=== PATIENT | female | born 1985 | race Caucasian/White ===

== ENCOUNTER 2023-01-24 06:11 | Outpatient (OUT) | payer OTHER, SELFPAY ==
[2023-01-24 06:30] LABS: Basophils Percent Auto 0.7 % (0.2-2.0); Eosinophils Absolute Auto 0.5 10^3/uL (0.0-0.7); Eosinophils Percent Auto 9.2 % (0.9-7.0); Hematocrit 35.8 % (36.0-48.0); Hemoglobin 12.1 g/dL (12.0-16.0); Immature Granulocytes Abs Auto 0.01 10^3/uL (0.00-0.03); Immature Granulocytes Pct Auto 0.2 % (0.0-0.5); Lymphocytes Absolute Auto 1.6 10^3/uL (1.2-3.8); Lymphocytes Percent Auto 29.7 % (20.5-60.0); Mean Corpuscular HGB Conc 33.8 g/dL (29.9-35.2); Mean Corpuscular Hemoglobin 28.1 pg (26.7-34.0); Mean Corpuscular Volume 83.3 fL (81.0-99.0); Mean Platelet Volume 10.2 fL (9.5-13.5); Monocytes Absolute Auto 0.6 10^3/uL (0.3-0.8); Monocytes Percent Auto 10.3 % (1.7-12.0); Neutrophils Absolute Auto 2.7 10^3/uL (1.4-6.5); Neutrophils Percent Auto 49.9 % (43.0-75.0); Platelet Count 285 10^3/uL (150-450); White Blood Count 5.5 10^3/uL (4.0-11.0)
[2023-01-24 08:16] LABS: Estimated Average Glucose 103 mg/dL; Glycohemoglobin A1C 5.2 % (4.5-6.2)
[2023-01-24 09:00] LABS: Alanine Aminotransferase 28 U/L (14-59); Albumin Level 3.6 g/dL (3.4-5.0); Alkaline Phosphatase 59 U/L (46-116); Anion Gap 11.2; Aspartate Amino Transferase 18 U/L (15-37); BUN Creatinine Ratio 13.8; Bilirubin Total 0.1 mg/dL (0.2-1.0); Calcium 8.9 mg/dL (8.5-10.1); Carbon Dioxide 29.3 mmol/L (21.0-32.0); Chloride 103 mmol/L (98-107); Chol HDL Ratio 2.7; Cholesterol 196 mg/dL (<=200); Estimated GFR (African America >60 (>=60); Estimated GFR (Non-African Ame >60 (>=60); Globulin 3.6 g/dL; Glucose 106 mg/dL (74-106); HDL Cholesterol 72 mg/dL (40-60); Potassium 3.5 mmol/L (3.5-5.1); Sodium 140 mmol/L (136-145); Thyroid Stimulating Hormone 2.783 uIU/mL (0.358-3.740); Total Protein 7.2 g/dL (6.4-8.2); Triglycerides 69 mg/dL (<=150); VLDL CHOLESTEROL 13.8 mg/dL
== END 2023-01-24 06:12 | disposition home or self-care (01) ==
LOC: LAB 06:11
PROVIDERS: PCP Internal Medicine; Visit Provider Internal Medicine
DX: Z00.00 Encounter for general adult medical examination without abnormal findings (principal)
CPT/HCPCS: 36415; 80053; 80061; 83036; 84443; 85025

== ENCOUNTER 2023-02-18 09:54 | Outpatient (REF) | payer OTHER, SELFPAY | END 2023-02-18 09:55 | disposition home or self-care (01) | LOC: LAB 09:54 | PROVIDERS: PCP Internal Medicine; Visit Provider Internal Medicine | DX: S01.00XA Unspecified open wound of scalp, initial encounter (principal) | CPT/HCPCS: 87070; 87150; 87186 ==

== ENCOUNTER 2023-03-07 14:06 | Outpatient (OUT) | payer OTHER, SELFPAY ==
--- NOTE | 2023-03-07 14:08 | ECG_ITS ---
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
[2023-03-07 15:30] LABS: Basophils Absolute Auto 0.1 10^3/uL (0.0-0.1); Eosinophils Absolute Auto 0.3 10^3/uL (0.0-0.7); Eosinophils Percent Auto 5.9 % (0.9-7.0); Hematocrit 33.2 % (36.0-48.0); Hemoglobin 11.4 g/dL (12.0-16.0); Immature Granulocytes Abs Auto 0.01 10^3/uL (0.00-0.03); Immature Granulocytes Pct Auto 0.2 % (0.0-0.5); Lymphocytes Absolute Auto 1.3 10^3/uL (1.2-3.8); Lymphocytes Percent Auto 22.8 % (20.5-60.0); Mean Corpuscular HGB Conc 34.3 g/dL (29.9-35.2); Mean Corpuscular Hemoglobin 28.8 pg (26.7-34.0); Mean Corpuscular Volume 83.8 fL (81.0-99.0); Mean Platelet Volume 11.2 fL (9.5-13.5); Monocytes Absolute Auto 0.4 10^3/uL (0.3-0.8); Monocytes Percent Auto 7.5 % (1.7-12.0); Neutrophils Absolute Auto 3.6 10^3/uL (1.4-6.5); Neutrophils Percent Auto 62.6 % (43.0-75.0); Platelet Count 278 10^3/uL (150-450); Red Blood Count 3.96 10^6/uL (4.20-5.40); White Blood Count 5.7 10^3/uL (4.0-11.0)
[2023-03-07 15:43] LABS: Partial Thromboplastin Time 25.1 sec (22.3-36.2); Prothrombin Time 9.3 sec (9.0-11.6)
[2023-03-07 15:45] LABS: INR <0.93
== END 2023-03-07 14:07 | disposition home or self-care (01) ==
LOC: PST 14:07
PROVIDERS: PCP Internal Medicine; Visit Provider Otolaryngology
DX: Z01.810 Encounter for preprocedural cardiovascular examination (principal); Z01.812 Encounter for preprocedural laboratory examination; J34.3 Hypertrophy of nasal turbinates
CPT/HCPCS: 85025; 85610; 85730; 93005

== ENCOUNTER 2023-03-18 06:40 | Day surgery (SDC) | payer OTHER, SELFPAY ==
[2023-03-07 14:29] VITALS: BP 143/88; PULSE 97; RESP 18; TEMP 36.6; O2SAT 96; BMI 28.0
[2023-03-18] VITALS (8 sets, daily range): BP systolic 123–156; BP diastolic 79–106; PULSE 85–108; RESP 12–20; TEMP 36.6; O2SAT 93–98; BMI 27.0
--- NOTE | 2023-03-18 | OP_ITS ---
OPERATION DATE: ??03/18/2023 PRIMARY CARE PHYSICIAN:? Dr. Talbert SURGEON:? Ioana Medina M.D. PREOPERATIVE DIAGNOSIS:? Right inferior turbinate hypertrophy. POSTOPERATIVE DIAGNOSIS:? Right inferior turbinate hypertrophy. PROCEDURE:? Right inferior turbinate submucosal resection. ANESTHESIA:? General endotracheal. COMPLICATIONS:? None. FINDINGS:? Right inferior turbinate hypertrophy with tissue in the anterior most portion of the right inferior turbinate consistent with granulation tissue or a possible papilloma. INDICATION:? This 37-year-old woman presented with right sided nasal obstruction and marked hypertrophy of the right inferior turbinate with abnormal appearing tissue of the anterior most portion of the inferior turbinate.? Patient had a history of rhinoplasty at another institution after a nasal fracture.? This occurred 23 years ago. PROCEDURE:? Patient identified in the holding area and taken back to the OR where she was placed in the supine position.? The table was turned, the head elevated 20 degrees, and the face was draped in a sterile fashion.? Afrin soaked pledgets were placed in the right side of the nose, and after waiting adequate time for decongestion, the nose was copiously irrigated.? Then, the nose was injected with lidocaine 1% with 1:100,000 epinephrine.? After waiting adequate time for hemostasis, a straight cutting ethmoid forcep was used to remove some of the anterior most inferior turbinate to send for separate core pathologic examination.? Then, a caudal elevator was used to create a tunnel along the medial surface of the turbinate bone, and a 2.0 mm microdebrider was used to exenterate the submucosal tissues of the turbinate.? The turbinate was outfractured with a long nasal speculum.? Antibiotic ointment was placed over the anterior most portion of the turbinate and four cottonoids were placed in the right nose to help with hemostasis.? These cottonoids were removed in the recovery room.? The patient was awakened and taken to the recovery room in good condition. HIWOT
[2023-03-18] MEDS: LACTATED RINGER'S SOLUTION 1,000 ML 50 ML IV (07:05)
[2023-03-18] MEDS: LIDOCAINE HCL 1%-EPINEPHRINE 1:100,000 20 ML MDV 10 ML INJ (08:35)
[2023-03-18] MEDS: BACITRACIN OINTMENT 28.4 GM TUBE 1 APPLIC TOPICAL (08:55)
--- NOTE | 2023-03-18 09:26 | PC.NURSE ---
NASAL PACKING IN PLACE; NO DRAINAGE NOTED; ICE PACK TO NOSE
--- NOTE | 2023-03-18 09:36 | PC.NURSE ---
MEDICATED FOR PAIN WITH ORAL MEDICATION ORDERED; MINIMAL RIGHT NASAL BLOODY DRAINAGE NOTED AFTER PACKING REMOVED BY DR. FRAIRE
--- NOTE | 2023-03-18 09:58 | PC.NURSE ---
No active nasal drainage noted
[2023-03-18] MEDS: HYDROMORPHONE HCL 0.5 MG/0.5 ML SYRINGE 0.4 MG IV (10:09)
--- NOTE | 2023-03-18 10:17 | PC.NURSE ---
c/o upper mouth pressure; medicated with IV Dilaudid aas ordered; continuous pulse ox on; no active nasal drainage noted
== END 2023-03-18 10:50 | disposition home or self-care (01) ==
PROVIDERS: PCP Internal Medicine; Visit Provider Otolaryngology
PROC: (CPT 160; principal; 2023-03-18 07:50)
DX: J34.3 Hypertrophy of nasal turbinates (principal); I10 Essential (primary) hypertension; F41.1 Generalized anxiety disorder; Z90.49 Acquired absence of other specified parts of digestive tract; Z90.710 Acquired absence of both cervix and uterus
CPT/HCPCS: 30140; 36415; 88304; 88311; J1170; J2704

== ENCOUNTER 2023-08-22 13:59 | Outpatient (OUT) | payer OTHER, SELFPAY ==
--- NOTE | 2023-08-22 14:01 | FL_ITS ---
The [address] [address] Patient Name: MUNA SAMPSON MRN: [id number] date: 1985 Sex: F Assigned Patient Location: [place] Current Patient Location: [place] Accession/Order Number: [id number] Exam Date: 08/22/2023 14:08 Report Date: 08/22/2023 14:58 At the request of: AMINAH FRAIRE Procedure: FL cineradiography EXAMINATION: FL barium swallow, FL cineradiography HISTORY: Pharyngoesophageal Dysphagia R13.14 COMPARISON: No relevant comparison available. TECHNIQUE: A swallowing evaluation was performed with fluoroscopy in the usual manner. Standard level fluoroscopic mode of operation utilized. The procedure was recorded. The patient was given liquid barium in addition to a barium tablet FINDINGS: ORAL PHASE: Normal deglutition. PHARYNGEAL PHASE: Normal swallowing. ASPIRATION: None. STRUCTURE: Normal. No visible obstruction, stricture, or dilatation. OTHER: Negative. [place] cineradiography IMPRESSION: Normal exam. Electronically authenticated by: BYRON RAY Date: 08/22/2023 14:58
--- NOTE | 2023-08-22 14:01 | FL_ITS ---
The [address] [address] Patient Name: MUNA SAMPSON MRN: [id number] date: 1985 Sex: F Assigned Patient Location: [place] Current Patient Location: [place] Accession/Order Number: [id number] Exam Date: 08/22/2023 14:08 Report Date: 08/22/2023 14:58 At the request of: AMINAH FRAIRE Procedure: FL barium swallow EXAMINATION: FL barium swallow, FL cineradiography HISTORY: Pharyngoesophageal Dysphagia R13.14 COMPARISON: No relevant comparison available. TECHNIQUE: A swallowing evaluation was performed with fluoroscopy in the usual manner. Standard level fluoroscopic mode of operation utilized. The procedure was recorded. The patient was given liquid barium in addition to a barium tablet FINDINGS: ORAL PHASE: Normal deglutition. PHARYNGEAL PHASE: Normal swallowing. ASPIRATION: None. STRUCTURE: Normal. No visible obstruction, stricture, or dilatation. OTHER: Negative. FL/FL barium swallow IMPRESSION: Normal exam. Electronically authenticated by: BYRON RAY Date: 08/22/2023 14:58
== END 2023-08-22 14:00 | disposition home or self-care (01) ==
LOC: FL 13:59
PROVIDERS: PCP Internal Medicine; Visit Provider Otolaryngology
DX: R13.14 Dysphagia, pharyngoesophageal phase (principal)
CPT/HCPCS: 74220; 76120

== ENCOUNTER 2024-03-12 06:38 | Outpatient (OUT) | payer BC, SELFPAY ==
--- OUTSIDE RECORDS SUMMARY | 2024-03-12 06:40 | XMS_ITS | CCD ---
Author Organization [facility] CliniSyct Care Team Providers Care Website Developer Name Role Phone NITISH, DR POSADAS Primary Care Unavailable BALL, DR POSADAS Admitting Unavailable BALL, DR POSADAS Attending Unavailable BALL, DR POSADAS Consulting Unavailable BALL, DR POSADAS Primary Care Unavailable NICOLA, JUAN Attending Unavailable NICOLA, JUAN Consulting Unavailable NICOLA, JUAN Admitting Unavailable BALL, DR POSADAS Consulting Unavailable BALL, DR POSADAS Primary Care Unavailable BALL, DR POSADAS Admitting Unavailable BALL, DR POSADAS Attending Unavailable AMARJIT, DR SHUKLA Attending Unavailable AMARJIT, DR SHUKLA Consulting Unavailable AMARJIT, DR SHUKLA Admitting Unavailable BALL, DR POSADAS Primary Care Unavailable BALL, DR POSADAS Primary Care Unavailable AMARJIT, DR SHUKLA Attending Unavailable AMARJIT, DR SHUKLA Consulting Unavailable AMARJIT, DR SHUKLA Admitting Unavailable Nitish, Merrill Unavailable Joceline Henry Unavailable Nitish MERINO, Merrill Jay Primary Care Provider IOANA FRAIRE Attending Unavailable IOANA FRAIRE Attending Unavailable IOANA FRAIRE Attending Unavailable ABDI MEDRANO Attending Unavailable FREDI NGUYEN Primary Care Unavailable Allergies Allergy Classification Reported Allergen(s) Allergy Type Date of Onset Reaction(s) Facility (1 source) Cephalexin Drug Allergy 12-28-19 16 [facility] Repository (1 source) Morphine Drug Allergy 05-24-20 16 [facility] (13 sources) Cephalexin Drug Allergy 02-14-20 23 GI bleeding [facility] Work Phone: (15 sources) Morphine Drug Allergy 12-09-19 20 GI intolerance [facility] Other (7 sources) Morphine Sulfate (Concentrate) *ANALGESICS - OPIOI Propensity to adverse reactions Unknown [facility] Other (2 sources) Allergies Reconciled Propensity to adverse reactions Unknown [facility] Other (7 sources) Medicinal cephalosporin and acting as antibacterial agent (FN) Drug allergy 06-23-20 Unknown [facility] Other (2 sources) patient allergy list reviewed by nurse or physicia Propensity to adverse reactions 06-24-20 Comment:Done [facility] Other (2 sources) Cephalexin; Translations: [Keflex] Drug Allergy gum swelling Jimenez [facility] Repository (1 source) seasonal/environm ental allergies Propensity to adverse reactions Unknown [facility] Other Medications Current Medications Medication Drug Class(es) Dates Sig (Normalized) Sig (Original) amLODIPine 5 mg oral tablet (13 sources) Dihydropyridine Calcium Channel Geoffrey take 1 tablet by mouth in the morning amLODIPine (Norvasc) 5 MG tablet Take 5 mg by mouth in the morning. 0 Active take 1 tablet by mouth once kat y amLODIPine Besylate 10 MG TAKE 1 TABLET BY MOUTH EVERY DAY for 90 days Active citalopram 40 mg oral tablet (11 sources) Serotonin Reuptake Inhibitor take 1 tablet by mouth in the morning citalopram (CeleXA) 40 MG tablet Take 40 mg by mouth in the morning. 0 Active Claritin-D 24 Hour 10-240 MG (8 sources) Start: 08-02-2022 take 10-240 mg by mouth once daily as needed Claritin-D 24 Hour 10-240 MG 1 tablet as needed Orally Once a day for 30 day(s) Jul, Active estrogens, conjugated (skilled nursing) 1.25 mg oral tablet (13 sources) Estrogen Start: 05-05-2023 take 1 tablet by mouth once daily Premarin 1.25 MG tablet Indications: Acquired absence of both cervix and uterus TAKE 1 TABLET BY MOUTH EVERY DAY FOR 30 DAYS 30 tablet 6 05/05/2023 Active End: 08-20-2023 take 1 tablet by mouth once daily in the morning estrogens, conjugated, (Premarin) 0.625 MG tablet Take 0.625 mg by mouth in the morning. Take daily for 21 days then do not take for 7 days.. 0 08/20/2023 Discontinued (Therapy completed) Premarin 0.625 M G/GM as directed Vaginal Active fluticasone propionate 0.05 mg/actuat metered dose nasal spray (2 sources) Corticosteroid take 2 spray(s) nasal route in the morning fluticasone (Flonase) 50 MCG/ACT nasal spray Administer 2 sprays into each nostril in the morning and 2 sprays before bedtime. Shake gently. Before first use, prime pump. After use, clean tip and replace cap.. 0 Active ketoconazole 20 mg/ml medicated shampoo (5 sources) Azole Antifungal Start: Ketoconazole 2 % Use during shower Externally Twice weekly, for 8 weeks then as needed for 28 days Feb, Active levoFLOXacin 500 mg oral tablet (4 sources) Quinolone Antimicrobial Start: take 1 tablet by mouth every twenty-four hours levoFLOXacin 500 MG 1 tablet Orally Once a day for 7 days Feb, Active 24 hr loratadine 10 mg / pseudoephedrine sulfate 240 mg extended release oral tablet (7 sources) alpha-Adrenergic Agonist Start: take 1 tablet by mouth every twenty-four hours Claritin-D 24 Hour 10-240 MG 1 tablet as needed Orally Once a day for 30 day(s) Jul, Active take 10-240 mg by [facility] every twenty-four hours in the morning loratadine-pseudoephedrine ER (Claritin- D 24 Hour) 10-240 MG 24 hr tablet Take 1 tablet by mouth in the morning. Do not crush, chew, or split. . 0 Active methylPREDNISolone 4 mg oral tablet (2 sources) Corticosteroid Start: 04-15-2023 methylPREDNISo lone 4 MG as directed Orally daily for 6 days Apr, Active triamcinolone acetonide 5 mg/ml topical cream (6 sources) Corticosteroid Start: 04-09-2023 Triamcinolone Acetonide 0.5 % 1 application Externally twice daily for 30 days Mar, Active Triamcinolone Ac etonide 0.5 % 1 application Externally q HS as needed to neck area for 30 days Active Completed/Discontinued Medications Medication Drug Class(es) Dates Sig (Normalized) Sig (Original) azithromycin 250 mg oral tablet (9 sources) Macrolide Antimicrobial Start: 07-17-2022 Azithromycin 250 MG as directed Orally daily for 5 days Jul, Not-Taking [facility] All[facility] Relief-D 10-240 MG (7 sources) take 10-240 mg by mouth once daily [facility] All[facility] Relief-D 10-240 MG TAKE 1 TABLET BY MOUTH EVERY DAY for 30 Not-Taking take 10-240 mg by mouth once susanna ly [facility] All[facility] Relief-D 10-240 MG TAKE 1 TABLET BY MOUTH EVERY DAY for 30 Active hydrocortisone 10 mg/ml / neomycin 3.5 mg/ml / polymyxin b [id number] unt/ml otic suspension (9 sources) Aminoglycoside Antibacterial, Polymyxin-class Antibacterial, Corticosteroid Phmpzodu-Ucgiasbju-Z C 3.5-62840-9 4 drops into affected ear Otic four times daily for 7 days Not-Taking Problems Active Problems Problem Classification Problem Date Documented Date Episodic/Chronic Acute and chronic tonsillitis (7 sources) Acute tonsillitis; Translations: [Acute tonsillitis, unspecified] Episodic Allergic reactions (7 sources) Contact dermatitis due to cosmetics; Translations: [Allergic contact dermatitis due to cosmetics] Episodic Anxiety disorders (20 sources) Generalized anxiety disorder; Translations: [Generalized anxiety disorder] Onset: 3 Resolved: 0 Chronic Esophageal disorders (20 sources) Stricture of esophagus; Translations: [Esophageal obstruction] Onset: 8 Chronic Essential hypertension (20 sources) Essential hypertension; Translations: [Essential (primary) hypertension] Onset: 3 Chronic Immunizations and screening for infectious disease (20 sources) Encounter for screening for human papillomavirus (HPV); Translations: [Encounter for screening for infections with a predominantly sexual mode of transmission] Onset: 9 Episodic Malaise and fatigue (7 sources) Fatigue; Translations: [Other fatigue] Episodic Menstrual disorders (14 sources) Excessive and frequent menstruation; Translations: [Excessive and frequent menstruation with regular cycle] Onset: 8 Chronic Mood disorders (16 sources) Depression; 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] Onset: 8 02-13-2023 Chronic Mycoses (8 sources) Candidiasis; Translations: [Candidiasis, unspecified] Episodic Open wounds of head; neck; and trunk (1 source) Unspecified open wound of scalp, initial encounter Episodic Other ear and sense organ disorders (1 source) Acute actinic otitis externa, right ear Episodic Other endocrine disorders (7 sources) Disorder of endocrine system; Translations: [Endocrine disorder, unspecified] Episodic Other female genital disorders (7 sources) Disorder of female genital system; Translations: [Personal history of other diseases of the female genital tract] Episodic Other female genital disorders (7 sources) Noninflammatory disorder of the vagina; Translations: [Other specified noninflammatory disorders of vagina] Episodic Other gastrointestinal disorders (9 sources) Esophageal dysphagia; Translations: [Other dysphagia] Episodic Other gastrointestinal disorders (1 source) Other dysphagia Episodic Other gastrointestinal disorders (7 sources) Pharyngeal dysphagia; Translations: [Dysphagia, pharyngoesophageal phase] Episodic Other gastrointestinal disorders (3 sources) Dysphagia; Translations: [Dysphagia, unspecified] Onset: 3 02-13-2023 Episodic Other inflammatory condition of skin (3 sources) Seborrheic dermatitis, unspecified Episodic Other nutritional; endocrine; and metabolic disorders (1 source) Overweight Episodic Other upper respiratory disease (11 sources) Allergic rhinitis due to pollen; Translations: [Allergic rhinitis due to pollen] Chronic Other upper respiratory disease (1 source) Allergic rhinitis due to pollen Chronic Other upper respiratory disease (7 sources) Chronic rhinitis; Translations: [Chronic rhinitis] Onset: 9 Chronic Other upper respiratory disease (7 sources) Seasonal allergic rhinitis; Translations: [Other seasonal allergic rhinitis] Onset: 9 Chronic Other upper respiratory disease (14 sources) Allergic rhinitis; Translations: [Other allergic rhinitis] Resolved: 0 Chronic Other upper respiratory disease (9 sources) Nasal obstruction; Translations: [Other specified disorders of nose and nasal sinuses] Episodic Other upper respiratory disease (1 source) Other specified disorders of nose and nasal sinuses Episodic Other upper respiratory disease (7 sources) Hypertrophy of nasal turbinates; Translations: [Hypertrophy of nasal turbinates] Episodic Other upper respiratory infections (7 sources) Chronic sinusitis; Translations: [Chronic sinusitis, unspecified] Chronic Other upper respiratory infections (20 sources) Acute upper respiratory infection, unspecified; Translations: [Acute maxillary sinusitis] Onset: 2 Episodic Otitis media and related conditions (14 sources) Otitis media; Translations: [Otitis media, unspecified, right ear] Episodic Ovarian cyst (7 sources) Cyst of left ovary; Translations: [Unspecified ovarian cyst, left side] Episodic Residual codes; unclassified (7 sources) Obstructive sleep apnea syndrome; Translations: [Obstructive sleep apnea] Onset: 9 Chronic Residual codes; unclassified (14 sources) Tobacco user; Translations: [Tobacco use] Onset: 9 Episodic Residual codes; unclassified (7 sources) Postprocedural state finding; Translations: [Other specified postprocedural states] Episodic Skin and subcutaneous tissue infections (8 sources) Cellulitis of left axilla; Translations: [Cellulitis of left axilla] Episodic Substance-related disorders (20 sources) Tobacco dependence in remission; Translations: [Nicotine dependence, cigarettes, in remission] Onset: 8 Chronic Unclassified (3 sources) CONTACT W/AND (SUSP) EXPOS COVID-19; Translations: [CONTACT W/AND (SUSP) EXPOS COVID-19] Onset: 2 Urinary tract infections (1 source) Urinary tract infectious disease; Translations: [UTI (urinary tract infection)] Episodic Viral infection (7 sources) Herpesviral vesicular dermatitis; Translations: [Herpesviral vesicular dermatitis] Episodic Viral infection (1 source) COVID-19; Translations: [COVID-19] Onset: 2 Past or Other Problems Problem Classification Problem Date Documented Date Episodic/Chronic Abdominal pain (7 sources) Pelvic and perineal pain; Translations: [Pelvic and perineal pain] Resolved: 12-20-2020 Episodic Deficiency and other anemia (7 sources) Anemia; Translations: [Anemia, unspecified] Resolved: 02-02-2019 Episodic Esophageal disorders (4 sources) Esophageal disorders; Translations: [Gastro-esophageal reflux disease with esophagitis, without bleeding] Onset: 06-24-2018 Fluid and electrolyte disorders (7 sources) Hypokalemia; Translations: [Hypokalemia] Onset: 06-23-2018 Resolved: 04-06-2020 Episodic Nonmalignant breast conditions (20 sources) Lump in upper outer quadrant of left breast; Translations: [Unspecified lump in the left breast, upper outer quadrant] Onset: 02-13-2023 Resolved: 02-13-2023 02-13-2023 Episodic Other aftercare (7 sources) History and physical examination, follow-up; Translations: [Encounter for follow-up examination after completed treatment for conditions other than malignant neoplasm] Resolved: 04-06-2020 Episodic Other connective tissue disease (7 sources) Pain in left foot; Translations: [Pain in left foot] Resolved: 04-06-2020 Episodic Other endocrine disorders (4 sources) Endocrine disorder, unspecified; Translations: [ENDOCRINE DISORDER UNSPECIFIED] Onset: 01-22-2022 Episodic Other female genital disorders (7 sources) Abnormal uterine bleeding; Translations: [Abnormal uterine and vaginal bleeding, unspecified] Resolved: 02-02-2019 Chronic Other female genital disorders (1 source) Other specified noninflammatory disorders of vagina; Translations: [OTH SPEC NONINFLAMMATORY D/O VAGINA] Onset: 01-24-2022 Episodic Other nutritional; endocrine; and metabolic disorders (7 sources) Overweight; Translations: [Overweight] Onset: 06-24-2018 Episodic Other nutritional; endocrine; and metabolic disorders (7 sources) Body mass index 25-29 - overweight; Translations: [Body mass index 26.0-26.9, adult] Onset: 06-24-2018 Episodic Other screening for suspected conditions (not mental disorders or infectious disease) (5 sources) Encounter for screening for malignant neoplasm of cervix; Translations: [ENC SCREENING MALIG NEOPLASM CERV] Onset: 01-22-2022 Episodic Other skin disorders (7 sources) Disorder of skin and/or subcutaneous tissue; Translations: [Disorder of the skin and subcutaneous tissue, unspecified] Resolved: 04-06-2020 Episodic Other upper respiratory disease (2 sources) Mass of nose; Translations: [Other specified disorders of nose and nasal sinuses] Onset: 02-13-2023 02-21-2023 Episodic Residual codes; unclassified (7 sources) Acquired absence of ovary; Translations: [Acquired absence of ovaries, unilateral] Resolved: 04-06-2020 Episodic Residual codes; unclassified (2 sources) Acquired absence of cervix and uterus; 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] Onset: 02-13-2023 Resolved: 02-13-2023 02-13-2023 Episodic Sexually transmitted infections (not HIV or hepatitis) (7 sources) Granuloma inguinale; Translations: [Granuloma inguinale] Resolved: 02-02-2019 Episodic Spondylosis; intervertebral disc disorders; other back problems (7 sources) Neck pain; Translations: [Cervicalgia] Resolved: 04-06-2020 Episodic Sprains and strains (7 sources) Neck sprain; Translations: [Strain of muscle, fascia and tendon at neck level, initial encounter] Resolved: 08-18-2020 Episodic Unclassified (1 source) CONTACT W/AND (SUSP) EXPOS COVID-19; Translations: [CONTACT W/AND (SUSP) EXPOS COVID-19] Onset: 07-27-2021 Unclassified (7 sources) Acute candidiasis of vulva and vagina; Translations: [Acute candidiasis of vulva and vagina] Resolved: 12-20-2020 Results Test Name Value Interpretation Reference Range Facility Provider Letteron 12-05-2023 Provider Letter December 05, 2023 JOCELINE SAMPSON [address] [place] [id number] : 1985 Dear Joceline , We have been trying to reach you with no success. It is important that you return our call regarding scheduling a consultation appointment at our office per the referral we received from [place] upon receiving this letter. Also, at the time of your call, please provide us with your current information. Thank you for your prompt attention to this matter. Sincerely, [facility] [phone] Normal [facility] Covid-19 PCR (CVDTBH)on 05-15 SARS-CoV-2 (COVID-19) RNA JAMES+probe Ql (Unsp spec) Not detected Normal NOT DETECTED [facility] Comment on above: Result Comment: When diagnostic testing is negative, the possibility of a false negative should be considered in the context of a patient's recent exposures and the presence of clinical signs and symptoms consistent with SARS-CoV-2. This test is not yet approved or cleared by the [place] FDA. When there are no FDA-approved or cleared tests available, and other criteria are met, FDA can make tests available under an emergency access mechanism called an Emergency Use Authorization (EUA). The EUA for this test is supported by the [employer] of Health and Human Service's declaration that circumstances exist to justify the emergency use of in vitro diagnostics for the detection and/or diagnosis of the virus that causes COVID-19. This EUA will remain in effect for the duration of the COVID-19 declaration justifying emergency of IVDs, unless it is terminated or revoked by the FDA (after which the test may no longer be used). Performed By: #### C VDTB #### [facility] [address] [place] [address] Dr. Clover Nagy INFLUENZA A AND B AGon 06-11 [facility] SEE BELOW Normal [facility] Comment on above: Result Comment: Nega tive for Flu A protein angiten. Infection due to Flu A cannot be ruled out. Flu A angiten in the sample may be below the detection limit of the test. Performed By: #### A 1C #### [facility] [address] [place] [address] Dr. Clover Nagy [facility] SEE BELOW Normal [facility] Comment on above: Result Comment: Nega tive for Flu B protein antigen. Infection due to Flu B cannot be ruled out. Flu B antigen in the sample may be below the detection limit of the test. Performed By: #### A 1C #### [facility] [address] [place] [address] Dr. Clover Nagy INFLUENZA A AG Negative Normal NEGATIVE SEE COMMENT [facility] Comment on above: Performed By: #### A 1C #### [facility] [address] [place] [address] Dr. Clover Nagy INFLUENZA B AG Negative Normal NEGATIVE SEE COMMENT [facility] Comment on above: Performed By: #### A 1C #### [facility] [address] [place] [address] Dr. Clover Nagy INTERNAL CONTROLS Within Normal Limits Normal Wi thin Normal Limits [facility] Comment on above: Performed By: #### A 1C #### [facility] [address] [place] [address] Dr. Clover Nagy CHLAMYDIA/GONOCOCCUS JAMES (SW AB/URINE/PAPon 01-24-2022 Chlamydia trachomatis, JAMES Negative Normal Negative [facility] Comment on above: Performed By: #### A 1C #### [facility] [address] [place] [address] Dr. Clover Nagy Neisseria gonorrhoeae, JAMES Negative Normal Negative [facility] Comment on above: Performed By: #### A 1C #### [facility] [address] [place] [address] Dr. Clover Nagy PAP ACOG PANEL 2: 30 to 65on 01-24-2022 . . Normal [facility] Comment on above: Result Comment: Perf ormed at: WB Performed By: #### [id number] #### [facility] [address] [place] [address] Dr. Clover Nagy Age Gdln ACOG Testing 30-65 [facility] Comment on above: Performed By: #### [id number] #### [facility] [address] [place] [address] Dr. Clover Nagy DIAGNOSIS: Comment [facility] Comment on above: Result Comment: NEGA TIVE FOR INTRAEPITHELIAL LESION OR MALIGNANCY. Performed at: WB Performed By: #### [id number] #### [facility] [address] [place] [address] Dr. Clover Nagy HPV Aptima Negative Normal Negative [facility] Comment on above: Result Comment: This nucleic acid amplification test detects fourteen high-risk HPV types (16,18,31,33,35,39,45,51,52,56,58,59,66,68) without differentiation. Performed at: =G Performed By: #### [id number] #### [facility] [address] [place] [address] Dr. Clover Nagy Methodology: Comment [facility] Comment on above: Result Comment: This liquid based ThinPrep(R) pap test was screened with the use of an image guided system. Performed at: WB Performed By: #### [id number] #### [facility] [address] [place] [address] Dr. Clover Nagy Note: Comment Normal [facility] Comment on above: Result Comment: The Pap smear is a screening test designed to aid in the detection of premalignant and malignant conditions of the uterine cervix. It is not a diagnostic procedure and should not be used as the sole means of detecting cervical cancer. Both false-positive and false-negative reports do occur. . Performed at: WB Performed By: #### [id number] #### [facility] [address] [place] [address] Dr. Clover Nagy Performed by: Comment Normal [facility] Comment on above: Result Comment: Kassi Vallejo, Marketing Operations Consultant (ASCP) Performed at: WB Performed By: #### [id number] #### [facility] [address] [address] [address] Clover Nagy Specimen adequacy: Comment Normal [facility] Comment on above: Result Comment: Sati sfactory for evaluation. No endocervical cells are present. This is consistent with a history of hysterectomy. Performed at: WB Performed By: #### [id number] #### [facility] [address] [address] [address] Clover Nagy ESTRADIOLon 01-23-2022 Estradiol 9.2 pg/mL Normal [facility] Comment on above: Result Comment: Adul t Female: Follicular phase 12.5 - 166.0 Ovulation phase 85.8 - 498.0 Luteal phase 43.8 - 211.0 Postmenopausal <6.0 - 54.7 1st trimester 215.0 - >4300.0 Kishan ECLIA methodology Performed By: #### E TRUPTI #### [facility] [address] [place] [address] Dr. Clover Nagy FSHon 01-23-2022 FSH 95.8 mIU/mL Normal [facility] Comment on above: Result Comment: Adul t Female: Follicular phase 3.5 - 12.5 Ovulation phase 4.7 - 21.5 Luteal phase 1.7 - 7.7 Postmenopausal 25.8 - 134.8 Performed By: #### A 1C #### [facility] [address] [place] [address] Dr. Clover Nagy LUTEINIZING HORMONE (LH)on 0 01-23-2022 LH 48.1 mIU/mL Normal [facility] Comment on above: Result Comment: Adul t Female: Follicular phase 2.4 - 12.6 Ovulation phase 14.0 - 95.6 Luteal phase 1.0 - 11.4 Postmenopausal 7.7 - 58.5 Performed By: #### A 1C #### [facility] [address] [place] [address] Dr. Clover Nagy PROGESTERONEon 01-23-2022 Progesterone 0.1 ng/mL Normal [facility] Comment on above: Result Comment: Foll icular phase 0.1 - 0.9 Luteal phase 1.8 - 23.9 Ovulation phase 0.1 - 12.0 First trimester 11.0 - 44.3 Second trimester 25.4 - 83.3 Third trimester 58.7 - 214.0 Postmenopausal 0.0 - 0.1 Performed By: #### A 1C #### [facility] [address] [place] [address] Dr. Clover Nagy VAGINITIS/VAGINOSIS DNA PROB Shaun 01-23-2022 Lucero species Negative Normal Negative [facility] Comment on above: Performed By: #### V AGINT #### [facility] [address] [place] [address] Dr. Clover Nagy Gardnerella vaginalis Negative Normal Negative [facility] Comment on above: Performed By: #### V AGINT #### [facility] [address] [place] [address] Dr. Clover Nagy Trichomonas vaginalis Negative Normal Negative [facility] Comment on above: Performed By: #### V AGINT #### [facility] [address] [place] [address] Dr. Clover Nagy CBC AUTO DIFFon 01-22-2022 BASO # 0.1 103/ul Normal 0.0-0.1 [facility] Comment on above: Performed By: #### C BC #### [facility] [address] [place] [address] Dr. Clover Nagy Basophils/100 WBC (Bld) 0.9 % Normal 0.2-2.0 [facility] Comment on above: Performed By: #### C BC #### [facility] [address] [place] [address] Dr. Clover Nagy EO # 0.7 103/ul Normal 0.0-0.7 [facility] Comment on above: Performed By: #### C BC #### [facility] [address] [place] [address] Dr. Clover Nagy Eosinophils/100 WBC (Bld) 9.5 % Critically high 0.9-7.0 [facility] Comment on above: Performed By: #### C BC #### [facility] [address] [place] [address] Dr. Clover Nagy Erythrocyte distribution width (RBC) [Ratio] 11.8 % Normal 11.0-15.0 [facility] Comment on above: Performed By: #### C BC #### [facility] [address] [place] [address] Dr. Clover Nagy Hematocrit (Bld) [Volume fraction] 37.0 % Normal 36.0-48.0 [facility] Comment on above: Performed By: #### C BC #### [facility] [address] [place] [address] Dr. Clover Nagy Hemoglobin (Bld) [Mass/Vol] 12.3 g/dL Normal 12.0-16.0 [facility] Comment on above: Performed By: #### C BC #### [facility] [address] [place] [address] Dr. Clover Nagy IG # 0.01 10e3/ul Normal 0.00-0.03 [facility] Comment on above: Performed By: #### C BC #### [facility] [address] [place] [address] Dr. Clover Nagy IG % 0.1 % Normal 0.0-0.5 [facility] Comment on above: Performed By: #### C BC #### [facility] [address] [place] [address] Dr. Clover Nagy LYMPH # 1.2 103/ul Normal 1.2-3.8 [facility] Comment on above: Performed By: #### C BC #### [facility] [address] [place] [address] Dr. Clover Nagy Lymphocytes/100 WBC (Bld) 17.5 % Critically low 20.5-60.0 [facility] Comment on above: Performed By: #### C BC #### [facility] [address] [place] [address] Dr. Clover Nagy MANUAL DIFF REQ NO Normal [facility] Comment on above: Performed By: #### C BC #### [facility] [address] [place] [address] Dr. Clover Nagy MCH (RBC) [Entitic mass] 28.3 pg Normal 26.7-34.0 [facility] Comment on above: Performed By: #### C BC #### [facility] [address] [place] [address] Dr. Clover Nagy MCHC (RBC) [Mass/Vol] 33.2 g/dL Normal 29.9-35.2 [facility] Comment on above: Performed By: #### C BC #### [facility] [address] [place] [address] Dr. Clover Nagy MCV (RBC) [Entitic vol] 85.1 fL Normal 81.0-99.0 [facility] Comment on above: Performed By: #### C BC #### [facility] [address] [place] [address] Dr. Clover Nagy MONO # 0.6 103/ul Normal 0.3-0.8 [facility] Comment on above: Performed By: #### C BC #### [facility] [address] [place] [address] Dr. Clover Nagy Monocytes/100 WBC (Bld) 8.8 % Normal 1.7-12.0 [facility] Comment on above: Performed By: #### C BC #### [facility] [address] [place] [address] Dr. Clover Nagy NEUT # 4.3 103/ul Normal 1.4-6.5 [facility] Comment on above: Performed By: #### C BC #### [facility] [address] [place] [address] Dr. Clover Nagy Neutrophils/100 WBC (Bld) 63.2 % Normal 43.0-75.0 [facility] Comment on above: Performed By: #### C BC #### [facility] [address] [place] [address] Dr. Clover Nagy Platelet mean volume (Bld) [Entitic vol] 10.4 fL Normal 9.5-13.5 [facility] Comment on above: Performed By: #### C BC #### [facility] [address] [place] [address] Dr. Clover Nagy PLT 310 103/ul Normal 150-450 [facility] Comment on above: Performed By: #### C BC #### [facility] [address] [place] [address] Dr. Clover Nagy RBC 4.35 106/ul Normal 4.20-5.40 [facility] Comment on above: Performed By: #### C BC #### [facility] [address] [place] [address] Dr. Clover Nagy WBC 6.8 103/ul Normal 4.0-11.0 [facility] Comment on above: Performed By: #### C BC #### [facility] [address] [place] [address] Dr. Clover Nagy FREE T4on 01-22-2022 Free T4 [Mass/Vol] 1.15 ng/dL Normal 0.76-1.46 [facility] Comment on above: Performed By: #### F T4 #### [facility] [address] [place] [address] Dr. Clover Nagy TSHon 01-22-2022 TSH 2.183 uIU/mL Normal 0.358-3.740 [facility] Comment on above: Performed By: #### A 1C #### [facility] [address] [place] [address] Dr. Clover Nagy CBC AUTO DIFFon 10-26-2021 BASO # 0.0 103/ul Normal 0.0-0.1 [facility] Comment on above: Performed By: #### C BC #### [facility] [address] [place] [address] Dr. Clover Nagy Basophils/100 WBC (Bld) 0.3 % Normal 0.2-2.0 [facility] Comment on above: Performed By: #### C BC #### [facility] [address] [place] [address] Dr. Clover Nagy EO # 0.1 103/ul Normal 0.0-0.7 [facility] Comment on above: Performed By: #### C BC #### [facility] [address] [address] [address] Clover Nagy Eosinophils/100 WBC (Bld) 0.6 % Critically low 0.9-7.0 [facility] Comment on above: Performed By: #### C BC #### [facility] [address] [place] [address] Dr. Clover Nagy Erythrocyte distribution width (RBC) [Ratio] 11.6 % Normal 11.0-15.0 [facility] Comment on above: Performed By: #### C BC #### [facility] [address] [place] [address] Dr. Clover Nagy Hematocrit (Bld) [Volume fraction] 38.0 % Normal 36.0-48.0 [facility] Comment on above: Performed By: #### C BC #### [facility] [address] [place] [address] Dr. Clover Nagy Hemoglobin (Bld) [Mass/Vol] 12.7 g/dL Normal 12.0-16.0 [facility] Comment on above: Performed By: #### C BC #### [facility] [address] [place] [address] Dr. Clover Nagy IG # 0.05 10e3/ul Critically high 0.00-0.03 [facility] Comment on above: Performed By: #### C BC #### [facility] [address] [place] [address] Dr. Clover Nagy IG % 0.5 % Normal 0.0-0.5 [facility] Comment on above: Performed By: #### C BC #### [facility] [address] [place] [address] Dr. Clover Nagy LYMPH # 2.0 103/ul Normal 1.2-3.8 [facility] Comment on above: Performed By: #### C BC #### [facility] [address] [place] [address] Dr. Clover Nagy Lymphocytes/100 WBC (Bld) 20.8 % Normal 20.5-60.0 [facility] Comment on above: Performed By: #### C BC #### [facility] [address] [place] [address] Dr. Clover Nagy MANUAL DIFF REQ NO Normal [facility] Comment on above: Performed By: #### C BC #### [facility] [address] [place] [address] Dr. Clover Nagy MCH (RBC) [Entitic mass] 28.7 pg Normal 26.7-34.0 [facility] Comment on above: Performed By: #### C BC #### [facility] [address] [place] [address] Dr. Clover Nagy MCHC (RBC) [Mass/Vol] 33.4 g/dL Normal 29.9-35.2 [facility] Comment on above: Performed By: #### C BC #### [facility] [address] [place] [address] Dr. Clover Nagy MCV (RBC) [Entitic vol] 85.8 fL Normal 81.0-99.0 [facility] Comment on above: Performed By: #### C BC #### [facility] [address] [place] [address] Dr. Clover aNgy MONO # 0.7 103/ul Normal 0.3-0.8 [facility] Comment on above: Performed By: #### C BC #### [facility] [address] [place] [address] Dr. Clover Nagy Monocytes/100 WBC (Bld) 7.0 % Normal 1.7-12.0 [facility] Comment on above: Performed By: #### C BC #### [facility] [address] [place] [address] Dr. Clover Nagy NEUT # 6.7 103/ul Critically high 1.4-6.5 [facility] Comment on above: Performed By: #### C BC #### [facility] [address] [place] [address] Dr. Clover Nagy Neutrophils/100 WBC (Bld) 70.8 % Normal 43.0-75.0 [facility] Comment on above: Performed By: #### C BC #### [facility] [address] [place] [address] Dr. Clover Nagy Platelet mean volume (Bld) [Entitic vol] 10.3 fL Normal 9.5-13.5 [facility] Comment on above: Performed By: #### C BC #### [facility] [address] [place] [address] Dr. Clover Nagy PLT 433 103/ul Normal 150-450 [facility] Comment on above: Performed By: #### C BC #### [facility] [address] [place] [address] Dr. Clover Nagy RBC 4.43 106/ul Normal 4.20-5.40 [facility] Comment on above: Performed By: #### C BC #### [facility] [address] [place] [address] Dr. Clover Nagy WBC 9.5 103/ul Normal 4.0-11.0 [facility] Comment on above: Performed By: #### C BC #### [facility] [address] [place] [address] Dr. Clover Nagy GLYCOHEMOGLOBIN A1Con 2021 ADA RECOMMENDATION ADA THERAPEUTIC TARGET 6.0 - 7.0 ACTION SUGGESTED > 7.0 Normal [facility] Comment on above: Performed By: #### A 1C #### [facility] [address] [place] [address] Dr. Clover Nagy Glucose [Mass/Vol] 103 mg/dL Normal 74-106 [facility] Comment on above: Performed By: #### A 1C #### [facility] [address] [place] [address] Dr. Clover Nagy Performed By: #### L IPID, CMP, TSH #### [facility] [address] [place] [address] Dr. Clover Nagy HbA1c (Bld) [Mass fraction] 5.2 % Normal <=6.0 [facility] Comment on above: Performed By: #### A 1C #### [facility] [address] [place] [address] Dr. Clover Nagy LIPID PROFILEon 10-26-2021 CHOL-HDL RATIO NORM SEE BELOW Normal [facility] Comment on above: Result Comment: 3.3 - 4.4 LOW RISK 4.4 - 7.1 AVERAGE RISK 7.1 - 11.0 MODERATE RISK >11.0 HIGH RISK Performed By: #### A 1C #### [facility] [address] [address] [address] Clover Nagy Cholesterol [Mass/Vol] 214 mg/dL Critically high <=200 [facility] Comment on above: Performed By: #### A 1C #### [facility] [address] [address] [address] Clover Nagy Cholesterol in HDL [Mass/Vol] 64 mg/dL Critically high 40-60 [facility] Comment on above: Performed By: #### A 1C #### [facility] [address] [address] [address] Clover Nagy Cholesterol in LDL [Mass/Vol] 126.6 mg/dL Normal [facility] Comment on above: Performed By: #### A 1C #### [facility] [address] [address] [address] Clover Nagy Cholesterol.total/Ch olesterol in HDL [Mass ratio] 3.3 {ratio} Normal [facility] Comment on above: Performed By: #### A 1C #### [facility] [address] [address] [address] Clover Nagy HDL NORMAL > or = 60 mg/dl - LO W CARDIOVASCULAR RISK <40 mg/dl - HIGH CARDIOVASCULAR RISK Normal [facility] Comment on above: Performed By: #### A 1C #### [facility] [address] [address] [address] Clover Nagy LDL CALC NORMAL SEE BELOW Normal [facility] Comment on above: Result Comment: <100 mg/dl OPTIMAL 100 - 129 mg/dl NEAR OR ABOVE OPTIMAL 130 - 159 mg/dl BORDERLINE HIGH 160 - 189 mg/dl HIGH >190 mg/dl VERY HIGH Performed By: #### A 1C #### [facility] [address] [address] [address] Clover Nagy Triglyceride [Mass/Vol] 117 mg/dL Normal <=150 [facility] Comment on above: Performed By: #### A 1C #### [facility] [address] [place] [address] Dr. Clover Nagy VLDL CALC 23.4 mg/dL Normal [facility] Comment on above: Performed By: #### A 1C #### [facility] [address] [place] [address] Dr. Clover Nagy PROF 14(COMP METB)on 022 Albumin [Mass/Vol] 3.7 g/dL Normal 3.4-5.0 [facility] Comment on above: Performed By: #### L IPID, CMP, TSH #### [facility] [address] [place] [address] Dr. Clover Nagy Albumin/Globulin [Mass ratio] 0.9 {ratio} Normal [facility] Comment on above: Performed By: #### L IPID, CMP, TSH #### [facility] [address] [place] [address] Dr. Clover Nagy ALP [Catalytic activity/Vol] 76 U/L Normal 46-116 [facility] Comment on above: Performed By: #### L IPID, CMP, TSH #### [facility] [address] [place] [address] Dr. Clover Nagy ALT [Catalytic activity/Vol] 28 U/L Normal 14-59 [facility] Comment on above: Performed By: #### L IPID, CMP, TSH #### [facility] [address] [place] [address] Dr. Clover Nagy Anion gap [Moles/Vol] 11.6 mmol/L Normal [facility] Comment on above: Performed By: #### L IPID, CMP, TSH #### [facility] [address] [place] [address] Dr. Clover Nagy AST [Catalytic activity/Vol] 17 U/L Normal 15-37 [facility] Comment on above: Performed By: #### L IPID, CMP, TSH #### [facility] [address] [place] [address] Dr. Clover Nagy Bilirubin [Mass/Vol] 0.2 mg/dL Normal 0.2-1.3 [facility] Comment on above: Performed By: #### L IPID, CMP, TSH #### [facility] [address] [address] [address] Clover Nagy Calcium [Mass/Vol] 9.0 mg/dL Normal 8.5-10.1 [facility] Comment on above: Performed By: #### L IPID, CMP, TSH #### [facility] [address] [address] [address] Clover Nagy Chloride [Moles/Vol] 100 mmol/L Normal 98-107 [facility] Comment on above: Performed By: #### L IPID, CMP, TSH #### [facility] [address] [place] [address] Dr. Clover Nagy CO2 [Moles/Vol] 27.9 mmol/L Normal 22.0-30.0 [facility] Comment on above: Performed By: #### L IPID, CMP, TSH #### [facility] [address] [place] [address] Dr. Clover Nagy Creatinine [Mass/Vol] 0.72 mg/dL Normal 0.52-1.04 [facility] Comment on above: Performed By: #### L IPID, CMP, TSH #### [facility] [address] [place] [address] Dr. Clover Nagy EGFR-AF LUXEMBOURGER >60 Normal >=60 [facility] Comment on above: Performed By: #### L IPID, CMP, TSH #### [facility] [address] [place] [address] Dr. Clover Nagy EGFR-NON AF LUXEMBOURGER >60 Normal >=60 [facility] Comment on above: Performed By: #### L IPID, CMP, TSH #### [facility] [address] [place] [address] Dr. Clover Nagy Globulin (S) [Mass/Vol] 4.0 g/dL Normal [facility] Comment on above: Performed By: #### L IPID, CMP, TSH #### [facility] [address] [place] [address] Dr. Clover Nagy Potassium [Moles/Vol] 3.5 mmol/L Normal 3.4-5.0 [facility] Comment on above: Performed By: #### L IPID, CMP, TSH #### [facility] [address] [place] [address] Dr. Clover Nagy Protein [Mass/Vol] 7.7 g/dL Normal 6.1-8.2 [facility] Comment on above: Performed By: #### L IPID, CMP, TSH #### [facility] [address] [place] [address] Dr. Clover Nagy Sodium [Moles/Vol] 136 mmol/L Critically low 137-145 [facility] Comment on above: Performed By: #### L IPID, CMP, TSH #### [facility] [address] [place] [address] Dr. Clover Nagy Urea nitrogen [Mass/Vol] 12.0 mg/dL Normal 7.0-18.0 [facility] Comment on above: Performed By: #### L IPID, CMP, TSH #### [facility] [address] [place] [address] Dr. Clover Nagy Urea nitrogen/Creatinine [Mass ratio] 16.7 mg/mg Normal [facility] Comment on above: Performed By: #### L IPID, CMP, TSH #### [facility] [address] [place] [address] Dr. Clover Nagy TSHon 10-26-2021 TSH 1.535 uIU/mL Normal 0.470-4.680 [facility] Comment on above: Performed By: #### A 1C #### [facility] [address] [place] [address] Dr. Clover Nagy TSH RANGE SEE BELOW Normal [facility] Comment on above: Result Comment: <0.3 4 UIU/ml HYPERTHYROID 0.34-5.60 UIU/ml EUTHYROID >5.60 UIU/ml HYPOTHYROID Performed By: #### A 1C #### [facility] [address] [place] [address] Dr. Clover Nagy Covid-19 PCR (CVDTB)on 07-14 SARS-CoV-2 (COVID-19) RNA JAMES+probe Ql (Unsp spec) Detected Critically abnormal NOT DETECTED [facility] Comment on above: Result Comment: This test is not yet approved or cleared by the [place] FDA. When there are no FDA-approved or cleared tests available, and other criteria are met, FDA can make tests available under an emergency access mechanism called an Emergency Use Authorization (EUA). The EUA for this test is supported by the [employer] of Health and Human Service's declaration that circumstances exist to justify the emergency use of in vitro diagnostics for the detection and/or diagnosis of the virus that causes COVID-19. This EUA will remain in effect for the duration of the COVID-19 declaration justifying emergency of IVDs, unless it is terminated or revoked by the FDA (after which the test may no longer be used). Performed By: #### C [facility] #### [facility] [address] [address] [address] Clover Nagy Vital Signs Date Time Vital Sign Value Performing Clinician Facility 08-20-2023 14:18-0500 Body height 165.1 cm Ioana Fraire MD Work Phone: [facility] 08-20-2023 14:18-0500 Body mass index (BMI) [Ratio] 27.96 kg/m2 Ioana Fraire MD Work Phone: [facility] 08-20-2023 14:18-0500 Body weight 76.2 kg Ioana Fraire MD Work Phone: [facility] 08-20-2023 14:18-0500 Diastolic blood pressure 85 mm[Hg] Ioana Fraire MD Work Phone: [facility] 08-20-2023 14:18-0500 Systolic blood pressure 131 mm[Hg] Ioana Fraire MD Work Phone: [facility] 04-15-2023 13:30-0400 Body height 165.1 cm Joceline Henry Other [facility] Other 04-15-2023 13:30-0400 Body mass index (BMI) [Ratio] 27.45 kg/m2 Joceline Henry Other [facility] Other 04-15-2023 13:30-0400 Body weight 74.84 kg Joceline Henry Other [facility] Other 04-15-2023 13:30-0400 Diastolic blood pressure 98 mm[Hg] Joceline Henry Other [facility] Other 04-15-2023 13:30-0400 SaO2% (BldA) [Mass fraction] 98 % Joceline Henry Other [facility] Other 04-15-2023 13:30-0400 Systolic blood pressure 148 mm[Hg] Joceline Henry Other [facility] Other 03-12-2023 15:45-0400 Body height 165.1 cm Merrill Ball Other [facility] Other 03-12-2023 15:45-0400 Body mass index (BMI) [Ratio] 27.74 kg/m2 Merrill Ball Other [facility] Other 03-12-2023 15:45-0400 Body weight 75.62 kg Merrill Ball Other [facility] Other 03-12-2023 15:45-0400 Diastolic blood pressure 89 mm[Hg] Merrill Ball Other [facility] Other 03-12-2023 15:45-0400 Respiratory rate 12 /min Merrill Ball Other [facility] Other 03-12-2023 15:45-0400 Systolic blood pressure 130 mm[Hg] Merrill Ball Other [facility] Other 01-23-2023 11:00-0400 Body height 165.1 cm Merrill Ball Other [facility] Other 01-23-2023 11:00-0400 Body mass index (BMI) [Ratio] 27.55 kg/m2 Merrill Ball Other [facility] Other 01-23-2023 11:00-0400 Body weight 75.12 kg Merrill Ball Other [facility] Other 01-23-2023 11:00-0400 Diastolic blood pressure 92 mm[Hg] Merrill Ball Other [facility] Other 01-23-2023 11:00-0400 Respiratory rate 12 /min Merrill Ball Other [facility] Other 01-23-2023 11:00-0400 Systolic blood pressure 133 mm[Hg] Merrill Ball Other [facility] Other 11-06-2022 11:30-0400 Body height 165.1 cm Merrill Ball Other [facility] Other 11-06-2022 11:30-0400 Body mass index (BMI) [Ratio] 27.82 kg/m2 Merrill Ball Other [facility] Other 11-06-2022 11:30-0400 Body weight 75.84 kg Merrill Ball Other [facility] Other 11-06-2022 11:30-0400 Diastolic blood pressure 98 mm[Hg] Merrill Ball Other [facility] Other 11-06-2022 11:30-0400 Respiratory rate 12 /min Merrill Talbert Other [facility] Other 11-06-2022 11:30-0400 Systolic blood pressure 134 mm[Hg] Merrill Talbert Other [facility] Other Encounters Encounter Date Encounter Type Care Provider Facility Start: 12-03-2023 ambulatory [facility]ED[facility] PAVLOCK [facility] Start: 12-03-2023 End: 12-03-2023 ambulatory ABDI MARCELA Not Available Start: 11-26-2023 End: 11-26-2023 ambulatory IOANA H TIMMIS Not Available Start: 09-16-2023 End: 09-16-2023 ambulatory IOANA H TIMMIS Not Available Start: 08-20-2023 End: 08-20-2023 ambulatory IOANA H TIMMIS Not Available Start: 08-20-2023 End: 08-20-2023 Office outpatient visit 15 minutes Ioana Fraire MD Work Phone: [facility] Comment on above: Pharyngoesophageal d ysphagia (Primary Dx) Start: 08-20-2023 Chart abstracting Ioana pool MD Work Phone: [facility] Start: 04-24-2023 End: 04-24-2023 ambulatory Merrill Talbert Other [facility] Other Start: 04-24-2023 Telephone encounter Merrill Talbert [facility] Start: 04-15-2023 End: 04-15-2023 ambulatory Joceline Henry Other [facility] Other Start: 04-15-2023 Office outpatient vi sit 15 minutes Joceline VALENTINO [facility] Start: 04-09-2023 End: 04-09-2023 ambulatory Merrill Talbert Other [facility] Other Start: 04-09-2023 Telephone encounter Merrill Ball [facility] Start: 03-26-2023 End: 03-26-2023 ambulatory Merrill Ball Other [facility] Other Start: 03-26-2023 Telephone encounter Merrill Ball [facility] Start: 03-12-2023 End: 03-12-2023 ambulatory Merrill Ball Other [facility] Other Start: 03-12-2023 Office outpatient vi sit 15 minutes Merrill Ball [facility] Start: 02-19-2023 End: 02-19-2023 ambulatory Merrill Ball Other [facility] Other Start: 02-19-2023 Telephone encounter Merrill Ball [facility] Start: 02-18-2023 End: 02-18-2023 ambulatory Merrill Ball Other [facility] Other Start: 02-18-2023 Telephone encounter Merrill Ball [facility] Start: 01-27-2023 End: 01-27-2023 ambulatory Merrill Ball Other [facility] Other Start: 01-27-2023 Telephone encounter Merrill Ball [facility] Start: 01-23-2023 End: 01-23-2023 ambulatory Merrill Ball Other [facility] Other Start: 01-23-2023 Encounter for genera l adult medical examination without abnormal findings Merrill Ball [facility] Start: 01-23-2023 Periodic preventive med est patient 18-39 yrs Merrill Ball [facility] Start: 01-01-2023 End: 01-01-2023 ambulatory Merrill Ball Other [facility] Other Start: 01-01-2023 Telephone encounter Merrill Ball [facility] Start: 11-06-2022 End: 11-06-2022 ambulatory Merrill Ball Other [facility] Other Start: 11-06-2022 Office outpatient vi sit 15 minutes [facility] Start: 06-27-2022 Gynecological examin ation normal Merrill Talebrt Other [facility] Other Start: 06-11-2022 End: 06-11-[address] MERRILL TALBERT Facility:[facility] Start: 01-22-2022 End: 01-22-[address] VAZQUEZ OCASIO Facility:[facility] Start: 01-22-2022 Adult health examination Yossi perdomo Nitish Other [facility] Other Start: 01-22-2022 End: 01-23-[address] MERRILL TALBERT Facility:[facility] Start: 10-31-2021 Encounter for genera l adult medical examination without abnormal findings DR MERRILL TALBERT [facility] Start: 10-26-2021 End: 10-27-[address] MERRILL TALBERT Facility:[facility] Start: 10-26-2021 End: 10-27-2021 Encounter for general adult medical examination without abnormal findings DR MERRILL TALBERT Facility:[facility] Start: 07-27-2021 End: 07-27-[address] MERRILL TALBERT Facility:[facility] Start: 07-11-2016 Pre-procedure evalua tion check Merrill Talbert Other [facility] Other Procedures Date Procedure Procedure Detail Performing Clinician Diabetes mellitus screening Merrill Talbert Other End: 04-06-2020 Hysterectomy Merrill Talbert Other Plan of Treatment Date Care Activity Detail Author Start: 08-20-2023 End: 08-20-2023 Patient encounter procedure 08/20/2023 2:20 PM EST Office Visit [facility] [address] [facility] [address] [place] [id number] Ioana Fraire MD [address] [facility] [address] [place] [address] [facility] Start: 03-14-2023 Influenza vaccination Influenza Vacc ine (#1) [facility] Start: 2014 Screening for malign ant neoplasm of cervix [facility] Start: 2005 Screening for malign ant neoplasm of cervix Pap Smear [facility] Immunizations Immunization Date Immunization Notes Care Provider Marlon steiner 05-22-2021 Moderna SARS-CoV-2 Vaccination Ioana Fraire MD Work Phone: [facility] 08-16-2020 COVID-19 Vaccine Moderna - Documentation Purposes Only Merrill Talbert Other [facility] Other 08-10-2020 Moderna SARS-CoV-2 Vaccination Ioana Fraire MD Work Phone: [facility] 07-12-2020 Moderna SARS-CoV-2 Vaccination Ioana Fraire MD Work Phone: [facility] 2020 influenza virus vaccine, unspecified formulation Ioana Fraire MD Work Phone: [facility] 09-13-2015 hepatitis A and hepatitis B vaccine Ioana Fraire MD Work Phone: [facility] 03-31-2015 hepatitis B vaccine, pediatric or pediatric/adolescent dosage Ioana Fraire MD Work Phone: [facility] 02-28-2015 hepatitis B vaccine, pediatric or pediatric/adolescent dosage Ioana Fraire MD Work Phone: [facility] Payers Date Payer Category Payer Medicaid [id number] 2019 Medicaid [employer] [place] [id number] 2019-Present [address] [place] [address] [id number] 1984 Unknown [id number] 1984 Unknown [id number] 1984 Unknown [id number] 1984 Unknown [id number] 1984 Unknown [id number] 1984 Unknown [id number] 1984 Unknown [id number] 1984 Unknown [id number] 1984 Unknown [id number] 1959 Unknown [id number] Social History Date Type Detail Facility Start: 03-26-2023 End: 08-20-2023 Sex Assigned At [facility] Start: 02-21-2023 Tobacco smoking stat [facility] Ex-smoker [facility] End: 11-15-2021 History of tobacco use Current smoker [facility] End: 11-15-2021 History of tobacco use Cigarette Smoker [facility] Start: 02-21-2023 End: 03-26-2023 Cigarettes smoked current (pack per day) - Reported 1 [facility] Start: 02-21-2023 Tobacco use and exposure Smoke less tobacco non-user [facility] Start: 08-20-2023 Alcohol intake Current drinke r of alcohol (finding) [facility] Start: 1985 Sex Assigned At Female [facility] Start: 07-10-2023 Gender identity Identifies as female gender (finding) [facility] How often to you hav e a drink containing alcohol? 2-3 time sa week [facility] How many standard dr inks containing alcohol do you have on a typical day? 1 or 2 [facility] How often do you hav e 6 or more drinks on 1 occasion? Never [facility] Clinical Notes 11-06-2022 to 08-20-2023 Ioana Fraire MD - 08/20/2023 2:20 PM EST Note Date & Type Note Facility 08-20-2023 History of Presen t illness Narrative Subjective Patient ID: Francine Sampson is a 38 y.o. female who presents for Dysphagia. Pt reports she has a 2 mo h/o sensation of food stuck in her throat for a couple hours after eating. Does not regurgitate food. No eval or tx yet Review of Systems All other systems reviewed and are negative. 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 Dysphagia 02/13/2023 Depression (CMS/HCC) 02/13/2023 Schatzki's ring 02/13/2023 MICHELE (generalized anxiety disorder) (CMS/[facility]) 02/13/2023 Resolved Ambulatory Problems Diagnosis Date Noted Acquired absence of both cervix and uterus 02/13/2023 Breast pain in female 02/13/2023 Past Medical History: Diagnosis Date Allergic rhinitis Allergies Asthma (CMS/HCC) Ear problems Fracture of nasal bones Headache Migraine headache (CMS/[facility]) TMJ dysfunction Past Surgical History: Procedure Laterality Date SECTION, CLASSIC 2010 CHOLECYSTECTOMY 2007 EGD 10/05/2020 HYSTERECTOMY LASIK 2013 OOPHORECTOMY 12/02/2019 RHINOPLASTY 2000 SINUS SURGERY 03/18/2023 [facility], Dr. Fraire TOTAL ABDOMINAL HYSTERECTOMY W/ BILATERAL SALPINGOOPHORECTOMY Allergies Allergen Reactions Cephalexin GI bleeding Other Reaction(s): Unknown Morphine GI intolerance Current Outpatient Medications on File Prior to Visit Medication Sig Dispense Refill amLODIPine (Norvasc) 5 MG tablet Take 5 mg by mouth in the morning. citalopram (CeleXA) 40 MG tablet Take 40 mg by mouth in the morning. fluticasone (Flonase) 50 MCG/ACT nasal spray Administer 2 sprays into each nostril in the morning and 2 sprays before bedtime. Shake gently. Before first use, prime pump. After use, clean tip and replace cap.. Premarin 1.25 MG tablet TAKE 1 TABLET BY MOUTH EVERY DAY FOR 30 DAYS 30 tablet 6 loratadine-pseudoephedrine ER (Claritin-D 24 Hour) 10-240 MG 24 hr tablet Take 1 tablet by mouth in the morning. Do not crush, chew, or split. . [DISCONTINUED] estrogens, conjugated, (Premarin) 0.625 MG tablet Take 0.625 mg by mouth in the morning. Take daily for 21 days then do not take for 7 days.. No current facility-administered medications on file prior to visit. Objective Last Recorded Vitals Vitals: 08/20/23 1418 BP: 131/85 ENT Physical Exam Constitutional Appearance: patient appears well-developed, well-nourished and well-groomed, Communication/Voice: communication appropriate for developmental age; vocal quality normal; Assessment/Plan Diagnoses and all orders for this visit: Pharyngoesophageal dysphagia Sx very suspicious for a Zenkers. Bariumesophagram and f/u documented in this encounter [facility] 04-15-2023 Evaluation note Encounter Date Diagnosis Assessment Notes Apr, Seborrheic dermatitis of scalp (ICD-10 - L21.9) Discussed further treatment, discussed oral steroid, pt would like to proceed Take medication as prescribed. Complete all doses of medication, even if sx are no longer present. Pt instructed to take medication with food. Informed pt that medication may make pt feel jittery, hungry and give you extra energy. Medication may also increase blood pressure and increase blood sugar. Pt also advised not to take NSAIDs while using steroids. Call if no improvement and will place referral to Dermatology. Apr, Primary hypertension (ICD-10 - I10) Blood pressure elevated, will adjust medication, start to take 2 of the 5mg tablets and continue to monitor blood pressure and call the office with update on numbers. [facility] Other 09-27-2023 Evaluation note* Encounter Date Diagnosis Assessment Notes Treatment Notes Treatment Clinical Notes Mar, Seborrheic dermatitis of scalp (ICD-10 - L21.9) [facility] Other 08-30-2023 Evaluation note* Encounter Date Diagnosis Assessment Notes Treatment Notes Treatment Clinical Notes Feb, Seborrheic dermatitis of scalp (ICD-10 - L21.9) Instructed on use of topical steroids Ketoconazole shmp twice weekly x 8 wks that as needed Feb, Cellulitis of head except face (ICD-10 - L03.811) Cleanse w soap and water. Hold on antibiotics at this time and treat underlying skin condition [facility] Other 08-08-2023 Evaluation note* Encounter Date Diagnosis Assessment Notes Treatment Notes Treatment Clinical Notes Feb, Open wound of scalp, unspecified open wound type, initial encounter (ICD-10 - S01.00XA) [facility] Other 07-13-2023 Evaluation note* Encounter Date Diagnosis Assessment Notes Treatment Notes Treatment Clinical Notes Jan, Wellness examination (ICD-10 - Z00.00) Healthy diet and exercise. Reviewed age-appropriate preventive testing recommended. Jan, Esophageal dysphagia (ICD-10 - R13.19) Diet instructions, drink water between bites of food, PPI and refer to GI Jan, Lower esophageal ring (Schatzki) (ICD-10 - K22.2) Diet instructions, mechanical soft diet, water between swallows. 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 They are also encouraged to continue exercise to achieve/maintain a normal BMI. Jan, MICHELE (generalized anxiety disorder) (ICD-10 - F41.1) Jan, Overweight (ICD-10 - E66.3) This patient has been instructed on a low-fat, high-fiber diet. They are instructed to reduce calories, portion sizes and snacks. It is recommended that they exercise for 30 minutes, 3-5 times weekly. Jan, Cigarette nicotine dependence in remission (ICD-10 - F17.211) Continue abstinence [facility] Other 04-26-2023 Evaluation note* Encounter Date Diagnosis Assessment Notes Treatment Notes Treatment Clinical Notes Oct, Acute actinic otitis externa of right ear (ICD-10 - H60.511) Keep clean and dry, avoid use of QTips Oct, Seasonal allergic rhinitis due to pollen (ICD-10 - J30.1) Angelica and Flonase recommended as needed [facility] Other Evaluation noteNo InformationNort [employer] Other Evaluation note* Diagnosis Pharyngoesophageal dysphagia- Primary Dysphagia, pharyngoesophageal phase [facility]* Type Description Date Medical History Vaginal discharge Medical History Yeast infection Medical History Adverse reaction to antibiotic Medical History Essential hypertension Medical History Hypertrophy of nasal turbinates Medical History Encounter for screen ing examination for sexually transmitted disease Medical History Nicotine dependence, cigarettes, uncomplicated Medical History Dysphagia, pharyngoesophageal Medical History Fatigue Medical History Depression Medical History Encounter for well woman exam Medical History Hormone imbalance Medical History Breast lump on left side at 1 o' clock position Medical History Possible exposure to STD Medical History Chronic nonseasonal allergic rhi nitis due to pollen Medical History Unspecified Eustachian salpingit is, right ear Medical History Schatzki's ring Medical History MICHELE (generalized anxiety disorde r) Surgical History EGD 10/05/2020 Surgical History oophorectomy 12/02/2019 Surgical History Rhinoplasty 1999 Surgical History JULIANNE/LSO (Hysterectomy) 05/2016 Surgical History C section 2009 Surgical History Lasik 2012 Surgical History Cholecystectomy 2007 Surgical History Essure Procedure 2009 Surgical History Dilation and Currettage of Uter us 2014 Surgical History Laparoscopy with L ovarian cyst removal 2015 [facility] Other History general Narrative - Reported* Type Description Date Medical History Vaginal discharge Medical History Yeast infection Medical History Adverse reaction to antibiotic Medical History Essential hypertension Medical History Hypertrophy of nasal turbinates Medical History Encounter for screen ing examination for sexually transmitted disease Medical History Nicotine dependence, cigarettes, uncomplicated Medical History Dysphagia, pharyngoesophageal Medical History Fatigue Medical History Depression Medical History Encounter for well woman exam Medical History Hormone imbalance Medical History Breast lump on left side at 1 o' clock position Medical History Possible exposure to STD Medical History Chronic nonseasonal allergic rhi nitis due to pollen Medical History Unspecified Eustachian salpingit is, right ear Medical History Schatzki's ring Medical History MICHELE (generalized anxiety disorde r) Surgical History EGD 10/05/2020 Surgical History oophorectomy 12/02/2019 Surgical History Rhinoplasty 2000 Surgical History JULIANNE/LSO (Hysterectomy) 05/2016 Surgical History C section 2009 Surgical History Lasik 2012 Surgical History Cholecystectomy 2007 Surgical History Essure Procedure 2009 Surgical History Dilation and Currettage of Uter us 2014 Surgical History Laparoscopy with L ovarian cyst removal 2016 Hospitalization History see surgical history [facility] Other History general Narrative - Reported* Type Description Date Medical History Vaginal discharge Medical History Yeast infection Medical History Adverse reaction to antibiotic Medical History Essential hypertension Medical History Hypertrophy of nasal turbinates Medical History Encounter for screen ing examination for sexually transmitted disease Medical History Nicotine dependence, cigarettes, uncomplicated Medical History Dysphagia, pharyngoesophageal Medical History Fatigue Medical History Depression Medical History Encounter for well woman exam Medical History Hormone imbalance Medical History Breast lump on left side at 1 o' clock position Medical History Possible exposure to STD Medical History Chronic nonseasonal allergic rhi nitis due to pollen Medical History Unspecified Eustachian salpingit is, right ear Medical History Schatzki's ring Medical History MICHELE (generalized anxiety disorde r) Surgical History EGD 10/05/2020 Surgical History oophorectomy 12/02/2019 Surgical History Rhinoplasty 2000 Surgical History JULIANNE/LSO (Hysterectomy) 05/2016 Surgical History C section 2009 Surgical History Lasik 2012 Surgical History Cholecystectomy 2007 Surgical History Essure Procedure 2009 Surgical History Dilation and Currettage of Uter us 2014 Surgical History Laparoscopy with L ovarian cyst removal 2016 Surgical History Right Inferior Turbinate Resect ion 03/2023 Hospitalization History see surgical history [facility] Other History general Narrative - Reported* Type Description Date Medical History Vaginal discharge Medical History Yeast infection Medical History Adverse reaction to antibiotic Medical History Essential hypertension Medical History Hypertrophy of nasal turbinates Medical History Encounter for screen ing examination for sexually transmitted disease Medical History Nicotine dependence, cigarettes, uncomplicated Medical History Dysphagia, pharyngoesophageal Medical History Fatigue Medical History Depression Medical History Encounter for well woman exam Medical History Hormone imbalance Medical History Breast lump on left side at 1 o' clock position Medical History Possible exposure to STD Medical History Chronic nonseasonal allergic rhi nitis due to pollen Medical History Unspecified Eustachian salpingit is, right ear Medical History Schatzki's ring Medical History MICHELE (generalized anxiety disorde r) Medical History Hx of Yeast Infections Medical History Hx of Allergies Medical History Athletic induced asthma Medical History Hx of post preeclampsia Surgical History EGD 10/05/2020 Surgical History oophorectomy 12/02/2019 Surgical History Rhinoplasty 1999 Surgical History JULIANNE/LSO (Hysterectomy) 05/2016 Surgical History C section 2009 Surgical History Lasik 2012 Surgical History Cholecystectomy 2007 Surgical History Essure Procedure 2009 Surgical History Dilation and Currettage of Uter 2014 Surgical History Laparoscopy with L ovarian cyst removal 2015 Surgical History Right Inferior Turbinate Resect ion 03/2023 Hospitalization History see surgical history [facility] Other Summary Purpose Family History No Family History Records FoundNo Family History Records FoundNo Family History Records Found Advance Directives No Advanced Directives Records FoundNo Advanced Directives Records FoundNo Advanced Directives Records Found Reason for Referral Reason Joceline is being re ferred for chronic right sided nasal obstruction Diagnosis 1 Refractory obstructi on of nasal airway (J34.89) Referral Organization [facility] [employer] gladys Referring Provider First Name Merrill Referring Provider Last Name Nitish Referring Provider Specialty Internal Me dicine Referred Organization Unknown Facility Referred Provider Ioana Fraire Referred Provider Specialty Ear, Nose an d Throat Referral Priority Routine General Notes Joceline is being re ferred for chronic right nasal obstruction. She has a remote hx of nasal fracture. She has been using Claritin D and Flonase NS w/o benefit. She denies fever, chills, purulent nasal d/c or facial pressure. Her examination reveals hypertrophic nasal turbinates w/ mucoid d/c. Reason Joceline is being re ferred for esophageal dysphagia Diagnosis 1 Esophageal dysphagia (R13.19) Diagnosis 2 Lower esophageal rin g (Schatzki) (K22.2) Referral Organization [facility] [employer] Referring Provider First Name Merrill Referring Provider Last Name Nitish Referring Provider Specialty Internal Me dicine Referred Organization [facility] Referred Provider Daniel Quiroz Referred Address [address] [place], [place],[address] Referred Provider Specialty Gastroentero logy Referral Priority Routine General Notes Joceline is being re ferred for esophageal dysphagia. She has a known hx of Schatzki's ring, which required dilatation in 2020. She denies change in appetite, weight loss, heartburn or indigestion. Additional Source Comments INFORMATION SOURCE (unrecogn ized section and content) DATE CREATED AUTHOR 06/15/2022 [facility] DATE CREATED AUTHOR AUTHOR'S ORGANIZ ATION 12/05/2023 [facility] EPIC DATE CREATED AUTHOR AUTHOR'S ORGANIZ ATION 12/06/2023 [facility] REASON FOR VISIT (unrecogniz ed section and content) Reason Comments Dysphagia Care Teams (unrecognized sec tion and content) Website Developer Relationship Specialty Start Date End Date Merrill Talbert MD [address] [place] [id number] PCP - General Internal Medicine 02/21/23 Website Developer Relationship Specialty Start Date End Date Merrill Talbert MD [address] [place] [id number] PCP - General Internal Medicine 02/21/23 FOR RECORDS PERTAINING TO PATIENTS WHO ARE OR HAVE BEEN ENROLLED IN A CHEMICAL DEPENDENCY/SUBSTANCEABUSE PROGRAM, SOME INFORMATION MAY BE OMITTED. This clinical summary was aggregated from multiple sources. Caution should be exercised in using it in the provision of clinical care. This summary normalizes information from multiple sources, and as a consequence, information in this document may materially change the coding, format and clinical context of patient data. In addition, data may be omitted in some cases. CLINICAL DECISIONS SHOULD BE BASED ON THE PRIMARY CLINICAL RECORDS. [employer] provides no warranty or guarantee of the accuracy or completeness of information in this document.
[2024-03-12 06:54] LABS: Basophils Absolute Auto 0.1 10^3/uL (0.0-0.1); Basophils Percent Auto 1.2 % (0.2-2.0); Eosinophils Absolute Auto 0.5 10^3/uL (0.0-0.7); Eosinophils Percent Auto 8.1 % (0.9-7.0); Hematocrit 36.9 % (36.0-48.0); Hemoglobin 12.5 g/dL (12.0-16.0); Lymphocytes Percent Auto 33.5 % (20.5-60.0); Mean Corpuscular HGB Conc 33.9 g/dL (29.9-35.2); Mean Corpuscular Hemoglobin 28.6 pg (26.7-34.0); Mean Corpuscular Volume 84.4 fL (81.0-99.0); Mean Platelet Volume 10.9 fL (9.5-13.5); Monocytes Absolute Auto 0.5 10^3/uL (0.3-0.8); Monocytes Percent Auto 9.1 % (1.7-12.0); Neutrophils Absolute Auto 2.9 10^3/uL (1.4-6.5); Neutrophils Percent Auto 48.1 % (43.0-75.0); Platelet Count 336 10^3/uL (150-450); Red Blood Count 4.37 10^6/uL (4.20-5.40); Red Cell Distribution Width 11.8 % (11.0-15.0); White Blood Count 5.9 10^3/uL (4.0-11.0)
[2024-03-12 07:14] LABS: Estimated Average Glucose 94 mg/dL; Glycohemoglobin A1C 4.9 % (4.5-6.2)
[2024-03-12 07:23] LABS: Alanine Aminotransferase 27 U/L (14-59); Albumin Globulin Ratio 1.1; Albumin Level 3.8 g/dL (3.4-5.0); Alkaline Phosphatase 80 U/L (46-116); Anion Gap 11.6; Aspartate Amino Transferase 19 U/L (15-37); BUN Creatinine Ratio 11.3; Bilirubin Total 0.3 mg/dL (0.2-1.0); Calcium 9.1 mg/dL (8.5-10.1); Carbon Dioxide 31.1 mmol/L (21.0-32.0); Chloride 103 mmol/L (98-107); Chol HDL Ratio 3.1; Cholesterol 215 mg/dL (<=200); Estimated GFR (African America >60 (>=60); Estimated GFR (Non-African Ame >60 (>=60); Globulin 3.5 g/dL; Glucose 94 mg/dL (74-106); HDL Cholesterol 69 mg/dL (40-60); Potassium 3.7 mmol/L (3.5-5.1); Sodium 142 mmol/L (136-145); Thyroid Stimulating Hormone 4.473 uIU/mL (0.358-3.740); Total Protein 7.3 g/dL (6.4-8.2); Triglycerides 72 mg/dL (<=150); VLDL CHOLESTEROL 14.4 mg/dL
== END 2024-03-12 06:39 | disposition home or self-care (01) ==
LOC: LAB 06:38
PROVIDERS: PCP Internal Medicine; Visit Provider Obstetrics & Gynecology
DX: Z00.00 Encounter for general adult medical examination without abnormal findings (principal)
CPT/HCPCS: 36415; 80053; 80061; 83036; 84443; 85025

== ENCOUNTER 2024-03-24 13:29 | Outpatient (REF) | payer BC, SELFPAY ==
[2024-03-24 13:47] LABS: Internal Control Within Normal Limits; Occult Blood Negative
== END 2024-03-24 13:30 | disposition home or self-care (01) ==
LOC: LAB 13:29
PROVIDERS: PCP Internal Medicine; Visit Provider Obstetrics & Gynecology
DX: Z12.11 Encounter for screening for malignant neoplasm of colon (principal); Z12.12 Encounter for screening for malignant neoplasm of rectum
CPT/HCPCS: G0328

== ENCOUNTER 2024-03-29 21:04 | Outpatient (REF) | payer BC, SELFPAY ==
--- OUTSIDE RECORDS SUMMARY | 2024-03-29 21:07 | XMS_ITS | CCD ---
Author Organization [facility] CliniSynv Care Team Providers Care Vendor Management Specialist Name Role Phone NITISH, DR POSADAS Primary [...] AMARJIT, DR SHUKLA Consulting Unavailable AMARJIT, DR HSUKLA Admitting Unavailable Nitish, Merrill Unavailable Joceline Henry Unavailable Nitish MERINO, Merrill Jay Primary Care Provider IOANA FRAIRE Attending Unavailable IOANA FRAIRE Attending Unavailable IOANA FRAIRE Attending Unavailable ABDI MEDRANO Attending Unavailable FREDI NGUYEN Primary Care Unavailable Allergies Allergy Classification Reported Allergen(s) Allergy Type Date of Onset Reaction(s) Facility (1 source) Cephalexin Drug Allergy 12-28-19 16 [facility] Repository (1 source) Morphine Drug Allergy 05-24-20 16 [facility] Repository (13 sources) Cephalexin Drug Allergy 02-14-20 23 GI bleeding [facility] Work Phone: (15 sources) Morphine Drug Allergy 12-09-19 20 GI intolerance [facility] Other (7 sources) Morphine Sulfate (Concentrate) *ANALGESICS - OPIOI Propensity to adverse reactions Unknown [employer] [facility] Other (2 sources) Allergies Reconciled Propensity to adverse reactions Unknown [facility] [facility] Other (7 sources) Medicinal cephalosporin and acting as antibacterial agent (FN) Drug allergy 06-23-20 Unknown [facility] Other (2 sources) patient allergy list reviewed by nurse or physicia Propensity to adverse reactions 06-24-20 Comment:Done [employer] [facility] Other (2 sources) Cephalexin; Translations: [Keflex] Drug Allergy gum swelling [facility] Repository (1 source) seasonal/environm ental allergies Propensity to adverse reactions Unknown [employer] [facility] Other Medications Current Medications Medication Drug Class(es) [...] for 30 day(s) Jul, Active estrogens, conjugated (long term) 1.25 mg oral tablet (13 sources) Estrogen [...] day(s) Jul, Active take 10-240 [facility] twenty-four hours in the morning loratadine-pseudoephedrine [...] / neomycin 3.5 mg/ml / polymyxin b 00883 unt/ml otic suspension (9 sources) Aminoglycoside Antibacterial, Polymyxin-class Antibacterial, Corticosteroid Adxmqufn-Clvmodgtb-A C 3.5-92493-7 4 drops into affected ear Otic four [...] Provider Letter December 05, 2023 JOCELINE SAMPSON [address] [place] [id number] : 1985 Dear Joceline , We have [...] your prompt attention to this matter. Sincerely, [facility] [phone] Normal [facility] Covid-19 PCR (CVDTBH)on 05-15 SARS-CoV-2 (COVID-19) RNA JAMES+probe Ql (Unsp spec) Not detected Normal NOT DETECTED [facility] Comment on above: Result Comment: When diagnostic [...] for this test is supported by the [place] [employer] and [employer] Service's declaration that [...] used). Performed By: #### C VDTB #### [facility] [address] [place] [address] Dr. Clover Nagy INFLUENZA A AND B AGon 06-11 [facility] SEE BELOW Normal [facility] Comment on above: Result Comment: Nega tive for Flu A protein angiten. Infection due to Flu A cannot be ruled out. Flu A angiten in the sample may be below the detection limit of the test. Performed By: #### A 1C #### [facility] [address] [place] [address] Dr. [facility] Normal [facility] Comment on above: Result Comment: Nega tive for Flu B protein antigen. Infection due to Flu B cannot be ruled out. Flu B antigen in the sample may be below the detection limit of the test. Performed By: #### A 1C #### [facility] [address] [place] [address] Dr. Clover Nagy INFLUENZA A AG Negative Normal NEGATIVE SEE COMMENT [facility] Comment on above: Performed By: #### A 1C #### [facility] [address] [place] [address] Dr. Clover Nagy INFLUENZA B AG Negative Normal NEGATIVE SEE COMMENT [facility] Comment on above: Performed By: #### A 1C #### [facility] [address] [place] [address] Dr. Clover Nagy INTERNAL CONTROLS Within Normal Limits Normal Wi thin Normal Limits [facility] Comment on above: Performed By: #### A 1C #### [facility] [address] [place] [address] Dr. Clover Nagy CHLAMYDIA/GONOCOCCUS JAMES (SW AB/URINE/PAPon 01-24-2022 Chlamydia trachomatis, JAMES Negative Normal Negative [facility] Comment on above: Performed By: #### A 1C #### [facility] [address] [place] [address] Dr. Clover Nagy Neisseria gonorrhoeae, JAMES Negative Normal Negative [facility] Comment on above: Performed By: #### A 1C #### [facility] [address] [place] [address] Dr. Clover Nagy PAP ACOG PANEL 2: 30 to 65on 01-24-[address] [facility] Comment on above: Result Comment: Perf ormed at: WB Performed By: #### [id number] #### [facility] [address] [place] [address] Dr. Clover Nagy Age Gdln ACOG Testing 30-65 [facility] Comment on above: Performed By: #### [id number] #### [facility] [address] [place] [address] Dr. Clover Nagy DIAGNOSIS: Comment [facility] Comment on above: Result Comment: NEGA TIVE FOR INTRAEPITHELIAL LESION OR MALIGNANCY. Performed at: WB Performed By: #### [id number] #### [facility] [address] [place] [address] Dr. Clover Nagy HPV Aptima Negative Normal Negative [facility] Comment on above: Result Comment: This nucleic acid amplification test detects fourteen high-risk HPV types (16,18,31,33,35,39,45,51,52,56,58,59,66,68) without differentiation. Performed at: =G Performed By: #### [id number] #### [facility] [address] [place] [address] Dr. Clover Nagy Methodology: Comment [facility] Comment on above: Result Comment: This liquid based ThinPrep(R) pap test was screened with the use of an image guided system. Performed at: WB Performed By: #### [id number] #### [facility] [address] [place] [address] Dr. Clover Nagy Note: Comment Normal [facility] Comment on above: Result Comment: The Pap smear is a screening test designed to aid in the detection of premalignant and malignant conditions of the uterine cervix. It is not a diagnostic procedure and should not be used as the sole means of detecting cervical cancer. Both false-positive and false-negative reports do occur. . Performed at: WB Performed By: #### [id number] #### [facility] [address] [place] [address] Dr. Clover Nagy Performed by: Comment Normal [facility] Comment on above: Result Comment: Kassi Vallejo, Microbiology Lab Manager (ASCP) Performed at: WB Performed By: #### [id number] #### [facility] [address] [address] [address] Clover Nagy Specimen adequacy: Comment Normal [facility] Comment on above: Result Comment: Sati sfactory for evaluation. No endocervical cells are present. This is consistent with a history of hysterectomy. Performed at: WB Performed By: #### [id number] #### [facility] [address] [address] [address] Clover Nagy ESTRADIOLon 01-23-2022 Estradiol 9.2 pg/mL Normal [facility] Comment on above: Result Comment: Adul t Female: Follicular phase 12.5 - 166.0 Ovulation phase 85.8 - 498.0 Luteal phase 43.8 - 211.0 Postmenopausal <6.0 - 54.7 1st trimester 215.0 - >4300.0 Kishan ECLIA methodology Performed By: #### E TRUPTI #### [facility] [address] [place] [address] Dr. Clover Nagy FSHon 01-23-2022 FSH 95.8 mIU/mL Normal [facility] Comment on above: Result Comment: Adul t Female: Follicular phase 3.5 - 12.5 Ovulation phase 4.7 - 21.5 Luteal phase 1.7 - 7.7 Postmenopausal 25.8 - 134.8 Performed By: #### A 1C #### [facility] [address] [place] [address] Dr. Clover Nagy LUTEINIZING HORMONE (LH)on 0 01-23-2022 LH 48.1 mIU/mL Normal [facility] Comment on above: Result Comment: Adul t Female: Follicular phase 2.4 - 12.6 Ovulation phase 14.0 - 95.6 Luteal phase 1.0 - 11.4 Postmenopausal 7.7 - 58.5 Performed By: #### A 1C #### [facility] [address] [place] [address] Dr. Clover Nagy PROGESTERONEon 01-23-2022 Progesterone 0.1 ng/mL Normal [facility] Comment on above: Result Comment: Foll icular phase 0.1 - 0.9 Luteal phase 1.8 - 23.9 Ovulation phase 0.1 - 12.0 First trimester 11.0 - 44.3 Second trimester 25.4 - 83.3 Third trimester 58.7 - 214.0 Postmenopausal 0.0 - 0.1 Performed By: #### A 1C #### [facility] [address] [place] [address] Dr. Clover Nagy VAGINITIS/VAGINOSIS DNA PROB Shaun 01-23-2022 Lucero species Negative Normal Negative [facility] Comment on above: Performed By: #### V AGINT #### [facility] [address] [place] [address] Dr. Clover Nagy Gardnerella vaginalis Negative Normal Negative [facility] Comment on above: Performed By: #### V AGINT #### [facility] [address] [place] [address] Dr. Clover Nagy Trichomonas vaginalis Negative Normal Negative [facility] Comment on above: Performed By: #### V AGINT #### [facility] [address] [place] [address] Dr. Clover Nagy CBC AUTO DIFFon 01-22-2022 BASO # 0.1 103/ul Normal 0.0-0.1 [facility] Comment on above: Performed By: #### C BC #### [facility] [address] [place] [address] Dr. Clover Nagy Basophils/100 WBC (Bld) 0.9 % Normal 0.2-2.0 [facility] Comment on above: Performed By: #### C BC #### [facility] [address] [place] [address] Dr. Clover Nagy EO # 0.7 103/ul Normal 0.0-0.7 [facility] Comment on above: Performed By: #### C BC #### [facility] [address] [place] [address] Dr. Clover Nagy Eosinophils/100 WBC (Bld) 9.5 % Critically high 0.9-7.0 [facility] Comment on above: Performed By: #### C BC #### [facility] [address] [place] [address] Dr. Clover Nagy Erythrocyte distribution width (RBC) [Ratio] 11.8 % Normal 11.0-15.0 [facility] Comment on above: Performed By: #### C BC #### [facility] [address] [place] [address] Dr. Clover Nagy Hematocrit (Bld) [Volume fraction] 37.0 % Normal 36.0-48.0 [facility] Comment on above: Performed By: #### C BC #### [facility] [address] [place] [address] Dr. Clover Nagy Hemoglobin (Bld) [Mass/Vol] 12.3 g/dL Normal 12.0-16.0 [facility] Comment on above: Performed By: #### C BC #### [facility] [address] [place] [address] Dr. Clover Nagy IG # 0.01 10e3/ul Normal 0.00-0.03 [facility] Comment on above: Performed By: #### C BC #### [facility] [address] [place] [address] Dr. Clover Nagy IG % 0.1 % Normal 0.0-0.5 [facility] Comment on above: Performed By: #### C BC #### [facility] [address] [place] [address] Dr. Clover Nagy LYMPH # 1.2 103/ul Normal 1.2-3.8 [facility] Comment on above: Performed By: #### C BC #### [facility] [address] [place] [address] Dr. Clover Nagy Lymphocytes/100 WBC (Bld) 17.5 % Critically low 20.5-60.0 [facility] Comment on above: Performed By: #### C BC #### [facility] [address] [place] [address] Dr. Clover Nagy MANUAL DIFF REQ NO Normal [facility] Comment on above: Performed By: #### C BC #### [facility] [address] [place] [address] Dr. Clover Nagy MCH (RBC) [Entitic mass] 28.3 pg Normal 26.7-34.0 [facility] Comment on above: Performed By: #### C BC #### [facility] [address] [place] [address] Dr. Clover Nagy MCHC (RBC) [Mass/Vol] 33.2 g/dL Normal 29.9-35.2 [facility] Comment on above: Performed By: #### C BC #### [facility] [address] [place] [address] Dr. Clover Nagy MCV (RBC) [Entitic vol] 85.1 fL Normal 81.0-99.0 [facility] Comment on above: Performed By: #### C BC #### [facility] [address] [place] [address] Dr. Clover Nagy MONO # 0.6 103/ul Normal 0.3-0.8 [facility] Comment on above: Performed By: #### C BC #### [facility] [address] [place] [address] Dr. Clover Nagy Monocytes/100 WBC (Bld) 8.8 % Normal 1.7-12.0 [facility] Comment on above: Performed By: #### C BC #### [facility] [address] [place] [address] Dr. Clover Nagy NEUT # 4.3 103/ul Normal 1.4-6.5 [facility] Comment on above: Performed By: #### C BC #### [facility] [address] [place] [address] Dr. Clover Nagy Neutrophils/100 WBC (Bld) 63.2 % Normal 43.0-75.0 [facility] Comment on above: Performed By: #### C BC #### [facility] [address] [place] [address] Dr. Clover Nagy Platelet mean volume (Bld) [Entitic vol] 10.4 fL Normal 9.5-13.5 [facility] Comment on above: Performed By: #### C BC #### [facility] [address] [place] [address] Dr. Clover Nagy PLT 310 103/ul Normal 150-450 [facility] Comment on above: Performed By: #### C BC #### [facility] [address] [place] [address] Dr. Clover Nagy RBC 4.35 106/ul Normal 4.20-5.40 [facility] Comment on above: Performed By: #### C BC #### [facility] [address] [place] [address] Dr. Clover Nagy WBC 6.8 103/ul Normal 4.0-11.0 [facility] Comment on above: Performed By: #### C BC #### [facility] [address] [place] [address] Dr. Clover Nagy FREE T4on 01-22-2022 Free T4 [Mass/Vol] 1.15 ng/dL Normal 0.76-1.46 [facility] Comment on above: Performed By: #### F T4 #### [facility] [address] [place] [address] Dr. Clover Nayg TSHon 01-22-2022 TSH 2.183 uIU/mL Normal 0.358-3.740 [facility] Comment on above: Performed By: #### A 1C #### [facility] [address] [place] [address] Dr. Clover Nagy CBC AUTO DIFFon 10-26-2021 BASO # 0.0 103/ul Normal 0.0-0.1 [facility] Comment on above: Performed By: #### C BC #### [facility] [address] [place] [address] Dr. Clover Nagy Basophils/100 WBC (Bld) 0.3 % Normal 0.2-2.0 [facility] Comment on above: Performed By: #### C BC #### [facility] [address] [place] [address] Dr. Clover Nagy EO # 0.1 103/ul Normal 0.0-0.7 [facility] Comment on above: Performed By: #### C BC #### [facility] [address] [address] [address] Clover Nagy Eosinophils/100 WBC (Bld) 0.6 % Critically low 0.9-7.0 [facility] Comment on above: Performed By: #### C BC #### [facility] [address] [place] [address] Dr. Clover Nagy Erythrocyte distribution width (RBC) [Ratio] 11.6 % Normal 11.0-15.0 [facility] Comment on above: Performed By: #### C BC #### [facility] [address] [place] [address] Dr. Clover Nagy Hematocrit (Bld) [Volume fraction] 38.0 % Normal 36.0-48.0 [facility] Comment on above: Performed By: #### C BC #### [facility] [address] [place] [address] Dr. Clover Nagy Hemoglobin (Bld) [Mass/Vol] 12.7 g/dL Normal 12.0-16.0 [facility] Comment on above: Performed By: #### C BC #### [facility] [address] [place] [address] Dr. Clover Nagy IG # 0.05 10e3/ul Critically high 0.00-0.03 [facility] Comment on above: Performed By: #### C BC #### [facility] [address] [place] [address] Dr. Clover Nagy IG % 0.5 % Normal 0.0-0.5 [facility] Comment on above: Performed By: #### C BC #### [facility] [address] [place] [address] Dr. Clover Nagy LYMPH # 2.0 103/ul Normal 1.2-3.8 [facility] Comment on above: Performed By: #### C BC #### [facility] [address] [place] [address] Dr. Clover Nagy Lymphocytes/100 WBC (Bld) 20.8 % Normal 20.5-60.0 [facility] Comment on above: Performed By: #### C BC #### [facility] [address] [place] [address] Dr. Clover Nagy MANUAL DIFF REQ NO Normal [facility] Comment on above: Performed By: #### C BC #### [facility] [address] [place] [address] Dr. Clover Nagy MCH (RBC) [Entitic mass] 28.7 pg Normal 26.7-34.0 [facility] Comment on above: Performed By: #### C BC #### [facility] [address] [place] [address] Dr. Clover Nagy MCHC (RBC) [Mass/Vol] 33.4 g/dL Normal 29.9-35.2 [facility] Comment on above: Performed By: #### C BC #### [facility] [address] [place] [address] Dr. Clover Nagy MCV (RBC) [Entitic vol] 85.8 fL Normal 81.0-99.0 [facility] Comment on above: Performed By: #### C BC #### [facility] [address] [place] [address] Dr. Clover Nagy MONO # 0.7 103/ul Normal 0.3-0.8 [facility] Comment on above: Performed By: #### C BC #### [facility] [address] [place] [address] Dr. Clover Nagy Monocytes/100 WBC (Bld) 7.0 % Normal 1.7-12.0 [facility] Comment on above: Performed By: #### C BC #### [facility] [address] [place] [address] Dr. Clover Nagy NEUT # 6.7 103/ul Critically high 1.4-6.5 [facility] Comment on above: Performed By: #### C BC #### [facility] [address] [place] [address] Dr. Clover Nagy Neutrophils/100 WBC (Bld) 70.8 % Normal 43.0-75.0 [facility] Comment on above: Performed By: #### C BC #### [facility] [address] [place] [address] Dr. Clover Nagy Platelet mean volume (Bld) [Entitic vol] 10.3 fL Normal 9.5-13.5 [facility] Comment on above: Performed By: #### C BC #### [facility] [address] [place] [address] Dr. Clover Nagy PLT 433 103/ul Normal 150-450 [facility] Comment on above: Performed By: #### C BC #### [facility] [address] [place] [address] Dr. Clover Nagy RBC 4.43 106/ul Normal 4.20-5.40 [facility] Comment on above: Performed By: #### C BC #### [facility] [address] [place] [address] Dr. Clover Nagy WBC 9.5 103/ul Normal 4.0-11.0 [facility] Comment on above: Performed By: #### C BC #### [facility] [address] [place] [address] Dr. Clover Nagy GLYCOHEMOGLOBIN A1Con 2021 ADA RECOMMENDATION ADA THERAPEUTIC TARGET 6.0 - 7.0 ACTION SUGGESTED > 7.[address] [facility] Comment on above: Performed By: #### A 1C #### [facility] [address] [place] [address] Dr. Clover Nagy Glucose [Mass/Vol] 103 mg/dL Normal 74-106 [facility] Comment on above: Performed By: #### A 1C #### [facility] [address] [place] [address] Dr. Clover Nagy Performed By: #### L IPID, CMP, TSH #### [facility] [address] [place] [address] Dr. Clover Nagy HbA1c (Bld) [Mass fraction] 5.2 % Normal <=6.0 [facility] Comment on above: Performed By: #### A 1C #### [facility] [address] [place] [address] Dr. Clover Nagy LIPID PROFILEon 10-26-2021 CHOL-HDL RATIO NORM SEE BELOW Normal [facility] Comment on above: Result Comment: 3.3 - 4.4 LOW RISK 4.4 - 7.1 AVERAGE RISK 7.1 - 11.0 MODERATE RISK >11.0 HIGH RISK Performed By: #### A 1C #### [facility] [address] [address] [address] Clover Nagy Cholesterol [Mass/Vol] 214 mg/dL Critically high <=200 [facility] Comment on above: Performed By: #### A 1C #### [facility] [address] [address] [address] Clover Nagy Cholesterol in HDL [Mass/Vol] 64 mg/dL Critically high 40-60 [facility] Comment on above: Performed By: #### A 1C #### [facility] [address] [address] [address] Clover Nagy Cholesterol in LDL [Mass/Vol] 126.6 mg/dL Normal [facility] Comment on above: Performed By: #### A 1C #### [facility] [address] [address] [address] Clover Nagy Cholesterol.total/Ch olesterol in HDL [Mass ratio] 3.3 {ratio} Normal [facility] Comment on above: Performed By: #### A 1C #### [facility] [address] [address] [address] Clover Nagy HDL NORMAL > or = 60 mg/dl - LO W CARDIOVASCULAR RISK <40 mg/dl - HIGH CARDIOVASCULAR RISK Normal [facility] Comment on above: Performed By: #### A 1C #### [facility] [address] [address] [address] Clover Nagy LDL CALC NORMAL SEE BELOW Normal [facility] Comment on above: Result Comment: <100 mg/dl OPTIMAL 100 - 129 mg/dl NEAR OR ABOVE OPTIMAL 130 - 159 mg/dl BORDERLINE HIGH 160 - 189 mg/dl HIGH >190 mg/dl VERY HIGH Performed By: #### A 1C #### [facility] [address] [address] [address] Clover Nagy Triglyceride [Mass/Vol] 117 mg/dL Normal <=150 [facility] Comment on above: Performed By: #### A 1C #### [facility] [address] [place] [address] Dr. Clover Nagy VLDL CALC 23.4 mg/dL Normal [facility] Comment on above: Performed By: #### A 1C #### [facility] [address] [place] [address] Dr. Clover Nagy PROF 14(COMP METB)on 022 Albumin [Mass/Vol] 3.7 g/dL Normal 3.4-5.0 [facility] Comment on above: Performed By: #### L IPID, CMP, TSH #### [facility] [address] [place] [address] Dr. Clover Nagy Albumin/Globulin [Mass ratio] 0.9 {ratio} Normal [facility] Comment on above: Performed By: #### L IPID, CMP, TSH #### [facility] [address] [place] [address] Dr. Clover Nagy ALP [Catalytic activity/Vol] 76 U/L Normal 46-116 [facility] Comment on above: Performed By: #### L IPID, CMP, TSH #### [facility] [address] [place] [address] Dr. Clover Nagy ALT [Catalytic activity/Vol] 28 U/L Normal 14-59 [facility] Comment on above: Performed By: #### L IPID, CMP, TSH #### [facility] [address] [place] [place] [address] Dr. Clover Nagy Anion gap [Moles/Vol] 11.6 mmol/L Normal [facility] Comment on above: Performed By: #### L IPID, CMP, TSH #### [facility] [address] [place] [address] Dr. Clover Nagy AST [Catalytic activity/Vol] 17 U/L Normal 15-37 [facility] Comment on above: Performed By: #### L IPID, CMP, TSH #### [facility] [address] [place] [address] Dr. Clover Nagy Bilirubin [Mass/Vol] 0.2 mg/dL Normal 0.2-1.3 [facility] Comment on above: Performed By: #### L IPID, CMP, TSH #### [facility] [address] [address] [address] Clover Nagy Calcium [Mass/Vol] 9.0 mg/dL Normal 8.5-10.1 [facility] Comment on above: Performed By: #### L IPID, CMP, TSH #### [facility] [address] [address] [address] Clover Nagy Chloride [Moles/Vol] 100 mmol/L Normal 98-107 [facility] Comment on above: Performed By: #### L IPID, CMP, TSH #### [facility] [address] [place] [address] Dr. Clover Nagy CO2 [Moles/Vol] 27.9 mmol/L Normal 22.0-30.0 [facility] Comment on above: Performed By: #### L IPID, CMP, TSH #### [facility] [address] [place] [address] Dr. Clover Nagy Creatinine [Mass/Vol] 0.72 mg/dL Normal 0.52-1.04 [facility] Comment on above: Performed By: #### L IPID, CMP, TSH #### [facility] [address] [place] [address] Dr. Clover Nagy EGFR-AF AUSTRALIAN >60 Normal >=60 [facility] Comment on above: Performed By: #### L IPID, CMP, TSH #### [facility] [address] [place] [address] Dr. Clover Nagy EGFR-NON AF AUSTRALIAN >60 Normal >=60 [facility] Comment on above: Performed By: #### L IPID, CMP, TSH #### [facility] [address] [place] [address] Dr. Clover Nagy Globulin (S) [Mass/Vol] 4.0 g/dL Normal [facility] Comment on above: Performed By: #### L IPID, CMP, TSH #### [facility] [address] [place] [address] Dr. Clover Nagy Potassium [Moles/Vol] 3.5 mmol/L Normal 3.4-5.0 [facility] Comment on above: Performed By: #### L IPID, CMP, TSH #### [facility] [address] [place] [address] Dr. Clover Nagy Protein [Mass/Vol] 7.7 g/dL Normal 6.1-8.2 [facility] Comment on above: Performed By: #### L IPID, CMP, TSH #### [facility] [address] [place] [address] Dr. Clover Nagy Sodium [Moles/Vol] 136 mmol/L Critically low 137-145 [facility] Comment on above: Performed By: #### L IPID, CMP, TSH #### [facility] [address] [place] [address] Dr. Clover Nagy Urea nitrogen [Mass/Vol] 12.0 mg/dL Normal 7.0-18.0 [facility] Comment on above: Performed By: #### L IPID, CMP, TSH #### [facility] [address] [place] [address] Dr. Clover Nagy Urea nitrogen/Creatinine [Mass ratio] 16.7 mg/mg Normal [facility] Comment on above: Performed By: #### L IPID, CMP, TSH #### [facility] [address] [place] [address] Dr. Clover Nagy TSHon 10-26-2021 TSH 1.535 uIU/mL Normal 0.470-4.680 [facility] Comment on above: Performed By: #### A 1C #### [facility] [address] [place] [address] Dr. Clover Nagy TSH RANGE SEE BELOW Normal [facility] Comment on above: Result Comment: <0.3 4 UIU/ml HYPERTHYROID 0.34-5.60 UIU/ml EUTHYROID >5.60 UIU/ml HYPOTHYROID Performed By: #### A 1C #### [facility] [address] [place] [address] Dr. Clover Nagy Covid-19 PCR (CVDTB)on 07-14 SARS-CoV-2 (COVID-19) RNA JAMES+probe Ql (Unsp spec) Detected Critically abnormal NOT DETECTED [facility] Comment on above: Result Comment: This test is not yet approved or cleared by the [place] FDA. When there are no FDA-approved or cleared tests available, and other criteria are met, FDA can make tests available under an emergency access mechanism called an Emergency Use Authorization (EUA). The EUA for this test is supported by the [place] of [employer] and Human Service's declaration that [...] longer be used). Performed By: #### C [facility] #### [facility] [address] [address] [address] Clover Nagy Vital Signs Date Time Vital Sign Value Performing Clinician Facility 08-20-2023 14:18-0500 Body height 165.1 cm Ioana Fraire MD Work Phone: [facility] 08-20-2023 14:18-0500 Body mass index (BMI) [Ratio] 27.96 kg/m2 Ioana Fraire MD Work Phone: [facility] 08-20-2023 14:18-0500 Body weight 76.2 kg Ioana Fraire MD Work Phone: [facility] 08-20-2023 14:18-0500 Diastolic blood pressure 85 mm[Hg] Ioana Fraire MD Work Phone: [facility] 08-20-2023 14:18-0500 Systolic blood pressure 131 mm[Hg] Ioana Fraire MD Work Phone: [facility] 04-15-2023 13:30-0400 Body height 165.1 cm Joceline Henry Other [facility] Other 04-15-2023 13:30-0400 Body mass index (BMI) [Ratio] 27.45 kg/m2 Joceline Henry Other [facility] Other 04-15-2023 13:30-0400 Body weight 74.84 kg Joceline Henry Other [facility] Other 04-15-2023 13:30-0400 Diastolic blood pressure 98 mm[Hg] Joceline Henry Other [facility] Other 04-15-2023 13:30-0400 SaO2% (BldA) [Mass fraction] 98 % Joceline Henry Other [facility] Other 04-15-2023 13:30-0400 Systolic blood pressure 148 mm[Hg] Joceline Henry Other [facility] Other 03-12-2023 15:45-0400 Body height 165.1 cm Merrill Ball Other [facility] Other 03-12-2023 15:45-0400 Body mass index (BMI) [Ratio] 27.74 kg/m2 Merrill Ball Other [facility] Other 03-12-2023 15:45-0400 Body weight 75.62 kg Merrill Ball Other [facility] Other 03-12-2023 15:45-0400 Diastolic blood pressure 89 mm[Hg] Merrill Ball Other [facility] Other 03-12-2023 15:45-0400 Respiratory rate 12 /min Merrill Ball Other [facility] Other 03-12-2023 15:45-0400 Systolic blood pressure 130 mm[Hg] Merrill Ball Other [facility] Other 01-23-2023 11:00-0400 Body height 165.1 cm Merrill Ball Other [facility] Other 01-23-2023 11:00-0400 Body mass index (BMI) [Ratio] 27.55 kg/m2 Merrill Ball Other [facility] Other 01-23-2023 11:00-0400 Body weight 75.12 kg Merrill Ball Other [facility] Other 01-23-2023 11:00-0400 Diastolic blood pressure 92 mm[Hg] Merrill Ball Other [facility] Other 01-23-2023 11:00-0400 Respiratory rate 12 /min Merrill Ball Other [facility] Other 01-23-2023 11:00-0400 Systolic blood pressure 133 mm[Hg] Merrill Ball Other [facility] Other 11-06-2022 11:30-0400 Body height 165.1 cm Merrill Ball Other [facility] Other 11-06-2022 11:30-0400 Body mass index (BMI) [Ratio] 27.82 kg/m2 Merrill Ball Other [facility] Other 11-06-2022 11:30-0400 Body weight 75.84 kg Merrill Ball Other [facility] Other 11-06-2022 11:30-0400 Diastolic blood pressure 98 mm[Hg] Merrill Ball Other [facility] Other 11-06-2022 11:30-0400 Respiratory rate 12 /min Merrill Talbert Other [facility] Other 11-06-2022 11:30-0400 Systolic blood pressure 134 mm[Hg] Merrill Talbert Other [facility] Other Encounters Encounter Date Encounter Type Care Provider Facility Start: 12-03-2023 [facility] Start: 12-03-2023 End: 12-03-2023 ambulatory ABDI [...] Ioana pool MD Work Phone: [facility] Start: 04-24-2023 End: 04-24-2023 ambulatory Merrill Talbert Other [facility] Other Start: 04-24-2023 Telephone encounter Merrill Talbert [facility] Start: 04-15-2023 End: 04-15-2023 ambulatory Joceline Henry Other [facility] Other Start: 04-15-2023 Office outpatient vi sit 15 minutes Joceline VALENTINO [facility] Start: 04-09-2023 End: 04-09-2023 ambulatory Merrill Talbert Other [facility] Other Start: 04-09-2023 Telephone encounter Merrill Ball [facility] Start: 03-26-2023 End: 03-26-2023 ambulatory Merrill Ball Other [facility] Other Start: 03-26-2023 Telephone encounter Merrill Ball [facility] Start: 03-12-2023 End: 03-12-2023 ambulatory Merrill Ball Other [facility] Other Start: 03-12-2023 Office outpatient vi sit 15 minutes Merrill Ball [facility] Start: 02-19-2023 End: 02-19-2023 ambulatory Merrill Ball Other [facility] Other Start: 02-19-2023 Telephone encounter Merrill Ball [facility] Start: 02-18-2023 End: 02-18-2023 ambulatory Merrill Ball Other [facility] Other Start: 02-18-2023 Telephone encounter Merrill Ball [facility] Start: 01-27-2023 End: 01-27-2023 ambulatory Merrill Ball Other [facility] Other Start: 01-27-2023 Telephone encounter Merrill Ball [facility] Start: 01-23-2023 End: 01-23-2023 ambulatory Merrill Ball Other [facility] Other Start: 01-23-2023 Encounter for genera l adult medical examination without abnormal findings Merrill Ball [facility] Start: 01-23-2023 Periodic preventive med est patient 18-39 yrs Merrill Ball [facility] Start: 01-01-2023 End: 01-01-2023 ambulatory Merrill Ball Other [facility] Other Start: 01-01-2023 Telephone encounter Merrill Ball [facility] Start: 11-06-2022 End: 11-06-2022 ambulatory Merrill Ball Other [facility] Other Start: 11-06-2022 Office outpatient vi sit 15 minutes [facility] Start: 06-27-2022 Gynecological examin ation normal Merrill Talbert Other [facility] Other Start: 06-11-2022 End: 06-11-[address] MERRILL TALBERT Facility:[facility] Start: 01-22-2022 End: 01-22-[address] VAZQUEZ OCASIO Facility:[facility] Start: 01-22-2022 Adult health examination Yossi perdomo Nitish Other [facility] Other Start: 01-22-2022 End: 01-23-[address] MERRILL TALBERT Facility:[facility] Start: 10-31-2021 Encounter for genera l adult medical examination without abnormal findings DR MERRILL TALBERT [facility] Start: 10-26-2021 End: 10-27-[address] MERRILL TALBERT Facility:[facility] Start: 10-26-2021 End: 10-27-2021 Encounter for general adult medical examination without abnormal findings DR MERRILL TALBERT Facility:[facility] Start: 07-27-2021 End: 07-27-[address] MERRILL TALBERT Facility:[facility] Start: 07-11-2016 Pre-procedure evalua tion check Merrill Talbert Other [facility] Other Procedures Date Procedure Procedure Detail Performing Clinician Diabetes mellitus screening Merrill Talbert Other End: 04-06-2020 Hysterectomy Merrill Talbert Other Plan of Treatment Date Care Activity Detail Author Start: 08-20-2023 End: 08-20-2023 Patient encounter procedure 08/20/2023 2:20 PM EST Office Visit [facility] [address] [facility] [address] [place] [id number] Ioana Fraire MD [address] [facility] [address] [place] [address] [facility] Start: 03-14-2023 Influenza vaccination Influenza Vacc ine (#1) [facility] Start: 2014 Screening for malign ant neoplasm of cervix [facility] Start: 2005 Screening for malign ant neoplasm of cervix Pap Smear [facility] Immunizations Immunization Date Immunization Notes Care Provider Marlon steiner 05-22-2021 Moderna SARS-CoV-2 Vaccination Ioana Fraire MD Work Phone: [facility] 08-16-2020 COVID-19 Vaccine Moderna - Documentation Purposes Only Merrill Talbert Other [facility] Other 08-10-2020 Moderna SARS-CoV-2 Vaccination Ioana Fraire MD Work Phone: [facility] 07-12-2020 Moderna SARS-CoV-2 Vaccination Ioana Fraire MD Work Phone: [facility] 2020 influenza virus vaccine, unspecified formulation Ioana Fraire MD Work Phone: [facility] 09-13-2015 hepatitis A and hepatitis B vaccine Ioana Fraire MD Work Phone: [facility] 03-31-2015 hepatitis B vaccine, pediatric or pediatric/adolescent dosage Ioana Fraire MD Work Phone: [facility] 02-28-2015 hepatitis B vaccine, pediatric or pediatric/adolescent dosage Ioana Fraire MD Work Phone: [facility] Payers Date Payer Category Payer Medicaid [id number] 2019 Medicaid [employer] [place] [id number] 2019-Present [address] [place] [address] [id number] 1984 Unknown [id number] 1984 Unknown [id number] 1984 Unknown [id number] 1984 Unknown [id number] 1984 Unknown [id number] 1984 Unknown [id number] 1984 Unknown [id number] 1984 Unknown [id number] 1984 Unknown [id number] 1959 Unknown [id number] Social History Date Type Detail Facility Start: 03-26-2023 End: 08-20-2023 Sex Assigned At [facility] Start: 02-21-2023 Tobacco smoking stat [facility] Ex-smoker [facility] End: 11-15-2021 History of [...] Hyperlipidemia Mother Charlene Sampson Diabetes Mother Charlene Sampson Cancer Mother Charlene Sampson Stroke Mother Charlene Sampson Asthma Child Active Ambulatory Problems Diagnosis Date Noted Hypertension (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) 02/13/2023 Resolved Ambulatory Problems Diagnosis Date Noted Acquired absence of both cervix and uterus 02/13/2023 Breast pain in female 02/13/2023 Past Medical History: Diagnosis Date Allergic rhinitis Allergies Asthma (CMS/HCC) Ear problems Fracture of nasal bones Headache Migraine headache (CMS/[facility]) TMJ dysfunction Past Surgical History: Procedure Laterality Date SECTION, CLASSIC 2010 CHOLECYSTECTOMY 2007 EGD 10/05/2020 HYSTERECTOMY LASIK 2013 OOPHORECTOMY 12/02/2019 RHINOPLASTY 2000 SINUS SURGERY 03/18/2023 [facility], Dr. Fraire TOTAL ABDOMINAL HYSTERECTOMY [...] Bariumesophagram and f/u documented in this encounter [facility] 04-15-2023 Evaluation note Encounter Date Diagnosis Assessment [...] call the office with update on numbers. [facility] Other 09-27-2023 Evaluation note* Encounter Date Diagnosis Assessment Notes Treatment Notes Treatment Clinical Notes Mar, Seborrheic dermatitis of scalp (ICD-10 - L21.9) [facility] Other 08-30-2023 Evaluation note* Encounter Date Diagnosis Assessment Notes Treatment Notes Treatment Clinical Notes Feb, Seborrheic dermatitis of scalp (ICD-10 - L21.9) Instructed on use of topical steroids Ketoconazole shmp twice weekly x 8 wks that as needed Feb, Cellulitis of head except face (ICD-10 - L03.811) Cleanse w soap and water. Hold on antibiotics at this time and treat underlying skin condition [facility] Other 08-08-2023 Evaluation note* Encounter Date Diagnosis Assessment Notes Treatment Notes Treatment Clinical Notes Feb, Open wound of scalp, unspecified open wound type, initial encounter (ICD-10 - S01.00XA) [facility] Other 07-13-2023 Evaluation note* Encounter Date Diagnosis [...] in remission (ICD-10 - F17.211) Continue abstinence [facility] Other 04-26-2023 Evaluation note* Encounter Date Diagnosis Assessment Notes Treatment Notes Treatment Clinical Notes Oct, Acute actinic otitis externa of right ear (ICD-10 - H60.511) Keep clean and dry, avoid use of QTips Oct, Seasonal allergic rhinitis due to pollen (ICD-10 - J30.1) Angelica and Flonase recommended as needed [facility] Other Evaluation noteNo [employer] Other Evaluation note* Diagnosis Pharyngoesophageal dysphagia- Primary [...] Laparoscopy with L ovarian cyst removal 2015 [facility] Other History general Narrative - Reported* Type [...] removal 2016 Hospitalization History see surgical history [facility] Other History general Narrative - Reported* Type [...] ion 03/2023 Hospitalization History see surgical history [facility] Other History general Narrative - Reported* Type [...] ion 03/2023 Hospitalization History see surgical history [facility] Other Summary Purpose Family History No Family History Records FoundNo Family History Records FoundNo Family History Records Found Advance Directives No Advanced Directives Records FoundNo Advanced Directives Records FoundNo Advanced Directives Records Found Reason for Referral Reason Joceline is being re ferred for chronic right sided nasal obstruction Diagnosis 1 Refractory obstructi on of nasal airway (J34.89) Referral Organization [facility] [employer] Referring Provider First Name Merrill Referring [...] esophageal rin g (Schatzki) (K22.2) Referral Organization [facility] [employer] glad[employer] Referring Provider First Name Merrill Referring Provider Last Name Nitish Referring Provider Specialty Internal Me dicine Referred Organization [facility] Referred Provider Daniel Quiroz Referred Address [address] [place], [place],[address] Referred Provider Specialty Gastroentero logy Referral Priority Routine General Notes Joceline is being re ferred for esophageal dysphagia. She has a known hx of Schatzki's ring, which required dilatation in 2020. She denies change in appetite, weight loss, heartburn or indigestion. Additional Source Comments INFORMATION SOURCE (unrecogn ized section and content) DATE CREATED AUTHOR 06/15/2022 [facility] DATE CREATED AUTHOR AUTHOR'S ORGANIZ ATION 12/05/2023 [facility] EPIC DATE CREATED AUTHOR AUTHOR'S ORGANIZ ATION 12/06/2023 [facility] REASON FOR VISIT (unrecogniz ed section and content) Reason Comments Dysphagia Care Teams (unrecognized sec tion and content) Vendor Management Specialist Relationship Specialty Start Date End Date Merrill Talbert MD [address] [place] [id number] PCP - General Internal Medicine 02/21/23 Vendor Management Specialist Relationship Specialty Start Date End Date Merrill Talbert MD [address] [place] [id number] PCP - General Internal Medicine 02/21/23 FOR [...] BE BASED ON THE PRIMARY CLINICAL RECORDS. [employer] provides no warranty or guarantee of the accuracy or completeness of information in this document.
== END 2024-03-29 21:05 | disposition home or self-care (01) ==
LOC: LAB 21:04
PROVIDERS: PCP Internal Medicine; Visit Provider Obstetrics & Gynecology
DX: Z01.419 Encounter for gynecological examination (general) (routine) without abnormal findings (principal)
CPT/HCPCS: 87624; 88175

== ENCOUNTER 2024-03-30 11:37 | Outpatient (OUT) | payer BC, SELFPAY ==
[2024-03-30 15:51] LABS: Free T3 3.29 pg/mL (2.18-3.98); Thyroid Stimulating Hormone 2.045 uIU/mL (0.358-3.740)
[2024-03-30 16:16] LABS: Free T4 1.12 ng/dL (0.76-1.46)
== END 2024-03-30 11:38 | disposition home or self-care (01) ==
LOC: LAB 11:37
PROVIDERS: PCP Internal Medicine; Visit Provider Obstetrics & Gynecology
DX: R79.89 Other specified abnormal findings of blood chemistry (principal); E03.8 Other specified hypothyroidism; N95.1 Menopausal and female climacteric states
CPT/HCPCS: 36415; 82627; 84402; 84403; 84439; 84443; 84479; 84481; 84482

== ENCOUNTER 2024-04-08 12:52 | Outpatient (OUT) | payer BC, SELFPAY ==
--- NOTE | 2024-04-08 12:54 | MM_ITS ---
Patient Name: MUNA SAMPSON MR#: [id number] : 1985 Exam Date: 04/08/2024 Ordering Doctor: DR Yoseph Morales . RADIOLOGY REPORT PROCEDURE: MM TOMOSYNTHESIS DIAGNOSTIC BI, 04/08/2024, 12:56 US BREAST LT LIMITED, 04/08/2024, 13:20 COMPARISON: US BREAST LEFT LIMITED, 04/16/2019. MG MAMM SHERRELL DIAG W CAD, 04/16/2019. INDICATIONS: History Of Left Brest Lump Calculator Name NCI Breast Cancer Risk Assessment Tool 5 Year Breast Cancer Risk 0.30% Lifetime Breast Cancer Risk 6.70% Personal Breast Cancer No Personal Ovarian Cancer No Treatments None Family Cancers Mother with monoclonal gammopathy cancer at age ~60. LOCATION: [facility] BREAST COMPOSITION: The breasts are extremely dense, which lowers the sensitivity of mammography. FINDINGS: DIAGNOSTIC CATEGORY 1--NEGATIVE. RIGHT BREAST: No significant suspicious finding. No significant change has occurred. LEFT BREAST: No significant suspicious finding on mammography and via ultrasound evaluation with specific attention to the area of concern within the upper-outer quadrant. No significant change has occurred. RECOMMENDATIONS: ROUTINE MAMMOGRAM AND CLINICAL EVALUATION IN 12 MONTHS. PLEASE NOTE: A NORMAL MAMMOGRAM DOES NOT EXCLUDE THE POSSIBILITY OF BREAST CANCER. A CLINICALLY SUSPICIOUS PALPABLE LUMP SHOULD BE BIOPSIED. Dictated by: Darren Abreu M.D. on 04/08/2024 at 13:51 Approved by: Darren Abreu M.D. on 04/08/2024 at 13:57
--- OUTSIDE RECORDS SUMMARY | 2024-04-08 13:00 | XMS_ITS | CCD ---
Author Organization [facility]ini[facility] Care Team Providers Care Globe Mounter Name Role Phone NITISH, DR POSADAS Primary [...] DR SHUKLA Admitting Unavailable Nitish, Merrill Unavailable oJceline Henry Unavailable Nitish MERINO, Merrill Jay Primary Care Provider FREDI NGUYEN Primary Care Unavailable IOANA FRAIRE Attending Unavailable IOANA FRAIRE Attending Unavailable IOANA FRAIRE Attending Unavailable ABDI MEDRANO Attending Unavailable VAZQUEZ OCASIO Attending Unavailable Allergies Allergy Classification Reported Allergen(s) Allergy Type Date of Onset Reaction(s) Facility (1 source) Cephalexin Drug Allergy 12-28-19 16 [facility] Repository (1 source) Morphine Drug Allergy 05-24-20 16 [facility] Repository (13 sources) Cephalexin Drug Allergy 02-14-20 23 GI bleeding [facility] Work Phone: (15 sources) Morphine Drug Allergy 12-09-19 20 GI intolerance [employer] Other (7 sources) Morphine Sulfate (Concentrate) *ANALGESICS - OPIOI Propensity to adverse reactions Unknown [employer] Other (2 sources) Allergies Reconciled Propensity to adverse reactions Unknown [employer] Other (7 sources) Medicinal cephalosporin and acting as antibacterial agent (FN) Drug allergy 06-23-20 Unknown [employer] Other (2 sources) patient allergy list reviewed by nurse or physicia Propensity to adverse reactions 06-24-20 Comment:Done [employer] Other (2 sources) Cephalexin; Translations: [Keflex] Drug Allergy gum swelling [facility] Repository (1 source) seasonal/environm ental allergies Propensity to adverse reactions Unknown [employer] Other Medications Current Medications Medication Drug Class(es) [...] for 30 day(s) Jul, Active estrogens, conjugated (fdc) 1.25 mg oral tablet (13 sources) Estrogen [...] day(s) Jul, Active take 10-240 mg by [facility] every twenty-four hours in the morning [...] / neomycin 3.5 mg/ml / polymyxin b 99889 unt/ml otic suspension (9 sources) Aminoglycoside Antibacterial, Polymyxin-class Antibacterial, Corticosteroid Ehmqpedr-Cgkaftiyc-V C 3.5-33839-6 4 drops into affected ear Otic four [...] Provider Letter December 05, 2023 JOCELINE SAMPSON [address] [place] [id number] : 1985 Dear Joceline , We have [...] your prompt attention to this matter. Sincerely, [facility] [phone] Normal [facility] Covid-19 PCR (CVDTBH)on 05-15 SARS-CoV-2 (COVID-19) RNA JAMES+probe Ql (Unsp spec) Not detected Normal NOT DETECTED [facility] Comment on above: Result Comment: [...] for this test is supported by the [place] of [employer] and Human Service's declaration that [...] used). Performed By: #### C VDTB #### [facility] [address] [place] [address] Dr. Clover Nagy INFLUENZA A AND B AGon 06-11 [facility] SEE BELOW Normal [facility] Comment on above: Result Comment: Nega tive for Flu A protein angiten. Infection due to Flu A cannot be ruled out. Flu A angiten in the sample may be below the detection limit of the test. Performed By: #### A 1C #### [facility] [address] [place] [address] Dr. Clover Nag[facility] Normal [facility] Comment on above: Result Comment: Nega tive for Flu B protein antigen. Infection due to Flu B cannot be ruled out. Flu B antigen in the sample may be below the detection limit of the test. Performed By: #### A 1C #### [facility] [address] [place] [address] Dr. Clover Nagy INFLUENZA A AG Negative Normal NEGATIVE SEE COMMENT [facility] Comment on above: Performed By: #### A 1C #### [facility] [address] [place] [address] Dr. Clover Nagy INFLUENZA B AG Negative Normal NEGATIVE SEE COMMENT [facility] Comment on above: Performed By: #### A 1C #### [facility] [address] [place] [address] Dr. Clover Nagy INTERNAL CONTROLS Within Normal Limits Normal Wi thin Normal Limits [facility] Comment on above: Performed By: #### A 1C #### [facility] [address] [place] [address] Dr. Clover Nagy CHLAMYDIA/GONOCOCCUS JAMES (SW AB/URINE/PAPon 01-24-2022 Chlamydia trachomatis, JAMES Negative Normal Negative [facility] Comment on above: Performed By: #### A 1C #### [facility] [address] [place] [address] Dr. Clover Nagy Neisseria gonorrhoeae, JAMES Negative Normal Negative [facility] Comment on above: Performed By: #### A 1C #### [facility] [address] [place] [address] Dr. Clover Nagy PAP ACOG PANEL 2: 30 to 65on 01-24-2022 . . Normal [facility] Comment on above: Result Comment: Perf ormed at: WB Performed By: #### [id number] #### [facility] [address] [place] [address] Dr. Clover Nagy Age Gdln ACOG Testing 30-65 [facility] Comment on above: Performed By: #### [id number] #### [facility] [address] [place] [address] Dr. Clover Nagy DIAGNOSIS: Comment Normal [facility] Comment on above: Result Comment: NEGA TIVE FOR INTRAEPITHELIAL LESION OR MALIGNANCY. Performed at: WB Performed By: #### [id number] #### [facility] [address] [place] [address] Dr. Clover Nagy HPV Aptima Negative Normal Negative [facility] Comment on above: Result Comment: This nucleic acid amplification test detects fourteen high-risk HPV types (16,18,31,33,35,39,45,51,52,56,58,59,66,68) without differentiation. Performed at: =G Performed By: #### [id number] #### [facility] [address] [place] [address] Dr. Clover Nagy Methodology: Comment Normal [facility] Comment on above: Result Comment: This liquid based ThinPrep(R) pap test was screened with the use of an image guided system. Performed at: WB Performed By: #### 4 [id number] #### [facility] [address] [place] [address] Dr. Clover Nagy Note: Comment Normal [facility] Comment on above: Result Comment: The Pap smear is a screening test designed to aid in the detection of premalignant and malignant conditions of the uterine cervix. It is not a diagnostic procedure and should not be used as the sole means of detecting cervical cancer. Both false-positive and false-negative reports do occur. . Performed at: WB Performed By: #### [id number] #### [facility] [address] [address] [address] Clover Nagy Performed by: Comment Normal [facility] Comment on above: Result Comment: Kassi Vallejo, Subsea Engineer (ASCP) Performed at: WB Performed By: #### [id number] #### [facility] [address] [address] [address] Clover Nagy Specimen adequacy: Comment Normal [facility] Comment on above: Result Comment: Sati sfactory for evaluation. No endocervical cells are present. This is consistent with a history of hysterectomy. Performed at: WB Performed By: #### [id number] #### [facility] [address] [address] [address] Clover Nagy ESTRADIOLon 01-23-2022 Estradiol 9.2 pg/mL [facility] Comment on above: Result Comment: Adul t Female: Follicular phase 12.5 - 166.0 Ovulation phase 85.8 - 498.0 Luteal phase 43.8 - 211.0 Postmenopausal <6.0 - 54.7 1st trimester 215.0 - >4300.0 Kishan ECLIA methodology Performed By: #### E TRUPTI #### [facility] [address] [place] [address] Dr. Clover Nagy FSHon 01-23-2022 FSH 95.8 mIU/mL [facility] Comment on above: Result Comment: Adul t Female: Follicular phase 3.5 - 12.5 Ovulation phase 4.7 - 21.5 Luteal phase 1.7 - 7.7 Postmenopausal 25.8 - 134.8 Performed By: #### A 1C #### [facility] [address] [place] [address] Dr. Clover Nagy LUTEINIZING HORMONE (LH)on 0 01-23-2022 LH 48.1 mIU/mL [facility] Comment on above: Result Comment: Adul t Female: Follicular phase 2.4 - 12.6 Ovulation phase 14.0 - 95.6 Luteal phase 1.0 - 11.4 Postmenopausal 7.7 - 58.5 Performed By: #### A 1C #### [facility] [address] [place] [address] Dr. Clover Nagy PROGESTERONEon 01-23-2022 Progesterone 0.1 ng/mL Normal [facility] Comment on above: Result Comment: Foll icular phase 0.1 - 0.9 Luteal phase 1.8 - 23.9 Ovulation phase 0.1 - 12.0 First trimester 11.0 - 44.3 Second trimester 25.4 - 83.3 Third trimester 58.7 - 214.0 Postmenopausal 0.0 - 0.1 Performed By: #### A 1C #### [facility] [address] [place] [address] Dr. Clover Nagy VAGINITIS/VAGINOSIS DNA PROB Shaun 01-23-2022 Lucero species Negative Normal Negative [facility] Comment on above: Performed By: #### V AGINT #### [facility] [address] [place] [address] Dr. Clover Nagy Gardnerella vaginalis Negative Normal Negative [facility] Comment on above: Performed By: #### V AGINT #### [facility] [address] [place] [address] Dr. Clover Nagy Trichomonas vaginalis Negative Normal Negative [facility] Comment on above: Performed By: #### V AGINT #### [facility] [address] [place] [address] Dr. Clover Nagy CBC AUTO DIFFon 01-22-2022 BASO # 0.1 103/ul Normal 0.0-0.1 [facility] Comment on above: Performed By: #### C BC #### [facility] [address] [place] [address] Dr. Clover Nagy Basophils/100 WBC (Bld) 0.9 % Normal 0.2-2.0 [facility] Comment on above: Performed By: #### C BC #### [facility] [address] [place] [address] Dr. Clover Nagy EO # 0.7 103/ul Normal 0.0-0.7 [facility] Comment on above: Performed By: #### C BC #### [facility] [address] [place] [address] Dr. Clover Nagy Eosinophils/100 WBC (Bld) 9.5 % Critically high 0.9-7.0 [facility] Comment on above: Performed By: #### C BC #### [facility] [address] [place] [address] Dr. Clover Nagy Erythrocyte distribution width (RBC) [Ratio] 11.8 % Normal 11.0-15.0 [facility] Comment on above: Performed By: #### C BC #### [facility] [address] [place] [address] Dr. Clover Nagy Hematocrit (Bld) [Volume fraction] 37.0 % Normal 36.0-48.0 [facility] Comment on above: Performed By: #### C BC #### [facility] [address] [place] [address] Dr. Clover Nagy Hemoglobin (Bld) [Mass/Vol] 12.3 g/dL Normal 12.0-16.0 [facility] Comment on above: Performed By: #### C BC #### [facility] [address] [place] [address] Dr. Clover Nagy IG # 0.01 10e3/ul Normal 0.00-0.03 [facility] Comment on above: Performed By: #### C BC #### [facility] [address] [place] [address] Dr. Clover Nagy IG % 0.1 % Normal 0.0-0.5 [facility] Comment on above: Performed By: #### C BC #### [facility] [address] [place] [address] Dr. Clover Nagy LYMPH # 1.2 103/ul Normal 1.2-3.8 [facility] Comment on above: Performed By: #### C BC #### [facility] [address] [place] [address] Dr. Clover Nagy Lymphocytes/100 WBC (Bld) 17.5 % Critically low 20.5-60.0 [facility] Comment on above: Performed By: #### C BC #### [facility] [address] [place] [address] Dr. Clover Nagy MANUAL DIFF REQ NO Normal [facility] Comment on above: Performed By: #### C BC #### [facility] [address] [address] [address] Clover Nagy MCH (RBC) [Entitic mass] 28.3 pg Normal 26.7-34.0 [facility] Comment on above: Performed By: #### C BC #### [facility] [address] [place] [address] Dr. Clover Nagy MCHC (RBC) [Mass/Vol] 33.2 g/dL Normal 29.9-35.2 [facility] Comment on above: Performed By: #### C BC #### [facility] [address] [place] [address] Dr. Clover Nagy MCV (RBC) [Entitic vol] 85.1 fL Normal 81.0-99.0 [facility] Comment on above: Performed By: #### C BC #### [facility] [address] [place] [address] Dr. Clover Nagy MONO # 0.6 103/ul Normal 0.3-0.8 [facility] Comment on above: Performed By: #### C BC #### [facility] [address] [place] [address] Dr. Clover Nagy Monocytes/100 WBC (Bld) 8.8 % Normal 1.7-12.0 [facility] Comment on above: Performed By: #### C BC #### [facility] [address] [place] [address] Dr. Clover Nagy NEUT # 4.3 103/ul Normal 1.4-6.5 [facility] Comment on above: Performed By: #### C BC #### [facility] [address] [place] [address] Dr. Clover Nagy Neutrophils/100 WBC (Bld) 63.2 % Normal 43.0-75.0 [facility] Comment on above: Performed By: #### C BC #### [facility] [address] [place] [address] Dr. Clover Nagy Platelet mean volume (Bld) [Entitic vol] 10.4 fL Normal 9.5-13.5 [facility] Comment on above: Performed By: #### C BC #### [facility] [address] [place] [address] Dr. Clover Nagy PLT 310 103/ul Normal 150-450 [facility] Comment on above: Performed By: #### C BC #### [facility] [address] [place] [address] Dr. Clover Nagy RBC 4.35 106/ul Normal 4.20-5.40 [facility] Comment on above: Performed By: #### C BC #### [facility] [address] [place] [address] Dr. Clover Nagy WBC 6.8 103/ul Normal 4.0-11.0 [facility] Comment on above: Performed By: #### C BC #### [facility] [address] [place] [address] Dr. Clover Nagy FREE T4on 01-22-2022 Free T4 [Mass/Vol] 1.15 ng/dL Normal 0.76-1.46 [facility] Comment on above: Performed By: #### F T4 #### [facility] [address] [place] [address] Dr. Clover Nagy TSHon 01-22-2022 TSH 2.183 uIU/mL Normal 0.358-3.740 [facility] Comment on above: Performed By: #### A 1C #### [facility] [address] [place] [address] Dr. Clover Nagy CBC AUTO DIFFon 10-26-2021 BASO # 0.0 103/ul Normal 0.0-0.1 [facility] Comment on above: Performed By: #### C BC #### [facility] [address] [place] [address] Dr. Clover Nagy Basophils/100 WBC (Bld) 0.3 % Normal 0.2-2.0 [facility] Comment on above: Performed By: #### C BC #### [facility] [address] [place] [address] Dr. Clover Nagy EO # 0.1 103/ul Normal 0.0-0.7 [facility] Comment on above: Performed By: #### C BC #### [facility] [address] [place] [address] Dr. Clover Nagy Eosinophils/100 WBC (Bld) 0.6 % Critically low 0.9-7.0 [facility] Comment on above: Performed By: #### C BC #### [facility] [address] [place] [address] Dr. Clover Nagy Erythrocyte distribution width (RBC) [Ratio] 11.6 % Normal 11.0-15.0 [facility] Comment on above: Performed By: #### C BC #### [facility] [address] [place] [address] Dr. Clover Nagy Hematocrit (Bld) [Volume fraction] 38.0 % Normal 36.0-48.0 [facility] Comment on above: Performed By: #### C BC #### [facility] [address] [place] [address] Dr. Clover Nagy Hemoglobin (Bld) [Mass/Vol] 12.7 g/dL Normal 12.0-16.0 [facility] Comment on above: Performed By: #### C BC #### [facility] [address] [place] [address] Dr. Clover Nagy IG # 0.05 10e3/ul Critically high 0.00-0.03 [facility] Comment on above: Performed By: #### C BC #### [facility] [address] [place] [address] Dr. Clover Nagy IG % 0.5 % Normal 0.0-0.5 [facility] Comment on above: Performed By: #### C BC #### [facility] [address] [place] [address] Dr. Clover Nagy LYMPH # 2.0 103/ul Normal 1.2-3.8 [facility] Comment on above: Performed By: #### C BC #### [facility] [address] [place] [address] Dr. Clover Nagy Lymphocytes/100 WBC (Bld) 20.8 % Normal 20.5-60.0 [facility] Comment on above: Performed By: #### C BC #### [facility] [address] [place] [address] Dr. Clover Nagy MANUAL DIFF REQ NO Normal [facility] Comment on above: Performed By: #### C BC #### [facility] [address] [place] [address] Dr. Clover Nagy MCH (RBC) [Entitic mass] 28.7 pg Normal 26.7-34.0 [facility] Comment on above: Performed By: #### C BC #### [facility] [address] [place] [address] Dr. Clover Nagy MCHC (RBC) [Mass/Vol] 33.4 g/dL Normal 29.9-35.2 [facility] Comment on above: Performed By: #### C BC #### [facility] [address] [place] [address] Dr. Clover Nagy MCV (RBC) [Entitic vol] 85.8 fL Normal 81.0-99.0 [facility] Comment on above: Performed By: #### C BC #### [facility] [address] [place] [address] Dr. Clover Nagy MONO # 0.7 103/ul Normal 0.3-0.8 [facility] Comment on above: Performed By: #### C BC #### [facility] [address] [place] [address] Dr. Clover Nagy Monocytes/100 WBC (Bld) 7.0 % Normal 1.7-12.0 [facility] Comment on above: Performed By: #### C BC #### [facility] [address] [place] [address] Dr. Clover Nagy NEUT # 6.7 103/ul Critically high 1.4-6.5 [facility] Comment on above: Performed By: #### C BC #### [facility] [address] [place] [address] Dr. Clover Nagy Neutrophils/100 WBC (Bld) 70.8 % Normal 43.0-75.0 [facility] Comment on above: Performed By: #### C BC #### [facility] [address] [address] [address] Clover Nagy Platelet mean volume (Bld) [Entitic vol] 10.3 fL Normal 9.5-13.5 [facility] Comment on above: Performed By: #### C BC #### [facility] [address] [address] [address] Clover Nagy PLT 433 103/ul Normal 150-450 [facility] Comment on above: Performed By: #### C BC #### [facility] [address] [place] [address] Dr. Clover Nagy RBC 4.43 106/ul Normal 4.20-5.40 [facility] Comment on above: Performed By: #### C BC #### [facility] [address] [place] [address] Dr. Clover Nagy WBC 9.5 103/ul Normal 4.0-11.0 [facility] Comment on above: Performed By: #### C BC #### [facility] [address] [place] [address] Dr. Clover Nagy GLYCOHEMOGLOBIN A1Con 2021 ADA RECOMMENDATION ADA THERAPEUTIC TARGET 6.0 - 7.0 ACTION SUGGESTED > 7.0 Normal [facility] Comment on above: Performed By: #### A 1C #### [facility] [address] [place] [address] Dr. Clover Nagy Glucose [Mass/Vol] 103 mg/dL Normal 74-106 [facility] Comment on above: Performed By: #### A 1C #### [facility] [address] [place] [address] Dr. Clover Nagy Performed By: #### L IPID, CMP, TSH #### [facility] [address] [place] [address] Dr. Clover Nagy HbA1c (Bld) [Mass fraction] 5.2 % Normal <=6.0 [facility] Comment on above: Performed By: #### A 1C #### [facility] [address] [place] [address] Dr. Clover Nagy LIPID PROFILEon 10-26-2021 CHOL-HDL RATIO NORM SEE BELOW Normal [facility] Comment on above: Result Comment: 3.3 - 4.4 LOW RISK 4.4 - 7.1 AVERAGE RISK 7.1 - 11.0 MODERATE RISK >11.0 HIGH RISK Performed By: #### A 1C #### [facility] [address] [address] [address] Clover Nagy Cholesterol [Mass/Vol] 214 mg/dL Critically high <=200 [facility] Comment on above: Performed By: #### A 1C #### [facility] [address] [address] [address] Clover Nagy Cholesterol in HDL [Mass/Vol] 64 mg/dL Critically high 40-60 [facility] Comment on above: Performed By: #### A 1C #### [facility] [address] [address] [address] Clover Nagy Cholesterol in LDL [Mass/Vol] 126.6 mg/dL Normal [facility] Comment on above: Performed By: #### A 1C #### [facility] [address] [address] [address] Clover Nagy Cholesterol.total/Ch olesterol in HDL [Mass ratio] 3.3 {ratio} Normal [facility] Comment on above: Performed By: #### A 1C #### [facility] [address] [address] [address] Clover Nagy HDL NORMAL > or = 60 mg/dl - LO W CARDIOVASCULAR RISK <40 mg/dl - HIGH CARDIOVASCULAR RISK Normal [facility] Comment on above: Performed By: #### A 1C #### [facility] [address] [address] [address] Clover Nagy LDL CALC NORMAL SEE BELOW Normal [facility] Comment on above: Result Comment: <100 mg/dl OPTIMAL 100 - 129 mg/dl NEAR OR ABOVE OPTIMAL 130 - 159 mg/dl BORDERLINE HIGH 160 - 189 mg/dl HIGH >190 mg/dl VERY HIGH Performed By: #### A 1C #### [facility] [address] [address] [address] Clover Nagy Triglyceride [Mass/Vol] 117 mg/dL Normal <=150 [facility] Comment on above: Performed By: #### A 1C #### [facility] [address] [place] [address] Dr. Clover Nagy VLDL CALC 23.4 mg/dL Normal [facility] Comment on above: Performed By: #### A 1C #### [facility] [address] [place] [address] Dr. Clover Nagy PROF 14(COMP METB)on 022 Albumin [Mass/Vol] 3.7 g/dL Normal 3.4-5.0 [facility] Comment on above: Performed By: #### L IPID, CMP, TSH #### [facility] [address] [place] [address] Dr. Clover Nagy Albumin/Globulin [Mass ratio] 0.9 {ratio} Normal [facility] Comment on above: Performed By: #### L IPID, CMP, TSH #### [facility] [address] [place] [address] Dr. Clover Nagy ALP [Catalytic activity/Vol] 76 U/L Normal 46-116 [facility] Comment on above: Performed By: #### L IPID, CMP, TSH #### [facility] [address] [place] [address] Dr. Clover Nagy ALT [Catalytic activity/Vol] 28 U/L Normal 14-59 [facility] Comment on above: Performed By: #### L IPID, CMP, TSH #### [facility] [address] [place] [address] Dr. Clover Nagy Anion gap [Moles/Vol] 11.6 mmol/L Normal [facility] Comment on above: Performed By: #### L IPID, CMP, TSH #### [facility] [address] [place] [address] Dr. Clover Nagy AST [Catalytic activity/Vol] 17 U/L Normal 15-37 [facility] Comment on above: Performed By: #### L IPID, CMP, TSH #### [facility] [address] [place] [address] Dr. Clover Nagy Bilirubin [Mass/Vol] 0.2 mg/dL Normal 0.2-1.3 [facility] Comment on above: Performed By: #### L IPID, CMP, TSH #### [facility] [address] [place] [address] Dr. Clover Nagy Calcium [Mass/Vol] 9.0 mg/dL Normal 8.5-10.1 [facility] Comment on above: Performed By: #### L IPID, CMP, TSH #### [facility] [address] [place] [address] Dr. Clover Nagy Chloride [Moles/Vol] 100 mmol/L Normal 98-107 [facility] Comment on above: Performed By: #### L IPID, CMP, TSH #### [facility] [address] [place] [address] Dr. Clover Nagy CO2 [Moles/Vol] 27.9 mmol/L Normal 22.0-30.0 [facility] Comment on above: Performed By: #### L IPID, CMP, TSH #### [facility] [address] [place] [address] Dr. Clover Nagy Creatinine [Mass/Vol] 0.72 mg/dL Normal 0.52-1.04 [facility] Comment on above: Performed By: #### L IPID, CMP, TSH #### [facility] [address] [place] [address] Dr. Clover Nagy EGFR-AF NEPALESE >60 Normal >=60 [facility] Comment on above: Performed By: #### L IPID, CMP, TSH #### [facility] [address] [place] [address] Dr. Clover Nagy EGFR-NON AF NEPALESE >60 Normal >=60 [facility] Comment on above: Performed By: #### L IPID, CMP, TSH #### [facility] [address] [place] [address] Dr. Clover Nagy Globulin (S) [Mass/Vol] 4.0 g/dL Normal [facility] Comment on above: Performed By: #### L IPID, CMP, TSH #### [facility] [address] [place] [address] Dr. Clover Nagy Potassium [Moles/Vol] 3.5 mmol/L Normal 3.4-5.0 [facility] Comment on above: Performed By: #### L IPID, CMP, TSH #### [facility] [address] [place] [address] Dr. Clover Nagy Protein [Mass/Vol] 7.7 g/dL Normal 6.1-8.2 [facility] Comment on above: Performed By: #### L IPID, CMP, TSH #### [facility] [address] [place] [address] Dr. Clover Nagy Sodium [Moles/Vol] 136 mmol/L Critically low 137-145 [facility] Comment on above: Performed By: #### L IPID, CMP, TSH #### [facility] [address] [place] [address] Dr. Clover Nagy Urea nitrogen [Mass/Vol] 12.0 mg/dL Normal 7.0-18.0 [facility] Comment on above: Performed By: #### L IPID, CMP, TSH #### [facility] [address] [place] [address] Dr. Clover Nagy Urea nitrogen/Creatinine [Mass ratio] 16.7 mg/mg Normal [facility] Comment on above: Performed By: #### L IPID, CMP, TSH #### [facility] [address] [place] [address] Dr. Clover Nagy TSHon 10-26-2021 TSH 1.535 uIU/mL Normal 0.470-4.680 [facility] Comment on above: Performed By: #### A 1C #### [facility] [address] [place] [address] Dr. Clover Nagy TSH RANGE SEE BELOW Normal [facility] Comment on above: Result Comment: <0.3 4 UIU/ml HYPERTHYROID 0.34-5.60 UIU/ml EUTHYROID >5.60 UIU/ml HYPOTHYROID Performed By: #### A 1C #### [facility] [address] [address] [address] Clover Nagy [facility]14 SARS-CoV-2 (COVID-19) RNA JAMES+probe Ql (Unsp spec) Detected Critically abnormal NOT DETECTED [facility] Comment on above: Result Comment: This test is not yet approved or cleared by the [place] FDA. When there are no FDA-approved or cleared tests available, and other criteria are met, FDA can make tests available under an emergency access mechanism called an Emergency Use Authorization (EUA). The EUA for this test is supported by the [place] of Health and Human Service's declaration that [...] longer be used). Performed By: #### [facility] #### [facility] [address] [address] [address] Clover Nagy Vital Signs Date Time Vital Sign Value Performing Clinician Facility 08-20-2023 14:18-0500 Body height 165.1 cm Ioana Fraire MD Work Phone: [facility] 08-20-2023 14:18-0500 Body mass index (BMI) [Ratio] 27.96 kg/m2 Ioana Fraire MD Work Phone: [facility] 08-20-2023 14:18-0500 Body weight 76.2 kg Ioana Fraire MD Work Phone: [facility] 08-20-2023 14:18-0500 Diastolic blood pressure 85 mm[Hg] Ioana Fraire MD Work Phone: [facility] 08-20-2023 14:18-0500 Systolic blood pressure 131 mm[Hg] Ioana Fraire MD Work Phone: [facility] 04-15-2023 13:30-0400 Body height 165.1 cm Joceline Henry Other [facility] Other 04-15-2023 13:30-0400 Body mass index (BMI) [Ratio] 27.45 kg/m2 Joceline Larosemadina Other [employer] Other 04-15-2023 13:30-0400 Body weight 74.84 kg Joceline Elaine Other [employer] Other 04-15-2023 13:30-0400 Diastolic blood pressure 98 mm[Hg] Joceline Elaine Other [facility] Other 04-15-2023 13:30-0400 SaO2% (BldA) [Mass fraction] 98 % Joceline Larosemadina Other [facility] Other 04-15-2023 13:30-0400 Systolic blood pressure 148 mm[Hg] Joceline Larosemadina Other [facility] Other 03-12-2023 15:45-0400 Body height 165.1 cm Merrill Ball Other [employer] Other 03-12-2023 15:45-0400 Body mass index (BMI) [Ratio] 27.74 kg/m2 Merrill Ball Other [employer] Other 03-12-2023 15:45-0400 Body weight 75.62 kg Merrill Ball Other [employer] Other 03-12-2023 15:45-0400 Diastolic blood pressure 89 mm[Hg] Merrill Ball Other [employer] Other 03-12-2023 15:45-0400 Respiratory rate 12 /min Merrill Ball Other [employer] Other 03-12-2023 15:45-0400 Systolic blood pressure 130 mm[Hg] Merrill Ball Other [employer] Other 01-23-2023 11:00-0400 Body height 165.1 cm Merrill Ball Other [employer] Other 01-23-2023 11:00-0400 Body mass index (BMI) [Ratio] 27.55 kg/m2 Merrill Ball Other [employer] Other 01-23-2023 11:00-0400 Body weight 75.12 kg Merrill Ball Other [employer] Other 01-23-2023 11:00-0400 Diastolic blood pressure 92 mm[Hg] Merrill Ball Other [employer] Other 01-23-2023 11:00-0400 Respiratory rate 12 /min Merrill Ball Other [employer] Other 01-23-2023 11:00-0400 Systolic blood pressure 133 mm[Hg] Merrill Ball Other [employer] Other 11-06-2022 11:30-0400 Body height 165.1 cm Merrill Ball Other [employer] Other 11-06-2022 11:30-0400 Body mass index (BMI) [Ratio] 27.82 kg/m2 Merrill Ball Other [employer] Other 11-06-2022 11:30-0400 Body weight 75.84 kg Merrill Ball Other [employer] Other 11-06-2022 11:30-0400 Diastolic blood pressure 98 mm[Hg] Merrill Talbert Other [employer] Other 11-06-2022 11:30-0400 Respiratory rate 12 /min Merrill Talbert Other [employer] Other 11-06-2022 11:30-0400 Systolic blood pressure 134 mm[Hg] Merrill Talbert Other [employer] Other Encounters Encounter Date Encounter Type Care Provider Facility Start: 03-29-2024 End: 03-29-2024 ambulatory VAZQUEZ OCASIO Not Available Start: 12-03-2023 ambulatory FREDI PALMERLOCK [facility]: [facility] Start: 12-03-2023 End: 12-03-2023 ambulatory ABDI MEDRANO Not Available Start: 11-26-2023 End: 11-26-2023 ambulatory IOANA H TIMMIS Not Available Start: 09-16-2023 End: 09-16-2023 ambulatory IOANA H TIMMIS Not Available Start: 08-20-2023 End: 08-20-2023 Office outpatient visit 15 minutes Ioana Fraire MD Work Phone: [facility] Comment on above: Pharyngoesophageal d ysphagia (Primary Dx) Start: 08-20-2023 End: 08-20-2023 ambulatory IOANA H TIMMIS Not Available Start: 08-20-2023 Chart abstracting Ioana pool MD Work Phone: [facility] Start: 04-24-2023 End: 04-24-2023 ambulatory Merrill Talbert Other [employer] Other Start: 04-24-2023 Telephone encounter Merrill Talbert [facility] Start: 04-15-2023 End: 04-15-2023 ambulatory Joceline Henry Other [employer] Other Start: 04-15-2023 Office outpatient vi sit 15 minutes Joceline Rohrbacher [facility] Start: 04-09-2023 End: 04-09-2023 ambulatory Merrill Talbert Other [employer] Other Start: 04-09-2023 Telephone encounter Merrill Talbert [facility] Start: 03-26-2023 End: 03-26-2023 ambulatory Merrill Ball Other [employer] Other Start: 03-26-2023 Telephone encounter Merrill Talbert [facility] Start: 03-12-2023 End: 03-12-2023 ambulatory Merrill Ball Other [employer] Other Start: 03-12-2023 Office outpatient vi sit 15 minutes Merrill Talbert [facility] Start: 02-19-2023 End: 02-19-2023 ambulatory Merrill Ball Other [employer] Other Start: 02-19-2023 Telephone encounter Merrill Talbert [facility] Start: 02-18-2023 End: 02-18-2023 ambulatory Merrill Talbert Other [employer] Other Start: 02-18-2023 Telephone encounter Merrill Talbert [facility] Start: 01-27-2023 End: 01-27-2023 ambulatory Merrill Ball Other [employer] Other Start: 01-27-2023 Telephone encounter Merrill Ball [facility] Start: 01-23-2023 End: 01-23-2023 ambulatory Merrill Ball Other [employer] Other Start: 01-23-2023 Encounter for genera l adult medical examination without abnormal findings Merrill Ball [facility] Start: 01-23-2023 Periodic preventive med est patient 18-39 yrs Merrill Talbert [facility] Start: 01-01-2023 End: 01-01-2023 ambulatory Merrill Ball Other [employer] Other Start: 01-01-2023 Telephone encounter Merrill Talbert [facility] Start: 11-06-2022 End: 11-06-2022 ambulatory Merrill Talbert Other [employer] Other Start: 11-06-2022 Office outpatient vi sit 15 minutes Merrill Talbert [facility] Start: 06-27-2022 Gynecological examin ation normal Merrill Talbert Other [employer] Other Start: 06-11-2022 End: 06-11-[address] MERRILL TALBERT Facility:[facility] Start: 01-22-2022 End: 01-22-[address] VAZQUEZ OCASIO Facility:[facility] Start: 01-22-2022 Adult health examination Yosis perdomo Nitish Other [employer] Other Start: 01-22-2022 End: 01-23-[address] MERRILL TALBERT Facility:[facility] Start: 10-31-2021 Encounter for genera l adult medical examination without abnormal findings DR MERRILL TALBERT [facility] Start: 10-26-2021 End: 10-27-[address] MERRILL TALBERT Facility:[facility] Start: 10-26-2021 End: 10-27-2021 Encounter for general adult medical examination without abnormal findings DR MERRILL TALBERT Facility:[facility] Start: 07-27-2021 End: 07-27-[address] MERRILL TALBERT Facility:[facility] Start: 07-11-2016 Pre-procedure evalua tion check Merrill Talbert Other [employer] Other Procedures Date Procedure Procedure Detail Performing Clinician Diabetes mellitus screening Merrill Talbert Other End: 04-06-2020 Hysterectomy Merrill Talbert Other Plan of Treatment Date Care Activity Detail Author Start: 08-20-2023 End: 08-20-2023 Patient encounter procedure 08/20/2023 2:20 PM EST Office Visit [facility] [address] [facility] [address] [place] [id number] Ioana Fraire MD [address] [place] [address] [facility] Start: 03-14-2023 Influenza vaccination Influenza Vacc ine (#1) [facility] Start: 2014 Screening for malign ant neoplasm of cervix [facility] Start: 2005 Screening for malign ant neoplasm of cervix Pap Smear [facility] Immunizations Immunization Date Immunization Notes Care Provider Fa cility 05-22-2021 Moderna SARS-CoV-2 Vaccination Ioana Fraire MD Work Phone: [facility] 08-16-2020 COVID-19 Vaccine Moderna - Documentation Purposes Only Merrill Talbert Other [employer] Other 08-10-2020 Moderna SARS-CoV-2 Vaccination Ioana Fraire MD Work Phone: [facility] 07-12-2020 Moderna SARS-CoV-2 Vaccination Ioana Fraire MD Work Phone: [facility] 2020 influenza virus vaccine, unspecified formulation Ioana Fraire MD Work Phone: [facility] 09-13-2015 hepatitis A and hepatitis B vaccine Ioana Fraire MD Work Phone: [facility] 03-31-2015 hepatitis B vaccine, pediatric or pediatric/adolescent dosage Ioana Fraire MD Work Phone: [facility] 02-28-2015 hepatitis B vaccine, pediatric or pediatric/adolescent dosage Ioana Fraire MD Work Phone: [facility] Payers Date Payer Category Payer Unknown [id number] 2019 Medicaid [employer] [place] [id number] 2019-Present [address] [place] [address] [id number] 2019 Medicaid [id number] 1984 Unknown [id number] 1984 Unknown [id number] 1984 Unknown [id number] 1984 Unknown [id number] 1984 Unknown [id number] 1984 Unknown [id number] 1984 Unknown [id number] 1984 Unknown [id number] 1984 Unknown [id number] 1984 Unknown [id number] 1959 Unknown [id number] Social History Date Type Detail Facility Start: 03-26-2023 End: 08-20-2023 Sex Assigned At [facility] Start: 02-21-2023 Tobacco smoking stat [facility] Ex-smoker [facility] End: 11-15-2021 History of tobacco use Current smoker [facility] End: 11-15-2021 History of tobacco use Cigarette Smoker [facility] Start: 02-21-2023 End: 03-26-2023 Cigarettes smoked current (pack per day) - Reported 1 [facility] Start: 02-21-2023 Tobacco use and exposure Smoke less tobacco non-user [facility] Start: 08-20-2023 Alcohol intake Current drinke r of alcohol (finding) [facility] Start: 1985 Sex Assigned At [facility] Start: 07-10-2023 Gender identity Identifies as [...] Active Ambulatory Problems Diagnosis Date Noted Hypertension (CMS/HCC) 02/13/2023 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 Dysphagia 02/13/2023 Depression (CMS/HCC) 02/13/2023 Schatzki's ring 02/13/2023 MICHELE (generalized anxiety disorder) (CMS/[facility]) 02/13/2023 Resolved Ambulatory Problems Diagnosis Date Noted Acquired absence of both cervix and uterus 02/13/2023 Breast pain in female 02/13/2023 Past Medical History: Diagnosis Date Allergic rhinitis Allergies Asthma (CMS/[facility]) Ear problems Fracture of nasal bones Headache Migraine headache (CMS/[facility]) TMJ dysfunction Past Surgical History: Procedure Laterality Date SECTION, CLASSIC 2010 CHOLECYSTECTOMY 2008 EGD 10/05/2020 HYSTERECTOMY LASIK 2013 OOPHORECTOMY 12/02/2019 RHINOPLASTY 2000 SINUS SURGERY 03/18/2023 [facility], Dr. Fraire TOTAL ABDOMINAL HYSTERECTOMY W/ BILATERAL [...] Bariumesophagram and f/u documented in this encounter [facility] 04-15-2023 Evaluation note Encounter Date Diagnosis [...] call the office with update on numbers. [facility] Other 09-27-2023 Evaluation note* Encounter Date Diagnosis Assessment Notes Treatment Notes Treatment Clinical Notes Mar, Seborrheic dermatitis of scalp (ICD-10 - L21.9) [facility] Other 08-30-2023 Evaluation note* Encounter Date Diagnosis Assessment Notes Treatment Notes Treatment Clinical Notes Feb, Seborrheic dermatitis of scalp (ICD-10 - L21.9) Instructed on use of topical steroids Ketoconazole shmp twice weekly x 8 wks that as needed Feb, Cellulitis of head except face (ICD-10 - L03.811) Cleanse w soap and water. Hold on antibiotics at this time and treat underlying skin condition [facility] Other 08-08-2023 Evaluation note* Encounter Date Diagnosis Assessment Notes Treatment Notes Treatment Clinical Notes Feb, Open wound of scalp, unspecified open wound type, initial encounter (ICD-10 - S01.00XA) [facility] [facility] Other 07-13-2023 Evaluation note* Encounter Date Diagnosis [...] in remission (ICD-10 - F17.211) Continue abstinence [facility] Other 04-26-2023 Evaluation note* Encounter Date Diagnosis Assessment Notes Treatment Notes Treatment Clinical Notes Oct, Acute actinic otitis externa of right ear (ICD-10 - H60.511) Keep clean and dry, avoid use of QTips Oct, Seasonal allergic rhinitis due to pollen (ICD-10 - J30.1) Angelica and Flonase recommended as needed [employer] Other Evaluation noteNo [employer] Other Evaluation note* Diagnosis Pharyngoesophageal dysphagia- Primary [...] Laparoscopy with L ovarian cyst removal 2015 [facility] [facility] Other History general Narrative - Reported* Type [...] removal 2016 Hospitalization History see surgical history [facility] Other History general Narrative - Reported* Type [...] Surgical History Lasik 2012 Surgical History Cholecystectomy 2008 Surgical History Essure Procedure 2009 Surgical History Dilation and Currettage of Uter us 2014 Surgical History Laparoscopy with L ovarian cyst removal 2016 Surgical History Right Inferior Turbinate Resect ion 03/2023 Hospitalization History see surgical history [facility] Other History general Narrative - Reported* Type [...] ion 03/2023 Hospitalization History see surgical history [facility] Other Summary Purpose Family History No Family History Records FoundNo Family History Records FoundNo Family History Records Found Advance Directives No Advanced Directives Records FoundNo Advanced Directives Records FoundNo Advanced Directives Records Found Reason for Referral Reason Joceline is being re ferred for chronic right sided nasal obstruction Diagnosis 1 Refractory obstructi on of nasal airway (J34.89) [facility]erral Organization [facility] Referring Provider First Name Merrill Referring [...] esophageal rin g (Schatzki) (K22.2) Referral Organization [facility] Referring Provider First Name Merrill Referring Provider Last Name Nitish Referring Provider Specialty Internal Me dicine Referred Organization [facility] Referred Provider Daniel Quiroz Referred Address [address],[place],[address] Referred Provider Specialty Gastroentero logy Referral Priority Routine General Notes Joceline is being re ferred for esophageal dysphagia. She has a known hx of Schatzki's ring, which required dilatation in 2020. She denies change in appetite, weight loss, heartburn or indigestion. Additional Source Comments INFORMATION SOURCE (unrecogn ized section and content) DATE CREATED AUTHOR 06/15/2022 [facility] DATE CREATED AUTHOR AUTHOR'S ORGANIZ ATION 12/06/2023 [facility] DATE CREATED AUTHOR AUTHOR'S ORGANIZ ATION 03/31/2024 [facility] EPIC REASON FOR VISIT (unrecogniz ed section and content) Reason Comments Dysphagia Care Teams (unrecognized sec tion and content) [facility] Relationship Specialty Start Date End Date Merrill Talbert MD [address] [place] [id number] PCP - General Internal Medicine 02/21/23 [facility] [employer] Relationship Specialty Start Date End Date Merrill Talbert MD [address] [place] [phone] PCP - General Internal Medicine 02/21/23 FOR [...] BE BASED ON THE PRIMARY CLINICAL RECORDS. [facility] [facility]. provides no warranty or guarantee of the accuracy or completeness of information in this document.
== END 2024-04-08 12:53 | disposition home or self-care (01) ==
LOC: MAMMO 12:53
PROVIDERS: PCP Internal Medicine; Visit Provider Obstetrics & Gynecology
DX: Z98.890 Other specified postprocedural states (principal); N63.21 Unspecified lump in the left breast, upper outer quadrant; Z80.8 Family history of malignant neoplasm of other organs or systems
CPT/HCPCS: 76642; 77066; G0279

== ENCOUNTER 2024-04-19 07:27 | Outpatient (OUT) | payer BC, SELFPAY ==
--- NOTE | 2024-04-19 | XR_ITS ---
The [address] [address] Patient Name: MUNA SAMPSON MRN: [id number] date: 1985 Sex: F Assigned Patient Location: Current Patient Location: Accession/Order Number: [id number] Exam Date: 04/19/2024 07:35 Report Date: 04/19/2024 13:59 At the request of: LAKESHA SINGH Procedure: XR knee LT 4V PROCEDURE: XR knee LT 4V COMPARISON: None. HISTORY: LEFT KNEE PAIN FINDINGS: BONES:No fracture, acute abnormality, or significant arthropathy. SOFT TISSUES:Negative. No visible soft tissue swelling. EFFUSION:Small joint effusion OTHER: Negative. XR/XR knee LT 4V IMPRESSION: Small joint effusion Electronically authenticated by: BYRON RAY Date: 04/19/2024 13:59
--- OUTSIDE RECORDS SUMMARY | 2024-04-19 07:35 | XMS_ITS | CCD ---
Author Organization [facility] Care Team Providers Care Hostess Host Name Role Phone NITISH, DR POSADAS Primary [...] source) Cephalexin Drug Allergy 12-28-19 16 [facility] Repository (1 source) Morphine Drug Allergy 05-24-20 16 [facility] (13 sources) Cephalexin Drug Allergy 02-14-20 23 GI bleeding [facility] Work Phone: (15 sources) Morphine Drug Allergy 12-09-19 20 GI intolerance [facility] Other (7 sources) Morphine Sulfate (Concentrate) *ANALGESICS - OPIOI Propensity to adverse reactions Unknown [facility] Other (2 sources) Allergies Reconciled Propensity to adverse reactions Unknown [facility] Other (7 sources) Medicinal cephalosporin and acting as antibacterial agent (FN) Drug allergy 06-23-20 Unknown [facility] Other (2 sources) patient allergy list reviewed by nurse or physicia Propensity to adverse reactions 06-24-20 Comment:Done [facility] Other (2 sources) Cephalexin; Translations: [Keflex] Drug Allergy gum swelling Jimenez [facility] Repository (1 source) seasonal/environm ental allergies Propensity to adverse reactions Unknown [facility] Other Medications Current Medications Medication Drug Class(es) [...] day(s) Jul, Active take 10-240 mg by [facility] every twenty-four hours in the morning [...] / neomycin 3.5 mg/ml / polymyxin b 05985 unt/ml otic suspension (9 sources) Aminoglycoside Antibacterial, Polymyxin-class Antibacterial, Corticosteroid Tnbsnvps-Tdukdntrt-S C 3.5-54951-4 4 drops into affected ear Otic four [...] Provider Letter December 05, 2023 JOCELINE SAMPSON [address] [place] [id number] : 1985 Dear Joceline , We have [...] your prompt attention to this matter. Sincerely, [facility] [phone] Normal [facility] Covid-19 PCR (CVDTBH)on 05-15 SARS-CoV-2 (COVID-19) RNA JAMES+probe Ql (Unsp spec) Not detected Normal NOT DETECTED [facility] Comment on above: Result Comment: When [...] for this test is supported by the [place] of Health and Human Service's declaration that [...] used). Performed By: #### C VDTB #### [facility] [address] [place] [address] Dr. Clover Nagy INFLUENZA A AND B AGon 06-11 [facility] SEE BELOW Normal [facility] Comment on above: Result Comment: Nega tive for Flu A protein angiten. Infection due to Flu A cannot be ruled out. Flu A angiten in the sample may be below the detection limit of the test. Performed By: #### A 1C #### [facility] [address] [place] [address] Dr. [facility]over [facility] Normal [facility] Comment on above: Result Comment: Nega tive for Flu B protein antigen. Infection due to Flu B cannot be ruled out. Flu B antigen in the sample may be below the detection limit of the test. Performed By: #### A 1C #### [facility] [address] [place] [address] Dr. Clover Nagy INFLUENZA A AG Negative Normal NEGATIVE SEE COMMENT [facility] Comment on above: Performed By: #### A 1C #### [facility] [address] [place] [address] Dr. Clover Nagy INFLUENZA B AG Negative Normal NEGATIVE SEE COMMENT [facility] Comment on above: Performed By: #### A 1C #### [facility] [address] [place] [address] Dr. Clover Nagy INTERNAL CONTROLS Within Normal Limits Normal Wi thin Normal Limits [facility] Comment on above: Performed By: #### A 1C #### [facility] [address] [place] [address] Dr. Clover Nagy CHLAMYDIA/GONOCOCCUS JAMES (SW AB/URINE/PAPon 01-24-2022 Chlamydia trachomatis, JAMES Negative Normal Negative [facility] Comment on above: Performed By: #### A 1C #### [facility] [address] [place] [address] Dr. Clover Nagy Neisseria gonorrhoeae, JAMES Negative Normal Negative [facility] Comment on above: Performed By: #### A 1C #### [facility] [address] [place] [address] Dr. Clover Nagy PAP ACOG PANEL 2: 30 to 65on 01-24-2022 . . Normal [facility] Comment on above: Result Comment: Perf ormed at: WB Performed By: #### [id number] #### [facility] [address] [place] [address] Dr. Clover Nagy Age Gdln ACOG Testing 30-65 [facility] Comment on above: Performed By: #### 4 [id number] #### [facility] [address] [place] [address] Dr. Clover Nagy DIAGNOSIS: Comment Normal [facility] Comment on above: Result Comment: NEGA TIVE FOR INTRAEPITHELIAL LESION OR MALIGNANCY. Performed at: WB Performed By: #### [id number] #### [facility] [address] [place] [address] Dr. Clover Nagy HPV Aptima Negative Normal Negative [facility] Comment on above: Result Comment: This nucleic acid amplification test detects fourteen high-risk HPV types (16,18,31,33,35,39,45,51,52,56,58,59,66,68) without differentiation. Performed at: =G Performed By: #### [id number] #### [facility] [address] [place] [address] Dr. Clover Nagy Methodology: Comment Normal [facility] Comment on above: Result Comment: This liquid based ThinPrep(R) pap test was screened with the use of an image guided system. Performed at: WB Performed By: #### [id number] #### [facility] [address] [place] [address] Dr. Clover Nagy Note: Comment Normal [facility] Comment on above: Result Comment: The Pap smear is a screening test designed to aid in the detection of premalignant and malignant conditions of the uterine cervix. It is not a diagnostic procedure and should not be used as the sole means of detecting cervical cancer. Both false-positive and false-negative reports do occur. . Performed at: WB Performed By: #### [id number] #### [facility] [address] [address] [address] Clover Nagy Performed by: Comment Normal [facility] Comment on above: Result Comment: Kassi Vallejo, Pit Shovel Operator (ASCP) Performed at: WB Performed By: #### [id number] #### [facility] [address] [address] [address] Clover Nagy Specimen adequacy: Comment Normal [facility] Comment on above: Result Comment: Sati sfactory for evaluation. No endocervical cells are present. This is consistent with a history of hysterectomy. Performed at: WB Performed By: #### 4 [id number] #### [facility] [address] [address] [address] Clover Nagy ESTRADIOLon 01-23-2022 Estradiol 9.2 pg/mL [facility] Comment on above: Result Comment: Adul t Female: Follicular phase 12.5 - 166.0 Ovulation phase 85.8 - 498.0 Luteal phase 43.8 - 211.0 Postmenopausal <6.0 - 54.7 1st trimester 215.0 - >4300.0 Kishan ECLIA methodology Performed By: #### E TRUPTI #### [facility] [address] [place] [address] Dr. Clover Nagy FSHon 01-23-2022 FSH 95.8 mIU/mL [facility] Comment on above: Result Comment: Adul t Female: Follicular phase 3.5 - 12.5 Ovulation phase 4.7 - 21.5 Luteal phase 1.7 - 7.7 Postmenopausal 25.8 - 134.8 Performed By: #### A 1C #### [facility] [address] [place] [address] Dr. Clover Nagy LUTEINIZING HORMONE (LH)on 0 01-23-2022 LH 48.1 mIU/mL [facility] Comment on above: Result Comment: Adul t Female: Follicular phase 2.4 - 12.6 Ovulation phase 14.0 - 95.6 Luteal phase 1.0 - 11.4 Postmenopausal 7.7 - 58.5 Performed By: #### A 1C #### [facility] [address] [place] [address] Dr. Clover Nagy PROGESTERONEon 01-23-2022 Progesterone 0.1 ng/mL Normal [facility] Comment on above: Result Comment: Foll icular phase 0.1 - 0.9 Luteal phase 1.8 - 23.9 Ovulation phase 0.1 - 12.0 First trimester 11.0 - 44.3 Second trimester 25.4 - 83.3 Third trimester 58.7 - 214.0 Postmenopausal 0.0 - 0.1 Performed By: #### A 1C #### [facility] [address] [place] [address] Dr. Clover Nagy VAGINITIS/VAGINOSIS DNA PROB Shaun 01-23-2022 Lucero species Negative Normal Negative [facility] Comment on above: Performed By: #### V AGINT #### [facility] [address] [place] [address] Dr. Clover Nagy Gardnerella vaginalis Negative Normal Negative [facility] Comment on above: Performed By: #### V AGINT #### [facility] [address] [place] [address] Dr. Clover Nagy Trichomonas vaginalis Negative Normal Negative [facility] Comment on above: Performed By: #### V AGINT #### [facility] [address] [place] [address] Dr. Clover Nagy CBC AUTO DIFFon 01-22-2022 BASO # 0.1 103/ul Normal 0.0-0.1 [facility] Comment on above: Performed By: #### C BC #### [facility] [address] [place] [address] Dr. Clover Nagy Basophils/100 WBC (Bld) 0.9 % Normal 0.2-2.0 [facility] Comment on above: Performed By: #### C BC #### [facility] [address] [place] [address] Dr. Clover Nagy EO # 0.7 103/ul Normal 0.0-0.7 [facility] Comment on above: Performed By: #### C BC #### [facility] [address] [place] [address] Dr. Clover Nagy Eosinophils/100 WBC (Bld) 9.5 % Critically high 0.9-7.0 [facility] Comment on above: Performed By: #### C BC #### [facility] [address] [place] [address] Dr. Clover Nagy Erythrocyte distribution width (RBC) [Ratio] 11.8 % Normal 11.0-15.0 [facility] Comment on above: Performed By: #### C BC #### [facility] [address] [place] [address] Dr. Clover Nagy Hematocrit (Bld) [Volume fraction] 37.0 % Normal 36.0-48.0 [facility] Comment on above: Performed By: #### C BC #### [facility] [address] [place] [address] Dr. Clover Nagy Hemoglobin (Bld) [Mass/Vol] 12.3 g/dL Normal 12.0-16.0 [facility] Comment on above: Performed By: #### C BC #### [facility] [address] [place] [address] Dr. Clover Nagy IG # 0.01 10e3/ul Normal 0.00-0.03 [facility] Comment on above: Performed By: #### C BC #### [facility] [address] [place] [address] Dr. Clover Nagy IG % 0.1 % Normal 0.0-0.5 [facility] Comment on above: Performed By: #### C BC #### [facility] [address] [place] [address] Dr. Clover Nagy LYMPH # 1.2 103/ul Normal 1.2-3.8 [facility] Comment on above: Performed By: #### C BC #### [facility] [address] [place] [address] Dr. Clover Nagy Lymphocytes/100 WBC (Bld) 17.5 % Critically low 20.5-60.0 [facility] Comment on above: Performed By: #### C BC #### [facility] [address] [place] [address] Dr. Clover Nagy MANUAL DIFF REQ NO Normal [facility] Comment on above: Performed By: #### C BC #### [facility] [address] [address] [address] Clover Nagy MCH (RBC) [Entitic mass] 28.3 pg Normal 26.7-34.0 [facility] Comment on above: Performed By: #### C BC #### [facility] [address] [place] [address] Dr. Clover Nagy MCHC (RBC) [Mass/Vol] 33.2 g/dL Normal 29.9-35.2 [facility] Comment on above: Performed By: #### C BC #### [facility] [address] [place] [address] Dr. Clover Nagy MCV (RBC) [Entitic vol] 85.1 fL Normal 81.0-99.0 [facility] Comment on above: Performed By: #### C BC #### [facility] [address] [place] [address] Dr. Clover Nagy MONO # 0.6 103/ul Normal 0.3-0.8 [facility] Comment on above: Performed By: #### C BC #### [facility] [address] [place] [address] Dr. Clover Nagy Monocytes/100 WBC (Bld) 8.8 % Normal 1.7-12.0 [facility] Comment on above: Performed By: #### C BC #### [facility] [address] [place] [address] Dr. Clover Nagy NEUT # 4.3 103/ul Normal 1.4-6.5 [facility] Comment on above: Performed By: #### C BC #### [facility] [address] [place] [address] Dr. Clover Nagy Neutrophils/100 WBC (Bld) 63.2 % Normal 43.0-75.0 [facility] Comment on above: Performed By: #### C BC #### [facility] [address] [place] [address] Dr. Clover Nagy Platelet mean volume (Bld) [Entitic vol] 10.4 fL Normal 9.5-13.5 [facility] Comment on above: Performed By: #### C BC #### [facility] [address] [place] [address] Dr. Clover Nagy PLT 310 103/ul Normal 150-450 [facility] Comment on above: Performed By: #### C BC #### [facility] [address] [place] [address] Dr. Clover Nagy RBC 4.35 106/ul Normal 4.20-5.40 [facility] Comment on above: Performed By: #### C BC #### [facility] [address] [place] [address] Dr. Clover Nagy WBC 6.8 103/ul Normal 4.0-11.0 [facility] Comment on above: Performed By: #### C BC #### [facility] [address] [place] [address] Dr. Clover Nagy FREE T4on 01-22-2022 Free T4 [Mass/Vol] 1.15 ng/dL Normal 0.76-1.46 [facility] Comment on above: Performed By: #### F T4 #### [facility] [address] [place] [address] Dr. Clover Nagy TSHon 01-22-2022 TSH 2.183 uIU/mL Normal 0.358-3.740 [facility] Comment on above: Performed By: #### A 1C #### [facility] [address] [place] [address] Dr. Clover Nagy CBC AUTO DIFFon 10-26-2021 BASO # 0.0 103/ul Normal 0.0-0.1 [facility] Comment on above: Performed By: #### C BC #### [facility] [address] [place] [address] Dr. Clover Nagy Basophils/100 WBC (Bld) 0.3 % Normal 0.2-2.0 [facility] Comment on above: Performed By: #### C BC #### [facility] [address] [place] [address] Dr. Clover aNgy EO # 0.1 103/ul Normal 0.0-0.7 [facility] Comment on above: Performed By: #### C BC #### [facility] [address] [place] [address] Dr. Clover Nagy Eosinophils/100 WBC (Bld) 0.6 % Critically low 0.9-7.0 [facility] Comment on above: Performed By: #### C BC #### [facility] [address] [place] [address] Dr. Clover Nagy Erythrocyte distribution width (RBC) [Ratio] 11.6 % Normal 11.0-15.0 [facility] Comment on above: Performed By: #### C BC #### [facility] [address] [place] [address] Dr. Clover Nagy Hematocrit (Bld) [Volume fraction] 38.0 % Normal 36.0-48.0 [facility] Comment on above: Performed By: #### C BC #### [facility] [address] [place] [address] Dr. Clover Nagy Hemoglobin (Bld) [Mass/Vol] 12.7 g/dL Normal 12.0-16.0 [facility] Comment on above: Performed By: #### C BC #### [facility] [address] [place] [address] Dr. Clover Nagy IG # 0.05 10e3/ul Critically high 0.00-0.03 [facility] Comment on above: Performed By: #### C BC #### [facility] [address] [place] [address] Dr. Clover Nagy IG % 0.5 % Normal 0.0-0.5 [facility] Comment on above: Performed By: #### C BC #### [facility] [address] [place] [address] Dr. Clover Nagy LYMPH # 2.0 103/ul Normal 1.2-3.8 [facility] Comment on above: Performed By: #### C BC #### [facility] [address] [place] [address] Dr. Clover Nagy Lymphocytes/100 WBC (Bld) 20.8 % Normal 20.5-60.0 [facility] Comment on above: Performed By: #### C BC #### [facility] [address] [place] [address] Dr. Clover Nagy MANUAL DIFF REQ NO Normal [facility] Comment on above: Performed By: #### C BC #### [facility] [address] [place] [address] Dr. Clover Nagy MCH (RBC) [Entitic mass] 28.7 pg Normal 26.7-34.0 [facility] Comment on above: Performed By: #### C BC #### [facility] [address] [place] [address] Dr. Clover Nagy MCHC (RBC) [Mass/Vol] 33.4 g/dL Normal 29.9-35.2 [facility] Comment on above: Performed By: #### C BC #### [facility] [address] [place] [address] Dr. Clover Nagy MCV (RBC) [Entitic vol] 85.8 fL Normal 81.0-99.0 [facility] Comment on above: Performed By: #### C BC #### [facility] [address] [place] [address] Dr. Clover Nagy MONO # 0.7 103/ul Normal 0.3-0.8 [facility] Comment on above: Performed By: #### C BC #### [facility] [address] [place] [address] Dr. Clover Nagy Monocytes/100 WBC (Bld) 7.0 % Normal 1.7-12.0 [facility] Comment on above: Performed By: #### C BC #### [facility] [address] [place] [address] Dr. Clover Nagy NEUT # 6.7 103/ul Critically high 1.4-6.5 [facility] Comment on above: Performed By: #### C BC #### [facility] [address] [place] [address] Dr. Clover Nagy Neutrophils/100 WBC (Bld) 70.8 % Normal 43.0-75.0 [facility] Comment on above: Performed By: #### C BC #### [facility] [address] [address] [address] Clover Nagy Platelet mean volume (Bld) [Entitic vol] 10.3 fL Normal 9.5-13.5 [facility] Comment on above: Performed By: #### C BC #### [facility] [address] [address] [address] Clover Nagy PLT 433 103/ul Normal 150-450 [facility] Comment on above: Performed By: #### C BC #### [facility] [address] [place] [address] Dr. Clover Nagy RBC 4.43 106/ul Normal 4.20-5.40 [facility] Comment on above: Performed By: #### C BC #### [facility] [address] [place] [address] Dr. Clover Nagy WBC 9.5 103/ul Normal 4.0-11.0 [facility] Comment on above: Performed By: #### C BC #### [facility] [address] [place] [address] Dr. Clover Nagy GLYCOHEMOGLOBIN A1Con 2021 ADA RECOMMENDATION ADA THERAPEUTIC TARGET 6.0 - 7.0 ACTION SUGGESTED > 7.0 Normal [facility] Comment on above: Performed By: #### A 1C #### [facility] [address] [place] [address] Dr. Clover Nagy Glucose [Mass/Vol] 103 mg/dL Normal 74-106 [facility] Comment on above: Performed By: #### A 1C #### [facility] [address] [place] [address] Dr. Clover Nagy Performed By: #### L IPID, CMP, TSH #### [facility] [address] [place] [address] Dr. Clover Nagy HbA1c (Bld) [Mass fraction] 5.2 % Normal <=6.0 [facility] Comment on above: Performed By: #### A 1C #### [facility] [address] [place] [address] Dr. Clover Nagy LIPID PROFILEon 10-26-2021 CHOL-HDL RATIO NORM SEE BELOW Normal [facility] Comment on above: Result Comment: 3.3 - 4.4 LOW RISK 4.4 - 7.1 AVERAGE RISK 7.1 - 11.0 MODERATE RISK >11.0 HIGH RISK Performed By: #### A 1C #### [facility] [address] [address] [address] Clover Nagy Cholesterol [Mass/Vol] 214 mg/dL Critically high <=200 [facility] Comment on above: Performed By: #### A 1C #### [facility] [address] [address] [address] Clover Nagy Cholesterol in HDL [Mass/Vol] 64 mg/dL Critically high 40-60 [facility] Comment on above: Performed By: #### A 1C #### [facility] [address] [address] [address] Clover Nagy Cholesterol in LDL [Mass/Vol] 126.6 mg/dL Normal [facility] Comment on above: Performed By: #### A 1C #### [facility] [address] [address] [address] Clover Nagy Cholesterol.total/Ch olesterol in HDL [Mass ratio] 3.3 {ratio} Normal [facility] Comment on above: Performed By: #### A 1C #### [facility] [address] [address] [address] Clover Nagy HDL NORMAL > or = 60 mg/dl - LO W CARDIOVASCULAR RISK <40 mg/dl - HIGH CARDIOVASCULAR RISK Normal [facility] Comment on above: Performed By: #### A 1C #### [facility] [address] [address] [address] Clover Nagy LDL CALC NORMAL SEE BELOW Normal [facility] Comment on above: Result Comment: <100 mg/dl OPTIMAL 100 - 129 mg/dl NEAR OR ABOVE OPTIMAL 130 - 159 mg/dl BORDERLINE HIGH 160 - 189 mg/dl HIGH >190 mg/dl VERY HIGH Performed By: #### A 1C #### [facility] [address] [address] [address] Clover Nagy Triglyceride [Mass/Vol] 117 mg/dL Normal <=150 [facility] Comment on above: Performed By: #### A 1C #### [facility] [address] [place] [address] Dr. Clover Nagy VLDL CALC 23.4 mg/dL Normal [facility] Comment on above: Performed By: #### A 1C #### [facility] [address] [place] [address] Dr. Clover Nagy PROF 14(COMP METB)on 022 Albumin [Mass/Vol] 3.7 g/dL Normal 3.4-5.0 [facility] Comment on above: Performed By: #### L IPID, CMP, TSH #### [facility] [address] [place] [address] Dr. Clover Nagy Albumin/Globulin [Mass ratio] 0.9 {ratio} Normal [facility] Comment on above: Performed By: #### L IPID, CMP, TSH #### [facility] [address] [place] [address] Dr. Clover Nagy ALP [Catalytic activity/Vol] 76 U/L Normal 46-116 [facility] Comment on above: Performed By: #### L IPID, CMP, TSH #### [facility] [address] [place] [address] Dr. Clover Nagy ALT [Catalytic activity/Vol] 28 U/L Normal 14-59 [facility] Comment on above: Performed By: #### L IPID, CMP, TSH #### [facility] [address] [place] [address] Dr. Clover Nagy Anion gap [Moles/Vol] 11.6 mmol/L Normal [facility] Comment on above: Performed By: #### L IPID, CMP, TSH #### [facility] [address] [place] [address] Dr. Clover Nagy AST [Catalytic activity/Vol] 17 U/L Normal 15-37 [facility] Comment on above: Performed By: #### L IPID, CMP, TSH #### [facility] [address] [place] [address] Dr. Clover Nagy Bilirubin [Mass/Vol] 0.2 mg/dL Normal 0.2-1.3 [facility] Comment on above: Performed By: #### L IPID, CMP, TSH #### [facility] [address] [place] [address] Dr. Clover Nagy Calcium [Mass/Vol] 9.0 mg/dL Normal 8.5-10.1 [facility] Comment on above: Performed By: #### L IPID, CMP, TSH #### [facility] [address] [place] [address] Dr. Clover Nagy Chloride [Moles/Vol] 100 mmol/L Normal 98-107 [facility] Comment on above: Performed By: #### L IPID, CMP, TSH #### [facility] [address] [place] [address] Dr. Clover Nagy CO2 [Moles/Vol] 27.9 mmol/L Normal 22.0-30.0 [facility] Comment on above: Performed By: #### L IPID, CMP, TSH #### [facility] [address] [place] [address] Dr. Clover Nagy Creatinine [Mass/Vol] 0.72 mg/dL Normal 0.52-1.04 [facility] Comment on above: Performed By: #### L IPID, CMP, TSH #### [facility] [address] [place] [address] Dr. Clover Nagy EGFR-AF MALDIVIAN >60 Normal >=60 [facility] Comment on above: Performed By: #### L IPID, CMP, TSH #### [facility] [address] [place] [address] Dr. Clover Nagy EGFR-NON AF MALDIVIAN >60 Normal >=60 [facility] Comment on above: Performed By: #### L IPID, CMP, TSH #### [facility] [address] [place] [address] Dr. Clover Nagy Globulin (S) [Mass/Vol] 4.0 g/dL Normal [facility] Comment on above: Performed By: #### L IPID, CMP, TSH #### [facility] [address] [place] [address] Dr. Clover Nagy Potassium [Moles/Vol] 3.5 mmol/L Normal 3.4-5.0 [facility] Comment on above: Performed By: #### L IPID, CMP, TSH #### [facility] [address] [place] [address] Dr. Clover Nagy Protein [Mass/Vol] 7.7 g/dL Normal 6.1-8.2 [facility] Comment on above: Performed By: #### L IPID, CMP, TSH #### [facility] [address] [place] [address] Dr. Clover Nagy Sodium [Moles/Vol] 136 mmol/L Critically low 137-145 [facility] Comment on above: Performed By: #### L IPID, CMP, TSH #### [facility] [address] [place] [address] Dr. Clover Nagy Urea nitrogen [Mass/Vol] 12.0 mg/dL Normal 7.0-18.0 [facility] Comment on above: Performed By: #### L IPID, CMP, TSH #### [facility] [address] [place] [address] Dr. Clover Nagy Urea nitrogen/Creatinine [Mass ratio] 16.7 mg/mg Normal [facility] Comment on above: Performed By: #### L IPID, CMP, TSH #### [facility] [address] [place] [address] Dr. Clover Nagy TSHon 10-26-2021 TSH 1.535 uIU/mL Normal 0.470-4.680 [facility] Comment on above: Performed By: #### A 1C #### [facility] [address] [place] [address] Dr. Clover Nagy TSH RANGE SEE BELOW Normal [facility] Comment on above: Result Comment: <0.3 4 UIU/ml HYPERTHYROID 0.34-5.60 UIU/ml EUTHYROID >5.60 UIU/ml HYPOTHYROID Performed By: #### A 1C #### [facility] [address] [address] [address] Clover Nagy [facility]14 SARS-CoV-2 (COVID-19) RNA JAMES+probe Ql (Unsp spec) Detected Critically abnormal NOT DETECTED [facility] Comment on above: Result Comment: This test is not yet approved or cleared by the [place] FDA. When there are no FDA-approved or cleared tests available, and other criteria are met, FDA can make tests available under an emergency access mechanism called an Emergency Use Authorization (EUA). The EUA for this test is supported by the [place] of Health and Human Service's declaration that [...] longer be used). Performed By: #### [facility] #### [facility] [address] [address] [address] Clover Nagy Vital Signs Date Time Vital Sign Value Performing Clinician Facility 08-20-2023 14:18-0500 Body height 165.1 cm Ioana Fraire MD Work Phone: [facility] 08-20-2023 14:18-0500 Body mass index (BMI) [Ratio] 27.96 kg/m2 Ioana Fraire MD Work Phone: [facility] 08-20-2023 14:18-0500 Body weight 76.2 kg Ioana Fraire MD Work Phone: [facility] 08-20-2023 14:18-0500 Diastolic blood pressure 85 mm[Hg] Ioana Fraire MD Work Phone: [facility] 08-20-2023 14:18-0500 Systolic blood pressure 131 mm[Hg] Ioana Fraire MD Work Phone: [facility] 04-15-2023 13:30-0400 Body height 165.1 cm Joceline Henry Other [facility] 04-15-2023 13:30-0400 Body mass index (BMI) [Ratio] 27.45 kg/m2 Joceline Larosemadina Other [facility] 04-15-2023 13:30-0400 Body weight 74.84 kg Joceline Elaine Other [facility] 04-15-2023 13:30-0400 Diastolic blood pressure 98 mm[Hg] Joceline Elaine Other [facility] 04-15-2023 13:30-0400 SaO2% (BldA) [Mass fraction] 98 % Joceline Larosemadina Other [facility] 04-15-2023 13:30-0400 Systolic blood pressure 148 mm[Hg] Joceline Larosemadina Other [facility] 03-12-2023 15:45-0400 Body height 165.1 cm Merrill Ball Other [facility] 03-12-2023 15:45-0400 Body mass index (BMI) [Ratio] 27.74 kg/m2 Merrill Ball Other [facility] 03-12-2023 15:45-0400 Body weight 75.62 kg Merrill Ball Other [facility] 03-12-2023 15:45-0400 Diastolic blood pressure 89 mm[Hg] Merrill Ball Other [facility] Other 03-12-2023 15:45-0400 Respiratory rate 12 /min Merrill Ball Other [facility] Other 03-12-2023 15:45-0400 Systolic blood pressure 130 mm[Hg] Merrill Ball Other [facility] 01-23-2023 11:00-0400 Body height 165.1 cm Merrill Ball Other [facility] Other 01-23-2023 11:00-0400 Body mass index (BMI) [Ratio] 27.55 kg/m2 Merrill Ball Other [facility] Other 01-23-2023 11:00-0400 Body weight 75.12 kg Merrill Ball Other [facility] Other 01-23-2023 11:00-0400 Diastolic blood pressure 92 mm[Hg] Merrill Ball Other [facility] Other 01-23-2023 11:00-0400 Respiratory rate 12 /min Merrill Ball Other [facility] Other 01-23-2023 11:00-0400 Systolic blood pressure 133 mm[Hg] Merrill Ball Other [facility] 11-06-2022 11:30-0400 Body height 165.1 cm Merrill Ball Other [facility] Other 11-06-2022 11:30-0400 Body mass index (BMI) [Ratio] 27.82 kg/m2 Merrill Ball Other [facility] 11-06-2022 11:30-0400 Body weight 75.84 kg Merrill Ball Other [facility] Other 11-06-2022 11:30-0400 Diastolic blood pressure 98 mm[Hg] Merrill Talbert Other [facility] Other 11-06-2022 11:30-0400 Respiratory rate 12 /min Merrill Talbert Other [facility] Other 11-06-2022 11:30-0400 Systolic blood pressure 134 mm[Hg] Merrill Talbert Other [facility] Other Encounters Encounter Date Encounter Type Care [...] 04-24-2023 End: 04-24-2023 ambulatory Merrill Talbert Other [facility] Other Start: 04-24-2023 Telephone encounter Merrill Talbert [facility] Start: 04-15-2023 End: 04-15-2023 ambulatory Joceline Henry Other [facility] Other Start: 04-15-2023 Office outpatient vi sit 15 minutes Joceline Rohrbacher [facility] Start: 04-09-2023 End: 04-09-2023 ambulatory Merrill Talbert Other [facility] Start: 04-09-2023 Telephone encounter Mrerill Talbert [facility] Start: 03-26-2023 End: 03-26-2023 ambulatory Merrill Ball Other [facility] Start: 03-26-2023 Telephone encounter Merrill Talbert [facility] Start: 03-12-2023 End: 03-12-2023 ambulatory Merrill Ball Other [facility] Other Start: 03-12-2023 Office outpatient vi sit 15 minutes Merrill Talbert [facility] Start: 02-19-2023 End: 02-19-2023 ambulatory Merrill Ball Other [facility] Start: 02-19-2023 Telephone encounter Merrill Talbert [facility] Start: 02-18-2023 End: 02-18-2023 ambulatory Merrill Talbert Other [facility] Start: 02-18-2023 Telephone encounter Merrill Talbert [facility] Start: 01-27-2023 End: 01-27-2023 ambulatory Merrill Ball Other [facility] Start: 01-27-2023 Telephone encounter Merrill Ball [facility] Start: 01-23-2023 End: 01-23-2023 ambulatory Merrill Ball Other [facility] Start: 01-23-2023 Encounter for genera l adult medical examination without abnormal findings Merrill Ball [facility] Start: 01-23-2023 Periodic preventive med est patient 18-39 yrs Merrill Talbert [facility] Start: 01-01-2023 End: 01-01-2023 ambulatory Merrill Ball Other [facility] Start: 01-01-2023 Telephone encounter Merrill Talbert [facility] Start: 11-06-2022 End: 11-06-2022 ambulatory Merrill Talbert Other [facility] Start: 11-06-2022 Office outpatient vi sit 15 minutes Merrill Talbert [facility] Start: 06-27-2022 Gynecological examin ation normal Merrill Talbert Other [facility] Other Start: 06-11-2022 End: 06-11-[address] MERRILL TALBERT Facility:[facility] Start: 01-22-2022 End: 01-22-[address] VAZQUEZ OCASIO Facility:[facility] Start: 01-22-2022 Adult health examination Yossi perdomo Nitish Other [facility] Other Start: 01-22-2022 End: 01-23-[address] MERRILL TALBERT Facility:[facility] Start: 10-31-2021 Encounter for genera l adult medical examination without abnormal findings DR MERRILL TALBERT [facility] Start: 10-26-2021 End: 10-27-[address] MERRILL TALBERT Facility:[facility] Start: 10-26-2021 End: 10-27-2021 Encounter for general adult medical examination without abnormal findings DR MERRILL TALBERT Facility:[facility] Start: 07-27-2021 End: 07-27-[address] MERRILL TALBERT Facility:[facility] Start: 07-11-2016 Pre-procedure evalua tion check Merrill Talbert Other [facility] Other Procedures Date Procedure Procedure Detail Performing Clinician Diabetes mellitus screening Merrill Talbert Other End: 04-06-2020 Hysterectomy Merrill Talbert Other Plan of Treatment Date Care Activity Detail Author Start: 08-20-2023 End: 08-20-2023 Patient encounter procedure 08/20/2023 2:20 PM EST Office Visit [facility] [address] [facility] [address] [place] [id number] Ioana Fraire MD [address] [place] [address] [facility] Start: 03-14-2023 Influenza vaccination Influenza Vacc ine (#1) [facility] Start: 2014 Screening for malign ant neoplasm of cervix [facility] Start: 2005 Screening for malign ant neoplasm of cervix Pap Smear [facility] Immunizations Immunization Date Immunization Notes Care Provider Fa cility 05-22-2021 Moderna SARS-CoV-2 Vaccination Ioana Fraire MD Work Phone: [facility] 08-16-2020 COVID-19 Vaccine Moderna - Documentation Purposes Only Merrill Talbert Other [facility] Other 08-10-2020 Moderna SARS-CoV-2 Vaccination Ioana Fraire MD Work Phone: [facility] 07-12-2020 Moderna SARS-CoV-2 Vaccination Ioana Fraire MD Work Phone: [facility] 2020 influenza virus vaccine, unspecified formulation Ioana Fraire MD Work Phone: [facility] 09-13-2015 hepatitis A and hepatitis B vaccine Ioana Fraire MD Work Phone: [facility] 03-31-2015 hepatitis B vaccine, pediatric or pediatric/adolescent dosage Ioana Fraire MD Work Phone: [facility] 02-28-2015 hepatitis B vaccine, pediatric or pediatric/adolescent dosage Ioana Fraire MD Work Phone: [facility] Payers Date Payer Category Payer Unknown [id number] 2019 Medicaid [employer] [place] [id number] 2019-Present [address] [place] [address] [id number] 2019 Medicaid [id number] 1984 Unknown [id number] 1984 Unknown [id number] 1984 Unknown [id number] 1984 Unknown [id number] 1984 Unknown [id number] 1984 Unknown [id number] 1984 Unknown [id number] 1984 Unknown [id number] 1984 Unknown [id number] 1984 Unknown [id number] 1959 Unknown [id number] Social History Date Type Detail Facility Start: 03-26-2023 End: 08-20-2023 Sex Assigned At [facility] Start: 02-21-2023 Tobacco smoking stat [facility] Ex-smoker [facility] End: 11-15-2021 History of tobacco use Current smoker [facility] End: 11-15-2021 History of tobacco use Cigarette Smoker [facility] Start: 02-21-2023 End: 03-26-2023 Cigarettes smoked current (pack per day) - Reported 1 [facility] Start: 02-21-2023 Tobacco use and exposure Smoke less tobacco non-user [facility] Start: 08-20-2023 Alcohol intake Current drinke [...] Schatzki's ring 02/13/2023 MICHELE (generalized anxiety disorder) (CMS/[facility]) 02/13/2023 Resolved Ambulatory Problems Diagnosis Date Noted Acquired absence of both cervix and uterus 02/13/2023 Breast pain in female 02/13/2023 Past Medical History: Diagnosis Date Allergic rhinitis Allergies Asthma (CMS/[facility]) Ear problems Fracture of nasal bones Headache Migraine headache (CMS/[facility]) TMJ dysfunction Past Surgical History: Procedure Laterality Date SECTION, CLASSIC 2010 CHOLECYSTECTOMY 2008 EGD 10/05/2020 HYSTERECTOMY LASIK 2013 OOPHORECTOMY 12/02/2019 RHINOPLASTY 2000 SINUS SURGERY 03/18/2023 [facility], Dr. Fraire TOTAL ABDOMINAL HYSTERECTOMY [...] Bariumesophagram and f/u documented in this encounter [facility] 04-15-2023 Evaluation note Encounter Date Diagnosis [...] call the office with update on numbers. [facility] Other 09-27-2023 Evaluation note* Encounter Date Diagnosis Assessment Notes Treatment Notes Treatment Clinical Notes Mar, Seborrheic dermatitis of scalp (ICD-10 - L21.9) [facility] Other 08-30-2023 Evaluation note* Encounter Date Diagnosis Assessment Notes Treatment Notes Treatment Clinical Notes Feb, Seborrheic dermatitis of scalp (ICD-10 - L21.9) Instructed on use of topical steroids Ketoconazole shmp twice weekly x 8 wks that as needed Feb, Cellulitis of head except face (ICD-10 - L03.811) Cleanse w soap and water. Hold on antibiotics at this time and treat underlying skin condition [facility] Other 08-08-2023 Evaluation note* Encounter Date Diagnosis Assessment Notes Treatment Notes Treatment Clinical Notes Feb, Open wound of scalp, unspecified open wound type, initial encounter (ICD-10 - S01.00XA) [facility] Other 07-13-2023 Evaluation note* Encounter Date Diagnosis [...] in remission (ICD-10 - F17.211) Continue abstinence [facility] Other 04-26-2023 Evaluation note* Encounter Date Diagnosis Assessment Notes Treatment Notes Treatment Clinical Notes Oct, Acute actinic otitis externa of right ear (ICD-10 - H60.511) Keep clean and dry, avoid use of QTips Oct, Seasonal allergic rhinitis due to pollen (ICD-10 - J30.1) Angelica and Flonase recommended as needed [facility] Other Evaluation noteNo [facility] Other Evaluation note* Diagnosis Pharyngoesophageal dysphagia- Primary [...] Laparoscopy with L ovarian cyst removal 2015 [facility] Other History general Narrative - Reported* Type [...] removal 2016 Hospitalization History see surgical history [facility] Other History general Narrative - Reported* Type [...] ion 03/2023 Hospitalization History see surgical history [facility] Other History general Narrative - Reported* Type [...] ion 03/2023 Hospitalization History see surgical history [facility] Other Summary Purpose Family History No Family History Records FoundNo Family History Records FoundNo Family History Records Found Advance Directives No Advanced Directives Records FoundNo Advanced Directives Records FoundNo Advanced Directives Records Found Reason for Referral Reason Joceline is being re ferred for chronic right sided nasal obstruction Diagnosis 1 Refractory obstructi on of nasal airway (J34.89) Referral Organization [facility] Referring Provider First Name Merrill Referring [...] esophageal rin g (Schatzki) (K22.2) Referral Organization [facility] linlinda Referring Provider First Name Merrill Referring Provider Last Name Nitish Referring Provider Specialty Internal Me dicine Referred Organization [facility] Referred Provider Daniel Quiroz Referred Address [address],[place],[address] Referred Provider Specialty Gastroentero logy Referral Priority Routine General Notes Joceline is being re ferred for esophageal dysphagia. She has a known hx of Schatzki's ring, which required dilatation in 2020. She denies change in appetite, weight loss, heartburn or indigestion. Additional Source Comments INFORMATION SOURCE (unrecogn ized section and content) DATE CREATED AUTHOR 06/15/2022 [facility] DATE CREATED AUTHOR AUTHOR'S ORGANIZ ATION 12/06/2023 [facility] DATE CREATED AUTHOR AUTHOR'S ORGANIZ ATION 03/31/2024 [facility] EPIC REASON FOR VISIT (unrecogniz ed section and content) Reason Comments Dysphagia Care Teams (unrecognized sec tion and content) Hostess Host Relationship Specialty Start Date End Date Merrill Talbert MD [address] [place] [id number] PCP - General Internal Medicine 02/21/23 Hostess Host Relationship Specialty Start Date End Date Merrill Talbert MD [address] [place] [phone] PCP - General Internal Medicine 02/21/23 FOR [...] BE BASED ON THE PRIMARY CLINICAL RECORDS. [employer] [facility]. provides no warranty or guarantee of the accuracy or completeness of information in this document.
== END 2024-04-19 07:28 | disposition home or self-care (01) ==
LOC: EC 07:28
PROVIDERS: PCP Internal Medicine; Visit Provider Orthopaedic Surgery
DX: M25.562 Pain in left knee (principal); M25.462 Effusion, left knee
CPT/HCPCS: 73564

== ENCOUNTER 2024-06-18 15:16 | Outpatient (OUT) | payer BC, OTHER, SELFPAY ==
--- NOTE | 2024-06-18 | CT_ITS ---
The [address] [address] Patient Name: MUNA SAMPSON MRN: [id number] date: 1985 Sex: F Assigned Patient Location: CT Current Patient Location: Accession/Order Number: [id number] Exam Date: 06/18/2024 15:29 Report Date: 06/19/2024 06:29 At the request of: CUAUHTEMOC SINGH Procedure: CT soft tissue neck w con EXAMINATION: CT soft tissue neck w con HISTORY: Cervical lymphadenopathy COMPARISON: No relevant comparison available. TECHNIQUE: Axial, Coronal, and Sagittal CT images created with IV contrast. Dose reduction techniques were achieved by using automated exposure control and/or adjustment of mA and/or kV according to patient size and/or use of iterative reconstruction technique. FINDINGS: NASOPHARYNX: No asymmetry of the fossae of Rosenmuller and torus tubarius. ORAL CAVITY: No visible mass. OROPHARYNX: No asymmetry of the facial and lingual tonsils. HYPOPHARYNX: No mass or other visible lesion. LARYNX: No mass or asymmetry of the vocal cords. SINUSES: Large mucocele/retention cyst within right maxillary sinus. No appreciable mucosal thickening. NECK GLANDS: No visible abnormality of the parotid, submandibular, and thyroid glands. LYMPH NODES: No pathological-appearing or enlarged lymph nodes. VASCULATURE: No suspicious abnormality. BONES: No significant osseous lesions. OTHER: No additional imaging findings. CT/CT soft tissue neck w con IMPRESSION: 1. Skin surface markers overlie the submandibular salivary glands bilaterally. No abnormal or suspicious findings. 2. No current lymphadenopathy. Electronically authenticated by: LAKESHA MENARD Date: 06/19/2024 06:29
== END 2024-06-18 15:17 | disposition home or self-care (01) ==
LOC: CT 15:16
PROVIDERS: PCP Internal Medicine; Visit Provider Internal Medicine
DX: R59.0 Localized enlarged lymph nodes (principal)
CPT/HCPCS: 70491; Q9967

== ENCOUNTER 2025-04-22 06:41 | Outpatient (OUT) | payer BC, OTHER, SELFPAY ==
--- OUTSIDE RECORDS SUMMARY | 2025-04-22 06:43 | XMS_ITS | CCD ---
Author Organization [facility] CliniSyvt Care Team Providers Care Punch Press Setter Name Role Phone DR MERRILL TALBERT Primary Care Unavailable BALL, DR POSADAS Admitting Unavailable BALL, DR POSADAS Attending Unavailable BALL, DR POSADAS Consulting Unavailable BALL, DR POSADAS Primary Care Unavailable NICOLA, JUAN Attending Unavailable NICOLA, JUAN Consulting Unavailable NICOLA, JUAN Admitting Unavailable BALL, DR POSADAS Consulting Unavailable BALL, DR POSADAS Primary Care Unavailable BALL, DR POSADAS Admitting Unavailable BALL, DR POSADAS Attending Unavailable ANDREW, DR SHUKLA Attending Unavailable ANDREW, DR SHUKLA Consulting Unavailable ANDREW, DR SHUKLA Admitting Unavailable BALL, DR POSADAS Primary Care Unavailable BALL, DR POSADAS Primary Care Unavailable ANDREW, DR SHUKLA Attending Unavailable ANDREW, DR SHUKLA Consulting Unavailable ANDREW, DR SHUKLA Admitting Unavailable Merrill Talbert Unavailable Joceline Henry Unavailable Merrill Talbert MD Primary Care Provider TAYE DIXON Primary Care Physician Mayra Brannon Attending Unavailable FREDI NGUYEN Primary Care Unavailable Cisco Berry Attending Unavailable Merrill Talbert DO Primary Care Provider IOANA FRAIRE Attending Unavailable VAZQUEZ MORALES Attending Unavailable Joceline Henry APRN Attending Provider [phone] Merrill Talbert DO Primary Care Provider [phone] Kadi Santiago DO Attending Provider [phone] Ly Kadi CH Other Provider LyKadi Attending Unavailable Kadi Santiago Admitting Unavailable Merrill Talbert Primary Care Unavailable Allergies Allergy Classification Reported Allergen(s) Allergy Type Date of Onset Reaction(s) Facility (3 sources) Cephalexin Drug Allergy 12-28-19 16 bloody gums/gingiviti s [facility] Repository (3 sources) Morphine Drug Allergy 05-24-20 16 Unknown Reaction [facility] Repository (20 sources) Cephalexin; Translations: [cephalexin] Drug Allergy 02-14-20 23 GI bleeding [facility] Work Phone: (20 sources) Morphine Drug Allergy 12-09-19 20 GI intolerance [facility] Other (7 sources) Morphine Sulfate (Concentrate) *ANALGESICS - OPIOI Propensity to adverse reactions Unknown [facility] Other (2 sources) Allergies Reconciled Propensity to adverse reactions Unknown [facility] Other (7 sources) Medicinal cephalosporin and acting as antibacterial agent (FN) Drug allergy 06-23-20 18 Unknown [facility] Other (2 sources) patient allergy list reviewed by nurse or physicia Propensity to adverse reactions 06-24-20 18 Comment:Done [employer] [facility] Other (2 sources) Cephalexin; Translations: [Keflex] Drug Allergy gum swelling [facility] Repository (1 source) seasonal/environm ental allergies Propensity to adverse reactions Unknown [employer] [facility] [employer] Other (1 source) Cephalexin Drug Allergy 03-21-20 [facility] Repository (1 source) Morphine Drug Allergy 03-21-20 [facility] Repository Medications Current Medications Medication Drug Class(es) Dates Sig (Normalized) Sig (Original) amoxicillin 500 mg oral capsule (3 sources) Penicillin-class Antibacterial Start: 01-16-2025 End: 01-23-2025 amoxicillin (Amoxil) 500 MG capsule Take 1,000 mg by mouth 01/16/2025 01/23/2025 Active ciprofloxacin 500 mg oral tablet (2 sources) Quinolone Antimicrobial Start: 01-18-2025 End: 01-25-2025 take 1 tablet by mouth in the morning ciprofloxacin (Cipro) 500 MG tablet Indications: Acute swimmer's ear of both sides Take 1 tablet (500 mg) by mouth in the morning and 1 tablet (500 mg) before bedtime. Do all this for 7 days. 14 tablet 01/18/2025 01/25/2025 Active ciprofloxacin 3 mg/ml / dexamethasone 1 mg/ml otic suspension (4 sources) Corticosteroid, Quinolone Antimicrobial Start: 01-13-2025 ciprofloxacin-dexa methasone 0.3%-0.1% Otic Susp 4 drop(s), Otic, BID, 7.5 mL, Refill(s) 0, [facility], 164, cm, 01/13/25 16:21:00 EDT, Height/Length Dosing, 78, kg, 01/13/25 16:21:00 EDT, Weight Dosing Start Date: 01/13/25 Status: Ordered Quantity: 7.5 Unit: mL Repeat number: 1 citalopram 40 mg oral tablet (20 sources) Serotonin Reuptake Inhibitor Start: 10-21-2021 End: 10-24-2024 take 1 tablet by mouth once daily Citalopram (Celexa) 40 mg tablet Active 40 MG PO Daily June 16, 2024 1:00am Complies with drug therapy Claritin-D 24 Hour 10-240 MG (8 sources) Start: 08-02-2022 take 10-240 mg by mouth once daily as needed Claritin-D 24 Hour 10-240 MG 1 tablet as needed Orally Once a day for 30 day(s) Jul, Active estradiol 1 mg oral tablet (20 sources) Estrogen Start: 06-16-2024 take 1.5 mg by mouth once daily Estradiol 1 mg tablet Active 1.5 MG PO Daily June 16, 2024 1:00am off 1 week; repeat cycle Complies with drug therapy Start: 03-29-2024 End: 04-28-2024 take 1 tablet by mouth once daily estradiol (Estrace) 0.5 MG tablet Indications: Hot flashes due to surgical menopause , Mood changes Take 1 tablet (0.5 mg) by mouth Daily Take 1 tablet by mouth along with 1mg Estradiol to equal 1.5mg daily. 90 tablet 4 04/28/2024 Active Start: 01-28-2024 End: 04-27-2024 take 1 tablet by mouth once daily estradiol (Estrace) 1 MG tablet Indications: Hot flashes due to surgical menopause , Mood changes Take 1 tablet (1 mg) by mouth Daily 90 tablet 3 01/28/2024 Active fluocinonide 0.5 mg/ml topical solution (7 sources) Corticosteroid Start: 03-03-2025 Fluocinonide 0 .05 % solution Active 1 APPLIC TOPICAL Daily 60 90 March 03, 2025 12:00am Complies with drug therapy Start: 02-28-2025 Fluocinonide 0 .05 % solution Active 1 APPLIC TOPICAL Daily February 28, 2025 12:00am Complies with drug therapy Start: 09-15-2023 End: 03-29-2024 fluocinonide (Lidex) 0.05 % external solution 09/15/2023 03/29/2024 Discontinued (Other) fluticasone propionate 0.05 mg/actuat metered dose nasal spray (18 sources) Corticosteroid Start: 07-15-2024 End: 02-24-2025 take 2 spray(s) nasal route once daily Fluticasone Propionate 50 mcg/actuation spray,suspension Active 0 .ROUTE .COMPLEX 48 February 24, 2025 8:33am USE 2 SPRAYS IN EACH NOSTRIL ONCE A DAY Complies with drug therapy Start: 06-16-2024 End: 07-15-2024 take 1 spray(s) nasal route once daily Fluticasone Propionate 50 mcg/actuation spray,suspension Discontinued 2 SPRAY INTRANASAL Daily 16 June 16, 2024 1:00am July 15, 2024 8:55am administer into each nostril Start: 01-11-2023 fluticasone (F lonase Allergy Relief) 50 MCG/ACT nasal spray 01/11/2023 Active take 2 spray(s) nasa l route in the morning fluticasone (Flonase) 50 MCG/ACT nasal spray Administer 2 sprays into each nostril in the morning and 2 sprays before bedtime. Shake gently. Before first use, prime pump. After use, clean tip and replace cap.. 0 Active levocetirizine dihydrochloride 5 mg oral tablet (2 sources) Histamine-1 Receptor Antagonist take 1 tablet by mouth in the evening levocetirizine (Xyzal) 5 MG tablet Take by mouth in the evening Active levoFLOXacin 500 mg oral tablet (4 sources) Quinolone Antimicrobial Start: 023 take 1 tablet by mouth every twenty-four hours levoFLOXacin 500 MG 1 tablet Orally Once a day for 7 days Feb, Active loratadine 10 mg oral tablet (2 sources) Start: 024 take 1 tablet by mouth once daily Loratadine (Claritin) 10 mg tablet Active 10 MG PO Daily June 16, 2024 1:00am Complies with drug therapy 24 hr loratadine 10 mg / pseudoephedrine sulfate 240 mg extended release oral tablet (19 sources) alpha-Adrenergic Agonist Start: 023 take 1 tablet by mouth every twenty-four hours Claritin-D 24 Hour 10-240 MG 1 tablet as needed Orally Once a day for 30 day(s) Jul, Active Start: 10-21-2021 Claritin-D 5 m g-120 mg Tab-ER 1 tab(s), Oral, Daily, 30 tab(s), Refill(s) 0 Start Date: 10/21/21 Status: Ordered Quantity: 30.0 Unit: tab(s) Repeat number: 1 take 10-240 mg by [facility] every twenty-four hours loratadine-pseudoephedrine ER (Claritin-D 24 Hour) 10-240 MG 24 hr tablet Take 1 tablet by mouth Daily Do not crush, chew, or split. Active methylPREDNISolone 4 mg oral tablet (2 sources) Corticosteroid Start: 04-15-2023 methylPREDNISolone 4 MG as directed Orally daily for 6 days Apr, Active omeprazole 40 mg delayed release oral capsule (9 sources) Proton Pump Inhibitor Start: 11-26-2023 take 1 capsule by mouth before mealtime omeprazole (PriLOSEC) [address] capsule Indications: Pharyngoesophageal dysphagia Take 1 capsule (40 mg) by mouth in the morning. Take before meals. Do not crush or chew.. 90 capsule 11/26/2023 Active pantoprazole 40 mg delayed release oral tablet (1 source) Proton Pump Inhibitor Start: 03-21-2025 take 1 tablet by mouth twice daily triamcinolone acetonide 5 mg/ml topical cream (16 sources) Corticosteroid Start: 03-07-2025 Triamcinolone Acetonide 0.5 % cream Active 0 APPLIC .ROUTE .COMPLEX March 07, 2025 12:00am APPLY TO AFFECTED AREA TWICE A DAY PRN Complies with drug therapy Start: 01-08-2024 End: 03-07-2025 Triamcinolone Acetonide 0.5 % cream Discontinued 0 .ROUTE .COMPLEX 60 January 08, 2024 5:54pm March 07, 2025 1:39pm APPLY TO AFFECTED AREA TWICE A DAY Start: 01-08-2024 End: 01-08-2024 Triamcinolone Acetonide 0.5 % cream Discontinued 1 APPLIC TOPICAL Twice daily January 08, 2024 12:00am January 08, 2024 5:54pm Start: 07-17-2023 End: 03-29-2024 triamcinolone (Kenalog) 0.5 % cream Apply topically 2 (two) times a day to affected area 07/17/2023 03/29/2024 Discontinued (Other) Start: 04-09-2023 Triamcinolone Acetonide 0.5 % 1 application Externally twice daily for 30 days Mar, Active Triamcinolone Ac etonide 0.5 % 1 application Externally q HS as needed to neck area for 30 days Active Completed/Discontinued Medications Medication Drug Class(es) Dates Sig (Normalized) Sig (Original) amLODIPine 10 mg oral tablet (20 sources) Dihydropyridine Calcium Channel Goeffrey Start: 04-01-2024 End: 07-03-2024 take 1 tablet by mouth once daily Amlodipine 10 mg tablet Discontinued 0 .ROUTE .COMPLEX April 01, 2024 7:21pm July 03, 2024 3:56pm TAKE 1 TABLET BY MOUTH EVERY DAY Start: 10-09-2023 End: 04-01-2024 take 1 tablet by mouth once daily Amlodipine 10 mg tablet Discontinued 10 MG PO Daily 90 October 09, 2023 12:18pm April 01, 2024 8:39am Start: 10-21-2021 take 1 tablet by luis th once daily amLODIPine 5 mg Tab 5 mg = 1 tab(s), Oral, Daily, # 30 tab(s), Refills(s) 0 Start Date: 10/21/21 Status: Ordered Quantity: 30.0 Unit: tab(s) Repeat number: 1 take 1 tablet by luis th once daily amLODIPine Besylate 10 MG TAKE 1 TABLET BY MOUTH EVERY DAY for 90 days Active azithromycin 250 mg oral tablet (9 sources) [...] BY MOUTH EVERY DAY for 30 Active estrogens, conjugated (chcf) 1.25 mg oral tablet (18 sources) Estrogen Start: 01-13-2024 End: 03-29-2024 take 1 tablet by mouth once daily, then take 1 tablet by mouth once daily estrogens, conjugated, (Premarin) 1.25 MG tablet Indications: Acquired absence of both cervix and uterus Take 1 tablet (1.25 mg) by mouth Daily TAKE 1 TABLET BY MOUTH EVERY DAY FOR 30 DAYS 30 tablet 6 01/13/2024 03/29/2024 Discontinued (Other) Start: 05-05-2023 take 1 tablet by luis once daily Premarin 1.25 MG tablet Indications: [...] 0.625 M G/GM as directed Vaginal Active famotidine 20 mg oral tablet (5 sources) Histamine-2 Receptor Antagonist Start: 11-26-2023 End: 03-29-2024 take 1 tablet by mouth at bedtime famotidine (Pepcid) 20 MG tablet Indications: Pharyngoesophageal dysphagia Take 1 tablet (20 mg) by mouth at bedtime 90 tablet 11/26/2023 03/29/2024 Discontinued (Other) hydrocortisone 10 mg/ml / neomycin 3.5 mg/ml / polymyxin b [id number] unt/ml otic suspension (9 sources) Aminoglycoside Antibacterial, Polymyxin-class Antibacterial, Corticosteroid [id number]-[id number]-[id number] C 3.5-19041-3 4 drops into affected ear Otic four times daily for 7 days Not-Taking ketoconazole 20 mg/ml medicated shampoo (10 sources) Azole Antifungal Start: 07-17-2023 End: 03-29-2024 ketoconazole (NIZOral) 2 % shampoo USE DURING SHOWER TWICE WEEKLY FOR 8 WEEKS,THEN NEEDED FOR 28 DAYS 07/17/2023 03/29/2024 Discontinued (Other) Start: 03-12-2023 Ketoconazole 2 % Use during shower Externally Twice weekly, for 8 weeks then as needed for 28 days Feb, Active meloxicam 15 mg oral tablet (2 sources) Nonsteroidal Anti-inflammatory Drug Start: 06-16-2024 End: 02-28-2025 take 1 tablet by mouth once daily as needed Meloxicam 15 mg tablet Discontinued 15 MG PO Daily as needed June 16, 2024 1:00am February 28, 2025 3:14pm mometasone furoate 1 mg/ml topical cream (5 sources) Corticosteroid Start: 11-19-2023 End: 03-29-2024 mometasone (Elocon) 0.1 % cream APPLY TO AFFECTED AREAS ON FACE TWICE DAILY UP TO 3 WEEKS THEN NEEDED FOR FLARES 11/19/2023 03/29/2024 Discontinued (Other) Problems Active Problems Problem Classification Problem Date Documented Date Episodic/Chronic Acute and chronic tonsillitis (7 sources) Acute tonsillitis; Translations: [Acute tonsillitis, unspecified] Episodic Allergic reactions (7 sources) Contact dermatitis due to cosmetics; Translations: [Allergic contact dermatitis due to cosmetics] Episodic Anxiety disorders (20 sources) Generalized anxiety disorder; Translations: [Generalized anxiety disorder] Onset: 3 Resolved: 0 Chronic Complications of surgical procedures or medical care (9 sources) Menopausal flushing; Translations: [Symptomatic postprocedural ovarian failure] Onset: 4 03-29-2024 Chronic Esophageal disorders (20 sources) Stricture of esophagus; Translations: [Esophageal obstruction] Onset: 8 Chronic Essential hypertension (20 sources) Essential hypertension; Translations: [Essential (primary) hypertension] Onset: 3 Chronic Fluid and electrolyte disorders (11 sources) Hypokalemia; Translations: [Hypokalemia] Onset: 8 Resolved: 0 12-23-2014 Episodic Immunizations and screening for infectious disease (20 sources) Encounter for screening for human papillomavirus (HPV); Translations: [Encounter for screening for infections with a predominantly sexual mode of transmission] Onset: 9 Episodic Lymphadenitis (2 sources) Cervical lymphadenopathy; Translations: [Localized enlarged lymph nodes] 06-16-2024 Episodic Malaise and fatigue (7 sources) Fatigue; Translations: [Other fatigue] Episodic Menopausal disorders (2 sources) Menopausal symptom; Translations: [Menopausal and female climacteric states] 03-29-2024 Chronic Menstrual disorders (14 sources) Excessive and frequent menstruation; Translations: [Excessive and frequent menstruation with regular cycle] Onset: 8 Chronic Mood disorders (20 sources) Depression; 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] Onset: 8 02-13-2023 Chronic Mycoses (8 sources) Candidiasis; Translations: [Candidiasis, unspecified] Episodic Open wounds of head; neck; and trunk (1 source) Unspecified open wound of scalp, initial encounter Episodic Other ear and sense organ disorders (1 source) Otitis externa of right ear; Translations: [Unspecified otitis externa, right ear] Onset: 5 Chronic Other ear and sense organ disorders (1 source) Acute actinic otitis externa, right ear Episodic Other ear and sense organ disorders (1 source) Acute non-infective otitis externa; Translations: [Unspecified acute noninfective otitis externa, right ear] Onset: 5 Episodic Other ear and sense organ disorders (4 sources) Acute otitis externa; Translations: [Swimmer's ear, bilateral] 01-13-2025 Episodic Other ear and sense organ disorders (2 sources) Acute otitis externa of right ear; Translations: [Unspecified acute noninfective otitis externa, right ear] Onset: 5 01-18-2025 Episodic Other endocrine disorders (7 sources) Disorder [...] [Dysphagia, pharyngoesophageal phase] Episodic Other gastrointestinal disorders (19 sources) Dysphagia; Translations: [Dysphagia, unspecified] Onset: 3 02-13-2023 Episodic Other gastrointestinal disorders (1 source) Dysphagia, unspecified; Translations: [Dysphagia, unspecified] Onset: 5 Episodic Other inflammatory condition of skin (3 sources) Seborrheic dermatitis, unspecified Episodic Other nutritional; endocrine; and metabolic disorders (1 source) Overweight Episodic Other and delivery including normal (4 sources) Twin ; Translations: [Twin , unspecified number of placenta and unspecified number of amniotic sacs, unspecified trimester] Onset: 5 09-24-2013 Episodic Other screening for suspected conditions (not mental disorders or infectious disease) (7 sources) Encounter for screening for malignant neoplasm of cervix; Translations: [Patient encounter status] Onset: 2 Episodic Other upper respiratory disease (11 sources) [...] 2 Episodic Otitis media and related conditions (17 sources) Otitis media; Translations: [Otitis media, unspecified, right ear] Onset: 5 Episodic Ovarian cyst (7 sources) Cyst of [...] dependence, cigarettes, in remission] Onset: 8 Chronic Comment on above: Added secondary to d ocumentation in Social History. Unclassified (3 sources) CONTACT W/AND (SUSP) EXPOS COVID-19; Translations: [CONTACT W/AND (SUSP) EXPOS COVID-19] Onset: 2 Unclassified (2 sources) K22.2 - Esophageal obstruction,R13.10 - Dysphagia, unspecified Urinary tract infections (1 source) Urinary tract [...] disease with esophagitis, without bleeding] Onset: 06-24-2018 Mood disorders (9 sources) Disturbance in mood; Translations: [Emotional lability] Onset: 03-29-2024 03-29-2024 Episodic Nonmalignant breast conditions (20 sources) Lump [...] index 26.0-26.9, adult] Onset: 06-24-2018 Episodic Other skin disorders (7 sources) Disorder of skin and/or subcutaneous tissue; Translations: [Disorder of the skin and subcutaneous tissue, unspecified] Resolved: 04-06-2020 Episodic Other upper respiratory disease (12 sources) Mass of nose; Translations: [Other specified disorders of nose and nasal sinuses] Onset: 02-13-2023 02-21-2023 Episodic Residual codes; unclassified (7 sources) Acquired absence of ovary; Translations: [Acquired absence of ovaries, unilateral] Resolved: 04-06-2020 Episodic Residual codes; unclassified (12 sources) Acquired absence of cervix and uterus; 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] Onset: 02-13-2023 Resolved: 02-13-2023 02-13-2023 Episodic Residual codes; unclassified (9 sources) Reduced libido; Translations: [Decreased libido] Onset: 03-29-2024 03-29-2024 Episodic Sexually transmitted infections (not HIV or [...] Test Name Value Interpretation Reference Range Facility Pathology Request for Lab Co rpon 03-21-2025 Pathology Request for Lab [place] Normal [facility] Comment on above: Order Comment: GI SP ECIMEN Result Comment: See report. Scanned copy available in EMR. PERFORMED BY: [place] [address] PATHOLOGIST MACHINE CANDLE MOLDER PROSPER DIAZ M.D. Performed By: #### P ATH TO [facility] #### [address] Ambulatory Visit Summaryon 0 01-16-2025 Ambulatory Visit Summary Ambulatory Visit Summary JOCELINE SAMPSON :1985 Visit Date:01/16/2025 Ambulatory Visit Instructions Your Diagnosis Right otitis externa Right otitis media Your Care Team Attending Physician - Jamal SALINAS, Cisco Pickett Primary Care Physician - TAYE DIXON MD This Is Your Medications List amoxicillin (amoxicillin 500 mg Cap) Contact prescribing physician if questions or concerns amlodipine (amLODIPine 5 mg Tab) ciprofloxacin-dexame thasone otic (ciprofloxacin-dexam ethasone 0.3%-0.1% Otic Susp) citalopram (CeleXA 40 mg Tab) estradiol (estradiol 1 mg Tab) loratadine-pseudoeph edrine (Claritin-D 5 mg-120 mg Tab-ER) Procedures Performed hysteroscopy D&C with NovaSure ablation (12/28/2014), , Cholecystectomy, LASIK, Rhinoplasty, Tubal ligation. Discharge Vitals Temperature (Tympanic) 36.9 ???C Heart Rate (Peripheral) 89 Blood Pressure 132/86 Height 164 cm Height 65 in Weight 78.4 kg Weight 172.842 lb BMI 29.15 What to do next You Need to Schedule the Following Appointments Follow Up with ZACK MERINO, MEE KOTHARI When: Where: [facility] [place] [address]- Medications What How Much When Why Instructions New amoxicillin (amoxicillin 500 mg Cap) 2 Capsules By Mouth Every 12 hours Right otitis externa Right otitis media Duration: 7 Days Pickup at [facility] 1985 Unchanged amlodipine (amLODIPine 5 mg Tab) 1 Tablets By Mouth Every day Contact prescribing physician if questions or concerns Unchanged ciprofloxacin-dexame thasone otic (ciprofloxacin-dexam ethasone 0.3%-0.1% Otic Susp) 4 Drops Otic 2 times a day Contact prescribing physician if questions or concerns Unchanged citalopram (CeleXA 40 mg Tab) 1 Tablets By Mouth Every day Contact prescribing physician if questions or concerns Unchanged estradiol (estradiol 1 mg Tab) Contact prescribing physician if questions or concerns Unchanged loratadine-pseudoeph edrine (Claritin-D 5 mg-120 mg Tab-ER) 1 Tablets By Mouth Every day Contact prescribing physician if questions or concerns Pharmacy Information [facility] 1986: [address] [place] [id number] [phone] Allergies Keflex Problems Ongoing - Any problem that you are currently receiving treatment for. Acute otitis externa of right ear Hypertension Smoker 13-JAN-2014 12:37:00<$> Twin Patient Survey You may receive a survey via text or e-mail asking about your office visit. Please share your experience with us by completing your survey. We appreciate your feedback and thank you for choosing us for your care. Education Materials Otitis Media, Adult Otitis media occurs when there is inflammation and fluid in the middle ear with signs and symptoms of an acute infection. The middle ear is a part of the ear that contains bones for hearing as well as air that helps send sounds to the brain. When infected fluid builds up in this space, it causes pressure and can lead to an ear infection. The eustachian tube connects the middle ear to the back of the nose (nasopharynx) and normally allows air into the middle ear. If the eustachian tube becomes blocked, fluid can build up and become infected. What are the causes? This condition is caused by a blockage in the eustachian tube. This can be caused by mucus or by swelling of the tube. Problems that can cause a blockage include: ??? A cold or other upper respiratory infection. ??? Allergies. ??? An irritant, such as tobacco smoke. ??? Enlarged adenoids. The adenoids are areas of soft tissue located high in the back of the throat, behind the nose and the roof of the mouth. They are part of the body's defense system (immune system). ??? A mass in the nasopharynx. ??? Damage to the ear caused by pressure changes (barotrauma). What increases the risk? You are more likely to develop this condition if you: ??? Smoke or are exposed to tobacco smoke. ??? Have an opening in the roof of your mouth (cleft palate). ??? Have gastroesophageal reflux. ??? Have an immune system disorder. What are the signs or symptoms? Symptoms of this condition include: ??? Ear pain. ??? Fever. ??? Decreased hearing. ??? Tiredness (lethargy). ??? Fluid leaking from the ear, if the eardrum is ruptured or has burst. ??? Ringing in the ear. How is this diagnosed? This condition is diagnosed with a physical exam. During the exam, your health care provider will use an instrument called an otoscope to look in your ear and check for redness, swelling, and fluid. He or she will also ask about your symptoms. Your health care provider may also order tests, such as: ??? A pneumatic otoscopy. This is a test to check the movement of the eardrum. It is done by squeezing a small amount of air into the ear. ??? A tympanogram. This is a test that shows how well the eardrum m (more content not included)... Normal [facility] Family Medicine Office/Clini c Noteon 01-16-2025 Family Medicine Office/Clinic Note Family Medicine Office/Clinic Note Chief Complaint ear pain HPI Staff 39 year old female presents with rt ear pain and muffled hearing since Friday. Pt was seen here 3 days ago and given ear drops, symptoms have not improved and have worsened otc: ibuprofen, tylenol History of Present Illness I have reviewed and verified the staff HPI to be accurate for this encounter. Portions of this record have been created with voice recognition software. Occasional wrong-word or ???efjst-f-sysb??? substitutions may have occurred due to the inherent limitations of voice recognition software. 39-year-old female presents today with chief complaint of right-sided ear pain and muffled hearing since Friday. Patient states that she was here and convening care approximately 3 days ago on at that time was treated with an eardrop. Patient states that symptoms have not improved and the pain has worsened. Came in for repeat evaluation has been taking xjgl-mui-iepxnei ibuprofen and Tylenol for pain. Patient denies any fever or chills. She does state swelling of the lymph node on the right side of the neck which she can feel states is just more painful tender to touch denies any ear drainage has been using the antibiotic eardrops over the past 3 days with little relief. Believes it is more swollen than it was on Friday. She has no other concerns at this time. Review of Systems PHQ Score Initial Depression Screen Score: 0 SCORE ROS negative unless otherwise stated in HPI. Physical Exam Vitals & Measurements T: 36.9 ???C(Tympanic) HR: 89(Peripheral) BP: 132/86 SpO2: 97% HT: 65 in HT: 164 cm WT: 172.842 lb WT: 78.4 kg BMI: 29.15 General:Well developed, well nourished, in no acute distress Eyes:Bilateral conjunctiva wnl, no injection Ears: TM is visualized without erythema or bulging left external auditory canal within normal limits no erythema or edema. The right TM is visualized in which the superior aspect does appear to be erythematous without bulging slightly retracted concerning for possible early right otitis media. The right external auditory canal is swollen and erythematous which is consistent with diagnosis of right otitis externa however there is increase in swelling I am able to get the tip of the otoscope and but believe patient would benefit from an ear wick as she has narrow ear canals with this swelling. Nose:No deformity, discharge, inflammation, or lesions Mouth:Moist mucous membranes. Uvula is midline. No acute tonsillar erythema, edema, or exudate. No signs of peritonsillar abscess. No trismus or drooling. Neck:palpable anterior cervical node R side Lungs:Lung sounds are clear bilaterally. No wheezing, rhonchi, or crackles on exam. Cardio:S1, S2, regular rhythm. No murmurs, gallops, or rubs. Abdomen:not assessed Musculoskeletal:not assessed Extremity:not assessed Neurologic:not assessed Skin:not assessed Mental Status:Alert and oriented x3. Normal mood and affect Assessment/Plan I spoke with patient regards to placement of ear wick and which she is in agreement with. I used a pair of forceps and an ear wick was placed in the right ear. I believe this will benefit patient in regards to use of her Ciprodex eardrops discussed that I do like that antibiotic eardrop for otitis externa. Will not change eardrop at this time. Will add amoxicillin 1 g twice daily x 7 days treatment of right otitis media states will cover and treat both things patient will otherwise continue to monitor follow closely with PCP or contact the office if no improvement we can send referral to ENT. Patient agrees understands plan will continue Tylenol and ibuprofen as needed for pain and discomfort. 1. Right otitis externa (H60.91: Unspecified otitis externa, right ear) Continue ciprodex drops as prescribed at prior visit. Ear wick was placed today. Finish course. Lay with ear up for 5 minutes after applying drops. Keep ear clean and dry, avoid water activities or inserting objects into ear such as earbuds, qtips. May use OTC tylenol/ibuprofen for pain. FU with PCP if not improving over next 5 days with treatment, significantly worsening, or fevers. Patient verbalized understanding of treatment plan. Ordered: amoxicillin, 1,000 mg = 2 cap(s), Oral, q12hr, X 7 day(s), # 28 cap(s), Refills(s) 0, Pharmacy: [facility], 164, cm, 01/16/25 11:24:00 EDT, Height/Length Dosing, 78.4, kg, 01/16/25 11:24:00 EDT, Weight Dosing 2. Right otitis media (H66.91: Otitis media, unspecified, right ear) Will treat with amoxicillin 1g bid x 7 days. Finish course. Fluids/rest, PRN tylenol/ibuprofen for pain and/or fever encouraged. Discussed other cold symptoms remain viral in nature- typical duration 7-14 days. Encouraged to follow up with PCP for recheck in about 5 days to ensure infection resolving, especially if symptoms worsening or fevers. Patient verbalized understanding of treatment plan. Ordered: amoxicillin, 1,000 mg = 2 cap(s), Oral, q12hr, X 7 day( (more content not included)... Normal [facility] Comment on above: Result Comment: Elec tronically Signed By: Jamal SALINAS, Cisco Pickett\.br\Date and Time Signed: 01/16/25 11:41 EDT Ambulatory Visit Summaryon 0 01-13-2025 Ambulatory Visit Summary Ambulatory Visit Summary JOCELINE SAMPSON :1985 Visit Date:01/13/2025 Ambulatory Visit Instructions Your Diagnosis Acute otitis externa of right ear Your Care Team Attending Physician - Mayra Juan Primary Care Physician - TAYE DIXON MD This Is Your Medications List amlodipine (amLODIPine 5 mg Tab) ciprofloxacin-dexame thasone otic (ciprofloxacin-dexam ethasone 0.3%-0.1% Otic Susp) Contact prescribing physician if questions or concerns citalopram (CeleXA 40 mg Tab) estradiol (estradiol 1 mg Tab) loratadine-pseudoeph edrine (Claritin-D 5 mg-120 mg Tab-ER) Procedures Performed hysteroscopy D&C with NovaSure ablation (12/28/2014), , Cholecystectomy, LASIK, Rhinoplasty, Tubal ligation. Discharge Vitals Temperature (Oral) 36.7 ???C Heart Rate (Peripheral) 85 Blood Pressure 132/86 Height 164 cm Height 65 in Weight 78 kg Weight 171.96 lb BMI 29 What to do next You Need to Schedule the Following Appointments Follow Up with TAYE DIXON MD, FAM When: Where: [address] [place] [id number]- Medications What How Much When Instructions New ciprofloxacin-dexame thasone otic (ciprofloxacin-dexam ethasone 0.3%-0.1% Otic Susp) 4 Drops Otic 2 times a day Pickup at [facility] 1985 Unchanged amlodipine (amLODIPine 5 mg Tab) 1 Tablets By Mouth Every day Unchanged citalopram (CeleXA 40 mg Tab) 1 Tablets By Mouth Every day Contact prescribing physician if questions or concerns Unchanged estradiol (estradiol 1 mg Tab) Contact prescribing physician if questions or concerns Unchanged loratadine-pseudoeph edrine (Claritin-D 5 mg-120 mg Tab-ER) 1 Tablets By Mouth Every day Contact prescribing physician if questions or concerns Pharmacy Information [facility]: [address] [place] [id number] [phone] Allergies Keflex Problems Ongoing - Any problem that you are currently receiving treatment for. Acute otitis externa of right ear Hypertension Smoker 13-JAN-2014 12:37:00<$> Twin Patient Survey You may receive a survey via text or e-mail asking about your office visit. Please share your experience with us by completing your survey. We appreciate your feedback and thank you for choosing us for your care. Education Materials Otitis Externa Otitis externa is an infection of the outer ear canal. The outer ear canal is the area between the outside of the ear and the eardrum. Otitis externa is sometimes called swimmer's ear. What are the causes? Common causes of this condition include: ??? Swimming in dirty water. ??? Moisture in the ear. ??? An injury to the inside of the ear. ??? An object stuck in the ear. ??? A cut or scrape on the outside of the ear or in the ear canal. What increases the risk? You are more likely to develop this condition if you go swimming often. What are the signs or symptoms? The first symptom of this condition is often itching in the ear. Later symptoms of the condition include: ??? Swelling of the ear. ??? Redness in the ear. ??? Ear pain. The pain may get worse when you pull on your ear. ??? Pus coming from the ear. How is this diagnosed? This condition may be diagnosed by examining the ear and testing fluid from the ear for bacteria and funguses. How is this treated? This condition may be treated with: ??? Antibiotic ear drops. These are often given for 10???14 days. ??? Medicines to reduce itching and swelling. Follow these instructions at home: ??? If you were prescribed antibiotic ear drops, use them as told by your health care provider. Do not stop using the antibiotic even if you start to feel better. ??? Take wawv-pku-bfxiylo and prescription medicines only as told by your health care provider. ??? Avoid getting water in your ears as told by your health care provider. This may include avoiding swimming or water sports for a few days. ??? Keep all follow-up visits. This is important. How is this prevented? Keep your ears dry. Use the corner of a towel to dry your ears after you swim or bathe. ??? Avoid scratching or putting things in your ear. Doing these things can damage the ear canal or remove the protective wax that lines it, which makes it easier for bacteria and funguses to grow. ??? Avoid swimming in lakes, polluted water, or swimming pools that may not have enough chlorine. Contact a health care provider if: ??? You have a fever. ??? Your ear is still red, swollen, painful, or draining pus after 3 days. ??? Your redness, swelling, or pain gets worse. ??? You have a severe headache. Get help right away if: ??? You have redness, swelling, and pain or tenderness in the area behind your ear. Summary ??? Otitis externa is an infection of the outer ear canal. ??? Common causes include swimming in dirty wa (more content not included)... Normal [facility] Family Medicine Office/Clini c Noteon 01-13-2025 Family Medicine Office/Clinic Note Family Medicine Office/Clinic Note Chief Complaint ear pain HPI Staff 39 year old female complaints of right ear pain, muffled hearing Onset: yesterday OTC tried: ibuprofen, Tylenol History of Present Illness 39 yr old female with a PMH HTN, depression,allergies , with Right ear pain. she used a yessi pin to scratch her ear the other day. now it is painful and swollen. no other complaints. no recent swimming. Review of Systems PHQ Score Initial Depression Screen Score: 0 SCORE Physical Exam Vitals & Measurements T: 36.7 ???C(Oral) HR: 85(Peripheral) BP: 132/86 SpO2: 97% HT: 65 in HT: 164 cm WT: 171.96 lb WT: 78 kg BMI: 29 General: alert, no acute distress, well appearing, _pleasant, middle aged female room 4 with sig other Skin: warm, dry, intact Head: no trauma, normocephalic Neck: Trachea midline, no adenopathy, no tenderness Eye: normal conjunctiva, sclera clear, _PERRLA ENMT: TM's clear, external right ear canal with edema and narrowing to the tragus area with tenderness , mild yellow draiange, oral mucosa moist, no pharyngeal erythema or exudate, normal dentition Cardiovascular: regular rate and rhythm, normal peripheral perfusion, no edema Respiratory: Lungs CTA, respirations non labored Extremities: no deformity, no trauma Neurological: oriented x 4, LOC appropriate for age, CN II-XII intact, , speech normal Psychiatric: cooperative? , affect appropriate for age? , normal? judgement, normal? psychiatric thoughts. Assessment/Plan Will treat with Cipro Dex gtts BID x 7 days. Patient advised to avoid putting any foreign bodies into the ear canal education provided on avoidance of swimming water, reasons to go to the ER, reasons to return for failure of treatment improvement. Follow-up with PCP patient agreeable with this plan 1. Acute otitis externa of right ear (H60.501: Unspecified acute noninfective otitis externa, right ear) Orders: ciprofloxacin-dexame thasone otic, 4 drop(s), Otic, BID, 7.5 mL, Refill(s) 0, [facility], 164, cm, 01/13/25 16:21:00 EDT, Height/Length Dosing, 78, kg, 01/13/25 16:21:00 EDT, Weight Dosing Total time spent preparing the chart, conducting of the encounter with the patient and family and time spent documenting, reviewing, and ordering tests was 20 minutes. Portions of this record may have been created with voice recognition artificial intelligence software, specifically [employer], [employer] and or imedo. Substitutions may have occurred due to the inherent limitations of voice recognition and artificial intelligence software. Follow-up With When Contact Information TAYE DIXON MD, [address] [address]- Additional Instructions: Patient Education Otitis Externa Problem List/Past Medical History Ongoing Acute otitis externa of right ear Hypertension Smoker 13-JAN-2014 12:37:00<$> Twin Historical No qualifying data Procedure/Surgical History hysteroscopy D&C with NovaSure ablation (12/28/2014), , Cholecystectomy, LASIK, Rhinoplasty, Tubal ligation. Medications amLODIPine 5 mg Tab, 5 mg= 1 tab(s), Oral, Daily CeleXA 40 mg Tab, 40 mg= 1 tab(s), Oral, Daily ciprofloxacin-dexame thasone 0.3%-0.1% Otic Susp, 4 drop(s), Otic, BID Claritin-D 5 mg-120 mg Tab-ER, 1 tab(s), Oral, Daily estradiol 1 mg Tab Allergies Keflex Social History Alcohol 1-2 times per month, 10/30/2012 Substance Abuse - Denies Substance Abuse, 10/30/2012 Tobacco - High Risk, 10/21/2021 Former smoker, quit more than 30 days ago Tobacco Use:. Never Smokeless Tobacco Use:. Cigarettes, 01/13/2025 Immunizations Vaccine Date Status influenza virus vaccine, inactivated 04/22/2024 Recorded SARS-CoV-2 (COVID-19) mRNA-1273 vaccine 05/22/2021 Recorded SARS-CoV-2 (COVID-19) mRNA-1273 vaccine 08/10/2020 Recorded SARS-CoV-2 (COVID-19) mRNA-1273 vaccine 07/12/2020 Recorded influenza virus vaccine, inactivated 2020 Recorded hepatitis A-hepatitis B vaccine 09/13/2015 Recorded hepatitis B pediatric vaccine 03/31/2015 Recorded hepatitis B pediatric vaccine 02/28/2015 Recorded Normal [facility] Comment on above: Result Comment: Elec tronically Signed By: Mayra Juan.schuyler\Date and Time Signed: 01/13/25 16:42 EDT IGP,APTIMA HPV,AGE GDLNon AGE GDLN ACOG TESTING Note . [facility] Comment on above: TESTS RESULT FLAG UN ITS REF RANGE LAB Clinician Provided Cytology Information Source.............Vagina LMP / Prev Treat...Hyst Tot No. of containers..01 ThinPrep Vial Age Juditho ACOG Robyn... 29 FLAG LEGEND: L-Low Normal,H-High Normal,LL-Alert Low,HH-Alert High <-Panic Low,>-Panic High,A-Abnormal,AA-Critical Abnormal Performed at: 01 =[address] [id number] Nava Baez MD, HPV APTIMA Negative Negative [facility] Comment on above: This nucleic acid am plification test detects fourteen high- risk HPV types (16,18,31,33,35,39,45,51,52,56,58,59,66,68) without differentiation. Performed at: =[address] [id number] Weigh Tank Operator: Nava Baez MD, Phone: [phone] Performed at: [address] [id number] Weigh Tank Operator: Nava Baez MD, Phone: [phone] IGP, APTIMA HPV, RFX 16/18,45 Note . [facility] Comment on above: TESTS RESULT FLAG UN ITS REF RANGE LAB DIAGNOSIS: 02 NEGATIVE FOR INTRAEPITHELIAL LESION OR MALIGNANCY. THIS SPECIMEN WAS RESCREENED PART OF OUR ENERGY BROKER PROGRAM. Specimen adequacy: 02 Satisfactory for evaluation. No endocervical cells are present. This is consistent with a history of hysterectomy. Performed by: 02 Julieta Sherwood, Car Repairer Apprentice (ASCP) QC reviewed by: 02 Gege Cardozo, Car Repairer Apprentice . 02 Note: Note 02 The Pap smear is a screening test designed to aid in the detection of premalignant and malignant conditions of the uterine cervix. It is not a diagnostic procedure and should not be used as the sole means of detecting cervical cancer. Both false-positive and false-negative reports do occur. Test Methodology: Note 02 This liquid based ThinPrep(R) pap test was screened with the use of an image guided system. HPV Genotype Reflex Note 02 Criteria not met, HPV Genotype not performed. FLAG LEGEND: L-Low Normal,H-High Normal,LL-Alert Low,HH-Alert High <-Panic Low,>-Panic High,A-Abnormal,AA-Critical Abnormal Performed at: [address] [address] Nava Baez MD, SPATULA-ALONE [facility]-30-2024 Free T3 [Mass/Vol] 3.29 pg/mL 2.18 - 3. 98 pg/mL [facility] ALL THYROID STIM HORMONEon 0 03-30-2024 TSH Qn 2.045 m[IU]/L [facility] No Panel Informationon 03-30 [facility] OCCULT BLOOD*on 03-24-2024 [facility] OCCULT BLOOD Negative [facility] ALL CBC WITH AUTO DIFFon BASOPHILS ABSOLUTE AUTO 0.1 [facility] Basophils/100 WBC (Bld) 1.2 % 0.2 - 2.0 % [facility] Eosinophils/100 WBC (Bld) 8.1 % High 0.9 - 7.0 % [facility] Erythrocyte distribution width (RBC) [Ratio] 11.8 % 11.0 - 15.0 % [facility] Hematocrit (Bld) [Volume fraction] 36.9 % 36.0 - 48.0 % [facility] Hemoglobin (Bld) [Mass/Vol] 12.5 g/dL 12.0 - 16.0 g/dL [facility] IMMATURE GRANULOCYTES ABS AUTO 0.00 [facility] Immature granulocytes/100 WBC (Bld) 0.0 % 0.0 - 0.5 % [facility] Interpretation and review of laboratory results Abnormal [facility] LYMPHOCYTES ABSOLUTE AUTO 2.0 [facility] Lymphocytes/100 WBC (Bld) 33.5 % 20.5 - 60.0 % [facility] MCH (RBC) [Entitic mass] 28.6 pg 26.7 - 34.0 pg [facility] MCHC (RBC) [Mass/Vol] 33.9 g/dL 29.9 - 35.2 g/dL [facility] MCV (RBC) [Entitic vol] 84.4 fL 81.0 - 99.0 fL [facility] MONOCYTES ABSOLUTE AUTO 0.5 [facility] Monocytes/100 WBC (Bld) 9.1 % 1.7 - 12.0 % [facility] NEUTROPHILS ABSOLUTE AUTO 2.9 [facility] Neutrophils/100 WBC (Bld) 48.1 % 43.0 - 75.0 % [facility] Platelet mean volume (Bld) [Entitic vol] 10.9 fL 9.5 - 13.5 fL [facility] EO # 0.5 [facility] PLT 336 [facility] RBC 4.37 [facility] WBC 5.9 [facility] Covid-19 PCR (CVDTB)on 05-15 SARS-CoV-2 (COVID-19) RNA JAMES+probe Ql (Unsp spec) Not detected Normal NOT DETECTED [facility] Comment on above: Result Comment: When [...] for this test is supported by the Director Of Coding of Health and Human Service's declaration that [...] longer be used). Performed By: #### [facility] #### [facility] [address] [place] [address] Dr. Clover Nagy INFLUENZA A AND B AGon 06-11 [facility] SEE BELOW Normal [facility] Comment on above: Result Comment: Nega tive for Flu A protein angiten. Infection due to Flu A cannot be ruled out. Flu A angiten in the sample may be below the detection limit of the test. Performed By: #### A 1C #### [facility] [address] [place] [address] Dr. Clover Nagy [facility] SEE BELOW Normal [facility] Comment on above: Result Comment: Nega tive for Flu B protein antigen. Infection due to Flu B cannot be ruled out. Flu B antigen in the sample may be below the detection limit of the test. Performed By: #### A 1C #### [facility] [address] [place] [address] Dr. Clover Nagy INFLUENZA A AG Negative Normal NEGATIVE SEE COMMENT [facility] Comment on above: Performed By: #### A 1C #### [facility] [address] [place] [address] Dr. Clover Nagy INFLUENZA B AG Negative Normal NEGATIVE SEE COMMENT [facility] Comment on above: Performed By: #### A 1C #### [facility] [address] [place] [address] Dr. Clover Nagy INTERNAL CONTROLS Within Normal Limits Normal Wi thin Normal Limits [facility] Comment on above: Performed By: #### A 1C #### [facility] [address] [place] [address] Dr. Clover Nagy CHLAMYDIA/GONOCOCCUS JAMES (SW AB/URINE/PAPon 01-24-2022 Chlamydia trachomatis, JAMES Negative Normal Negative [facility] Comment on above: Performed By: #### A 1C #### [facility] [address] [place] [address] Dr. Clover Nagy Neisseria gonorrhoeae, JAMES Negative Normal Negative [facility] Comment on above: Performed By: #### A 1C #### [facility] [address] [place] [address] Dr. Clover Nagy PAP ACOG PANEL 2: 30 to 65on 01-24-2022 . . Normal [facility] Comment on above: Result Comment: Perf ormed at: WB Performed By: #### [id number] #### [facility] [address] [place] [address] Dr. Clover Nagy Age Gdln ACOG Testing 30-65 Normal [facility] Comment on above: Performed By: #### [id number] #### [facility] [address] [place] [address] Dr. Clover Nagy DIAGNOSIS: Comment Normal [facility] Comment on above: Result Comment: NEGA TIVE FOR INTRAEPITHELIAL LESION OR MALIGNANCY. Performed at: WB Performed By: #### [id number] #### [facility] [address] [place] [address] Dr. Clover Nagy HPV Aptima Negative Normal Negative [facility] Comment on above: Result Comment: This nucleic acid amplification test detects fourteen high-risk HPV types (16,18,31,33,35,39,45,51,52,56,58,59,66,68) without differentiation. Performed at: =G Performed By: #### [id number] #### [facility] [address] [place] [address] Dr. Clover Nagy Methodology: Comment Normal [facility] Comment on above: Result Comment: This liquid based ThinPrep(R) pap test was screened with the use of an image guided system. Performed at: WB Performed By: #### [id number] #### [facility] [address] [place] [address] Dr. Clover Nagy Note: Comment Normal [facility] Comment on above: Result Comment: The Pap smear is a screening test designed to aid in the detection of premalignant and malignant conditions of the uterine cervix. It is not a diagnostic procedure and should not be used as the sole means of detecting cervical cancer. Both false-positive and false-negative reports do occur. . Performed at: WB Performed By: #### [id number] #### [facility] [address] [place] [address] Dr. Clover Nagy Performed by: Comment Normal [facility] Comment on above: Result Comment: Kassi Vallejo, Car Repairer Apprentice (ASCP) Performed at: WB Performed By: #### [id number] #### [facility] [address] [place] [address] Dr. Clover Nagy Specimen adequacy: Comment Normal [facility] Comment on above: Result Comment: Sati sfactory for evaluation. No endocervical cells are present. This is consistent with a history of hysterectomy. Performed at: WB Performed By: #### [id number] #### [facility] [address] [place] [address] Dr. Clover Nagy ESTRADIOLon 01-23-2022 Estradiol 9.2 pg/mL [facility] Comment on above: Result Comment: Adul t Female: Follicular phase 12.5 - 166.0 Ovulation phase 85.8 - 498.0 Luteal phase 43.8 - 211.0 Postmenopausal <6.0 - 54.7 1st trimester 215.0 - >4300.0 Kishan ECLIA methodology Performed By: #### E TRUPTI #### [facility] [address] [place] [address] Dr. Clover Nagy FSHon 01-23-2022 FSH 95.8 mIU/mL [facility] Comment on above: Result Comment: Adul t Female: Follicular phase 3.5 - 12.5 Ovulation phase 4.7 - 21.5 Luteal phase 1.7 - 7.7 Postmenopausal 25.8 - 134.8 Performed By: #### A 1C #### [facility] [address] [place] [address] Dr. Clover Nagy LUTEINIZING HORMONE (LH)on 0 01-23-2022 LH 48.1 mIU/mL Normal [facility] Comment on above: Result Comment: Adul t Female: Follicular phase 2.4 - 12.6 Ovulation phase 14.0 - 95.6 Luteal phase 1.0 - 11.4 Postmenopausal 7.7 - 58.5 Performed By: #### A 1C #### [facility] [address] [place] [address] Dr. Clover Nagy PROGESTERONEon 01-23-2022 Progesterone 0.1 ng/mL Normal [facility] Comment on above: Result Comment: Foll icular phase 0.1 - 0.9 Luteal phase 1.8 - 23.9 Ovulation phase 0.1 - 12.0 First trimester 11.0 - 44.3 Second trimester 25.4 - 83.3 Third trimester 58.7 - 214.0 Postmenopausal 0.0 - 0.1 Performed By: #### A 1C #### [facility] [address] [place] [address] Dr. Clover Nagy VAGINITIS/VAGINOSIS DNA PROB Shaun 01-23-2022 Lucero species Negative Normal Negative [facility] Comment on above: Performed By: #### V AGINT #### [facility] [address] [place] [address] Dr. Clover Nagy Gardnerella vaginalis Negative Normal Negative [facility] Comment on above: Performed By: #### V AGINT #### [facility] [address] [place] [address] Dr. Clover Nagy Trichomonas vaginalis Negative Normal Negative [facility] Comment on above: Performed By: #### V AGINT #### [facility] [address] [place] [address] Dr. Clover Nagy CBC AUTO DIFFon 01-22-2022 BASO # 0.1 103/ul Normal 0.0-0.1 [facility] Comment on above: Performed By: #### C BC #### [facility] [address] [place] [address] Dr. Clover Nagy Basophils/100 WBC (Bld) 0.9 % Normal 0.2-2.0 [facility] Comment on above: Performed By: #### C BC #### [facility] [address] [place] [address] Dr. Clover Nagy EO # 0.7 103/ul Normal 0.0-0.7 [facility] Comment on above: Performed By: #### C BC #### [facility] [address] [place] [address] Dr. Clover Nagy Eosinophils/100 WBC (Bld) 9.5 % Critically high 0.9-7.0 [facility] Comment on above: Performed By: #### C BC #### [facility] [address] [place] [address] Dr. Clover Nagy Erythrocyte distribution width (RBC) [Ratio] 11.8 % Normal 11.0-15.0 [facility] Comment on above: Performed By: #### C BC #### [facility] [address] [place] [address] Dr. Clover Nagy Hematocrit (Bld) [Volume fraction] 37.0 % Normal 36.0-48.0 [facility] Comment on above: Performed By: #### C BC #### [facility] [address] [place] [address] Dr. Clover Nagy Hemoglobin (Bld) [Mass/Vol] 12.3 g/dL Normal 12.0-16.0 [facility] Comment on above: Performed By: #### C BC #### [facility] [address] [place] [address] Dr. Clover Nagy IG # 0.01 10e3/ul Normal 0.00-0.03 [facility] Comment on above: Performed By: #### C BC #### [facility] [address] [place] [address] Dr. Clover Nagy IG % 0.1 % Normal 0.0-0.5 [facility] Comment on above: Performed By: #### C BC #### [facility] [address] [address] [address] Clover Nagy LYMPH # 1.2 103/ul Normal 1.2-3.8 [facility] Comment on above: Performed By: #### C BC #### [facility] [address] [place] [address] Dr. Clover Nagy Lymphocytes/100 WBC (Bld) 17.5 % Critically low 20.5-60.0 [facility] Comment on above: Performed By: #### C BC #### [facility] [address] [place] [address] Dr. Clover Nagy MANUAL DIFF REQ NO Normal [facility] Comment on above: Performed By: #### C BC #### [facility] [address] [place] [address] Dr. Clover Nagy MCH (RBC) [Entitic mass] 28.3 pg Normal 26.7-34.0 [facility] Comment on above: Performed By: #### C BC #### [facility] [address] [place] [address] Dr. Clover Nagy MCHC (RBC) [Mass/Vol] 33.2 g/dL Normal 29.9-35.2 [facility] Comment on above: Performed By: #### C BC #### [facility] [address] [place] [address] Dr. Clover Nagy MCV (RBC) [Entitic vol] 85.1 fL Normal 81.0-99.0 [facility] Comment on above: Performed By: #### C BC #### [facility] [address] [place] [address] Dr. Clover Nagy MONO # 0.6 103/ul Normal 0.3-0.8 [facility] Comment on above: Performed By: #### C BC #### [facility] [address] [place] [address] Dr. Clover Nagy Monocytes/100 WBC (Bld) 8.8 % Normal 1.7-12.0 [facility] Comment on above: Performed By: #### C BC #### [facility] [address] [place], [place] [id number] Dr. Clover Nagy NEUT # 4.3 103/ul Normal 1.4-6.5 [facility] Comment on above: Performed By: #### C BC #### [facility] [address] [place] [address] Dr. Clover Nagy Neutrophils/100 WBC (Bld) 63.2 % Normal 43.0-75.0 [facility] Comment on above: Performed By: #### C BC #### [facility] [address] [place] [address] Dr. Clover Nagy Platelet mean volume (Bld) [Entitic vol] 10.4 fL Normal 9.5-13.5 [facility] Comment on above: Performed By: #### C BC #### [facility] [address] [place] [address] Dr. Clover Nagy PLT 310 103/ul Normal 150-450 [facility] Comment on above: Performed By: #### C BC #### [facility] [address] [place] [address] Dr. Clover Nagy RBC 4.35 106/ul Normal 4.20-5.40 [facility] Comment on above: Performed By: #### C BC #### [facility] [address] [place] [address] Dr. Clover Nagy WBC 6.8 103/ul Normal 4.0-11.0 [facility] Comment on above: Performed By: #### C BC #### [facility] [address] [place] [address] Dr. Clover Nagy FREE T4on 01-22-2022 Free T4 [Mass/Vol] 1.15 ng/dL Normal 0.76-1.46 [facility] Comment on above: Performed By: #### F T4 #### [facility] [address] [place] [address] Dr. Clover Nagy TSHon 01-22-2022 TSH 2.183 uIU/mL Normal 0.358-3.740 [facility] Comment on above: Performed By: #### A 1C #### [facility] [address] [place], [place] [id number] Dr. Clover Nagy CBC AUTO DIFFon 10-26-2021 BASO # 0.0 103/ul Normal 0.0-0.1 [facility] Comment on above: Performed By: #### C BC #### [facility] [address] [place] [address] Dr. Clover Nagy Basophils/100 WBC (Bld) 0.3 % Normal 0.2-2.0 [facility] Comment on above: Performed By: #### C BC #### [facility] [address] [place] [address] Dr. Clover Nagy EO # 0.1 103/ul Normal 0.0-0.7 [facility] Comment on above: Performed By: #### C BC #### [facility] [address] [place] [address] Dr. Clover Nagy Eosinophils/100 WBC (Bld) 0.6 % Critically low 0.9-7.0 [facility] Comment on above: Performed By: #### C BC #### [facility] [address] [place] [address] Dr. Clover Nagy Erythrocyte distribution width (RBC) [Ratio] 11.6 % Normal 11.0-15.0 [facility] Comment on above: Performed By: #### C BC #### [facility] [address] [place] [address] Dr. Clover Nagy Hematocrit (Bld) [Volume fraction] 38.0 % Normal 36.0-48.0 [facility] Comment on above: Performed By: #### C BC #### [facility] [address] [place] [address] Dr. Clover Nagy Hemoglobin (Bld) [Mass/Vol] 12.7 g/dL Normal 12.0-16.0 [facility] Comment on above: Performed By: #### C BC #### [facility] [address] [place] [address] Dr. Clover Nagy IG # 0.05 10e3/ul Critically high 0.00-0.03 [facility] Comment on above: Performed By: #### C BC #### [facility] [address] [place] [address] Dr. Clover Nagy IG % 0.5 % Normal 0.0-0.5 [facility] Comment on above: Performed By: #### C BC #### [facility] [address] [place] [address] Dr. Clover Nagy LYMPH # 2.0 103/ul Normal 1.2-3.8 [facility] Comment on above: Performed By: #### C BC #### [facility] [address] [place] [address] Dr. Clover Nagy Lymphocytes/100 WBC (Bld) 20.8 % Normal 20.5-60.0 [facility] Comment on above: Performed By: #### C BC #### [facility] [address] [place] [address] Dr. Clover Nagy MANUAL DIFF REQ NO Normal [facility] Comment on above: Performed By: #### C BC #### [facility] [address] [place] [address] Dr. Clover Nagy MCH (RBC) [Entitic mass] 28.7 pg Normal 26.7-34.0 [facility] Comment on above: Performed By: #### C BC #### [facility] [address] [place] [address] Dr. Clover Nagy MCHC (RBC) [Mass/Vol] 33.4 g/dL Normal 29.9-35.2 [facility] Comment on above: Performed By: #### C BC #### [facility] [address] [place] [address] Dr. Clover Nagy MCV (RBC) [Entitic vol] 85.8 fL Normal 81.0-99.0 [facility] Comment on above: Performed By: #### C BC #### [facility] [address] [place] [address] Dr. Clover Nagy MONO # 0.7 103/ul Normal 0.3-0.8 [facility] Comment on above: Performed By: #### C BC #### [facility] [address] [place] [address] Dr. Clover Nagy Monocytes/100 WBC (Bld) 7.0 % Normal 1.7-12.0 [facility] Comment on above: Performed By: #### C BC #### [facility] [address] [address] [address] Clover Nagy NEUT # 6.7 103/ul Critically high 1.4-6.5 [facility] Comment on above: Performed By: #### C BC #### [facility] [address] [place] [address] Dr. Clover Nagy Neutrophils/100 WBC (Bld) 70.8 % Normal 43.0-75.0 [facility] Comment on above: Performed By: #### C BC #### [facility] [address] [place] [address] Dr. Clover Nagy Platelet mean volume (Bld) [Entitic vol] 10.3 fL Normal 9.5-13.5 [facility] Comment on above: Performed By: #### C BC #### [facility] [address] [place] [address] Dr. Clover Nagy PLT 433 103/ul Normal 150-450 [facility] Comment on above: Performed By: #### C BC #### [facility] [address] [place] [address] Dr. Clover Nagy RBC 4.43 106/ul Normal 4.20-5.40 [facility] Comment on above: Performed By: #### C BC #### [facility] [address] [place] [address] Dr. Clover Nagy WBC 9.5 103/ul Normal 4.0-11.0 [facility] Comment on above: Performed By: #### C BC #### [facility] [address] [place] [address] Dr. Clover Nagy GLYCOHEMOGLOBIN A1Con 2021 ADA RECOMMENDATION ADA THERAPEUTIC TARGET 6.0 - 7.0 ACTION SUGGESTED > 7.0 Normal [facility] Comment on above: Performed By: #### A 1C #### [facility] [address] [place] [address] Dr. Clover Nagy Glucose [Mass/Vol] 103 mg/dL Normal 74-106 [facility] Comment on above: Performed By: #### A 1C #### [facility] [address] [place] [address] Dr. Clover Nagy Performed By: #### L IPID, CMP, TSH #### [facility] [address] [address] [address] Clover Nagy HbA1c (Bld) [Mass fraction] 5.2 % Normal <=6.0 [facility] Comment on above: Performed By: #### A 1C #### [facility] [address] [place] [address] Dr. Clover Nagy LIPID PROFILEon 10-26-2021 CHOL-HDL RATIO NORM SEE BELOW Normal [facility] Comment on above: Result Comment: 3.3 - 4.4 LOW RISK 4.4 - 7.1 AVERAGE RISK 7.1 - 11.0 MODERATE RISK >11.0 HIGH RISK Performed By: #### A 1C #### [facility] [address] [place] [address] Dr. Clover Nagy Cholesterol [Mass/Vol] 214 mg/dL Critically high <=200 [facility] Comment on above: Performed By: #### A 1C #### [facility] [address] [place] [address] Dr. Clover Nagy Cholesterol in HDL [Mass/Vol] 64 mg/dL Critically high 40-60 [facility] Comment on above: Performed By: #### A 1C #### [facility] [address] [place] [address] Dr. Clover Nagy Cholesterol in LDL [Mass/Vol] 126.6 mg/dL Normal [facility] Comment on above: Performed By: #### A 1C #### [facility] [address] [place] [address] Dr. Clover Nagy Cholesterol.total/Ch olesterol in HDL [Mass ratio] 3.3 {ratio} Normal [facility] Comment on above: Performed By: #### A 1C #### [facility] [address] [place] [address] Dr. Clover Nagy HDL NORMAL > or = 60 mg/dl - LOW CARDIOVASCULAR RISK <40 mg/dl - HIGH CARDIOVASCULAR RISK Normal [facility] Comment on above: Performed By: #### A 1C #### [facility] [address] [address] [address] Clover Nagy LDL CALC NORMAL SEE BELOW Normal [facility] Comment on above: Result Comment: <100 mg/dl OPTIMAL 100 - 129 mg/dl NEAR OR ABOVE OPTIMAL 130 - 159 mg/dl BORDERLINE HIGH 160 - 189 mg/dl HIGH >190 mg/dl VERY HIGH Performed By: #### A 1C #### [facility] [address] [address] [address] Clover Nagy Triglyceride [Mass/Vol] 117 mg/dL Normal <=150 [facility] Comment on above: Performed By: #### A 1C #### [facility] [address] [place] [address] Dr. Clover Nagy VLDL CALC 23.4 mg/dL Normal [facility] Comment on above: Performed By: #### A 1C #### [facility] [address] [place] [address] Dr. Clover Ngay PROF 14(COMP METB)on 022 Albumin [Mass/Vol] 3.7 g/dL Normal 3.4-5.0 [facility] Comment on above: Performed By: #### L IPID, CMP, TSH #### [facility] [address] [place] [address] Dr. Clover Nagy Albumin/Globulin [Mass ratio] 0.9 {ratio} Normal [facility] Comment on above: Performed By: #### L IPID, CMP, TSH #### [facility] [address] [place] [address] Dr. Clover Nagy ALP [Catalytic activity/Vol] 76 U/L Normal 46-116 [facility] Comment on above: Performed By: #### L IPID, CMP, TSH #### [facility] [address] [address] [address] Clover Nagy ALT [Catalytic activity/Vol] 28 U/L Normal 14-59 [facility] Comment on above: Performed By: #### L IPID, CMP, TSH #### [facility] [address] [address] [address] Clover Nagy Anion gap [Moles/Vol] 11.6 mmol/L Normal [facility] Comment on above: Performed By: #### L IPID, CMP, TSH #### [facility] [address] [place] [address] Dr. Clover Nagy AST [Catalytic activity/Vol] 17 U/L Normal 15-37 [facility] Comment on above: Performed By: #### L IPID, CMP, TSH #### [facility] [address] [address] [address] Clover Nagy Bilirubin [Mass/Vol] 0.2 mg/dL Normal 0.2-1.3 [facility] Comment on above: Performed By: #### L IPID, CMP, TSH #### [facility] [address] [place] [address] Dr. Clover Nagy Calcium [Mass/Vol] 9.0 mg/dL Normal 8.5-10.1 [facility] Comment on above: Performed By: #### L IPID, CMP, TSH #### [facility] [address] [place] [address] Dr. Clover Nagy Chloride [Moles/Vol] 100 mmol/L Normal 98-107 [facility] Comment on above: Performed By: #### L IPID, CMP, TSH #### [facility] [address] [address] [address] Clover Nagy CO2 [Moles/Vol] 27.9 mmol/L Normal 22.0-30.0 [facility] Comment on above: Performed By: #### L IPID, CMP, TSH #### [facility] [address] [place] [address] Dr. Clover Nagy Creatinine [Mass/Vol] 0.72 mg/dL Normal 0.52-1.04 [facility] Comment on above: Performed By: #### L IPID, CMP, TSH #### [facility] [address] [place] [address] Dr. Clover Nagy EGFR-AF GRENADIAN >60 Normal >=60 [facility] Comment on above: Performed By: #### L IPID, CMP, TSH #### [facility] [address] [place] [address] Dr. Clover Nagy EGFR-NON AF GRENADIAN >60 Normal >=60 [facility] Comment on above: Performed By: #### L IPID, CMP, TSH #### [facility] [address] [place] [address] Dr. Clover Nagy Globulin (S) [Mass/Vol] 4.0 g/dL Normal [facility] Comment on above: Performed By: #### L IPID, CMP, TSH #### [facility] [address] [place] [address] Dr. Clover Nagy Potassium [Moles/Vol] 3.5 mmol/L Normal 3.4-5.0 [facility] Comment on above: Performed By: #### L IPID, CMP, TSH #### [facility] [address] [place] [address] Dr. Clover Nagy Protein [Mass/Vol] 7.7 g/dL Normal 6.1-8.2 [facility] Comment on above: Performed By: #### L IPID, CMP, TSH #### [facility] [address] [place] [address] Dr. Clover Nagy Sodium [Moles/Vol] 136 mmol/L Critically low 137-145 [facility] Comment on above: Performed By: #### L IPID, CMP, TSH #### [facility] [address] [place] [address] Dr. Clover Nagy Urea nitrogen [Mass/Vol] 12.0 mg/dL Normal 7.0-18.0 [facility] Comment on above: Performed By: #### L IPID, CMP, TSH #### [facility] [address] [place] [address] Dr. Clover Nagy Urea nitrogen/Creatinine [Mass ratio] 16.7 mg/mg Normal [facility] Comment on above: Performed By: #### L IPID, CMP, TSH #### [facility] [address] [address] [address] Clover Nagy TSHon 10-26-2021 TSH 1.535 uIU/mL Normal 0.470-4.680 [facility] Comment on above: Performed By: #### A 1C #### [facility] [address] [address] [address] Clover Nagy TSH RANGE SEE BELOW Normal [facility] Comment on above: Result Comment: <0.3 4 UIU/ml HYPERTHYROID 0.34-5.60 UIU/ml EUTHYROID >5.60 UIU/ml HYPOTHYROID Performed By: #### A 1C #### [facility] [address] [address] [address] Clover Nagy Covid-19 PCR ([facility])on 07-14 SARS-CoV-2 (COVID-19) RNA JAMES+probe Ql (Unsp spec) Detected Critically abnormal NOT DETECTED [facility] Comment on above: Result Comment: This test is not yet approved or cleared by the [place] FDA. When there are no FDA-approved or cleared tests available, and other criteria are met, FDA can make tests available under an emergency access mechanism called an Emergency Use Authorization (EUA). The EUA for this test is supported by the Director Of Coding of Health and Human Service's declaration that [...] longer be used). Performed By: #### C VDTBH #### [facility] [address] [address] [address] Clover Nagy Vital Signs Date Time Vital Sign Value Performing Clinician Facility 03-21-2025 13:44-0400 Diastolic blood pressure 93 mm[Hg] Joceline Henry APRN Work Phone: [facility] 03-21-2025 13:44-0400 Heart rate 89 /min Joceline Henry APRN Work Phone: [facility] 03-21-2025 13:44-0400 Respiratory rate 16 /min Joceline Henry RETARDER OPERATOR Work Phone: [facility] 03-21-2025 13:44-0400 SaO2% (BldA) [Mass fraction] 98 % Joceline Henry RETARDER OPERATOR Work Phone: [facility] 03-21-2025 13:44-0400 Systolic blood pressure 142 mm[Hg] Joceline Henry RETARDER OPERATOR Work Phone: [facility] 03-21-2025 11:34-0400 Body height 165.1 cm Joceline Henry RETARDER OPERATOR Work Phone: [facility] 03-21-2025 11:34-0400 Body weight 78.01 kg Joceline Henry RETARDER OPERATOR Work Phone: [facility] 02-28-2025 15:02-0400 Body height 165.1 cm Merrill Ball DO Work Phone: [facility] 02-28-2025 15:02-0400 Body mass index (BMI) [Ratio] 28.9 kg/m2 Merrill Ball DO Work Phone: [facility] 02-28-2025 15:02-0400 Body temperature 97.3 [degF] Merrill Ball DO Work Phone: [facility] 02-28-2025 15:02-0400 Body weight 78.92 kg Merrill Ball DO Work Phone: [facility] 02-28-2025 15:02-0400 Diastolic blood pressure 76 mm[Hg] Merrill Ball DO Work Phone: [facility] 02-28-2025 15:02-0400 Heart rate 65 /min Merrill Ball DO Work Phone: [facility] 02-28-2025 15:02-0400 SaO2% (BldA) [Mass fraction] 98 % Merrill Ball DO Work Phone: [facility] 02-28-2025 15:02-0400 Systolic blood pressure 120 mm[Hg] Merrill Ball DO Work Phone: [facility] 01-18-2025 07:55-0400 Body height 165.1 cm Ioana Fraire MD Work Phone: [facility] 01-18-2025 07:55-0400 Body mass index (BMI) [Ratio] 28.29 kg/m2 Ioana Fraire MD Work Phone: [facility] 01-18-2025 07:55-0400 Body weight 77.11 kg Ioana Fraire MD Work Phone: [facility] 01-18-2025 07:55-0400 Diastolic blood pressure 86 mm[Hg] Ioana Fraire MD Work Phone: [facility] 01-18-2025 07:55-0400 Heart rate 93 /min Ioana Fraire MD Work Phone: [facility] 01-18-2025 07:55-0400 Systolic blood pressure 131 mm[Hg] Ioana Fraire MD Work Phone: [facility] 03-29-2024 14:21-0400 Body mass index (BMI) [Ratio] 27.98 kg/m2 Vazquez Andrew DO Work Phone: [facility] 03-29-2024 14:21-0400 Body weight 76.26 kg Vazquez Andrew DO Work Phone: [facility] 03-29-2024 14:21-0400 Diastolic blood pressure 80 mm[Hg] Vazquez Andrew DO Work Phone: [facility] 03-29-2024 14:21-0400 Systolic blood pressure 130 mm[Hg] Vazquez Andrew DO Work Phone: [facility] 08-20-2023 14:18-0500 Body height 165.1 cm Ioana Fraire MD Work Phone: [facility] 08-20-2023 14:18-0500 Body mass index (BMI) [Ratio] 27.96 kg/m2 Ioana Fraire MD Work Phone: [facility] 08-20-2023 14:18-0500 Body weight 76.2 kg Ioana Fraire MD Work Phone: [facility] 08-20-2023 14:18-0500 Diastolic blood pressure 85 mm[Hg] Ioana Fraire MD Work Phone: [facility] 08-20-2023 14:18-0500 Systolic blood pressure 131 mm[Hg] Ioana Fraire MD Work Phone: [facility] 04-15-2023 13:30-0400 Body height 165.1 cm Joceline Henry Other [employer] Other 04-15-2023 13:30-0400 Body mass index (BMI) [Ratio] 27.45 kg/m2 Joceline Henry Other [employer] Other 04-15-2023 13:30-0400 Body weight 74.84 kg Joceline Henry Other [employer] Other 04-15-2023 13:30-0400 Diastolic blood pressure 98 mm[Hg] Joceline Henry Other [employer] Other 04-15-2023 13:30-0400 SaO2% (BldA) [Mass fraction] 98 % Joceline Henry Other [employer] Other 04-15-2023 13:30-0400 Systolic blood pressure 148 mm[Hg] Joceline Henry Other [employer] Other 03-12-2023 15:45-0400 Body height 165.1 cm Merrill Nitish Other [employer] Other 03-12-2023 15:45-0400 Body mass index (BMI) [Ratio] 27.74 kg/m2 Merrill Ball Other [employer] Other 03-12-2023 15:45-0400 Body weight 75.62 kg Merrill Ball Other [employer] Other 03-12-2023 15:45-0400 Diastolic blood pressure 89 mm[Hg] Merrill Ball Other [employer] Other 03-12-2023 15:45-0400 Respiratory rate 12 /min Merrill Ball Other [employer] Other 03-12-2023 15:45-0400 Systolic blood pressure 130 mm[Hg] Merrill Ball Other [employer] Other 01-23-2023 11:00-0400 Body height 165.1 cm Merrill Ball Other [employer] Other 01-23-2023 11:00-0400 Body mass index (BMI) [Ratio] 27.55 kg/m2 Merrill Ball Other [employer] Other 01-23-2023 11:00-0400 Body weight 75.12 kg Merrill Ball Other [employer] Other 01-23-2023 11:00-0400 Diastolic blood pressure 92 mm[Hg] Merrill Ball Other [employer] Other 01-23-2023 11:00-0400 Respiratory rate 12 /min Merrill Ball Other [employer] Other 01-23-2023 11:00-0400 Systolic blood pressure 133 mm[Hg] Merrill Nitish Other [employer] Other 11-06-2022 11:30-0400 Body height 165.1 cm Merrill Talbert Other [employer] Other 11-06-2022 11:30-0400 Body mass index (BMI) [Ratio] 27.82 kg/m2 Merrill [employer] Other [employer] Other 11-06-2022 11:30-0400 Body weight 75.84 kg Merrill [employer] Other [employer] Other 11-06-2022 11:30-0400 Diastolic blood pressure 98 mm[Hg] Merrill [employer] Other [employer] Other 11-06-2022 11:30-0400 Respiratory rate 12 /min Merrill [employer] Other [employer] Other 11-06-2022 11:30-0400 Systolic blood pressure 134 mm[Hg] Merrill [employer] Other [employer] Other Encounters Encounter Date Encounter Type Care Provider Facility Start: 03-21-2025 End: 03-21-2025 ambulatory Kadi L Ly Facility:[facility] Start: 03-21-2025 Non-patient / Non-visit Kadi L Ly DO -[facility] Work Phone: Start: 02-28-2025 End: 02-28-2025 ambulatory Merrill Talbert DO Work Phone: [facility] Work Phone: Start: 02-28-2025 End: 02-28-2025 Patient encounter procedure Joceline Henry APRN [employer] [facility] Work Phone: Start: 01-18-2025 End: 01-18-2025 Roseline Fraire MD Work Phone: [facility] Start: 01-18-2025 End: 01-18-2025 Bamboo flowsheet Ioana Fraire MD Work Phone: [facility] Start: 01-18-2025 End: 01-18-2025 Office outpatient visit 25 minutes Ioana Fraire MD Work Phone: [facility] Comment on above: Acute swimmer's ear of both sides (Primary Dx) Start: 01-18-2025 End: 01-18-2025 ambulatory IOANA FRAIRE Not Available Start: 01-16-2025 End: 01-16-2025 [facility]ulatory Cisco [facility] Start: 01-16-2025 End: 01-16-2025 Patient encounter procedure Cisco Berry [facility] Start: 01-13-2025 End: 01-13-2025 ambulatory Mayra Brannon Facility: [employer] Start: 01-13-2025 End: 01-13-2025 Patient encounter procedure Mayra Brannon [facility] Start: 05-06-2024 Patient encounter status Yossi min Ball DO Work Phone: [facility] Start: 03-30-2024 End: 03-30-2024 Clinisync Result Encounter Vazquez Andrew DO Work Phone: [facility] Unsolicited Start: 03-30-2024 End: 03-30-2024 Clinisync Result Encounter Vazquez Andrew DO Work Phone: [facility] Start: 03-29-2024 End: 03-29-2024 ambulatory VAZQUEZ ANDREW Not Available Start: 03-29-2024 End: 03-29-2024 Bamboo flowsheet Vazquez Andrew DO Work Phone: [facility] Start: 03-29-2024 End: 04-05-2024 Bamboo flowsheet Vazquez Andrew DO Work Phone: [facility] Start: 03-29-2024 End: 04-05-2024 Clinisync Result Encounter Vazquez Andrew DO Work Phone: [facility] Start: 03-29-2024 End: 03-29-2024 Patient encounter procedure Vazquez Andrew DO Work Phone: [facility] Work Phone: Start: 03-29-2024 End: 03-29-2024 Periodic preventive med est patient 18-39 yrs Vazquez Andrew DO Work Phone: [facility] Comment on above: Well woman exam with routine gynecological exam; Hot flashes due to surgical menopause; Mood changes; Decreased libido; Symptomatic menopausal or female climacteric states Start: 03-24-2024 End: 03-24-2024 Clinisync Result Encounter Vazquez Andrew DO Work Phone: [facility]solic[facility] Start: 03-24-2024 End: 03-24-2024 Clinisync Result Encounter Vazquez Andrew DO Work Phone: [facility]solic[facility] Start: 03-12-2024 End: 03-12-2024 Clinisync Result Encounter Vazquez Andrew DO Work Phone: [facility]solic[facility] Start: 03-12-2024 End: 03-12-2024 Clinisync Result Encounter Vazquez Andrew DO Work Phone: [facility]solic[facility] Start: 08-20-2023 End: 08-20-2023 Office outpatient visit 15 minutes Ioana Fraire MD Work Phone: [facility] Comment on above: Pharyngoesophageal d ysphagia (Primary Dx) Start: 08-20-2023 Chart abstracting Ioana pool MD Work Phone: [facility] Start: 04-24-2023 End: 04-24-2023 ambulatory Merrill Ball Other [employer] Other Start: 04-24-2023 Telephone encounter Merrill Ball [facility] Start: 04-15-2023 End: 04-15-2023 ambulatory Joceline Henry Other [employer] Other Start: 04-15-2023 Office outpatient vi sit 15 minutes Jocelien Henry [facility] Start: 04-09-2023 End: 04-09-2023 ambulatory Merrill Ball Other [employer] Other Start: 04-09-2023 Telephone encounter Merrill Ball [facility] Start: 03-26-2023 End: 03-26-2023 ambulatory Merrill Ball Other [employer] Other Start: 03-26-2023 Telephone encounter Merrill Ball [facility] Start: 03-12-2023 End: 03-12-2023 ambulatory Merrill Ball Other [employer] Other Start: 03-12-2023 Office outpatient vi sit 15 minutes Merrill Ball [facility] Start: 02-19-2023 End: 02-19-2023 ambulatory Merrill Ball Other [employer] Other Start: 02-19-2023 Telephone encounter Merrill Ball [facility] Start: 02-18-2023 End: 02-18-2023 ambulatory Merrill Ball Other [employer] Other Start: 02-18-2023 Telephone encounter Merrill Ball [facility] Start: 01-27-2023 End: 01-27-2023 ambulatory Merrill Ball Other [employer] Other Start: 01-27-2023 Telephone encounter Merrill Ball [facility] Start: 01-23-2023 End: 01-23-2023 ambulatory Merrill Talbert Other [employer] Other Start: 01-23-2023 Encounter for genera l adult medical examination without abnormal findings Merrill Talbert [facility] Start: 01-23-2023 Periodic preventive med est patient 18-39 yrs Merrill Nitish [facility] Start: 01-01-2023 End: 01-01-2023 ambulatory Merrill Talbert Other [employer] Other Start: 01-01-2023 Telephone encounter Merrill Talbert [facility] Start: 11-06-2022 End: 11-06-2022 ambulatory Merrill Talbert Other [employer] Other Start: 11-06-2022 Office outpatient vi sit 15 minutes Merrill Talbert [facility] Start: 06-27-2022 Gynecological examin ation normal Merrill Talbert Other [employer] Other Start: 06-11-2022 End: 06-11-[address] MERRILL TALBERT Facility:[facility] Start: 01-22-2022 End: 01-22-[address] VAZQUEZ MORALES Facility:[facility] Start: 01-22-2022 Adult health examination Yossi perdomo [facility] Other [employer] Other Start: 01-22-2022 End: 01-23-[address] MERRILL TALBERT Facility:[facility] Start: 10-31-2021 Encounter for genera l adult medical examination without abnormal findings DR MERRILL TALBERT [facility] Start: 10-26-2021 End: 10-27-[address] MERRILL TALBERT Facility:[facility] Start: 10-26-2021 End: 10-27-2021 Encounter for general adult medical examination without abnormal findings DR MERRILL TALBERT Facility:[facility] Start: 07-27-2021 End: 07-27-[address] MERRILL TALBERT Facility:[facility] Start: 07-11-2016 Pre-procedure evalua tion check Merrill Talbert Other [employer] Other Procedures Date Procedure Procedure Detail Performing Clinician Start: 04-08-2024 Mammography Ioana pool MD Work Phone: Start: 03-30-2024 ALL T3 FREE Vazquez Fazi o DO Work Phone: Start: 03-30-2024 ALL THYROID STIM HORMONE Vazquez Andrew DO Work Phone: Start: 03-29-2024 IGP,APTIMA HPV,AGE GDLN Vazquez Andrew DO Work Phone: Start: 03-24-2024 OCCULT BLOOD* Vazquez Sonia io DO Work Phone: Start: 03-12-2024 ALL CBC WITH AUTO DIFF Vazquez Andrew DO Work Phone: Start: 12-28-2014 hysteroscopy D&C wit h NovaSure ablation Mayra Brannon section Mayra emmanuel Cholecystectomy Mayra sampson Diabetes mellitus screening Merrill Talbert Other End: 04-06-2020 Hysterectomy Merrill Talbert Other Laser assisted in si tu keratomileusis Mayra Brannon Ligation of fallopian tube Pierre Brannon Reconstruction of nose Uma Brannon Plan of Treatment Date Care Activity Detail Author Start: 04-08-2025 Screening for malign ant neoplasm of breast Mammogram [facility] Start: 03-21-2025 [facility] Start: 03-14-2025 Influenza vaccination Influenza Vacc ine (#1) [facility] Start: 02-28-2025 Patient referral [facility] Work Phone: Start: 01-18-2025 End: 01-18-2025 Patient encounter procedure 01/18/2025 8:00 AM EDT Office Visit [facility] [address] [place] [address] Ioana Fraire MD [address] [facility] [address] [place] [address] Arrived [facility] Comment on above: Arrived Start: 03-29-2024 End: 03-29-2024 Patient encounter procedure 03/29/2024 2:00 PM EDT Office Visit [facility] [address] [place] [address] Vazquez Morales, DO [address] [place] [address] [facility] Start: 03-14-2024 Influenza vaccination Influenza Vacc ine (#1) [facility] Start: 08-20-2023 End: 08-20-2023 Patient encounter procedure 08/20/2023 2:20 PM EST Office Visit [facility] [address] [facility] [address] [place] [address] Ioana Fraire MD [address] [facility] [address] [place] [address] [facility] Start: 03-14-2023 Influenza vaccination Influenza Vacc ine (#1) [facility] Start: 2014 Screening for malign ant neoplasm of cervix [facility] Start: 2005 Screening for malign ant neoplasm of cervix Pap Smear [facility] Cytology Cervical or vaginal smear or scraping study Pap Smear Pathology and Cytology Routine Well woman exam with routine gynecological exam Ordered: 03/29/2024 [facility] Work Phone: Comment on above: Ordered: 03/29/2024 DHEA-sulfate DHEA-sulfate Lab Routine Symptomatic menopausal or female climacteric states Ordered: 03/29/2024 [facility] Comment on above: Ordered: 03/29/2024 Human papilloma viru s DNA [Presence] in Unspecified specimen by Probe with amplification HPV DNA probe, amplified Microbiology Routine Well woman exam with routine gynecological exam Ordered: 03/29/2024 [facility] Comment on above: Ordered: 03/29/2024 Patient Education Esophageal str icture Know your Meds [facility] Work Phone: Patient referral [facility] Work Phone: TESTOSTERONE, FREE TESTOSTERONE, FREE Lab Routine Symptomatic menopausal or female climacteric states Ordered: 03/29/2024 [facility] Comment on above: Ordered: 03/29/2024 Testosterone, free, total Testosterone, free, total Lab Routine Symptomatic menopausal or female climacteric states Ordered: 03/29/2024 [facility] Comment on above: Ordered: 03/29/2024 Immunizations Immunization Date Immunization Notes Care Provider Marlon steiner 04-22-2024 influenza virus vaccine, unspecified formulation Mayra Clovis [facility] 05-22-2021 Moderna SARS-CoV-2 Vaccination Ioana Fraire MD Work Phone: [facility] 08-16-2020 COVID-19 Vaccine Moderna - Documentation Purposes Only Merrill Talbert Other [facility] 08-10-2020 Moderna SARS-CoV-2 Vaccination Ioana Fraire MD Work Phone: [facility] 07-12-2020 Moderna SARS-CoV-2 Vaccination Ioana Fraire MD Work Phone: [facility] 2020 influenza virus vaccine, unspecified formulation Ioana Fraire MD Work Phone: [facility] 09-13-2015 hepatitis A and hepatitis B vaccine Ioana Fraire MD Work Phone: [facility] 03-31-2015 hepatitis B vaccine, pediatric or pediatric/adolescent dosage Ioana Fraire MD Work Phone: [facility] 02-28-2015 hepatitis B vaccine, pediatric or pediatric/adolescent dosage Ioana Fraire MD Work Phone: [facility] Payers Date Payer Category Payer Self-pay 2025 Private Health Insurance [id number] 2025 Medicaid [id number] 2023 Blue Cross Blue Shield BCBS Memb er Subscriber Plan / Payer (Effective 2023-Present) Name: Joceline Sampson Member ID: [id number] Relation to Subscriber: Self Name: Joceline Sampson Subscriber ID: [id number] Payer ID: Not on file Type: Not on file Address: [address] [place] [id number] 2023 Unknown BCBS BCBS [id number] 2023-Present [phone] [address] [place] [address] [id number] 2023 Unknown [id number] 2015 Medicaid [id number] 1984 Unknown [id number] 1984 Unknown [id number] 1984 Unknown [id number] 1984 Unknown [id number] 1984 Unknown [id number] 593 1984 Unknown [id number] 1984 Unknown [id number] 727 1984 Unknown [id number] [id number] 1984 Unknown [id number] [id number] 1959 Unknown [id number] Unknown [id number] Social History Date Type Detail Facility Start: 03-26-2023 End: 01-18-2025 Sex Assigned At [facility] Start: 02-21-2023 End: 03-21-2025 Tobacco smoking status NEIS Ex-smoker [facility] End: 11-15-2021 History of tobacco use Current smoker [facility] End: 11-15-2021 History of tobacco use Cigarette Smoker [facility] Start: 02-21-2023 End: 01-18-2025 Cigarettes smoked current (pack per day) - Reported 1 [facility] Start: 02-21-2023 End: 01-18-2025 Tobacco use and exposure Smokeless tobacco non-user [facility] Start: 08-20-2023 End: 01-18-2025 Alcohol intake Current drinker of alcohol (finding) [facility] Start: 1985 [...] drinks on 1 occasion? Never [facility] Start: 12-03-2023 [facility] Tobacco smoking status Never [facility] Sexual Orientation [facility] Start: 10-25-2009 Sex Female (finding) [facility] Start: 04-15-2023 [facility] Clinical Notes 11-06-2022 to 02-28-2025 Note Date & Type Note Facility 02-28-2025 Evaluation note Diagnosis Onset Date Resolution Dysphagia acute February 28, 2 025 2:56pm Schatzki's ring acute February 282024 2:56pm [facility] Work Phone: 1(879) 350-166308-18-2025 Hospital Discharge instructionsAmbulatory Orders* Referral to Gastroenterology Time Frame: 02/28/25, Location: None Selected [facility] Work Phone: 1(112) 240-545807-08-2025 History of Present illness Narrative* Ioana Fraire MD - 01/18/2025 8:00 AM EDT Subjective Patient ID: Francine Sampson is a 39 y.o. female who presents for Ear Problem (Swollen ear canal right side ) RT ear pain 6 d. Some lt sx. UC put in wick and started amox and ciprodex 2d ago. Wick out. 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 Dysphagia 02/13/2023 Depression 02/13/2023 Schatzki's ring 02/13/2023 MICHELE (generalized anxiety disorder) 02/13/2023 Decreased libido 03/29/2024 Mood changes 03/29/2024 Hot flashes due to surgical menopause 03/29/2024 Acute otitis externa of right ear 01/18/2025 Hypokalemia 01/18/2025 Twin ([facility]) 01/18/2025 Resolved Ambulatory Problems Diagnosis Date Noted Acquired absence of both cervix and uterus 02/13/2023 Breast pain in female 02/13/2023 Past Medical History: Diagnosis Date Allergic rhinitis Allergies Asthma ([facility]) Ear problems Fracture of nasal bones Headache Migraine headache TMJ dysfunction Past Surgical History: Procedure Laterality Date SECTION, CLASSIC 2010 CHOLECYSTECTOMY 2008 EGD 10/05/2020 LASIK 2013 OOPHORECTOMY 12/02/2019 RHINOPLASTY 2000 SINUS SURGERY 03/18/2023 ITSDr. Fraire TOTAL ABDOMINAL HYSTERECTOMY W/ BILATERAL SALPINGOOPHORECTOMY Allergies Allergen Reactions Cephalexin GI bleeding Other Reaction(s): Unknown Morphine GI intolerance Current Outpatient Medications on File Prior to Visit Medication Sig Dispense Refill amLODIPine (Norvasc) 5 MG tablet Take 5 mg by mouth Daily amoxicillin (Amoxil) 500 MG capsule Take 1,000 mg by mouth ciprofloxacin-dexAMETHasone (CiproDEX) otic suspension 4 drops citalopram (CeleXA) 40 MG tablet TAKE 1 TABLET BY MOUTH EVERY DAY 90 tablet 3 estradiol (Estrace) 0.5 MG tablet Take 1 tablet (0.5 mg) by mouth Daily Take 1 tablet by mouth along with 1mg Estradiol to equal 1.5mg daily. 90 tablet 4 estradiol (Estrace) 1 MG tablet Take 1 tablet (1 mg) by mouth Daily 90 tablet 3 fluticasone (Flonase Allergy Relief) 50 MCG/ACT nasal spray levocetirizine (Xyzal) 5 MG tablet Take by mouth in the evening loratadine-pseudoephedrine ER (Claritin-D 24 Hour) 10-240 MG 24 hr tablet Take 1 tablet by mouth Daily Do not crush, chew, or split. omeprazole (PriLOSEC) [address] capsule Take 1 capsule (40 mg) by mouth in the morning. Take before meals. Do not crush or chew.. 90 capsule 0 No current facility-administered medications on file prior to visit. Objective Last Recorded Vitals Vitals: 01/18/25 0755 BP: 131/86 Pulse: 93 ENT Physical Exam Constitutional Appearance: patient appears well-developed, well-nourished and well-groomed, Communication/Voice: communication appropriate for developmental age; vocal quality normal; Ear Ear comments: RT - inflamed moist EAC. LT - normal Assessment/Plan Diagnoses and all orders for this visit: Acute swimmer's ear of both sides Stop amox and continue ciprodex 5 days rufino. Add oral cipro as limited response so far. [id number] Hospital Discharge instructions Patient Education 01/16/2025 11:41:27 Otitis Media, Adult Otitis Media, Adult Otitis media occurs when there is inflammation and fluid in the middle ear with signs and symptoms of an acute infection. The middle ear is a part of the ear that contains bones for hearing as well as air that helps send sounds to the brain. When infected fluid builds up in this space, it causes pressure and can lead to an ear infection. The eustachian tube connects the middle ear to the back of the nose (nasopharynx) and normally allows air into the middle ear. If the eustachian tube becomes blocked, fluid can build up and become infected. What are the causes? This condition is caused by a blockage in the eustachian tube. This can be caused by mucus or by swelling of the tube. Problems that can cause a blockage include: A cold or other upper respiratory infection. Allergies. An irritant, such as tobacco smoke. Enlarged adenoids. The adenoids are areas of soft tissue located high in the back of the throat, behind the nose and the roof of the mouth. They are part of the body's defense system (immune system). A mass in the nasopharynx. Damage to the ear caused by pressure changes (barotrauma). What increases the risk? You are more likely to develop this condition if you: Smoke or are exposed to tobacco smoke. Have an opening in the roof of your mouth (cleft palate). Have gastroesophageal reflux. Have an immune system disorder. What are the signs or symptoms? Symptoms of this condition include: Ear pain. Fever. Decreased hearing. Tiredness (lethargy). Fluid leaking from the ear, if the eardrum is ruptured or has burst. Ringing in the ear. How is this diagnosed? This condition is diagnosed with a physical exam. During the exam, your health care provider will use an instrument called an otoscope to look in your ear and check for redness, swelling, and fluid. He or she will also ask about your symptoms. Your health care provider may also order tests, such as: A pneumatic otoscopy. This is a test to check the movement of the eardrum. It is done by squeezing a small amount of air into the ear. A tympanogram. This is a test that shows how well the eardrum moves in response to air pressure in the ear canal. It provides a graph for your health care provider to review. How is this treated? This condition can go away on its own within 3 5 days. But if the condition is caused by a bacterial infection and does not go away on its own, or if it keeps coming back, your health care provider may: Prescribe antibiotic medicine to treat the infection. Prescribe or recommend medicines to control pain. Follow these instructions at home: Take ctzy-rfv-plmhtoe and prescription medicines only as told by your health care provider. If you were prescribed an antibiotic medicine, take it as told by your health care provider. Do notstop taking the antibiotic even if you start to feel better. Keep all follow-up visits. This is important. Contact a health care provider if: You have bleeding from your nose. There is a lump on your neck. You are not feeling better in 5 days. You feel worse instead of better. Get help right away if: You have severe pain that is not controlled with medicine. You have swelling, redness, or pain around your ear. You have stiffness in your neck. A part of your face is not moving (paralyzed). The bone behind your ear (mastoid bone) is tender when you touch it. You develop a severe headache. Summary Otitis media is redness, soreness, and swelling of the middle ear, usually resulting in pain and decreased hearing. This condition can go away on its own within 3 5 days. If the problem does not go away in 3 5 days, your health care provider may give you medicines to treat the infection. If you were prescribed an antibiotic medicine, take it as told by your health care provider. Follow all instructions that were given to you by your health care provider. This information is not intended to replace advice given to you by your health care provider. Make sure you discuss any questions you have with your health care provider. Document Revised: 10/08/2021 Document Reviewed: 10/08/2021 [employer] Patient Education 2023 [employer] 01/16/2025 11:41:22 Otitis Externa, Fnmj-eo-Cyli Otitis Externa Otitis externa is an infection of the outer ear canal. The outer ear canal is the area between the outside of the ear and the eardrum. Otitis externa is sometimes called swimmer's ear. What are the causes? Common causes of this condition include: Swimming in dirty water. Moisture in the ear. An injury to the inside of the ear. An object stuck in the ear. A cut or scrape on the outside of the ear or in the ear canal. What increases the risk? You are more likely to get this condition if you go swimming often. What are the signs or symptoms? Itching in the ear. This is often the first symptom. Swelling of the ear. Redness in the ear. Ear pain. The pain may get worse when you pull on your ear. Pus coming from the ear. How is this treated? This condition may be treated with: Antibiotic ear drops. These are often given for 10 14 days. Medicines to reduce itching and swelling. Follow these instructions at home: If you were prescribed antibiotic ear drops, use them as told by your doctor. Do not stop using them even if you start to feel better. Take xxzv-vkt-aqsfbks and prescription medicines only as told by your doctor. Avoid getting water in your ears as told by your doctor. You may be told to avoid swimming or watersports for a few days. Keep all follow-up visits. How is this prevented? Keep your ears dry. Use the corner of a towel to dry your ears after you swim or bathe. Try not to scratch or put things in your ear. Doing these things makes it easier for germs to grow in your ear. Avoid swimming in lakes, dirty water, or swimming pools that may not have the right amount of a chemical called chlorine. Contact a doctor if: You have a fever. Your ear is still red, swollen, or painful after 3 days. You still have pus coming from your ear after 3 days. Your redness, swelling, or pain gets worse. You have a very bad headache. Get help right away if: You have redness, swelling, and pain or tenderness behind your ear. Summary Otitis externa is an infection of the outer ear canal. Symptoms include pain, redness, and swelling of the ear. If you were prescribed antibiotic ear drops, use them as told by your doctor. Do not stop using them even if you start to feel better. Try not to scratch or put things in your ear. This information is not intended to replace advice given to you by your health care provider. Make sure you discuss any questions you have with your health care provider. Document Revised: 09/12/2021 Document Reviewed: 09/12/2021 [employer] Patient Education 2023 [employer]. Follow Up Care 01/16/2025 09:39:18 With:TAYE DIXON MD, FAM Address: [address] [place] [id number]- When: Unknown [facility] 07-06-2025 NotePatient Education ENT Otitis Media, Adult Otitis media occurs when there is inflammation and fluid in the middle ear with signs and symptoms of an acute infection. The middle ear is a part of the ear that contains bones for hearing as well as air that helps send sounds to the brain. When infected fluid builds up in this space, it causes pressure and can lead to an ear infection. The eustachian tube connects the middle ear to the back of the nose (nasopharynx) and normally allows air into the middle ear. If the eustachian tube becomes blocked, fluid can build up and become infected. What are the causes? This condition is caused by a blockage in the eustachian tube. This can be caused by mucus or by swelling of the tube. Problems that can cause a blockage include: ??? A cold or other upper respiratory infection. ??? Allergies. ??? An irritant, such as tobacco smoke. ??? Enlarged adenoids. The adenoids are areas of soft tissue located high in the back of the throat, behind the nose and the roof of the mouth. They are part of the body's defense system (immune system). ??? A mass in the nasopharynx. ??? Damage to the ear caused by pressure changes (barotrauma). What increases the risk? You are more likely to develop this condition if you: ??? Smoke or are exposed to tobacco smoke. ??? Have an opening in the roof of your mouth (cleft palate). ??? Have gastroesophageal reflux. ??? Have an immune system disorder. What are the signs or symptoms? Symptoms of this condition include: ??? Ear pain. ??? Fever. ??? Decreased hearing. ??? Tiredness (lethargy). ??? Fluid leaking from the ear, if the eardrum is ruptured or has burst. ??? Ringing in the ear. How is this diagnosed? This condition is diagnosed with a physical exam. During the exam, your health care provider will use an instrument called an otoscope to look in your ear and check for redness, swelling, and fluid. He or she will also ask about your symptoms. Your health care provider may also order tests, such as: ??? A pneumatic otoscopy. This is a test to check the movement of the eardrum. It is done by squeezing a small amount of air into the ear. ??? A tympanogram. This is a test that shows how well the eardrum moves in response to air pressurein the ear canal. It provides a graph for your health care provider to review. How is this treated? This condition can go away on its own within 3?5 days. But if the condition is caused by a bacterial infection and does not go away on its own, or if it keeps coming back, your health care provider may: ??? Prescribe antibiotic medicine to treat the infection. ??? Prescribe or recommend medicines to control pain. Follow these instructions at home: ??? Take vbbd-zpz-cvtnpgb and prescription medicines only as told by your health care provider. ??? If you were prescribed an antibiotic medicine, take it as told by your health care provider. Donot stop taking the antibiotic even if you start to feel better. ??? Keep all follow-up visits. This is important. Contact a health care provider if: ??? You have bleeding from your nose. ??? There is a lump on your neck. ??? You are not feeling better in 5 days. ??? You feel worse instead of better. Get help right away if: ??? You have severe pain that is not controlled with medicine. ??? You have swelling, redness, or pain around your ear. ??? You have stiffness in your neck. ??? A part of your face is not moving (paralyzed). ??? The bone behind your ear (mastoid bone) is tender when you touch it. ??? You develop a severe headache. Summary ??? Otitis media is redness, soreness, and swelling of the middle ear, usually resulting in pain and decreased hearing. ??? This condition can go away on its own within 3?5 days. ??? If the problem does not go away in 3?5 days, your health care provider may give you medicines to treat the infection. ??? If you were prescribed an antibiotic medicine, take it as told by your health care provider. ??? Follow all instructions that were given to you by your health care provider. This information is not intended to replace advice given to you by your health care provider. Make sure you discuss any questions you have with your health care provider. Document Revised: 10/08/2021 Document Reviewed: 10/08/2021 [employer] Patient Education ? 2023 [employer]. Infectious Disease Otitis Externa Otitis externa is an infection of the outer ear canal. The outer ear canal is the area between the outside of the ear and the eardrum. Otitis externa is sometimes called swimmer's ear. What are the causes? Common causes of this condition include: ??? Swimming in dirty water. ??? Moisture in the ear. ??? An injury to the inside of the ear. ??? An object stuck in the ear. ??? A cut or scrape on the outside of the ear or in the ear (more content not included)...[facility]07-03-2025 Hospital Discharge instructions Patient Education 01/13/2025 16:34:40 Otitis Externa Otitis Externa Otitis externa is an infection of the outer ear canal. The outer ear canal is the area between the outside of the ear and the eardrum. Otitis externa is sometimes called swimmer's ear. What are the causes? Common causes of this condition include: Swimming in dirty water. Moisture in the ear. An injury to the inside of the ear. An object stuck in the ear. A cut or scrape on the outside of the ear or in the ear canal. What increases the risk? You are more likely to develop this condition if you go swimming often. What are the signs or symptoms? The first symptom of this condition is often itching in the ear. Later symptoms of the condition include: Swelling of the ear. Redness in the ear. Ear pain. The pain may get worse when you pull on your ear. Pus coming from the ear. How is this diagnosed? This condition may be diagnosed by examining the ear and testing fluid from the ear for bacteria and funguses. How is this treated? This condition may be treated with: Antibiotic ear drops. These are often given for 10 14 days. Medicines to reduce itching and swelling. Follow these instructions at home: If you were prescribed antibiotic ear drops, use them as told by your health care provider. Do not stop using the antibiotic even if you start to feel better. Take jdhm-yfz-wtvixhh and prescription medicines only as told by your health care provider. Avoid getting water in your ears as told by your health care provider. This may include avoiding swimming or water sports for a few days. Keep all follow-up visits. This is important. How is this prevented? Keep your ears dry. Use the corner of a towel to dry your ears after you swim or bathe. Avoid scratching or putting things in your ear. Doing these things can damage the ear canal or remove the protective wax that lines it, which makes it easier for bacteria and funguses to grow. Avoid swimming in lakes, polluted water, or swimming pools that may not have enough chlorine. Contact a health care provider if: You have a fever. Your ear is still red, swollen, painful, or draining pus after 3 days. Your redness, swelling, or pain gets worse. You have a severe headache. Get help right away if: You have redness, swelling, and pain or tenderness in the area behind your ear. Summary Otitis externa is an infection of the outer ear canal. Common causes include swimming in dirty water, moisture in the ear, or a cut or scrape in the ear. Symptoms include pain, redness, and swelling of the ear canal. If you were prescribed antibiotic ear drops, use them as told by your health care provider. Do not stop using the antibiotic even if you start to feel better. This information is not intended to replace advice given to you by your health care provider. Make sure you discuss any questions you have with your health care provider. Document Revised: 09/12/2021 Document Reviewed: 09/12/2021 [employer] Patient Education 2023 [employer]. Follow Up Care 01/13/2025 16:12:18 With:TAYE DIXON MD, FAM Address: [address] [place] [address]- When: Unknown [facility] 07-03-2025 NotePatient Education Infectious Disease Otitis Externa Otitis externa is an infection of the outer ear canal. The outer ear canal is the area between the outside of the ear and the eardrum. Otitis externa is sometimes called swimmer's ear. What are the causes? Common causes of this condition include: ??? Swimming in dirty water. ??? Moisture in the ear. ??? An injury to the inside of the ear. ??? An object stuck in the ear. ??? A cut or scrape on the outside of the ear or in the ear canal. What increases the risk? You are more likely to develop this condition if you go swimming often. What are the signs or symptoms? The first symptom of this condition is often itching in the ear. Later symptoms of the condition include: ??? Swelling of the ear. ??? Redness in the ear. ??? Ear pain. The pain may get worse when you pull on your ear. ??? Pus coming from the ear. How is this diagnosed? This condition may be diagnosed by examining the ear and testing fluid from the ear for bacteria and funguses. How is this treated? This condition may be treated with: ??? Antibiotic ear drops. These are often given for 10?14 days. ??? Medicines to reduce itching and swelling. Follow these instructions at home: ??? If you were prescribed antibiotic ear drops, use them as told by your health care provider. Do not stop using the antibiotic even if you start to feel better. ??? Take fprw-ibi-ixbhqqx and prescription medicines only as told by your health care provider. ??? Avoid getting water in your ears as told by your health care provider. This may include avoiding swimming or water sports for a few days. ??? Keep all follow-up visits. This is important. How is this prevented? Keep your ears dry. Use the corner of a towel to dry your ears after you swim or bathe. ??? Avoid scratching or putting things in your ear. Doing these things can damage the ear canal or remove the protective wax that lines it, which makes it easier for bacteria and funguses to grow. ??? Avoid swimming in lakes, polluted water, or swimming pools that may not have enough chlorine. Contact a health care provider if: ??? You have a fever. ??? Your ear is still red, swollen, painful, or draining pus after 3 days. ??? Your redness, swelling, or pain gets worse. ??? You have a severe headache. Get help right away if: ??? You have redness, swelling, and pain or tenderness in the area behind your ear. Summary ??? Otitis externa is an infection of the outer ear canal. ??? Common causes include swimming in dirty water, moisture in the ear, or a cut or scrape in the ear. ??? Symptoms include pain, redness, and swelling of the ear canal. ??? If you were prescribed antibiotic ear drops, use them as told by your health care provider. Do not stop using the antibiotic even if you start to feel better. This information is not intended to replace advice given to you by your health care provider. Make sure you discuss any questions you have with your health care provider. Document Revised: 09/12/2021 Document Reviewed: 09/12/2021 [employer] Patient Education ? 2023 [employer].[facility] 03-29-2024 History of Present illness Narrative* Kenya Coyle, TERESA - 03/29/2024 2:00 PM EDT Reason for Appointment: Patient ID: Francine Sampson is a 38 y.o. female who presents for Well Women Visit Patient presents today for Annual Exam. MEDICATIONS Current Outpatient Medications Medication Instructions amLODIPine (NORVASC) 5 mg, Oral, Daily citalopram (CELEXA) 40 mg, Oral, Daily estradiol (ESTRACE) 1 mg, Oral, Daily fluticasone (Flonase Allergy Relief) 50 MCG/ACT nasal spray loratadine-pseudoephedrine ER (Claritin-D 24 Hour) 10-240 MG 24 hr tablet 1 tablet, Oral, Daily, Donot crush, chew, or split. omeprazole (PRILOSEC) 40 mg, Oral, Daily before breakfast, Do not crush or chew. 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 Dysphagia 02/13/2023 Depression ([facility]) 02/13/2023 Schatzki's ring 02/13/2023 MICHELE (generalized anxiety disorder) ([facility]) 02/13/2023 Resolved Ambulatory Problems Diagnosis Date Noted Acquired absence of both cervix and uterus 02/13/2023 Breast pain in female 02/13/2023 Past Medical History: Diagnosis Date Allergic rhinitis Allergies Asthma (CMS/HCC) Ear problems Fracture of nasal bones Headache Migraine headache (CMS/HCC) TMJ dysfunction HISTORY PAST MEDICAL HISTORY SOCIAL HISTORY Past Medical History: Diagnosis Date Acquired absence of both cervix and uterus 02/13/2023 Allergic rhinitis Allergies Asthma (CMS/HCC) Breast pain in female 02/13/2023 Depression (CMS/HCC) Ear problems Fracture of nasal bones Headache Hypertension (CMS/HCC) Migraine headache (CMS/HCC) TMJ dysfunction Social History Tobacco Use Smoking status: Every Day Current packs/day: 1.00 Average packs/day: 1 pack/day for 2.0 years (2.0 ttl pk-yrs) Types: Cigarettes Smokeless tobacco: Never Substance Use Topics Alcohol use: Yes Alcohol/week: 5.0 standard drinks of alcohol Types: 5 Standard drinks or equivalent per week Drug use: Never FAMILY HISTORY Family History Problem Relation Name Age of Onset Hyperlipidemia Mother Charlene Sampson Diabetes Mother Charlene Sampson Cancer Mother Charlene Sampson Stroke Mother Charlene Sampson No Known Problems Father No Known Problems Brother Asthma Child SURGICAL HISTORY Past Surgical History: Procedure Laterality Date SECTION, CLASSIC 2010 CHOLECYSTECTOMY 2008 EGD 10/05/2020 HYSTERECTOMY LASIK 2013 OOPHORECTOMY 12/02/2019 RHINOPLASTY 2000 SINUS SURGERY 03/18/2023 [facility], Dr. Fraire TOTAL ABDOMINAL HYSTERECTOMY W/ BILATERAL SALPINGOOPHORECTOMY REVIEW OF SYSTEMS Review of Systems: Review of Systems All other systems reviewed and are negative. OBJECTIVE Objective: Physical Exam Constitutional: Appearance: Normal appearance. She is well-developed. Genitourinary: Vulva normal. Vaginal cuff intact. Cervix is not absent. Uterus is not absent. Cardiovascular: Rate and Rhythm: Normal rate and regular rhythm. Abdominal: General: Bowel sounds are normal. There is no distension. Palpations: Abdomen is soft. Tenderness: There is no abdominal tenderness. There is no guarding or rebound. Musculoskeletal: General: No swelling. Normal range of motion. Right lower leg: No edema. Left lower leg: No edema. Neurological: Mental Status: She is alert and oriented to person, place, and time. Skin: General: Skin is warm and dry. Psychiatric: Mood and Affect: Mood normal. Behavior: Behavior normal. Vitals and nursing note reviewed. Exam conducted with a supervisor drying and softening present. Vitals: Estimated body mass index is 27.98 kg/m as calculated from the following: Height as of 11/26/23: 5' 5 . Weight as of this encounter: 168 lb 1.9 oz. BP: 130/80 No LMP recorded. ASSESSMENT & PLAN ICD-10-CM 1. Well woman exam with routine gynecological exam Z01.419 Pap Smear HPV DNA probe, amplified Annual: Patient presents today for an annual exam. Patient states she is doing well and has no complaints. Pap was obtained without difficulty and patient given mammogram order to have scheduled/obtained. Patient complaints of decreased libido and will have prescription sent to [facility] for Testosterone/Estrogen prescription. Orders Placed This Encounter Procedures HPV DNA probe, amplified Follow Up: Patient is to return in one year for annual unless needed otherwise. Documented by Kenya Coyle LPN on behalf of: Vazquez Morales DO documented in this encounterDeaconess Incarnate Word Health [id number] History of Present illness Narrative* Ioana Fraire MD - 08/20/2023 2:20 PM EST Subjective Patient ID: Francine Sampson is a 38 y.o. female who presents for Dysphagia. Pt reports she has a 2 mo h/o sensation of food stuck in her throat for a couple hours after eating. Does not regurgitate food.No eval or tx yet Review of Systems All other systems reviewed and are negative. 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 Dysphagia 02/13/2023 Depression ([facility]) 02/13/2023 Schatzki's ring 02/13/2023 MICHELE (generalized anxiety disorder) ([facility]) 02/13/2023 Resolved Ambulatory Problems Diagnosis Date Noted Acquired absence of both cervix and uterus 02/13/2023 Breast pain in female 02/13/2023 Past Medical History: Diagnosis Date Allergic rhinitis Allergies Asthma ([facility]) Ear problems Fracture of nasal bones Headache Migraine headache (CMS/HCC) TMJ dysfunction Past Surgical History: Procedure Laterality Date SECTION, CLASSIC 2010 CHOLECYSTECTOMY 2008 EGD 10/05/2020 HYSTERECTOMY LASIK 2013 OOPHORECTOMY 12/02/2019 RHINOPLASTY 2000 SINUS SURGERY 03/18/2023 [facility], Dr. Fraire TOTAL ABDOMINAL HYSTERECTOMY [...] hr tablet Take 1 tablet by mouth inthe morning. Do not crush, chew, or split. [...] [employer]. Bariumesophagram and f/u documented in this encounterDeaconess Incarnate Word Health [id number] Evaluation note* Encounter Date Diagnosis Assessment Notes Treatment Notes Treatment Clinical Notes Apr, Seborrheic dermatitis of scalp (ICD-10 [...] call the office with update on numbers. [employer] Other 09-27-2023 Evaluation note* Encounter Date Diagnosis Assessment Notes Treatment Notes Treatment Clinical Notes Mar, Seborrheic dermatitis of scalp (ICD-10 - L21.9) [employer] Other 08-30-2023 Evaluation note* Encounter Date Diagnosis Assessment Notes Treatment Notes Treatment Clinical Notes Feb, Seborrheic dermatitis of scalp (ICD-10 - L21.9) Instructed on use of topical steroids Ketoconazole shmp twice weekly x 8 wks that as needed Feb, Cellulitis of head except face (ICD-10 - L03.811) Cleanse w soap and water. Hold on antibiotics at this time and treat underlying skin condition [employer] Other 08-08-2023 Evaluation note* Encounter Date Diagnosis Assessment Notes Treatment Notes Treatment Clinical Notes Feb, Open wound of scalp, unspecified open wound type, initial encounter (ICD-10 - S01.00XA) [employer] Other 07-13-2023 Evaluation note* Encounter Date Diagnosis [...] in remission (ICD-10 - F17.211) Continue abstinence [employer] Other 04-26-2023 Evaluation note* Encounter Date Diagnosis Assessment Notes Treatment Notes Treatment Clinical Notes Oct, Acute actinic otitis externa of right ear (ICD-10 - H60.511) Keep clean and dry, avoid use of QTips Oct, Seasonal allergic rhinitis due to pollen (ICD-10 - J30.1) Angelica and Flonase recommended as needed [employer] Other Evaluation + Plan note No data available for this section [facility] Evaluation noteNo InformationNort Ariisto Other Evaluation note* Diagnosis Pharyngoesophageal dysphagia- Primary Dysphagia, pharyngoesophageal phase documented in [facility] Diagnosis Well woman exam with routine gynecological exam Routine gynecological examination Hot flashes due to surgical menopause Mood changes Unspecified episodic mood disorder Decreased libido Symptomatic menopausal or female climacteric states documented in [facility]* Diagnosis Acute swimmer's ear of both sides- Primary [facility] this [facility]* Diagnosis Onset Date Resolution Status Admit Date Dysphagia acute February 28, 025 2:56pm Schatzki's ring acute February 282024 2:56pm [facility] Work Phone: History general Narrative - Reported* Type Description [...] History Cholecystectomy 2007 Surgical History Essure Procedure 2010 Surgical History Dilation and Currettage of Uter us 2014 Surgical History Laparoscopy with L ovarian cyst removal 2016 [employer] Other [place] general Narrative - Reported* Type Description Date [...] JULIANNE/LSO (Hysterectomy) 05/2016 Surgical History C section 2010 Surgical History Lasik 2012 Surgical History Cholecystectomy 2007 Surgical History Essure Procedure 2009 Surgical History Dilation and Currettage of Uter us 2014 Surgical History Laparoscopy with L ovarian cyst removal 2016 Hospitalization History see surgical history [employer] Other History general Narrative - Reported* Type [...] ion 03/2023 Hospitalization History see surgical history [employer] Other history general Narrative - Reported* Type Description Date [...] JULIANNE/LSO (Hysterectomy) 05/2016 Surgical History C section 2010 Surgical History Lasik 2012 Surgical History Cholecystectomy 2007 Surgical History Essure Procedure 2009 Surgical History Dilation and Currettage of Uter us 2014 Surgical History Laparoscopy with L ovarian cyst removal 2016 Surgical History Right Inferior Turbinate Resect ion 03/2023 Hospitalization History see surgical history [employer] Other Hospital Discharge instructions Additional Instructions DISCHARGE INSTRUCTIONS FOR UPPER ENDOSCOPY WHAT TO EXPECT: - You may feel full, gassy or cramping after your procedure. In some cases, this may be from a few hours to a day. Walking may help relieve the discomfort. - Your throat may feel sore today from the scope that the doctor passed through your throat to visualize your stomach. Take a throat lozenge or suck on ice to ease the discomfort. - You may notice some streaks of blood in your sputum if the doctor has taken a biopsy. - You should begin to recover from anesthesia within 1 hour of the procedure, however may feel groggy for the next 24 hours. DO's AND DON'Ts: - Call your doctor right away if you have a hard abdomen, severe pain, vomiting or if you cough up large amounts of blood. - Call your doctor if you develop any rashes, hives or difficulty breathing. - If you take 81 mg aspirin for your heart it is safe to resume this medication. - If you take other blood thinner medications your doctor will instruct you when these can safely be resumed. - Do NOT drive for 24 hours. - Do NOT operate machinery such as power tools, lawn mowers, snow blowers, sewing machines, etc. for 24 hours. - Avoid alcoholic beverages and drugs for allergies, nerves, or sleep. - Do NOT stay alone. Do NOT leave your child unattended. - Do NOT make important personal or business decisions or sign any legal documents. - Eat solid foods and drink liquids in smaller amounts than usual until normal appetite returns. If you should experience an upset stomach, liquids high in sugar content (soda, Manuel-Aid, non-acid juices) are recommended. - Do NOT smoke. - Do take it easy today. You need not stay in bed, but avoid strenuous activities such as jogging or working out. FOLLOW UP & RECOMMENDATIONS: -Please call the office and make a follow up appointment to see me in 4 months if you do not have an appointment scheduled. -Notify the doctor if you have any problems. -Follow up with PCP. -Office number [phone]. [facility] Work Phone: Progress note No data available for this section [facility] Summary Purpose Family History No Family History Records Found Relationship Condition Age at Onset Recorded Date/T marcelina mother Diabetes mellitus Unknown Malignant neoplasm Unknown Advance Directives No Advanced Directives Records Found Advance Directive Response Recorded Date/ Time Advance Directives No March 12, 2024 6:56am Advance Directive Response Recorded Date/ Time Advance Directives No March 04, 2025 8:43am Reason for Referral Reason Joceline is being re ferred for chronic right sided nasal obstruction Diagnosis 1 Refractory obstructi on of nasal airway (J34.89) Referral Organization [facility] Referring Provider First Name Merrill Referring Provider Last Name Nitish Referring Provider Specialty Internal Ms dicine Referred Organization Unknown Facility Referred Provider [...] esophageal rin g (Schatzki) (K22.2) Referral Organization [facility] Referring Provider First Name Merrill Referring Provider Last Name Nitish Referring Provider Specialty Internal Me dicine Referred Organization [facility] Referred Provider Daniel Quiroz Referred Address [address] [place] [address] [place], [place],[address] Referred Provider Specialty Gastroentero logy Referral Priority Routine General Notes Joceline is being re ferred for esophageal dysphagia. She has a known hx of Schatzki's ring, which required dilatation in 2020. She denies change in appetite, weight loss, heartburn or indigestion. Chief Complaint and Reason for Visit Chief Complaint Admit Date difficulty swallowing February 28, 2025 2:56pm Reason for Visit Admit Date Dysphagia February 28, 2025 2: 56pm Schatzki's ring February 28, 2025 2: 56pm Chief Complaint Admit Date difficulty swallowing February 28, 2025 2:56pm dysphagia, esophageal obstruction 2024 11:20am Additional Source Comments INFORMATION SOURCE (unrecogn ized section and content) DATE CREATED AUTHOR 06/15/2022 [facility] DATE CREATED AUTHOR AUTHOR'S ORGANIZ ATION [facility] DATE CREATED AUTHOR AUTHOR'S ORGANIZ ATION 01/22/2025 [facility] EPIC DATE CREATED AUTHOR AUTHOR'S ORGANIZ ATION 03/26/2025 [facility] REASON FOR VISIT (unrecogniz ed section and content) Reason Comments Dysphagia Reason Comments Well Women Visit Reason Comments Ear Problem Swollen ear canal ri ght side Care Teams (unrecognized sec tion and content) Punch Press Setter Relationship Specialty Start Date End Date Merrill Talbert MD [address] [place] [address] PCP - General Internal Medicine 02/21/23 Punch Press Setter Relationship Specialty Start Date End Date Merrill Talbert MD [address] [place] [address] PCP - General Internal Medicine 02/21/23 Punch Press Setter Relationship Specialty Start Date End Date Merrill Talbert MD [address] [place] [address] PCP - General Internal Medicine 02/21/23 Punch Press Setter Relationship Specialty Start Date End Date Merrill Talbert MD [address] [place] [address] PCP - General Internal Medicine 02/21/23 Punch Press Setter Relationship Specialty Start Date End Date Merrill Talbert MD [address] [place] [address] PCP - General Internal Medicine 02/21/23 Punch Press Setter Relationship Specialty Start Date End Date Merrill Talbert MD [address] [place] [facility] [place] [address] PCP - General Internal Medicine 02/21/23 Punch Press Setter Relationship Specialty Start Date End Date Merrill Talbert MD [address] [place] [facility] [address] PCP - General Internal Medicine 02/21/23 Punch Press Setter Relationship Specialty Start Date End Date Merrill Talbert DO [address] [place] [facility] [place] [address] PCP - General Internal Medicine 01/17/25 Punch Press Setter Relationship Specialty Start Date End Date Merrill Talbert DO [address] [place] [facility] [place] [address] PCP - General Internal Medicine 01/17/25 Team Status: Active Member Role Status Dates Merrill Talbert DO Primary Care Provider Active Team Status: Inactive Member Role Status Dates Joceline Henry APRN SCREW MACHINE SETTER-C Attending Provider Act tha Start: February 28, 2025 End: February 28, 2025 Merrill Talbert DO Primary Care Provider Active Start: February 28, 2025 End: February 28, 2025 Team Status: Active Member Role Status Dates Merrill Talbert DO Primary Care Provider Active Start: March 21, 2025 Kadi Santiago DO Attending Provider Active St art: March 21, 2025 Kadi Santiago DO Other Provider Active Start: March 21, 2025 Goals (unrecognized section and content) Goals may be documented in a n alternate section FOR RECORDS PERTAINING TO PATIENTS WHO ARE [...] BE BASED ON THE PRIMARY CLINICAL RECORDS. [employer] [facility]. provides no warranty or guarantee of the accuracy or completeness of information in this document.
[2025-04-22 06:54] LABS: Hematocrit 36.3 % (36.0-48.0); Hemoglobin 12.0 g/dL (12.0-16.0); Immature Granulocytes Abs Auto 0.01 10^3/uL (0.00-0.03); Immature Granulocytes Pct Auto 0.2 % (0.0-0.5); Lymphocytes Absolute Auto 1.8 10^3/uL (1.2-3.8); Mean Corpuscular HGB Conc 33.1 g/dL (29.9-35.2); Mean Corpuscular Hemoglobin 28.0 pg (26.7-34.0); Mean Corpuscular Volume 84.6 fL (81.0-99.0); Platelet Count 322 10^3/uL (150-450); Red Blood Count 4.29 10^6/uL (4.20-5.40); White Blood Count 5.7 10^3/uL (4.0-11.0)
[2025-04-22 07:17] LABS: Alanine Aminotransferase 27 U/L (14-59); Albumin Globulin Ratio 0.9; Albumin Level 3.6 g/dL (3.4-5.0); Alkaline Phosphatase 72 U/L (46-116); Anion Gap 12.3; Aspartate Amino Transferase 18 U/L (15-37); Blood Urea Nitrogen 11.0 mg/dL (7.0-18.0); Calcium 8.8 mg/dL (8.5-10.1); Carbon Dioxide 31.0 mmol/L (21.0-32.0); Chloride 104 mmol/L (98-107); Cholesterol 247 mg/dL (<=200); Estimated GFR (African America >60 (>=60 mL/min/1.73m^2); Estimated GFR (Non-African Ame >60 (>=60 mL/min/1.73m^2); Globulin 4.0 g/dL; Glucose 103 mg/dL (74-106); HDL Cholesterol 69 mg/dL (40-60); Potassium 3.3 mmol/L (3.5-5.1); Sodium 144 mmol/L (136-145); Thyroid Stimulating Hormone 5.012 uIU/mL (0.358-3.740); Total Protein 7.6 g/dL (6.4-8.2); Triglycerides 117 mg/dL (<=150); VLDL CHOLESTEROL 23.4 mg/dL
== END 2025-04-22 06:42 | disposition home or self-care (01) ==
LOC: LAB 06:41
PROVIDERS: PCP Internal Medicine; Visit Provider Internal Medicine
DX: Z00.00 Encounter for general adult medical examination without abnormal findings (principal)
CPT/HCPCS: 36415; 80053; 80061; 83036; 84443; 85025

== ENCOUNTER 2025-06-07 09:16 | Outpatient (OUT) | payer BC, OTHER, SELFPAY ==
--- OUTSIDE RECORDS SUMMARY | 2025-06-07 09:21 | XMS_ITS | Clinical Summary ---
Author Organization [facility] Address [id number] [address] [place] [address] Care Team Providers Care Barista Name Role Phone Unavailable Primary Care Provider Unavailabl e Social History Tobacco UseTypesPacks/DayYears UsedDateSmoking Tobacco: Never Assessed CommentsUnknownSex and Gender InformationValueDate RecordedSex Assigned at Not on fileLegal RoqKpvcog47/26/2022 12:00 PM EDTGender IdentityNot on file Sexual OrientationNot on file Plan of Treatment Health MaintenanceDue DateLast DoneCommentsDepression Tymfloewl57/28/1996Tobacco Kccypwoye62/28/1996Adult BMI Zsfjfolsm74/28/2002DTaP,Tdap and Td Vaccines (1 - Tdap)2003Pap Smear2005Influenza Yiucgtz9503/14/2025 Medical Devices Not on file
--- OUTSIDE RECORDS SUMMARY | 2025-06-07 09:21 | XMS_ITS | Clinical Summary ---
Author Organization [facility] Address [address] [place] [address] Care Team Providers Care Tea Leaf Reader Name Role Phone Lea Jacob MD Primary Care Provider Allergies Active AllergyReactionsCriticalityNoted NvbvIjfzavtbMjguyzmvbsUgtzzqi79/20/2015 Medications MedicationSigDispense QuantityRefillsLast FilledStart DateEnd DateStatus amLODIPine (NORVASC) 5 mg tablet Take 1 tablet by mouth once daily.ctive Hydrochlorothiazide 12.5 mg capsule Take 1 capsule by mouth once daily.ctive venlafaxine XR (EFFEXOR XR) 150 mg 24 hr capsule Take 1 capsule by mouth once daily.ctive venlafaxine ER (EFFEXOR XR) 75 mg 24 hr capsule Take 1 capsule by mouth once daily.ctive Topiramate (TOPAMAX) 50 mg tablet Take 1 tablet by mouth twice daily.ctive medroxyPROGESTERone (DEPO-PROVERA) 150 mg/mL injection Inject 1 mL intramuscularly every 12 weeks.ctive Family History Medical HistoryRelationCommentsDiabetesMotherHeartPaternal GrandfatherCancer Paternal GrandmotherRelationStatusCommentsMotherPaternal GrandfatherPaternal Grandmother Social History Tobacco UseTypesPacks/DayYears UsedDateSmoking Tobacco: Every Day Comments:1/2 pk a day x 1 1/ 2 yrs Alcohol UseStandard Drinks/WeekCommentsYes0 (1 standard drink = 0.6 oz pure alcohol)occCommentsUnknownSex and Gender InformationValueDate Recorded Sex Assigned at BirthNot on fileLegal LswXzomvb11/15/2015 10:17 AM EDTGender IdentityNot on fileSexual OrientationNot on file Last Filed Vital Signs Vital SignReadingTime TakenCommentsBlood Pressure--Pulse--Lbxczjmgvyc57.9 ??C (96.7 ??F)11/30/2014 7:48 AM EDTRespiratory Rate--Oxygen Saturation--Inhaled Oxygen Concentration--Zwyvxg95.5 kg (151 lb)11/30/2014 7:48 AM EDTHeight--Body Mass Index-- Plan of Treatment Health MaintenanceDue DateLast DoneCommentsAnxiety Iyloaargu21/28/2002Depression Thbrbqzlm02/28/2002HIV Pgvfebpgw35/28/2002Hepatitis C Bifdebjlu50/28/2002 DTaP,Tdap,Td Vaccine (1 - Tdap)2003Hepatitis B Vaccine (1 of 3 - 19+ 3- dose series)2003Cervical Cancer Mqvffhkdx94/28/2005HPV Vaccine (1 - 3-dose SCDM series)2011Mammogram Yffpkugte94/28/2024Covid-19 Vaccine (1 - 2024-26 season)2025Influenza Vaccine (#1)2025 Insurance Care Teams Team MemberRelationshipSpecialtyStart DateEnd Date Lea Jacob MD [address] [place] [address] [facility]10/26/14
--- OUTSIDE RECORDS SUMMARY | 2025-06-07 09:21 | XMS_ITS | Clinical Summary ---
Author Organization [facility] Address [address] [place] [address] Care Team Providers Care Sales Operations Director Name Role Phone Merrill Talbert Primary Care Provider [phone] Allergies Active AllergyReactionsCriticalityNoted DateCommentsCephalexinGI bleeding 02/13/2023 Other Reaction(s): Unknown MorphineGI rhnkfcmlnza55/03/2023 Medications MedicationSigDispense QuantityRefillsLast FilledStart DateEnd DateStatus amLODIPine (Norvasc) 5 MG tablet Take 5 mg by mouth DailyActive loratadine-pseudoephedrine ER (Claritin-D 24 Hour) 10-240 MG 24 hr tablet Take 1 tablet by mouth Daily Do not crush, chew, or split.Active omeprazole (PriLOSEC) [address] capsule Indications:Pharyngoesophageal dysphagiaTake 1 capsule (40 mg) by mouth in the morning. Take before meals. Do not crush or chew.. 90 capsule 4Active fluticasone (Flonase Allergy Relief) 50 MCG/ACT nasal spray 3Active citalopram (CeleXA) 40 MG tablet Indications:Anxiety disorder, unspecifiedTAKE 1 TABLET BY MOUTH EVERY DAY 90 tablet 5Active ciprofloxacin-dexAMETHasone (CiproDEX) otic suspension 4 drops5Active levocetirizine (Xyzal) 5 MG tablet Take by mouth in the eveningActive estradiol (Estrace) 0.5 MG tablet Indications:Hot flashes due to surgical menopause,Mood changesTAKE 1 TABLET BY MOUTH ONCE A DAY *TAKE WITH 1MG TO EQUAL 1.5 DAILY* 90 tablet 5Active estradiol (Estrace) 1 MG tablet Indications:Hot flashes due to surgical menopause,Mood changesTake 1 tablet (1 mg) by mouth Daily 90 tablet 5Active estradiol (Estrace) 0.5 MG tablet Indications:Hot flashes due to surgical menopause,Mood changesTake 1 tablet (0.5 mg) by mouth Daily Take 1 tablet by mouth along with 1mg Estradiol to equal 1.5mg daily. 90 tablet 410/411/Discontinued estradiol (Estrace) 1 MG tablet Indications:Hot flashes due to surgical menopause,Mood changesTAKE 1 TABLET BY MOUTH EVERY DAY 90 tablet 308511/Discontinued(Reorder) Active Problems ProblemNoted DateDiagnosed DateAcute otitis externa of right ear01/18/2025 Llzkcmxtcrm06/08/2025Twin ([facility])01/18/2025Decreased libido 03/29/2024Mood uzoktno5103/29/2024Hot flashes due to surgical dezoubnkw35/16/2024 Hrwostiprarj30/03/2023Nasal cavity mass02/13/20232057Kdgkflscy95/03/2023epression 02/13/2023Schatzki's ring02/13/2023AD (generalized anxiety disorder)02/13/2023 Resolved Problems ProblemNoted DateDiagnosed DateResolved DateAcquired absence of both cervix and kchddj92reast pain in sgrxuu01 Encounters DateTypeDepartmentCare NpekYdcauoiodjv53/17/2025[facility]ill [facility] [address] [place] [address] Kortney Gill MA Hot flashes due to surgical menopause; Mood uucqyfo4405/29/2025[facility] [address] [place] [address] Yoseph Morales DO Hot flashes due to surgical menopause; Mood changesfrom Last 3 Months Immunizations ImmunizationAdministration DatesNext DueHep A / Hep B009/13/2015Hep B, Adolescent or Ienfxwziw58/18/2015,02/28/2015Moderna SARS-CoV-2 Onzpvclhhox57/09/2021, 08/10/2020,07/12/2020 Family History Medical HistoryRelationNameCommentsNo Known ProblemsBrotherAsthmaChildNo Known ProblemsFatherCancerMotherTonya WilhelmDiabetesMotherTonya WilhelmHyperlipidemia MotherTonya WilhelmHypertensionMotherTonya WilhelmStrokeMotherTonya Bronson RelationNameStatusCommentsBrotherAliveChildFatherAliveMotherTonya Bronson Social History Tobacco UseTypesPacks/DayYears UsedDateSmoking Tobacco: NorxxqVtvtaxcpkg77 Smokeless Tobacco: Never Tobacco Cessation:Counseling Given: Not Answered Alcohol UseStandard Drinks/WeekCommentsYes5 (1 standard drink = 0.6 oz pure alcohol)AUDIT-CAnswerDate RecordedQ1: How often do you have a drink containing alcohol?2-3 times a week08/20/2023Q2: How many drinks containing alcohol do you have on a typical day when you are drinking?1 or Q3: How often do you have six or more drinks on one occasion?Never08/20/2023CommentsUnknown Sex and Gender InformationValueDate RecordedSex Assigned at [facility] 07/10/2023 9:44 AM ESTLegal UpfLecazw66/15/2023 7:06 PM EDTGender IdentityFemale 07/10/2023 9:44 AM ESTSexual OrientationNot on file Last Filed Vital Signs Vital SignReadingTime TakenCommentsBlood Bpehotxd129/8607 7:55 AM EDT Ckvtx275301/18/2025 7:55 AM EDTTemperature--Respiratory Rate--Oxygen Saturation-- Inhaled Oxygen Concentration--Ekmuly49.1 kg (170 lb)01/18/2025 7:55 AM EDTHeight 165.1 cm (5' 5 )01/18/2025 7:55 AM EDTBody Mass Index28.2907 7:55 AM EDT Plan of Treatment Not on file Insurance Care Teams Team MemberRelationshipSpecialtyStart DateEnd Date Merrill Talbert DO [address] [place] [address] PCP - GeneralInternal Medicine01/17/25
--- OUTSIDE RECORDS SUMMARY | 2025-06-07 09:21 | XMS_ITS | Encounter Summary ---
Author Organization [facility] Address [address] [facility] [address] [place] [address] Care Team Providers Care Logistics Research Engineer Name Role Phone Merrill Talbert Primary Care Provider [phone] Reason for Visit * ReasonCommentsMed Refill Encounter Details DateTypeDepartmentCare Team (Latest Contact Info)Xyueedbnlbn00/16/2025Refill [facility] [address] [place] [address] Yoseph Morales DO [address] [place] [id number] Hot flashes due to surgical menopause; Mood changes Social History Tobacco UseTypesPacks/DayYears UsedDateSmoking Tobacco: ZdrxaiRwcbrflcew03 Smokeless Tobacco: NeverAlcohol UseStandard Drinks/WeekCommentsYes5 (1 standard drink = 0.6 oz pure alcohol)AUDIT-CAnswerDate RecordedQ1: How often do you have a drink containing alcohol?2-3 times a week08/20/2023Q2: How many drinks containing alcohol do you have on a typical day when you are drinking?1 or 2 08/20/2023Q3: How often do you have six or more drinks on one occasion?Never 4CommentsUnknownSex and Gender InformationValueDate RecordedSex Assigned at VnohfAycyne76/28/2023 9:44 AM ESTLegal XyhIdbngn94/15/2023 7:06 PM EDTGender KdxtqimeGmgacs80/28/2023 9:44 AM ESTSexual OrientationNot on file documented as of this encounter Plan of Treatment Not on file documented as of this encounter Visit Diagnoses Diagnosis Hot flashes due to surgical menopause Mood changes Unspecified episodic mood disorder documented in this encounter Care Teams Team MemberRelationshipSpecialtyStart DateEnd Date Merrill Talbert DO [address] [place] [address] PCP - GeneralInternal Medicine01/17/25documented as of this encounter
--- OUTSIDE RECORDS SUMMARY | 2025-06-07 09:21 | XMS_ITS | Clinical Summary ---
Author Organization [facility] Address [address] [place] [address] Care Team Providers Care Hvac Tech Name Role Phone Unavailable Primary Care Provider Unavailabl e Social History Tobacco UseTypesPacks/DayYears UsedDateSmoking Tobacco: Never Assessed CommentsUnknownSex and Gender InformationValueDate RecordedSex Assigned at Not on fileLegal OdcUfafyg13/30/2022 12:25 AM EDTGender IdentityNot on file Sexual OrientationNot on file Plan of Treatment Not on file
--- OUTSIDE RECORDS SUMMARY | 2025-06-07 09:21 | XMS_ITS | Encounter Summary ---
Author Organization [facility] Address [address] [place] [address] Care Team Providers Care 911 Dispatcher Name Role Phone Merrill Talbert DO Primary Care Provider [phone] Reason for Visit * ReasonOnset DateCommentsMed Tdgdqi6005/30/2025 Encounter Details DateTypeDepartmentCare Team (Latest Contact Info)Hygfjeytxlh24/17/2025Refill [facility] [address] [place] [address] Eunice GillAda, [place] [address] [place] [address] Hot flashes due to surgical menopause; Mood changes Social History Tobacco UseTypesPacks/DayYears UsedDateSmoking Tobacco: CffegkZiwhsokyzm96 Smokeless Tobacco: NeverAlcohol UseStandard Drinks/WeekCommentsYes5 (1 standard [...] 4CommentsUnknownSex and Gender InformationValueDate RecordedSex Assigned at VwtzfPufdbc65/28/2023 9:44 AM ESTLegal CigXyntnm50/15/2023 7:06 PM EDTGender SizuwpyaBcyowc60/28/2023 9:44 AM ESTSexual OrientationNot on file documented as of this encounter Plan of Treatment Not on file documented as of this encounter Visit Diagnoses Diagnosis Hot flashes due to surgical menopause Mood changes Unspecified episodic mood disorder documented in this encounter Care Teams Team MemberRelationshipSpecialtyStart DateEnd Date Merrill Talbert DO [address] [place] [address] PCP - GeneralInternal Medicine01/17/25documented as of this encounter
--- OUTSIDE RECORDS SUMMARY | 2025-06-07 09:22 | XMS_ITS | CCD ---
Author Organization [facility] [employer] Care Team Providers Care Architecture Consultant Name Role Phone DR MERRILL SINGH Primary Care Unavailable BALL, DR POSADAS Admitting Unavailable BALL, DR POSADAS Attending Unavailable BALL, DR POSADAS Consulting Unavailable BALL, DR POSADAS Primary Care Unavailable NICOLA, JUAN Attending Unavailable NICOLA, JUAN Consulting Unavailable NICOLA, JUAN Admitting Unavailable BALL, DR POSADAS Consulting Unavailable BALL, DR POSADAS Primary Care Unavailable FRANCISCO, DR POSADAS Admitting Unavailable BALL, DR POSADAS Attending Unavailable ANDREW, DR SHUKLA Attending Unavailable ANDREW, DR SHUKLA Consulting Unavailable ANDREW, DR SHUKLA Admitting Unavailable FRANCISCO, DR POSADAS Primary Care Unavailable BALL, DR POSADAS Primary Care Unavailable ANDREW, DR SHUKLA Attending Unavailable ANDREW, DR SHUKLA Consulting Unavailable ANDREW, DR SHUKLA Admitting Unavailable Merrill Singh Unavailable Joceline Henry Unavailable Merrill Singh MD Primary Care Provider TAYE DIXON Primary Care Physician Mayra Brannon Attending Unavailable FREDI NGUYEN Primary Care Unavailable Cisco Berry Attending Unavailable Merrill Singh DO Primary Care Provider AMINAH FRAIRE Attending Unavailable YOSEPH MORALES Attending Unavailable Joceline Henry APRN Attending Provider [phone] Merrill Singh DO Primary Care Provider Kadi Santiago DO Attending Provider Kadi Santiago DO Other Provider Kadi Santiago Attending Unavailable Kadi Santiago Admitting Unavailable Merrill Singh Primary Care Unavailable Merrill Singh DO Attending Provider [phone] Merrill Singh DO Primary Care Provider Merrill Singh DO Primary Care Provider Allergies Allergy ClassificationReported Allergen(s)Allergy TypeDate of OnsetReaction(s) Facility (4 sources)CephalexinDrug Ubzckdq64-56-5281yyyxqg gums/gingivitisThe [facility] (4 sources)MorphineDrug Sjptgzw33-57-0086Hwtsrth ReactionThe [facility]ository (20 sources)Cephalexin; Translations: [cephalexin]Drug Afomlod21-72-6447IR [facility] [employer] Work Phone: (20 sources)MorphineDrug Ikuxvkr79-98-0547JZ [facility] [employer] Other (7 sources)Morphine Sulfate (Concentrate) *ANALGESICS - OPIOIPropensity to adverse reactionsRay County Memorial Hospital [employer] Other (2 sources)Allergies ReconciledPropensity to adverse reactionsRay County Memorial Hospital [employer] Other (7 sources)Medicinal cephalosporin and acting as antibacterial agent (FN)Drug bgkfcah16-27-5781QuisnbqYjtso [employer] Other (2 sources)patient allergy list reviewed by nurse or physiciaPropensity to adverse -[id number]:[facility] [employer] Other (2 sources)Cephalexin; Translations: [Keflex]Drug AllergyAC[facility] Rep[facility] (1 source)seasonal/environmental allergiesPropensity to adverse reactionsC[facility]al [facility] [employer] Other (1 source)CephalexinDrug Cxwjrpv78-34-3459YaizoglgsPromedica Memorial Hospital Repository (1 source)MorphineDrug Knfyyvy03-12-0502QlkmrnuvvPromedica Memorial Hospital Repository Medications Current Medications MedicationDrug Class(es)DatesSig (Normalized)Sig (Original)amoxicillin 500 mg oral capsule (3 sources)Penicillin-class AntibacterialStart: 01-16-2025 End: 54-66-1616uayiantifrt (Amoxil) 500 MG capsule Take 1,000 mg by mouth 01/16/2025 01/23/2025 Activeciprofloxacin 500 mg oral tablet (2 sources)Quinolone AntimicrobialStart: 01-18-2025 End: 03-11-9142gzkj 1 tablet by mouth in the morningciprofloxacin (Cipro) 500 MG tablet Indications: Acute swimmer's ear of both sides Take 1 tablet (500 mg) by mouth in the morning and 1 tablet (500 mg) before bedtime. Do all this for 7 days. 14 tablet 01/18/2025 01/25/2025 Activeciprofloxacin 3 mg/ml / dexamethasone 1 mg/ml otic suspension (4 sources)Corticosteroid, Quinolone AntimicrobialStart: 01-13-2025 ciprofloxacin-dexamethasone 0.3%-0.1% Otic Susp 4 drop(s), Otic, BID, 7.5 mL, Refill(s) 0, [facility], 164, cm, 01/13/25 16:21:00 EDT, Height/Length Dosing, 78, kg, 01/13/25 16:21:00 EDT, Weight Dosing Start Date: 01/13/25 Status: Ordered Quantity: 7.5 Unit: mL Repeat number: 1citalopram 40 mg oral tablet (20 sources)Serotonin Reuptake InhibitorStart: 10-21-2021 End: 27-45-9396pkho 1 tablet by mouth once dailyCitalopram (Celexa) 40 mg tablet Active 40 MG PO Daily June 16, 2024 1:00am Complies with drugtherapy Claritin-D 24 Hour 10-240 MG (8 sources)Start: 78-05-1020dbrx 10-240 mg by mouth once daily as needed Claritin-D 24 Hour 10-240 MG 1 tablet as needed Orally Once a day for 30 day(s) Jul, Activeestradiol 1 mg oral tablet (20 sources)EstrogenStart: 22-38-2095qmwu 1.5 mg by mouth once dailyEstradiol 1 mg tablet Active 1.5 MG PO Daily June 16, 2024 1:00am off 1 week; repeat cycle Complies with drug therapyStart: 03-29-2024 End: 65-87-8526aowe 1 tablet by mouth once dailyestradiol (Estrace) 0.5 MG tablet Indications: Hot flashes due to surgical menopause , Mood changesTake 1 tablet (0.5 mg) by mouth Daily Take 1 tablet by mouth along with 1mg Estradiol to equal 1.5mg daily. 90 tablet 4 04/28/2024 ActiveStart: 01-28-2024 End: 17-87-1395pnkc 1 tablet by mouth once dailyestradiol (Estrace) 1 MG tablet Indications: Hot flashes due to surgical menopause , Mood changes Take 1 tablet (1 mg) by mouth Daily 90 tablet 3 01/28/2024 Activefluocinonide 0.5 mg/ml topical solution (8 sources)CorticosteroidStart: 31-92-8045Pzqvjdofqsve 0.05 % solution Active 1 APPLIC TOPICAL Daily 60 90 March 03, 2025 12:00am Complieswith drug therapy Start: 59-35-6962Ywdhqszglqlb 0.05 % solution Active 1 APPLIC TOPICAL Daily February 28, 2025 12:00am Complies with drug therapyStart: 09-15-2023 End: 65-06-3699npmwrlfqsgaq (Lidex) 0.05 % external solution 09/15/2023 03/29/2024 Discontinued (Other)fluticasone propionate 0.05 mg/actuat metered dose nasal spray (20 sources)CorticosteroidStart: 07-15-2024 End: 66-32-4923zfbx 2 spray(s) nasal route once dailyFluticasone Propionate 50 mcg/actuation spray,suspension Active 0 .ROUTE .COMPLEX 48 February 24, 2025 8:33am USE 2 SPRAYS IN EACH NOSTRIL ONCE A DAY Complies with drug therapyStart: 06-16-2024 End: 80-54-1291xicc 1 spray(s) nasal route once dailyFluticasone Propionate 50 mcg/actuation spray,suspension Discontinued 2 SPRAY INTRANASAL Daily June 16, 2024 1:00am July 15, 2024 8:55am administer into each nostril Start: 73-89-9072dznykqxaqvj (Flonase Allergy Relief) 50 MCG/ACT nasal spray 01/11/2023 Activetake 2 spray(s) nasal route in the morningfluticasone (Flonase) 50 MCG/ACT nasal spray Administer 2 sprays into each nostril in the morning and 2 sprays before bedtime. Shake gently. Before first use, prime pump. After use, clean tip and replace cap.. 0 Activelevocetirizine dihydrochloride 5 mg oral tablet (2 sources)Histamine-1 Receptor Antagonisttake 1 tablet by mouth in the evening levocetirizine (Xyzal) 5 MG tablet Take by mouth in the evening Active levoFLOXacin 500 mg oral tablet (4 sources)Quinolone AntimicrobialStart: 63-26-8203vjoj 1 tablet by mouth every twenty-four hourslevoFLOXacin 500 MG 1 tablet Orally Once a day for 7 days Feb, Activeloratadine 10 mg oral tablet (3 sources)Start: 49-62-9835olze 1 tablet by mouth once dailyLoratadine (Claritin) 10 mg tablet Active 10 MG PO Daily June 16, 2024 1:00am Complies with drug zhwkarx05 hr loratadine 10 mg / pseudoephedrine sulfate 240 mg extended release oral tablet (20 sources)alpha-Adrenergic AgonistStart: 77-60-4061ytsw 1 tablet by mouth every twenty-four hoursClaritin-D 24 Hour 10-240 MG 1 tablet as needed Orally Once a day for 30 day(s) Jul, ActiveStart: 69-69-9657Tzscycry-D 5 mg-120 mg Tab-ER 1 tab(s), Oral, Daily, 30 tab(s), Refill(s) 0 Start Date: 10/21/21 Status: Ordered Quantity: 30.0 Unit: tab(s) Repeat number: 1take 10-240 mg by mouth every twenty-four hoursloratadine-pseudoephedrine ER (Claritin-D 24 Hour) 10-240 MG 24 hr tablet Take 1 tablet by mouth Daily Do not crush, chew, or split. ActivemethylPREDNISolone 4 mg oral tablet (2 sources)CorticosteroidStart: 62-13-1487rhwkloKQECKEXxsshl 4 MG as directed Orally daily for 6 days Apr, Activeomeprazole 40 mg delayed release oral capsule (9 sources)Proton Pump InhibitorStart: 54-26-9171hgfi 1 capsule by mouth before mealtimeomeprazole (PriLOSEC) [address] capsule Indications: Pharyngoesophageal dysphagia Take 1 capsule (40mg) by mouth in the morning. Take before meals. Do not crush or chew.. 90 capsule 11/26/2023 Activepantoprazole 40 mg delayed release oral tablet (2 sources)Proton Pump InhibitorStart: 00-38-1380twps 1 tablet by mouth twice dailyPantoprazole 40 mg tablet,delayed release (DR/EC) Active 40 MG PO Twice daily 180 March 12:00am Complies with drug therapytriamcinolone acetonide 5 mg/ml topical cream (19 sources)CorticosteroidStart: 59-98-6771Fjszygvlzqyox Acetonide 0.5 % cream Active 0 APPLIC .ROUTE .COMPLEX March 07, 2025 12:00am APPLYTO AFFECTED AREA TWICE A DAY PRN Complies with drug therapyStart: 01-08-2024 End: 06-78-8008Wazhzwqbxphej Acetonide 0.5 % cream Discontinued 0 .ROUTE .COMPLEX 60 January 08, 2024 5:54pm 2024 1:39pm APPLY TO AFFECTED AREA TWICE A DAYStart: 01-08-2024 End: 05-20-5213Fzozndpfnmhqk Acetonide 0.5 % cream Discontinued 1 APPLIC TOPICAL Twice daily January 08, 2024 12:00am January 08, 2024 5:54pmStart: 07-17-2023 End: 32-90-4614zhiibvtcspgnr (Kenalog) 0.5 % cream Apply topically 2 (two) times a day to affected area Discontinued (Other)Start: 20-02-6144Hjmyvwfuzwvek Acetonide 0.5 % 1 application Externally twice daily for 30 days Mar, ActiveTriamcinolone Acetonide 0.5 % 1 application Externally q HS as needed to neck area for 30 days Active Completed/Discontinued Medications MedicationDrug Class(es)DatesSig (Normalized)Sig (Original)amLODIPine 10 mg oral tablet (20 sources)Dihydropyridine Calcium Channel BlockerStart: 04-01-2024 End: 68-23-3804mpcq 1 tablet by mouth once dailyAmlodipine 10 mg tablet Discontinued 0 .ROUTE .COMPLEX April 01, 2024 7:21pm July 03, 2024 3:56pm TAKE 1 TABLET BY MOUTH EVERY DAYStart: 10-09-2023 End: 18-02-0240nuyi 1 tablet by mouth once dailyAmlodipine 10 mg tablet Discontinued 10 MG PO Daily October 09, 2023 12:18pm April 01, 2024 8:39amStart: 45-39-3938dvyx 1 tablet by mouth once dailyamLODIPine 5 mg Tab 5 mg = 1 tab(s), Oral, Daily, # 30 tab(s), Refills(s) 0 Start Date: 10/21/21 Status: Ordered Quantity: 30.0 Unit: tab(s) Repeat number: 1take 1 tablet by mouth once dailyamLODIPine Besylate 10 MG TAKE 1 TABLET BY MOUTH EVERY DAY for 90 days Activeazithromycin 250 mg oral tablet (9 sources)Macrolide AntimicrobialStart: 48-31-4006Swqnxebipbgz 250 MG as directed Orally daily for 5 days Jul, Not-TakingCVS Allergy Relief-D 10- 240 MG (7 sources)take 10-240 mg by mouth once dailyCVS Allergy Relief-D 10-240 MG TAKE 1 TABLET BY MOUTH EVERY DAY for 30 Not-Takingtake 10-240 mg by mouth once daily [facility] Allergy Relief-D 10-240 MG TAKE 1 TABLET BY MOUTH EVERY DAY for 30 Active estrogens, conjugated (longterm) 1.25 mg oral tablet (18 sources)EstrogenStart: 01-13-2024 End: 89-72-7382dgnw 1 tablet by mouth once daily, then take 1 tablet by mouth once dailyestrogens, conjugated, (Premarin) 1.25 MG tablet Indications: Acquired absence of both cervix and uterus Take 1 tablet (1.25 mg) by mouth Daily TAKE 1 TABLET BY MOUTH EVERY DAY FOR 30 DAYS 30 tablet 6 01/13/2024 03/29/2024 Discontinued (Other)Start: 11-78-3998wtos 1 tablet by mouth once dailyPremarin 1.25 MG tablet Indications: Acquired absence of both cervix and uterus TAKE 1 TABLET BY MOUTH EVERY DAY FOR 30 DAYS 30 tablet 6 05/05/2023 Active End: 11-94-8376zctq 1 tablet by mouth once daily in the morningestrogens, conjugated, (Premarin) 0.625 MG tablet Take 0.625 mg by mouth in the morning. Take dailyfor 21 days then do not take for 7 days.. 0 08/20/2023 Discontinued (Therapy completed)Premarin 0.625 MG/GM as directed Vaginal Activefamotidine 20 mg oral tablet (5 sources)Histamine-2 Receptor AntagonistStart: 11-26-2023 End: 67-60-6009dwit 1 tablet by mouth at bedtimefamotidine (Pepcid) 20 MG tablet Indications: Pharyngoesophageal dysphagia Take 1 tablet (20 mg) bymouth at bedtime 90 tablet 11/26/2023 03/29/2024 Discontinued (Other)hydrocortisone 10 mg/ml / neomycin 3.5 mg/ml / polymyxin b 73658 unt/ml otic suspension (9 sources)Aminoglycoside Antibacterial, Polymyxin-class Antibacterial, JipznbeokaiepmFdknbjzq-Bqtdfukzb-GP 3.5-47919-4 4 drops into affected ear Otic four times daily for 7 days Not-Takingketoconazole 20 mg/ml medicated shampoo (10 sources)Azole AntifungalStart: 07-17-2023 End: 83-59-5235rvqksfcqvpgt (NIZOral) 2 % shampoo USE DURING SHOWER TWICE WEEKLY FOR 8 WEEKS,THEN NEEDED FOR 28DAYS 30 07/17/2023 03/29/2024 Discontinued (Other)Start: 74-34-9797Pmixpfdxffor 2 % Use during shower Externally Twice weekly, for 8 weeks then as needed for 28 days Feb, Activemeloxicam 15 mg oral tablet (3 sources)Nonsteroidal Anti-inflammatory DrugStart: 06-16-2024 End: 78-23-0903szhp 1 tablet by mouth once daily as neededMeloxicam 15 mg tablet Discontinued 15 MG PO Daily as needed June 16, 2024 1:00am February 28, 2025 3:14pmmometasone furoate 1 mg/ml topical cream (5 sources)CorticosteroidStart: 11-19-2023 End: 60-24-8559njvniiesra (Elocon) 0.1 % cream APPLY TO AFFECTED AREAS ON FACE TWICE DAILY UP TO 3 WEEKS THEN NEEDED FOR FLARES 11/19/2023 03/29/2024 Discontinued (Other) Problems Active Problems Problem ClassificationProblemDateDocumented DateEpisodic/ChronicAcute and chronic tonsillitis (7 sources)Acute tonsillitis; Translations: [Acute tonsillitis, unspecified] EpisodicAllergic reactions (7 sources)Contact dermatitis due to cosmetics; Translations: [Allergic contact dermatitis due to cosmetics]EpisodicAnxiety disorders (20 sources)Generalized anxiety disorder; Translations: [Generalized anxiety disorder]Onset: 02-13-2023 Resolved: 66-55-8203NsffqsfZwqxfkiqqmlir of surgical procedures or medical care (13 sources)Menopausal flushing; Translations: [Symptomatic postprocedural ovarian failure]Onset: 295322-67-4673PsxraarQpxfpbzgnh disorders (20 sources)Stricture of esophagus; Translations: [Esophageal obstruction]Onset: 20-81-3859TsigvwpBytfxflxk hypertension (20 sources)Essential hypertension; Translations: [Essential (primary) hypertension]Onset: 20-78-3521XovkygcRdhaxrmhyvxjj and screening for infectious disease (20 sources)Encounter for screening for human papillomavirus (HPV); Translations: [Encounter for screening for infections with a predominantly sexual mode of transmission]Onset: 10-77-7841EyqlottfTtfmtltcrpaep (3 sources)Cervical lymphadenopathy; Translations: [Localized enlarged lymph nodes]87-72-0536QwshhcufKzsqcan and fatigue (7 sources)Fatigue; Translations: [Other fatigue]EpisodicMenopausal disorders (2 sources)Menopausal symptom; Translations: [Menopausal and female climacteric states]08-75-8340ZkqbaaqXfwquntsk disorders (14 sources)Excessive and frequent menstruation; Translations: [Excessive and frequent menstruation with regular cycle]Onset: 04-94-5248VpbggeuGkzg disorders (20 sources)Depression; 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]Onset: 727507-35-8086NtnmipwQvhlmml (8 sources)Candidiasis; Translations: [Candidiasis, unspecified]EpisodicOpen wounds of head; neck; and trunk (1 source)Unspecified open wound of scalp, initial encounterEpisodicOther ear and sense organ disorders (1 source)Otitis externa of right ear; Translations: [Unspecified otitis externa, right ear]Onset: 30-31-4595CkybcucVtjzl ear and sense organ disorders (1 source)Acute actinic otitis externa, right earEpisodicOther ear and sense organ disorders (1 source)Acute non-infective otitis externa; Translations: [Unspecified acute noninfective otitis externa, right ear]Onset: 69-29-0249BrapeifgDwgmd ear and sense organ disorders (4 sources)Acute otitis externa; Translations: [Swimmer's ear, bilateral] 03-49-9421QuiiaeuvAlulc endocrine disorders (7 sources)Disorder of endocrine system; Translations: [Endocrine disorder, unspecified]EpisodicOther female genital disorders (7 sources)Disorder of female genital system; Translations: [Personal history of other diseases of the female genital tract]EpisodicOther female genital disorders (7 sources)Noninflammatory disorder of the vagina; Translations: [Other specified noninflammatory disorders ofvagina]EpisodicOther gastrointestinal disorders (9 sources)Esophageal dysphagia; Translations: [Other dysphagia]EpisodicOther gastrointestinal disorders (1 source)Other dysphagiaEpisodicOther gastrointestinal disorders (7 sources)Pharyngeal dysphagia; Translations: [Dysphagia, pharyngoesophageal phase]EpisodicOther gastrointestinal disorders (1 source)Dysphagia, unspecified; Translations: [Dysphagia, unspecified]Onset: 47-39-5796QihoyytoLkhrv inflammatory condition of skin (3 sources)Seborrheic dermatitis, unspecifiedEpisodicOther nutritional; endocrine; and metabolic disorders (1 source)OverweightEpisodicOther screening for suspected conditions (not mental disorders or infectious disease) (9 sources)Encounter for screening for malignant neoplasm of cervix; Translations: [Patient encounter status]Onset: 73-83-5582HfccqddmBqgou upper respiratory disease (11 sources)Allergic rhinitis due to pollen; Translations: [Allergic rhinitis due to pollen]ChronicOther upper respiratory disease (1 source)Allergic rhinitis due to pollenChronicOther upper respiratory disease (7 sources)Chronic rhinitis; Translations: [Chronic rhinitis]Onset: 10-30-2018 ChronicOther upper respiratory disease (7 sources)Seasonal allergic rhinitis; Translations: [Other seasonal allergic rhinitis]Onset: 81-43-6075NedznhwEbybo upper respiratory disease (14 sources)Allergic rhinitis; Translations: [Other allergic rhinitis] Resolved: 02-69-4908AexkvymAwnrc upper respiratory disease (9 sources)Nasal obstruction; Translations: [Other specified disorders of nose and nasal sinuses]EpisodicOther upper respiratory disease (1 source)Other specified disorders of nose and nasal sinusesEpisodicOther upper respiratory disease (7 sources)Hypertrophy of nasal turbinates; Translations: [Hypertrophy of nasal turbinates]EpisodicOther upper respiratory infections (7 sources)Chronic sinusitis; Translations: [Chronic sinusitis, unspecified] ChronicOther upper respiratory infections (20 sources)Acute upper respiratory infection, unspecified; Translations: [Acute maxillary sinusitis]Onset: 11-40-7838IrinaimyVdronf media and related conditions (18 sources)Otitis media; Translations: [Otitis media, unspecified, right ear] Onset: 91-63-9745DhgbsetqIprudcq cyst (7 sources)Cyst of left ovary; Translations: [Unspecified ovarian cyst, left side]EpisodicResidual codes; unclassified (7 sources)Obstructive sleep apnea syndrome; Translations: [Obstructive sleep apnea]Onset: 97-91-2247MurgptbAzqbiobq codes; unclassified (14 sources)Tobacco user; Translations: [Tobacco use]Onset: 96-16-1398Vgydbula Residual codes; unclassified (7 sources)Postprocedural state finding; Translations: [Other specified postprocedural states]EpisodicSkin and subcutaneous tissue infections (8 sources)Cellulitis of left axilla; Translations: [Cellulitis of left axilla] EpisodicSubstance-related disorders (20 sources)Tobacco dependence in remission; Translations: [Nicotine dependence, cigarettes, in remission]Onset: 23-13-6346IupblvsEjprulw on above:Added secondary to documentation in Social History.Unclassified (3 sources)CONTACT W/AND (SUSP) EXPOS COVID-19; Translations: [CONTACT W/AND (SUSP) EXPOS COVID-19]Onset: 73-00-8252Kfpkemjofjbu (2 sources)K22.2 - Esophageal obstruction,R13.10 - Dysphagia, unspecifiedUrinary tract infections (1 source)Urinary tract infectious disease; Translations: [UTI (urinary tract infection)]EpisodicViral infection (7 sources)Herpesviral vesicular dermatitis; Translations: [Herpesviral vesicular dermatitis]EpisodicViral infection (1 source)COVID-19; Translations: [COVID-19]Onset: 07-31-2021 Past or Other Problems Problem ClassificationProblemDateDocumented DateEpisodic/ChronicAbdominal pain (7 sources)Pelvic and perineal pain; Translations: [Pelvic and perineal pain] Resolved: 04-78-3553QyrlhrgkPtijjrdpou and other anemia (7 sources)Anemia; Translations: [Anemia, unspecified] Resolved: 06-27-3898OaihgyqkCuatswellt disorders (4 sources)Esophageal disorders; Translations: [Gastro-esophageal reflux disease with esophagitis, without bleeding]Onset: 20-13-6161Cpkjx and electrolyte disorders (15 sources)Hypokalemia; Translations: [Hypokalemia]Onset: 06-23-2018 Resolved: 797510-89-5685XbwqqcxcKykh disorders (13 sources)Disturbance in mood; Translations: [Emotional lability]Onset: 813101-74-5010RopyyyctLavpwmwqilef breast conditions (20 sources)Lump in upper outer quadrant of left breast; Translations: [Unspecified lump in the left breast, upper outer quadrant]Onset: 02-13-2023 Resolved: 304395-69-1039EuescoyyMzeel aftercare (7 sources)History and physical examination, follow-up; Translations: [Encounter for follow-up examination after completed treatment for conditions other than malignant neoplasm] Resolved: 71-65-0203MovbbnpsBralz connective tissue disease (7 sources)Pain in left foot; Translations: [Pain in left foot] Resolved: 56-22-4910TegazjelXzbvt ear and sense organ disorders (6 sources)Acute otitis externa of right ear; Translations: [Unspecified acute noninfective otitis externa, right ear]Onset: 178194-40-0363WpsdeyrqMrgwt endocrine disorders (4 sources)Endocrine disorder, unspecified; Translations: [ENDOCRINE DISORDER UNSPECIFIED]Onset: 77-94-0822TfgszhbzXwjpq female genital disorders (7 sources)Abnormal uterine bleeding; Translations: [Abnormal uterine and vaginal bleeding, unspecified] Resolved: 92-28-3750CnwbuueHsfdk female genital disorders (1 source)Other specified noninflammatory disorders of vagina; Translations: [OTH SPEC NONINFLAMMATORY D/O VAGINA]Onset: 75-09-6040HcnwtgkzGgoiq gastrointestinal disorders (20 sources)Dysphagia; Translations: [Dysphagia, unspecified]Onset: 02-13-2023 11-33-5891NwffwquwLfmbj nutritional; endocrine; and metabolic disorders (7 sources)Overweight; Translations: [Overweight]Onset: 57-01-0177YxwjbaizKcsqc nutritional; endocrine; and metabolic disorders (7 sources)Body mass index 25-29 - overweight; Translations: [Body mass index 26.0-26.9, adult]Onset: 16-42-1108WpmrsmunIleuk and delivery including normal (8 sources)Twin ; Translations: [Twin , unspecified number of placenta and unspecified number of amniotic sacs, unspecified trimester]Onset: 849794-35-9077PznfivhhTakus skin disorders (7 sources)Disorder of skin and/or subcutaneous tissue; Translations: [Disorder of the skin and subcutaneous tissue, unspecified] Resolved: 29-71-8409IgbhcjofNjoij upper respiratory disease (16 sources)Mass of nose; Translations: [Other specified disorders of nose and nasal sinuses]Onset: 429270-29-7959GghfwlcwGmqztdgo codes; unclassified (7 sources)Acquired absence of ovary; Translations: [Acquired absence of ovaries, unilateral] Resolved: 58-74-7589SufvtckcVwcvdmsn codes; unclassified (16 sources)Acquired absence of cervix and uterus; 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]Onset: 02-13-2023 Resolved: 239486-68-1171RaxjwsisMycvrphl codes; unclassified (13 sources)Reduced libido; Translations: [Decreased libido]Onset: 03-29-2024 39-67-5549IhhslrtsSrtjvjyu transmitted infections (not HIV or hepatitis) (7 sources)Granuloma inguinale; Translations: [Granuloma inguinale] Resolved: 95-69-0764ZfmqvwexHxmfblpummk; intervertebral disc disorders; other back problems (7 sources)Neck pain; Translations: [Cervicalgia] Resolved: 49-12-7612OsqpegajDziofam and strains (7 sources)Neck sprain; Translations: [Strain of muscle, fascia and tendon at neck level, initial encounter] Resolved: 06-23-9961OpokgjcfWzxzdnjybtnx (1 source)CONTACT W/AND (SUSP) EXPOS COVID-19; Translations: [CONTACT W/AND (SUSP) EXPOS COVID-19]Onset: 51-42-4788Cjheefdlgunh (7 sources)Acute candidiasis of vulva and vagina; Translations: [Acute candidiasis of vulva and vagina] Resolved: 12-20-2020 Results Test NameValueInterpretationReference RangeFacilityBasophils Auto (Bld) [#/Vol] Ordered By: Merrill Singh on 22-43-0416Sbpmqsudu (Bld) [#/Vol]0.1 10 3/uL0.0-0.1 [facility] HospitalBasophils/100 WBC Auto (Bld)Ordered By: Merrill Singh on 54-39-1575Ajxqsbmcq/100 WBC (Bld)1.2 %0.2-2.0[facility] HospitalCholesterol in LDL Calc [Mass/Vol]Ordered By: Merrill Singh on 58-08-9955Rzgiufxyzgy in LDL [Mass/Vol]155.0 mg/dLPromedica Memorial HospitalComment on above:<100 mg/dl KCJTGLO895-126 mg/dl NEAR OR ABOVE TQAHVZD454- 159 mg/dl BORDERLINE VLVA093-050 mg/dl HIGH>190 mg/dl VERY HIGHCholesterol in VLDL Calc [Mass/Vol]Ordered By: Merrill Singh on 11-39-2126Grnvduteivk in VLDL [Mass/Vol]23.4 mg/dLPromedica Memorial HospitalEosinophils/100 WBC Auto (Bld)Ordered By: Merrill Singh on 31-48-6136Bntutoqugan/100 WBC (Bld)6.6 % 0.9-7.0[facility] HospitalErythrocyte distribution width Auto (RBC) [Ratio]Ordered By: Merrill Singh on 31-88-6397Upmvtugtuiy distribution width (RBC) [Ratio]12.1 %11.0-15.0[facility] HospitalGlobulin Calc (S) [Mass/Vol]Ordered By: Merrill Singh on 66-87-9807Gfomahnt (S) [Mass/Vol]4.0 g/dLPromedica Memorial HospitalGlomerular filtration rate (GFR) estimation in non- AmericanOrdered By: Merrill Singh on 04-22-2025 GFR/1.73 sq M.predicted among non-blacks MDRD (S/P/Bld) [Vol rate/Area] mL/min/{1.73_m2}>=60 mL/min/1.73m 2FPike Community HospitalGlucose mean value [Mass/volume] in Blood Estimated from glycated hemoglobinOrdered By: Merrill Singh on 43-65-0904Kcjwqol glucose Estimated from glycated hemoglobin (Bld) [Mass/Vol]111 mg/dLPromedica Memorial HospitalHematocrit Auto (Bld) [Volume fraction]Ordered By: Merrill Singh on 55-07-1507Jsanubzssn (Bld) [Volume fraction]36.3 %36.0-48.0[facility] HospitalHemoglobin A1c percentageOrdered By: Merrill Singh on 65-82-5843XvT2v (Bld) [Mass fraction]5.5 %4.5-6.2FPike Community HospitalComment on above:ADA RECOMMENDED LIMIT 4.0 - 6.0ADA THERAPEUTIC TARGET < 7.0ACTION SUGGESTED> 7.0Hemoglobin [Mass/volume] in BloodOrdered By: Merrill Singh on 95-02-5290Hjmmmbfavr (Bld) [Mass/Vol]12.0 g/dL12.0-16.0[facility] HospitalLaboratory - Chemistry and Chemistry - challengeOrdered By: Merrill Singh on 04-22-2025 Albumin [Mass/Vol]3.6 g/dL3.4-5.0[facility] HospitalALP [Catalytic activity/Vol]72 U/K63-181EvvfmzgxtPromedica Memorial HospitalALT [Catalytic activity/Vol]27 U/Q15-99DmwhqzxitPromedica Memorial HospitalAST [Catalytic activity/Vol]18 U/X30-48YfvjzdiukPromedica Memorial HospitalBilirubin [Mass/Vol]0.3 mg/dL0.2-1.0[facility] HospitalCalcium [Mass/Vol]8.8 mg/dL 8.5-10.1FPike Community HospitalChloride [Moles/Vol]104 mmol/L98-107 [facility] HospitalCholesterol [Mass/Vol]247 mg/dLHigh<=200 [facility] HospitalCholesterol in HDL [Mass/Vol]69 mg/hDXfqj17-09 [facility] HospitalComment on above:> or =60 mg/dl - LOW CARDIOVASCULAR RISK<40 mg/dl - HIGH CARDIOVASCULAR RISKCO2 [Moles/Vol]31.0 mmol/L21.0-32.0[facility] HospitalCreatinine [Mass/Vol]0.54 mg/dL Low0.55-1.02[facility] HospitalGFR/1.73 sq M.predicted MDRD (S/P/Bld) [Vol rate/Area]mL/min/{1.73_m2}>=60 mL/min/1.73m 2FPike Community HospitalGlucose [Mass/Vol]103 mg/gW42-722TifllnbtmPromedica Memorial Hospital Potassium [Moles/Vol]3.3 mmol/LLow3.5-5.1FPike [facility] Hospital Protein [Mass/Vol]7.6 g/dL6.4-8.2FKindred Hospital Limaodium [Moles/Vol]144 mmol/B331-018NkdpitilhPromedica Memorial HospitalTriglyceride [Mass/Vol]117 mg/dL<=150[facility] HospitalTS Qn5.012 m[IU]/LHigh 0.358-3.740[facility] HospitalUrea nitrogen [Mass/Vol]11.0 mg/dL 7.0-18.0[facility] HospitalUrea nitrogen/Creatinine [Mass ratio] 20.4 mg/mgPromedica Memorial HospitalLaboratory - Hematology and Cell countsOrdered By: Merrill Singh on 79-45-6284Yhusriik granulocytes/100 WBC (Bld) 0.2 %0.0-0.5FPike Community HospitalLeukocytes [#/volume] corrected for nucleated erythrocytes in Blood by Automated counOrdered By: Merrill Singh on 29-03-1976EUF corrected for nucl RBC Auto (Bld) [#/Vol]5.7 10 3/uL4.0-11.0 [facility] HospitalLymphocytes Auto (Bld) [#/Vol]Ordered By: Merrill Singh on 39-38-8434Ekhsxipjdcf (Bld) [#/Vol]1.8 10 3/uL1.2-3.8[facility] HospitalLymphocytes/100 WBC Auto (Bld)Ordered By: Merrill Singh on 32-28-2423Gzourzbzbmj/100 WBC (Bld)30.5 %20.5-60.0[facility] HospitalMCH Auto (RBC) [Entitic mass]Ordered By: Merrill Singh on 75-98-9596XJF (RBC) [Entitic mass]28.0 pg26.7-34.0[facility] HospitalMCHC Auto (RBC) [Mass/Vol]Ordered By: Merrill Singh on 81-99-7305DBFU (RBC) [Mass/Vol]33.1 g/dL29.9-35.2FPike Community HospitalMCV Auto (RBC) [Entitic vol] Ordered By: Merrill Singh on 32-08-1612LNM (RBC) [Entitic vol]84.6 fL81.0-99.0 [facility] HospitalMonocytes Auto (Bld) [#/Vol]Ordered By: Merrill Singh on 59-37-8902Toezjqizz (Bld) [#/Vol]0.5 10 3/uL0.3-0.8[facility] HospitalMonocytes/100 WBC Auto (Bld)Ordered By: Merrill Singh on 17-11-8306Wgtrcwfsx/100 WBC (Bld)8.7 %1.7-12.0[facility] Neutrophils Auto (Bld) [#/Vol]Ordered By: Merrill Singh on 58-68-2901Smckjqdoebg (Bld) [#/Vol]3.0 10 3/uL1.4-6.5FPike Community HospitalNeutrophils/100 WBC Auto (Bld)Ordered By: Merrill Singh on 78-96-4139Cikcdxzivfz/100 WBC (Bld) 52.8 %43.0-75.0[facility] HospitalNo Panel InformationOrdered By: Merrill Singh on 86-71-7307Glulkdawzuj # (Auto)0.4 10 3/uL0.0-0.7FPike Community HospitalImmature Granulocyte # (Auto)0.01 10 3/uL0.00-0.03 [facility] HospitalPlatelet mean volume Auto (Bld) [Entitic vol] Ordered By: Merrill Singh on 26-34-8691Npotpkqt mean volume (Bld) [Entitic vol] 10.9 fL9.5-13.5FPike Community HospitalPlatelets Auto (Bld) [#/Vol] Ordered By: Merrill Singh on 81-00-6926Ofpmdrpwu (Bld) [#/Vol]322 10 3/jP877-587 [facility] HospitalRBC Auto (Bld) [#/Vol]Ordered By: Merrill Francisco on 46-61-4834RJP (Bld) [#/Vol]4.29 10 6/uL4.20-5.40[facility] Hospitalerum or plasma albumin/globulin mass ratioOrdered By: Merrill Singh on 38-03-4441Gwhwpsd/Globulin [Mass ratio]0.9 {ratio}[facility] Hospitalerum or plasma anion gap determinationOrdered By: Merrill Singh on 69-66-5905Ewoze gap [Moles/Vol]12.3 mmol/LFKindred Hospital Limaerum or plasma total cholesterol/high density lipoprotein (HDL) cholesterol mass rat Ordered By: Merrill Singh on 57-13-2333Lhqvwogphcs.total/Cholesterol in HDL [Mass ratio]3.6 {ratio}[facility] HospitalComment on above:3.3 - 4.4 LOW RISK4.4 - 7.1 AVERAGE RISK7.1 - 11.0 MODERATE RISK>11.0 HIGH RISK Pathology Request for Lab Corpon 72-49-4392Rfqmmapuq Request for Lab CorpNormal [facility] Hospital Physician GroupComment on above:Order Comment: GI SPECIMENResult Comment: See report. Scanned copy available in EMR. PERFORMED BY: [place] [address] PATHOLOGIST [employer]TERED WEALTH MANAGER PROSPER DIAZ M.D.Performed By: #### [facility] #### [place] [address] USAAmbulatory Visit Summaryon 74-27-6824Tbejggyicc Visit SummaryAmbulatory Visit Summary ADRIÁNJOCELINE :1985 Visit Date:01/16/2025 Ambulatory Visit Instructions Your Diagnosis Right otitis externa Right otitis media Your Care Team Attending Physician - Jamal SALINAS, Cisco Pickett Primary Care Physician - TAYE DIXON MD This Is Your Medications List amoxicillin (amoxicillin 500 mg Cap) Contact prescribing physician if questions or concerns amlodipine (amLODIPine 5 mg Tab) ciprofloxacin-dexamethasone otic (ciprofloxacin-dexamethasone 0.3%-0.1% Otic Susp) citalopram (CeleXA 40 mg Tab) estradiol (estradiol 1 mg Tab) loratadine-pseudoephedrine (Claritin-D 5 mg-120 mg Tab-ER) Procedures Performed [...] with ZACK MERINO, MEE KOTHARI When: Where: [address] [place] [address]- Medications What How Much When Why Instructions New amoxicillin (amoxicillin 500 mg Cap) 2 Capsules By Mouth Every 12 hours Right otitis externa Right otitis media Duration: 7 Days Pickup at [facility] Unchanged amlodipine (amLODIPine 5 mg Tab) 1 Tablets By Mouth Every day Contact prescribing physician if questions or concerns Unchanged ciprofloxacin-dexamethasone otic (ciprofloxacin-dexamethasone 0.3%- 0.1% Otic Susp) 4 Drops Otic 2 times a day Contact prescribing physician if questions or concerns Unchanged citalopram (CeleXA 40 mg Tab) 1 Tablets By Mouth Every day Contact prescribing physician if questions or concerns Unchanged estradiol (estradiol 1 mg Tab) Contact prescribing physician if questions or concerns Unchanged loratadine-pseudoephedrine (Claritin-D 5 mg-120 mg Tab-ER) 1 Tablets By Mouth Every day Contact prescribing physician if questions or concerns Pharmacy Information [facility] 1986: [address] [facility] [place], [place] [id number] [phone] Allergies Keflex Problems Ongoing - Any problem [...] well the eardrum m (more content not included)...[facility] Medicine Office/Clinic Noteon 91-68-3849Hpypur Medicine Office/Clinic NoteFalahey hospital & medical center Medicine Office/Clinic Note Chief Complaint ear pain [...] created with voice recognition software. Occasional wrong-word or???snrqg-p-rrqb??? substitutions may have occurred due to the [...] in for repeat evaluation has been taking pvoc-qnt-ugywphp ibuprofen and Tylenol for pain. Patient denies any fever or chills. She does state swelling of the lymph node on the right side of the neck which she can feel states is just more painful tender to touch denies any ear drainage has been using the antibiotic eardrops over the past 3 days with little relief. Believesit is more swollen than it was on [...] no improvement we can send referral to ENT.Patient agrees understands plan will continue Tylenol and ibuprofen as needed for pain and discomfort. 1. Right otitis externa (H60.91: Unspecified otitis externa, right ear) Continue ciprodex drops as prescribed at prior visit. Ear wick was placed today. Finish course. Laywith ear up for 5 minutes after applying drops. Keep ear clean and dry, avoid water activities or inserting objects into ear such as earbuds, qtips. May use OTC tylenol/ibuprofen for pain. FU with PCP if not improving over next 5 days with treatment, significantly worsening, or fevers. Patient paula weiss understanding of treatment plan. Ordered: amoxicillin, 1,000 mg = 2 cap(s), Oral, q12hr, X 7 day(s), # 28 cap(s), Refills(s) 0, Pharmacy: [facility], 164, cm, 01/16/25 11:24:00 EDT, Height/Length Dosing, 78.4, kg, 01/16/25 11:24:00 EDT, Weight Dosing 2. Right otitis media (H66.91: Otitis media, unspecified, right ear) Will treat with amoxicillin 1g bid x 7 days. Finish course. Fluids/rest, PRN tylenol/ibuprofen for pain and/or fever encouraged. Discussed other cold symptoms remain viral in nature- typical duration7-14 days. Encouraged to follow up with PCP for recheck in about 5 days to ensure infection resolving, especially if symptoms worsening or fevers. Patient verbalized understanding of treatment plan. Ordered: amoxicillin, 1,000 mg = 2 cap(s), Oral, q12hr, X 7 day( (more content not included)...[facility] CenterComment on above:Result Comment: Electronically Signed By: Jamal SALINAS, Cisco Pickett\.br\Date and Time Signed: 01/16/2511:41 EDTAmbulatory Visit Summaryon 24-35-9484Ixhlqunyqq Visit Summary Ambulatory Visit Summary JOCELINE SAMPSON Morteza :1985 Visit Date:01/13/2025 Ambulatory Visit Instructions Your Diagnosis Acute otitis externa of right ear Your Care Team Attending Physician - Mayra Juan Primary Care Physician - TAYE DIXON MD This Is Your Medications List amlodipine (amLODIPine 5 mg Tab) ciprofloxacin-dexamethasone otic (ciprofloxacin-dexamethasone 0.3%-0.1% Otic Susp) Contact prescribing physician if questions or concerns citalopram (CeleXA 40 mg Tab) estradiol (estradiol 1 mg Tab) loratadine-pseudoephedrine (Claritin-D 5 mg-120 mg Tab-ER) Procedures Performed [...] with TAYE DIXON MD, FAM When: Where: [address] [place] [address]- Medications What How Much When Instructions New ciprofloxacin-dexamethasone otic (ciprofloxacin-dexamethasone 0.3%-0.1% Otic Susp) 4 Drops Otic2 times a day Pickup at [facility] 1985 Unchanged amlodipine (amLODIPine 5 mg Tab) 1 Tablets By Mouth Every day Unchanged citalopram (CeleXA 40 mg Tab) 1 Tablets By Mouth Every day Contact prescribing physician if questions or concerns Unchanged estradiol (estradiol 1 mg Tab) Contact prescribing physician if questions or concerns Unchanged loratadine-pseudoephedrine (Claritin-D 5 mg-120 mg Tab-ER) 1 Tablets By Mouth Every day Contact prescribing physician if questions or concerns Pharmacy Information [facility] [address] [facility] [place] [phone] Allergies Keflex Problems Ongoing - Any problem [...] you start to feel better. ??? Take bnwg-rcz-zktfgtr and prescription medicines only as told by [...] swimming in dirty wa (more content not included)...[facility] Medicine Office/Clinic Noteon 77-62-1247Gvxtze Medicine Office/Clinic NoteFalahey hospital & medical center Medicine Office/Clinic Note Chief Complaint ear pain HPI Staff 39 year old female complaints of right ear pain, muffled hearing Onset: yesterday OTC tried: ibuprofen, Tylenol History of Present Illness 39 yr old female with a PMH HTN, depression,allergies, with Right ear pain. she used a yessi pin toscratch her ear the other day. now it [...] ear (H60.501: Unspecified acute noninfective otitis externa, rightear) Orders: ciprofloxacin-dexamethasone otic, 4 drop(s), Otic, BID, 7.5 mL, Refill(s) 0, [facility],164, cm, 01/13/25 16:21:00 EDT, Height/Length Dosing, 78, kg, 01/13/25 16:21:00 EDT, Weight Dosing Total time spent preparing the chart, conducting of the encounter with the patient and family and time spent documenting, reviewing, and ordering tests was 20 minutes. Portions of this record may have been created with voice recognition artificial intelligence software, specifically [employer], [employer] and or [employer]. Substitutions may have occurred due to the inherent limitations of voice recognition and artificial intelligence software. Follow-up With When Contact Information ZACK MERINO, TAYE, [employer] [address] [id number]- Additional Instructions: Patient Education Otitis Externa Problem List/Past Medical History Ongoing Acute otitis externa of right ear Hypertension Smoker 13-JAN-2014 12:37:00<$> Twin Historical No qualifying data Procedure/Surgical History hysteroscopy D&C with NovaSure ablation (12/28/2014), , Cholecystectomy, LASIK, Rhinoplasty, Tubal ligation. Medications amLODIPine 5 mg Tab, 5 mg= 1 tab(s), Oral, Daily CeleXA 40 mg Tab, 40 mg= 1 tab(s), Oral, Daily ciprofloxacin-dexamethasone 0.3%-0.1% Otic Susp, 4 drop(s), Otic, BID [...] 03/31/2015 Recorded hepatitis B pediatric vaccine 02/28/2015 RecordedMain Campus Medical CenterComment on above:Result Comment: Electronically Signed By: Mayra Juan\.schuyler\Date and Time Signed: 01/13/25 16:42 EDTMM TOMOSYNTHESIS DIAGNOSTIC BIon 40-99-4943[facility] [address] [place] [address] Mammography Report Signed Patient: JOCELINE SAMPSON MR#: [id number] : 1985 Acct:[id number] Age/Sex: 38 / F ADM Date: 04/08/24 Loc: MAMMO Attending Dr: Yoseph Morales D.O. Ordering Physician: Yoseph Morales D.O. Results: Date of Service: 04/08/24 Follow Up: Procedure(s): MM tomosynthesis diagnostic BI Accession Number(s): [id number] cc: Merrill Singh D.O.; Yoseph Morales D.O. Patient Name: JOCELINE SAMPSON MR#: [id number] : 1985 Exam Date: 04/08/2024 Ordering Doctor: DR Yoseph Morales . RADIOLOGY REPORT PROCEDURE: MM TOMOSYNTHESIS DIAGNOSTIC BI, 04/08/2024, 12:56 US BREAST LT LIMITED, 04/08/2024, 13:20 COMPARISON: US BREAST LEFT LIMITED, 04/16/2019. MG MAMM RUFINO DIAG W CAD, 04/16/2019. INDICATIONS: History Of Left Brest Lump Calculator Name NCI Breast Cancer Risk Assessment Tool 5 Year Breast Cancer Risk 0.30% Lifetime Breast Cancer Risk 6.70% Personal Breast Cancer No Personal Ovarian Cancer No Treatments None Family Cancers Mother with monoclonal gammopathy cancer at age 60. LOCATION: [facility] BREAST COMPOSITION: The breasts are extremely dense, which lowers the sensitivity of mammography. FINDINGS: DIAGNOSTIC CATEGORY 1--NEGATIVE. RIGHT BREAST: No significant suspicious finding. No significant change has occurred. LEFT BREAST: No significant suspicious finding on mammography and via ultrasound evaluation with specific attention to the area of concern within the upper-outer quadrant. No significant change has occurred. RECOMMENDATIONS: ROUTINE MAMMOGRAM AND CLINICAL EVALUATION IN 12 MONTHS. PLEASE NOTE: A NORMAL MAMMOGRAM DOES NOT EXCLUDE THE POSSIBILITY OF BREAST CANCER. A CLINICALLY SUSPICIOUS PALPABLE LUMP SHOULD BE BIOPSIED. Dictated by: Darren Abreu M.D. on 04/08/2024 at 13:51 Approved by: Darren Abreu M.D. on 04/08/2024 at 13:57 Dictated By: Darren Abreu M.D. Signed By: 04/08/24 1358 DD/ 1357 TD/TT: Pharmacy Grad Intern:TBHRadiology, Radiologist, MD - 04/08/2024 [place] [address] Mammography Report Signed Patient: JOCELINE SAMPSON MR#: [id number] : 1985 Acct:[id number] Age/Sex: 38 / F ADM Date: 04/08/24 Loc: MAMMO Attending Dr: Yoseph Morales D.O. Ordering Physician: Yoseph Morales D.O. Results: Date of Service: 04/08/24 Follow Up: Procedure(s): MM tomosynthesis diagnostic BI Accession Number(s): [id number] cc: Merrill Singh D.O.; Yoseph Morales D.O. Patient Name: JOCELINE SAMPSON MR#: [id number] : 1985 Exam Date: 04/08/2024 Ordering Doctor: DR Yoseph Morales . RADIOLOGY REPORT PROCEDURE: MM TOMOSYNTHESIS DIAGNOSTIC BI, 04/08/2024, 12:56 US BREAST LT LIMITED, 04/08/2024, 13:20 COMPARISON: US BREAST LEFT LIMITED, 04/16/2019. MG MAMM RUFINO DIAG W CAD, 04/16/2019. INDICATIONS: History Of Left Brest Lump Calculator Name NCI Breast Cancer Risk Assessment Tool 5 Year Breast Cancer Risk 0.30% Lifetime Breast Cancer Risk 6.70% Personal Breast Cancer No Personal Ovarian Cancer No Treatments None Family Cancers Mother with monoclonal gammopathy cancer at age 60. LOCATION: [facility] BREAST COMPOSITION: The breasts are extremely dense, which lowers the sensitivity of mammography. FINDINGS: DIAGNOSTIC CATEGORY 1--NEGATIVE. RIGHT BREAST: No significant suspicious finding. No significant change has occurred. LEFT BREAST: No significant suspicious finding on mammography and via ultrasound evaluation with specific attention to the area of concern within the upper-outer quadrant. No significant change has occurred. RECOMMENDATIONS: ROUTINE MAMMOGRAM AND CLINICAL EVALUATION IN 12 MONTHS. PLEASE NOTE: A NORMAL MAMMOGRAM DOES NOT EXCLUDE THE POSSIBILITY OF BREAST CANCER. A CLINICALLY SUSPICIOUS PALPABLE LUMP SHOULD BE BIOPSIED. Dictated by: Darren Abreu M.D. on 04/08/2024 at 13:51 Approved by: Darren Abreu M.D. on 04/08/2024 at 13:57 Dictated By: Darren Abreu M.D. Signed By: 04/08/24 1358 DD/ 1357 TD/TT: Pharmacy Grad Intern: ALEXANDRU Pelayo InformationOrdered By: Radiologist Radiology on 66-77-1610YXWV [employer] Work Phone: No Panel Informationon 88-50-9371Kuhmwvmxd Study observation (narrative)ALEXANDRU [facility] BREAST LT LIMITEDon 74-43-3513[place] [address] Ultrasound Report Signed Patient: JOCELINE SAMPSON MR#: [id number] : 1985 Acct:[id number] Age/Sex: 38 / F ADM Date: 04/08/24 Loc: MAMMO Attending Dr: Yoseph Morales D.O. Ordering Physician: Yoseph Morales D.O. Date of Service: 04/08/24 Procedure(s): US breast LT limited Accession Number(s): [id number] cc: Merrill Singh D.O.; Yoseph Morales D.O. Patient Name: JOCELINE SAMPSON MR#: [id number] : 1985 Exam Date: 04/08/2024 Ordering Doctor: DR Yoseph Morales . RADIOLOGY REPORT PROCEDURE: MM TOMOSYNTHESIS DIAGNOSTIC BI, 04/08/2024, 12:56 US BREAST LT LIMITED, 04/08/2024, 13:20 COMPARISON: US BREAST LEFT LIMITED, 04/16/2019. MG MAMM RUFINO DIAG W CAD, 04/16/2019. INDICATIONS: History Of Left Brest Lump Calculator Name NCI Breast Cancer Risk Assessment Tool 5 Year Breast Cancer Risk 0.30% Lifetime Breast Cancer Risk 6.70% Personal Breast Cancer No Personal Ovarian Cancer No Treatments None Family Cancers Mother with monoclonal gammopathy cancer at age 60. LOCATION: [facility] BREAST COMPOSITION: The breasts are extremely dense, which lowers the sensitivity of mammography. FINDINGS: DIAGNOSTIC CATEGORY 1--NEGATIVE. RIGHT BREAST: No significant suspicious finding. No significant change has occurred. LEFT BREAST: No significant suspicious finding on mammography and via ultrasound evaluation with specific attention to the area of concern within the upper-outer quadrant. No significant change has occurred. RECOMMENDATIONS: ROUTINE MAMMOGRAM AND CLINICAL EVALUATION IN 12 MONTHS. PLEASE NOTE: A NORMAL MAMMOGRAM DOES NOT EXCLUDE THE POSSIBILITY OF BREAST CANCER. A CLINICALLY SUSPICIOUS PALPABLE LUMP SHOULD BE BIOPSIED. Dictated by: Darren Abreu M.D. on 04/08/2024 at 13:51 Approved by: Darren Abreu M.D. on 04/08/2024 at 13:57 Dictated By: Darren Abreu M.D. Signed By: 04/08/24 1358 DD/ 1357 TD/TT: Pharmacy Grad Intern:TBHRadiology, Radiologist, - 04/08/2024 [place] [address] Ultrasound Report Signed Patient: JOCELINE SAMPSON MR#: [id number] : 1985 Acct:[id number] Age/Sex: 38 / F ADM Date: 04/08/24 Loc: MAMMO Attending Dr: Yoseph Morales D.O. Ordering Physician: Yoseph Morales D.O. Date of Service: 04/08/24 Procedure(s): US breast LT limited Accession Number(s): [id number] cc: Merrill Signh D.O.; Yoseph Morales D.O. Patient Name: JOCELINE SAMPSON MR#: [id number] : 1985 Exam Date: 04/08/2024 Ordering Doctor: DR Yoseph Morales . RADIOLOGY REPORT PROCEDURE: MM TOMOSYNTHESIS DIAGNOSTIC BI, 04/08/2024, 12:56 US BREAST LT LIMITED, 04/08/2024, 13:20 COMPARISON: US BREAST LEFT LIMITED, 04/16/2019. MG MAMM RUFINO DIAG W CAD, 04/16/2019. INDICATIONS: History Of Left Brest Lump Calculator Name NCI Breast Cancer Risk Assessment Tool 5 Year Breast Cancer Risk 0.30% Lifetime Breast Cancer Risk 6.70% Personal Breast Cancer No Personal Ovarian Cancer No Treatments None Family Cancers Mother with monoclonal gammopathy cancer at age 60. LOCATION: [facility] BREAST COMPOSITION: The breasts are extremely dense, which lowers the sensitivity of mammography. FINDINGS: DIAGNOSTIC CATEGORY 1--NEGATIVE. RIGHT BREAST: No significant suspicious finding. No significant change has occurred. LEFT BREAST: No significant suspicious finding on mammography and via ultrasound evaluation with specific attention to the area of concern within the upper-outer quadrant. No significant change has occurred. RECOMMENDATIONS: ROUTINE MAMMOGRAM AND CLINICAL EVALUATION IN 12 MONTHS. PLEASE NOTE: A NORMAL MAMMOGRAM DOES NOT EXCLUDE THE POSSIBILITY OF BREAST CANCER. A CLINICALLY SUSPICIOUS PALPABLE LUMP SHOULD BE BIOPSIED. Dictated by: Darren Abreu M.D. on 04/08/2024 at 13:51 Approved by: Darren Abreu M.D. on 04/08/2024 at 13:57 Dictated By: Darren Abreu M.D. Signed By: 04/08/24 1358 DD/ 1357 TD/TT: Pharmacy Grad Intern: ALEXANDRU PowellIGMaggi,APTIMA HPV,AGE GDLNon 27-44-6536PCB GDLN ACOG TESTINGNote. DAMIANRusk Rehabilitation CenterComment on above:TESTS RESULT FLAG UNITS REF RANGE LAB Clinician Provided Cytology Information Source.............Vagina LMP / Prev Treat...Hyst Tot No. of containers..01 ThinPrep Vial Age Algo ACOG Robyn... FLAG LEGEND: L-Low Normal,H-High Normal,LL-Alert Low,HH-Alert High <-Panic Low,>-Panic High,A-Abnormal,AA-Critical Abnormal Performed at: 01 =[address] [address] Nava Baez MD, HPV APTIMANegativeNegativeNOMS HealthcareComment on above:This nucleic acid amplification test detects fourteen high- risk HPV types (16,18,31,33,35,39,45,51,52,56,58,59,66,68) without differentiation. Performed at: =[facility] [id number] Tool Grinding Machine Operator: Nava Baez MD, Phone: [phone] Performed at: - [address] [id number] Tool Grinding Machine Operator: Nava Baez MD, Phone: [phone] IGP, APTIMA HPV, RFX 16/18,45Note.NOMS HealthcareComment on above:TESTS RESULT FLAG UNITS REF RANGE LAB DIAGNOSIS: 02 NEGATIVE FOR INTRAEPITHELIAL LESION OR MALIGNANCY. THIS SPECIMEN WAS RESCREENED PART OF OUR INFORMIX DEVELOPER PROGRAM. Specimen adequacy: 02 Satisfactory for evaluation. No endocervical cells are present. This is consistent with a history of hysterectomy. Performed by: 02 Julieta Sherwood, Automobile Designer (ASCP) QC reviewed by: 02 Gege Cardozo, Automobile Designer . 02 Note: Note 02 The Pap [...] Low,>-Panic High,A-Abnormal,AA-Critical Abnormal Performed at: 02 [facility] [address] [address] Nava Baez MD, SPATULA-ALONE HYST-TOTAL VAGINA CLINISYNCNOMS HealthcareALL T3 FREEon 32-13-0298Jyfz T3 [Mass/Vol]3.29 pg/mL2.18 - 3.98 pg/mLNOMS HealthcareALL THYROID STIM HORMONEon 03-78-4546STU Qn2.045 m[IU]/LNOMS HealthcareNo Panel Informationon 21-68-3954OADYHDPFSUYIX Healthcare OCCULT BLOOD*on 69-26-5485FEO OCCULT BLOODNegativeNOND HealthcareCLINISYNCNCARNEGIE [facility] [place] HealthcareALL CBC WITH AUTO DIFFon 31-32-4370GPMNSCMFE ABSOLUTE AUTO0.1NOMS HealthcareBasophils/100 WBC (Bld)1.2 %0.2 - 2.0 %NOMS HealthcareEosinophils/100 WBC (Bld)8.1 %High0.9 - 7.0 %NOMS HealthcareErythrocyte distribution width (RBC) [Ratio]11.8 %11.0 - 15.0 %NOMS HealthcareHematocrit (Bld) [Volume fraction]36.9 %36.0 - 48.0 %NOMS HealthcareHemoglobin (Bld) [Mass/Vol]12.5 g/dL12.0 - 16.0 g/dLNOMS HealthcareIMMATURE GRANULOCYTES ABS AUTO0.00NOMS HealthcareImmature granulocytes/100 WBC (Bld)0.0 %0.0 - 0.5 %NOMS HealthcareInterpretation and review of laboratory resultsAbnormalChildren's Mercy HospitalLYMPHOCYTES ABSOLUTE AUTO2.0 [facility] Mercy HospitalLymphocytes/100 WBC (Bld)33.5 %20.5 - 60.0 %[facility] HealthH (RBC) [Entitic mass]28.6 pg26.7 - 34.0 pgCrittenton Behavioral HealthHC (RBC) [Mass/Vol] 33.9 g/dL29.9 - 35.2 g/dLCrittenton Behavioral HealthV (RBC) [Entitic vol]84.4 fL81.0 - 99.0 fLChildren's Mercy HospitalMONOCYTES ABSOLUTE AUTO0.5[facility] Mer[facility] HospitalMonocytes/100 WBC (Bld)9.1 %1.7 - 12.0 %[facility] HospitalNEUTROPHILS ABSOLUTE AUTO2.9[facility] Neutrophils/100 WBC (Bld)48.1 %43.0 - 75.0 %[facility] Mercy HospitalPlatelet mean volume (Bld) [Entitic vol]10.9 fL9.5 - 13.5 fLChildren's Mercy HospitalTBH EO #0.5NOCoxHealth TB BYJ410ZHDTSaint Louis University Hospital RBC4.37NOSaint [facility] Hospital WBC5.9[facility] CLINISYNCChildren's Mercy HospitalNo Panel InformationOrdered By: Radiologist Radiology on 72-00-1125ANKXChildren's Mercy Hospital Work Phone: No Panel Informationon 28-21-1381Temtpfcop Study observation (narrative)[facility] videography Hypopharynx and Esophagus Views for swallowing function W speech and W barium contrast Mil 24-05-2186[place] [address] Fluoroscopy Report Signed Patient: JOCELINE SAMPSON MR#: [id number] : 1985 Acct:[id number] Age/Sex: 38 / F ADM Date: 08/22/23 Loc: [place] Attending Dr: Aminah Fraire M.D. Ordering Physician: Aminah Fraire M.D. Date of Service: 08/22/23 Procedure(s): FL barium swallow Accession Number(s): [id number] cc: Merrill Singh D.O.; Aminah Fraire M.D. The [place] [id number] Patient Name: JOCELINE SAMPSON MRN: [facility]:[id number] date: 1985 Sex: F Assigned Patient Location: [place] Current Patient Location: [place] Accession/Order Number: [id number] Exam Date: 08/22/2023 14:08 Report Date: 08/22/2023 14:58 At the request of: AMINAH FRAIRE Procedure: FL barium swallow EXAMINATION: FL barium swallow, FL cineradiography HISTORY: Pharyngoesophageal Dysphagia R13.14 COMPARISON: No relevant comparison available. TECHNIQUE: A swallowing evaluation was performed with fluoroscopy in the usual manner. Standard level fluoroscopic mode of operation utilized. The procedure was recorded. The patient was given liquid barium in addition to a barium tablet FINDINGS: ORAL PHASE: Normal deglutition. PHARYNGEAL PHASE: Normal swallowing. ASPIRATION: None. STRUCTURE: Normal. No visible obstruction, stricture, or dilatation. OTHER: Negative. FL/FL barium swallow IMPRESSION: Normal exam. Electronically authenticated by: BYRON GILBERT Date: 08/22/2023 14:58 Dictated By: Byron Gilbert M.D. Signed By: 08/22/23 1501 DD/ 1458 TD/TT: Pharmacy Grad Intern:ROadiologjohn, Radiologist, - 08/22/2023 [place] [address] Fluoroscopy Report Signed Patient: JOCELINE SAMPSON MR#: [id number] : 1985 Acct:[id number] Age/Sex: 38 / F ADM Date: 08/22/23 Loc: [place] Attending Dr: Aminah Fraire M.D. Ordering Physician: Aminah Fraire M.D. Date of Service: 08/22/23 Procedure(s): FL barium swallow Accession Number(s): [id number] cc: Merrill Singh D.O.; Aminah Fraire M.D. The [place] [id number] Patient Name: JOCELINE SAMPSON MRN: [id number] date: 1985 Sex: F Assigned Patient Location: [place] Current Patient Location[place] Accession/Order Number: [id number] Exam Date: 08/22/2023 14:08 Report Date: 08/22/2023 14:58 At the request of: AMINAH FRAIRE Procedure: FL barium swallow EXAMINATION: FL barium swallow, FL cineradiography HISTORY: Pharyngoesophageal Dysphagia R13.14 COMPARISON: No relevant comparison available. TECHNIQUE: A swallowing evaluation was performed with fluoroscopy in the usual manner. Standard level fluoroscopic mode of operation utilized. The procedure was recorded. The patient was given liquid barium in addition to a barium tablet FINDINGS: ORAL PHASE: Normal deglutition. PHARYNGEAL PHASE: Normal swallowing. ASPIRATION: None. STRUCTURE: Normal. No visible obstruction, stricture, or dilatation. OTHER: Negative. FL/FL barium swallow IMPRESSION: Normal exam. Electronically authenticated by: BYRNO GILBERT Date: 08/22/2023 14:58 Dictated By: Byron Gilbert M.D. Signed By: 08/22/23 1501 DD/ 1458 TD/TT: Pharmacy Grad Intern: ALEXANDRU Powell CINERADIOGRAPHYon 06-93-3940Axx[place] [address] Fluoroscopy Report Signed Patient: JOCELINE SAMPSON MR#: [id number] : 1985 Acct:[id number] Age/Sex: 38 / F ADM Date: 08/22/23 Loc: [place] Attending Dr: Aminah Fraire M.D. Ordering Physician: Aminah Fraire M.D. Date of Service: 08/22/23 Procedure(s): FL cineradiography Accession Number(s): [id number] cc: Merrill Singh D.O.; Aminah Fraire M.D. [address] [address] Patient Name: JOCELINE SAMPSON MRN: [id number] date: 1985 Sex: F Assigned Patient Location: [place] Current Patient Location: [place] Accession/Order Number: [id number] Exam Date: 08/22/2023 14:08 Report Date: 08/22/2023 14:58 At the request of: AMINAH FRAIRE Procedure: FL cineradiography EXAMINATION: FL barium swallow, FL cineradiography HISTORY: Pharyngoesophageal Dysphagia R13.14 COMPARISON: No relevant comparison available. TECHNIQUE: A swallowing evaluation was performed with fluoroscopy in the usual manner. Standard level fluoroscopic mode of operation utilized. The procedure was recorded. The patient was given liquid barium in addition to a barium tablet FINDINGS: ORAL PHASE: Normal deglutition. PHARYNGEAL PHASE: Normal swallowing. ASPIRATION: None. STRUCTURE: Normal. No visible obstruction, stricture, or dilatation. OTHER: Negative. FL/FL cineradiography IMPRESSION: Normal exam. Electronically authenticated by: BYRON GILBERT Date: 08/22/2023 14:58 Dictated By: Byron Gilbert M.D. Signed By: 08/22/23 1502 DD/ 1452 TD/TT: Pharmacy Grad Intern:TBHRadiology, Radiologist, MD - 08/22/2023 [place] [address] Fluoroscopy Report Signed Patient: JOCELINE SAMPSON MR#: [id number] : 1985 Acct:[id number] Age/Sex: 38 / F ADM Date: 08/22/23 Loc: [place] Attending Dr: Aminah Fraire M.D. Ordering Physician: Aminah Fraire M.D. Date of Service: 08/22/23 Procedure(s): FL cineradiography Accession Number(s): [id number] cc: Merrill Singh D.O.; Aminah Fraire M.D. The [address] [address] Patient Name: JOCELINE SAMPSON MRN: [id number] date: 1985 Sex: F Assigned Patient Location: [place] Current Patient Location: [place] Accession/Order Number: [id number] Exam Date: 08/22/2023 14:08 Report Date: 08/22/2023 14:58 At the request of: AMINAH FRAIRE Procedure: FL cineradiography EXAMINATION: FL barium swallow, FL cineradiography HISTORY: Pharyngoesophageal Dysphagia R13.14 COMPARISON: No relevant comparison available. TECHNIQUE: A swallowing evaluation was performed with fluoroscopy in the usual manner. Standard level fluoroscopic mode of operation utilized. The procedure was recorded. The patient was given liquid barium in addition to a barium tablet FINDINGS: ORAL PHASE: Normal deglutition. PHARYNGEAL PHASE: Normal swallowing. ASPIRATION: None. STRUCTURE: Normal. No visible obstruction, stricture, or dilatation. OTHER: Negative. FL/FL cineradiography IMPRESSION: Normal exam. Electronically authenticated by: BYRON GILBERT Date: 08/22/2023 14:58 Dictated By: Byron Gilbert M.D. Signed By: 08/22/23 1501 DD/ 1458 TD/TT: Pharmacy Grad Intern: ALEXANDRU [facility] CenterCovid-19 PCR (CVDTB)on 40-46-0463UZZY-CoV-2 (COVID-19) RNA JAMES+probe Ql (Unsp spec)Not detectedNormalNOT DETECTEDThe [facility] Comment on above:Result Comment: When diagnostic testing is negative, the [...] for this test is supported by the Vegetable Washer of Health and Human Service's declaration that circumstances exist to justify the emergency use of in vitro diagnostics for the detection and/or diagnosis of the virus that causes COVID-19. This EUA will remain in effect for the duration of the COVID-19 declaration justifying emergency of IVDs, unless it is terminated or revoked by the FDA (after which the test may no longer be used).Performed By: #### CVDTBH #### [facility] [address] [place] [address] Dr. Clover GREEN AGon 80-35-4462EVDUTFAAXDOAQMadison HealthComment on above:Result Comment: Negative for Flu A protein angiten. Infection due to Flu A cannot be ruled out. FluA angiten in the sample may be below the detection limit of the test.Performed By: #### A1C #### [facility] [address] [place] [address] Dr. Clover NagyINFLUBNEGHSELADIA [facility] HospitalComment on above: Result Comment: Negative for Flu B protein antigen. Infection due to Flu B cannot be ruled out. FluB antigen in the sample may be below the detection limit of the test.Performed By: #### A1C #### [facility] [address] [place] [address] Dr. Clover Garcia AGNegativeNormalNEGATIVE SEE COMMENTThe [facility] HospitalComment on above:Performed By: #### A1C #### [facility] [address] [place] [address] Dr. Clover Collado AGNegativeNormalNEGATIVE SEE COMMENTThe [facility] HospitalComment on above:Performed By: #### A1C #### [facility] [address] [place] [address] Dr. Clover NagyINTERNAL CONTROLSWithin Normal LimitsNormalWithin Normal Limits The [facility] HospitalComment on above:Performed By: #### A1C #### [facility] [address] [place] [address] Dr. Clover NagyCHLAMYDIA/GONOCOCCUS JAMES (SWAB/URINE/PAPon 24-21-6608Vttnmgplq trachomatis, NAANegativeNormalNegativeThe [facility] HospitalComment on above: Performed By: #### A1C #### [facility] [address] [place] [address] Dr. Clover NagyNeisseria gonorrhoeae, NAANegativeNormalNegativeThe [facility] HospitalComment on above:Performed By: #### A1C #### [facility] [address] [place] [address] Dr. Clover Stauffer ACOG PANEL 2: 30 to 65on 01-24-2022..NormalThe [facility] HospitalComselect [facility] on above:Result Comment: Performed at: WBPerformed By: #### [id number] #### [facility] [address] [place] [address] Dr. Clover Weiss Gdln ACOG Vyhzetv71-67TjjlebZyeOhioHealth Marion General HospitalComment on above:Performed By: #### [id number] #### [facility] [address] [place] [address] Dr. Clover NagyDIAGNOSIS:CommentDayton VA Medical Center on above: Result Comment: NEGATIVE FOR INTRAEPITHELIAL LESION OR MALIGNANCY. Performed at: WBPerformed By: #### [id number] #### [facility] [address] [place] [address] Dr. Clover NagyHPV AptimaNegativeNormalNegativeProvidence HospitalComselect specialty hospital[facility] on above:Result Comment: This nucleic acid amplification test detects fourteen high-risk HPV types (16,18,31,33,35,39,45,51,52,56,58,59,66,68) without differentiation. Performed at: =GPerformed By: #### [id number] #### [facility] [address] [place] [address] Dr. Clover NagyMethodology:CommentDayton VA Medical Center on above: Result Comment: This liquid based ThinPrep(R) pap test was screened with the use of an image guided system. Performed at: WBPerformed By: #### [id number] #### [facility] [address] [place] [address] Dr. Clover NagyNote:CommentDayton VA Medical Center on above:Result Comment: The Pap smear is a screening test designed to aid in the detection of premalignant and malignant conditions of the uterine cervix. It is not a diagnostic procedure and should not be used as the sole means of detecting cervical cancer. Both false-positive and false-negative reports do occur. . Performed at: WBPerformed By: #### [id number] #### [facility] [address] [place] [address] Dr. Clover NagyPerformed by:CommentDayton VA Medical Center on above: Result Comment: Kelley Vallejo, Automobile Designer (ASC) Performed at: WBPerformed By: #### [id number] #### [facility] [address] [place] [address] Dr. Clover Mulligan adequacy:CommentDayton VA Medical Center on above:Result Comment: Satisfactory for evaluation. No endocervical cells are present. This is consistent with a history of hysterectomy. Performed at: WBPerformed By: #### [id number] #### [facility] [address] [place] [address] Dr. Clover StarkeyTRADIOLon 13-92-0535Nnnrztfwk6.2 pg/mLNMercy Health West HospitalComselect specialty hospital-[place] on above:Result Comment: Adult Female: Follicular phase 12.5 - 166.0 Ovulation phase 85.8 - 498.0 Luteal phase 43.8 - 211.0 Postmenopausal <6.0 - 54.7 1st trimester 215.0 - >4300.0 Kishan ECLIA methodologyPerformed By: #### ESTRADI #### [facility] [address] [place] [address] Dr. Clover NagyFS 47-91-0806ZXC64.8 mIU/mLNMercy Health West HospitalComselect specialty hospital[facility] on above:Result Comment: Adult Female: Follicular phase 3.5 - 12.5 Ovulation phase 4.7 - 21.5 Luteal phase 1.7 - 7.7 Postmenopausal 25.8 - 134.8Performed By: #### A1C #### [facility] [address] [place] [address] Dr. Clover NagyLUTEINIZING HORMONE (LH)on 33-16-9396PI62.1 mIU/mLNAdena Health System on above:Result Comment: Adult Female: Follicular phase 2.4 - 12.6 Ovulation phase 14.0 - 95.6 Luteal phase 1.0 - 11.4 Postmenopausal 7.7 - 58.5Performed By: #### A1C #### [facility] [address] [place] [address] Dr. Clover NagyPROGESTERONEon 65-98-2305Mgofbtmolazn4.1 ng/mLNormalProvidence HospitalComment on above:Result Comment: Follicular phase 0.1 - 0.9 Luteal phase 1.8 - 23.9 Ovulation phase 0.1 - 12.0 First trimester 11.0 - 44.3 Second trimester 25.4 - 83.3 Third trimester 58.7 - 214.0 Postmenopausal 0.0 - 0.1Performed By: #### A1C #### [facility] [address] [place] [address] Dr. Clover NagyVAGINITIS/VAGINOSIS DNA PROBEon 63-40-7472Hvayjqc speciesNegative NormalNegativeProvidence HospitalComment on above:Performed By: #### VAGINT #### [facility] [address] [place] [address] Dr. Clover Eidlla vaginalisNegativeNormalNegativeProvidence Hospital Comment on above:Performed By: #### VAGINT #### [facility] [address] [place] [address] Dr. Clover Blissonas vaginalisNegativeNormalNegativeProvidence Hospital Comment on above:Performed By: #### VAGINT #### [facility] [address] [place] [address] Dr. Clover Kern AUTO DIFFon 98-67-0095NSKJ #0.1 103/ulNormal0.0-0.1Providence HospitalComment on above:Performed By: #### CBC #### [facility] [address] [place] [address] Dr. Clover NagyBasophils/100 WBC (Bld)0.9 %Normal0.2-2.0[facility] Comment on above:Performed By: #### CBC #### [facility] [address] [place] [address] Dr. Clover Crespo #0.7 103/ulNormal0.0-0.7The [facility] HospitalComment on above: Performed By: #### CBC #### [facility] [address] [place] [address] Dr. Clover Zapataosinophils/100 WBC (Bld)9.5 %Critically high0.9-7.0The [facility] HospitalComment on above:Performed By: #### CBC #### [facility] [address] [place] [address] Dr. Clover Zapatarythrocyte distribution width (RBC) [Ratio]11.8 %Vsruqt98.0-15.0 The [facility] HospitalComment on above:Performed By: #### CBC #### [facility] [address] [place] [address] Dr. Clover NagyHematocrit (Bld) [Volume fraction]37.0 %Oputsd67.0-48.0The [facility] HospitalComment on above:Performed By: #### CBC #### [facility] [address] [place] [address] Dr. Clover NagyHemoglobin (Bld) [Mass/Vol]12.3 g/hQOnjsyl96.0-16.0The [facility] on above:Performed By: #### CBC #### [facility] [address] [place] [address] Dr. Clover NagyIG #0.01 10e3/ulNormal0.00-0.03The [facility] HospitalComselect [facility] on above:Performed By: #### CBC #### [facility] [address] [place] [address] Dr. Clover NagyIG %0.1 %Normal0.0-0.5The [facility] HospitalComselect specialty hospital[facility] on above: Performed By: #### CBC #### [facility] [address] [place] [address] Dr. Clover ThomasMPH #1.2 103/ulNormal1.2-3.8The [facility] HospitalComment on above:Performed By: #### CBC #### [facility] [address] [place] [address] Dr. Clover Thomasmphocytes/100 WBC (Bld)17.5 %Critically low20.5-60.0The [facility] on above:Performed By: #### CBC #### [facility] [address] [place] [address] Dr. Clover Sofia DIFF REQNONormalThe [facility] HospitalComment on above: Performed By: #### CBC #### [facility] [address] [place] [address] Dr. Clover Nicholas (RBC) [Entitic mass]28.3 dnLrazct59.7-34.0The [facility] HospitalComment on above:Performed By: #### CBC #### [facility] [address] [place] [address] Dr. Clover Nicholas (RBC) [Mass/Vol]33.2 g/nIWtigkj66.9-35.2The [facility] HospitalComment on above:Performed By: #### CBC #### [facility] [address] [place] [address] Dr. Clover Nicholas (RBC) [Entitic vol]85.1 rAVqawht81.0-99.0The [facility] HospitalComment on above:Performed By: #### CBC #### [facility] [address] [place] [address] Dr. Clover Duron #0.6 103/ulNormal0.3-0.8The [facility] HospitalComment on above:Performed By: #### CBC #### [facility] [address] [place] [address] Dr. Clover Melissaocytes/100 WBC (Bld)8.8 %Normal1.7-12.0The [facility] Comment on above:Performed By: #### CBC #### [facility] [address] [place] [address] Dr. Clover Moore #4.3 103/ulNormal1.4-6.5The [facility] HospitalComment on above:Performed By: #### CBC #### [facility] [address] [place] [address] Dr. Clover Alvesutrophils/100 WBC (Bld)63.2 %Yehwqe99.0-75.0The [facility] HospitalComment on above:Performed By: #### CBC #### [facility] [address] [place] [address] Dr. Clover Fairbankslet mean volume (Bld) [Entitic vol]10.4 fLNormal9.5-13.5The [facility] on above:Performed By: #### CBC #### [facility] [address] [place] [address] Dr. Clover NagyPLT310 103/wlLaobbb012-286Wji [facility] HospitalComment on above: Performed By: #### CBC #### [facility] [address] [place] [address] Dr. Clover NagyRBC4.35 106/ulNormal4.20-5.40The [facility] on above:Performed By: #### CBC #### [facility] [address] [place] [address] Dr. Clover NagyWBC6.8 103/ulNormal4.0-11.0The [facility] on above: Performed By: #### CBC #### [facility] [address] [place] [address] Dr. Clover YenEE T4on 58-83-9253Ebjs T4 [Mass/Vol]1.15 ng/dLNormal0.76-1.46 The [facility] on above:Performed By: #### FT4 #### [facility] [address] [place] [address] Dr. Clover Ruggiero 90-06-4160AFR9.183 uIU/mLNormal0.358-3.740The [facility] on above:Performed By: #### A1C #### [facility] [address] [place] [address] Dr. Clover Kern AUTO DIFFon 74-62-8226HIOS #0.0 103/ulNormal0.0-0.1The [facility] on above:Performed By: #### CBC #### [facility] [address] [place] [address] Dr. Clover NagyBasophils/100 WBC (Bld)0.3 %Normal0.2-2.0The [facility] Comment on above:Performed By: #### CBC #### [facility] [address] [place] [address] Dr. Clover Crespo #0.1 103/ulNormal0.0-0.7The [facility] HospitalComment on above: Performed By: #### CBC #### [facility] [address] [place] [address] Dr. Clover Zapataosinophils/100 WBC (Bld)0.6 %Critically low0.9-7.0The [facility] HospitalComment on above:Performed By: #### CBC #### [facility] [address] [place] [address] Dr. Clover Zapatarythrocyte distribution width (RBC) [Ratio]11.6 %Bdylps53.0-15.0 The [facility] HospitalComment on above:Performed By: #### CBC #### [facility] [address] [place] [address] Dr. Clover NagyHematocrit (Bld) [Volume fraction]38.0 %Erajng10.0-48.0The [facility] HospitalComment on above:Performed By: #### CBC #### [facility] [address] [place] [address] Dr. Clover NagyHemoglobin (Bld) [Mass/Vol]12.7 g/yRLostem75.0-16.0The [facility] HospitalComment on above:Performed By: #### CBC #### [facility] [address] [place] [address] Dr. Clover Carson #0.05 10e3/ulCritically high0.00-0.03The [facility] Comment on above:Performed By: #### CBC #### [facility] [address] [place] [address] Dr. Clover Carson %0.5 %Normal0.0-0.5The [facility] HospitalComment on above: Performed By: #### CBC #### [facility] [address] [place] [address] Dr. Clover Parker #2.0 103/ulNormal1.2-3.8The [facility] HospitalComment on above:Performed By: #### CBC #### [facility] [address] [place] [address] Dr. Clover Lopezhocytes/100 WBC (Bld)20.8 %Elwrjw98.5-60.0The [facility] HospitalComment on above:Performed By: #### CBC #### [facility] [address] [place] [address] Dr. Clover Sofia DIFF REQNONormalThe [facility] HospitalComment on above: Performed By: #### CBC #### [facility] [address] [place] [address] Dr. Clover Parikh (RBC) [Entitic mass]28.7 nhBttaak42.7-34.0The [facility] HospitalComment on above:Performed By: #### CBC #### [facility] [address] [place] [address] Dr. lCover Nicholas (RBC) [Mass/Vol]33.4 g/kUCbddxa41.9-35.2The [facility] HospitalComment on above:Performed By: #### CBC #### [facility] [address] [place] [address] Dr. Clover Nicholas (RBC) [Entitic vol]85.8 aYMrrhsv04.0-99.0The [facility] HospitalComment on above:Performed By: #### CBC #### [facility] [address] [place] [address] Dr. Clover Duron #0.7 103/ulNormal0.3-0.8The [facility] HospitalComment on above:Performed By: #### CBC #### [facility] [address] [place] [address] Dr. Clover Melissaocytes/100 WBC (Bld)7.0 %Normal1.7-12.0The [facility] Comment on above:Performed By: #### CBC #### [facility] [address] [place] [address] Dr. Clover Moore #6.7 103/ulCritically high1.4-6.5The [facility] Comment on above:Performed By: #### CBC #### [facility] [address] [address] [address] Clover Alvesutrophils/100 WBC (Bld)70.8 %Bxikvb48.0-75.0The [facility] HospitalComment on above:Performed By: #### CBC #### [facility] [address] [address] [address] Clover NagyPlatelet mean volume (Bld) [Entitic vol]10.3 fLNormal9.5-13.5The [facility] HospitalComment on above:Performed By: #### CBC #### [facility] [address] [place] [address] Dr. Clover NagyPLT433 103/uyDzgmpz301-005Ihu [facility] HospitalComment on above: Performed By: #### CBC #### [facility] [address] [place] [address] Dr. Clover NagyRBC4.43 106/ulNormal4.20-5.40The [facility] HospitalComment on above:Performed By: #### CBC #### [facility] [address] [place] [address] Dr. Clover NagyWBC9.5 103/ulNormal4.0-11.0The [facility] HospitalComment on above: Performed By: #### CBC #### [facility] [address] [place] [address] Dr. Clover NagyGLYCOHEMOGLOBIN A1Con [id number] RECOMMENDATIONADA THERAPEUTIC TARGET 6.0 - 7.0 ACTION SUGGESTED > 7.0NormalThe [facility] HospitalComment on above:Performed By: #### A1C #### [facility] [address] [place] [address] Dr. Clover NagyGlucose [Mass/Vol]103 mg/sNTjabyh84-703AyjProvidence Hospital Comment on above:Performed By: #### A1C #### [facility] [address] [address] [address] Clover NagyPerformed By: #### LIPID, CMP, TSH #### [facility] [address] [address] [address] Clover NagyHbA1c (Bld) [Mass fraction]5.2 %Normal<=6.0The [facility] Comment on above:Performed By: #### A1C #### [facility] [address] [place] [address] Dr. Clover NagyLIPID PROFILEon [id number]-HDL RATIO NORMSEE [facility] HospitalComment on above:Result Comment: 3.3 - 4.4 LOW RISK 4.4 - 7.1 AVERAGE RISK 7.1 - 11.0 MODERATE RISK >11.0 HIGH RISKPerformed By: #### A1C #### [facility] [address] [place] [address] Dr. Clover NagyCholesterol [Mass/Vol]214 mg/dLCritically high<=200The [facility] HospitalComment on above:Performed By: #### A1C #### [facility] [address] [place] [address] Dr. Clover Cheemaesterol in HDL [Mass/Vol]64 mg/dLCritically fgzp53-47OdxProvidence HospitalComment on above:Performed By: #### A1C #### [facility] [address] [place] [address] Dr. Clover Cheemaesterol in LDL [Mass/Vol]126.6 mg/dLDunlap Memorial HospitalComment on above:Performed By: #### A1C #### [facility] [address] [place] [address] Dr. Clover Cheemaesterdagoberto.total/Cholesterol in HDL [Mass ratio]3.3 {ratio} NormalThe [facility] HospitalComselect [facility] on above:Performed By: #### A1C #### [facility] [address] [place] [address] Dr. Clover NagyHDL NORMAL> or = 60 mg/dl - LOW CARDIOVASCULAR RISK <40 mg/dl - HIGH CARDIOVASCULAR RISKDunlap Memorial HospitalComment on above:Performed By: #### A1C #### [facility] [address] [address] [address] Clover Humphries CALC NORMALSEE BELOWDunlap Memorial HospitalComment on above:Result Comment: <100 mg/dl OPTIMAL 100 - 129 mg/dl NEAR OR ABOVE OPTIMAL 130 - 159 mg/dl BORDERLINE HIGH 160 - 189 mg/dl HIGH >190 mg/dl VERY HIGH Performed By: #### A1C #### [facility] [address] [address] [address] Clover NagyTriglyceride [Mass/Vol]117 mg/dLNormal<=150The [facility] Comment on above:Performed By: #### A1C #### [facility] [address] [place] [address] Dr. Clover NagyVLDL CALC23.4 mg/dLNoOhioHealth Marion General HospitalComment on above: Performed By: #### A1C #### [facility] [address] [place] [address] Dr. Clover NagyPROF 14(COMP METB)on 76-93-6494Chdegkh [Mass/Vol]3.7 g/dLNormal 3.4-5.0The [facility] HospitalComment on above:Performed By: #### LIPID, CMP, TSH #### [facility] [address] [place] [address] Dr. Clover NagyAlbumin/Globulin [Mass ratio]0.9 {ratio}NormalThe [facility] HospitalComment on above:Performed By: #### LIPID, CMP, TSH #### [facility] [address] [place] [address] Dr. Clover AlbarranP [Catalytic activity/Vol]76 U/JSpcomd47-612Kth [facility] HospitalComselect [facility] on above:Performed By: #### LIPID, CMP, TSH #### [facility] [address] [place] [address] Dr. Clover AlbarranT [Catalytic activity/Vol]28 U/UBpequx99-59Hft [facility] on above:Performed By: #### LIPID, CMP, TSH #### [facility] [address] [address] [address] Clover Bragaon gap [Moles/Vol]11.6 mmol/LNormalThe [facility] Comment on above:Performed By: #### LIPID, CMP, TSH #### [facility] [address] [address] [address] Clover NagyAST [Catalytic activity/Vol]17 U/DJzaiif76-87Oec [facility] HospitalComment on above:Performed By: #### LIPID, CMP, TSH #### [facility] [address] [place] [address] Dr. Clover NagyBilirubin [Mass/Vol]0.2 mg/dLNormal0.2-1.3The [facility] Comment on above:Performed By: #### LIPID, CMP, TSH #### [facility] [address] [address] [address] Clover NagyCalcium [Mass/Vol]9.0 mg/dLNormal8.5-10.1The [facility] Comment on above:Performed By: #### LIPID, CMP, TSH #### [facility] [address] [address] [address] Clover NaygChloride [Moles/Vol]100 mmol/SUvudcz17-577Dzj [facility] Comment on above:Performed By: #### LIPID, CMP, TSH #### [facility] [address] [address] [address] Clover NagyCO2 [Moles/Vol]27.9 mmol/MOczydc09.0-30.0The [facility] Comment on above:Performed By: #### LIPID, CMP, TSH #### [facility] [address] [address] [address] Clover NagyCreatinine [Mass/Vol]0.72 mg/dLNormal0.52-1.04The [facility] HospitalComment on above:Performed By: #### LIPID, CMP, TSH #### [facility] [address] [address] [address] Galo ChangEGFR-AF TAIWANESE>60Normal>=60The [facility] HospitalComment on above:Performed By: #### LIPID, CMP, TSH #### [facility] [address] [place] [address] Dr. Clover ZapataGFR-NON AF TAIWANESE>60Normal>=60The [facility] HospitalComment on above:Performed By: #### LIPID, CMP, TSH #### [facility] [address] [place] [address] Dr. Clover NagyGlobulin (S) [Mass/Vol]4.0 g/dLNormUniversity Hospitals Cleveland Medical CenterComment on above:Performed By: #### LIPID, CMP, TSH #### [facility] [address] [place] [address] Dr. Clover NagyPotassium [Moles/Vol]3.5 mmol/LNormal3.4-5.0The [facility] Comment on above:Performed By: #### LIPID, CMP, TSH #### [facility] [address] [place] [address] Dr. Clover NagyProtein [Mass/Vol]7.7 g/dLNormal6.1-8.2The [facility] Comment on above:Performed By: #### LIPID, CMP, TSH #### [facility] [address] [place] [address] Dr. Clover NagySodium [Moles/Vol]136 mmol/LCritically vnp741-398Ibd [facility] HospitalComment on above:Performed By: #### LIPID, CMP, TSH #### [facility] [address] [place] [address] Dr. Clover NagyUrea nitrogen [Mass/Vol]12.0 mg/dLNormal7.0-18.0The [facility] HospitalComment on above:Performed By: #### LIPID, CMP, TSH #### [facility] [address] [place] [address] Dr. Clover NagyUrea nitrogen/Creatinine [Mass ratio]16.7 mg/mgNoOhioHealth Marion General HospitalComment on above:Performed By: #### LIPID, CMP, TSH #### [facility] [address] [place] [address] Dr. Clover Ruggiero 76-99-4910UKU6.535 uIU/mLNormal0.470-4.680The [facility] HospitalComment on above:Performed By: #### A1C #### [facility] [address], [place] [address] Dr. Clover Alexander [facility] HospitalComment on above: Result Comment: <0.34 UIU/ml HYPERTHYROID 0.34-5.60 UIU/ml EUTHYROID >5.60 UIU/ml HYPOTHYROIDPerformed By: #### A1C #### [facility] [address], [place] [address] Dr. Clover NagyCovid-19 PCR ([facility])on 69-22-1988KOLI-CoV-2 (COVID-19) RNA JAMES+probe Ql (Unsp spec)DetectedCritically abnormalNOT DETECTEDThe [facility] HospitalComment on above:Result Comment: This test is not yet approved or cleared by the [place] FDA. When there are no FDA-approved or cleared tests available, and other criteria are met, FDA can make tests available under an emergency access mechanism called an Emergency Use Authorization (EUA). The EUA for this test is supported by the Vegetable [employer]her of Health and Human Service's declaration that circumstances exist to justify the emergency use of in vitro diagnostics for the detection and/or diagnosis of the virusthat causes COVID-19. This EUA will remain in effect for the duration of the COVID-19 declaration ju stifying emergency of IVDs, unless it is terminated or revoked by the FDA (after which the test mayno longer be used).Performed By: #### CVDTBH #### [facility] [address], [place] [address] Dr. Clover Nagy Vital Signs Date TimeVital SignValuePerforming HgfnckjkdRpncysvk30-92-1163 15:14040Body noxnlj346.1 cmBenjamin Ball DO Work Phone: [facility]10-13-2025 15:14-0400 Body mass index (BMI) [Ratio]29.5 kg/l7Wjzemunj Ball DO Work Phone: [phone]10-13-2025 15:14-0400 Body iscxke74.34 kgBenjamin Ball DO Work Phone: [phone])[address] [place], [place] 5356910-13-2025 15:14-0400 Diastolic blood xkdcacov48 mm[Hg]Merrill Ball DO Work Phone: 1(297)[address] [place], [place] 5356910-13-2025 15:14-0400 Heart rate90 /minBenjamin Ball DO Work Phone: 1(729)[address] [place], [place] 5356910-13-2025 15:14-0400 Respiratory rate12 /minBenjamin Ball DO Work Phone: 1(557)[address] [place], [place] 5356910-13-2025 15:14-0400 Systolic blood yznrzsva221 mm[Hg]Merrill Ball DO Work Phone: 1(497)[address] [place], [place] 5356909-08-2025 13:44-0400 Diastolic blood tlyhfzhp58 mm[Hg]Joceline Henry DIRECTOR MOBILE Work Phone: 1(821)[address] [place], [place] 5356909-08-2025 13:44-0400 Heart rate89 /Sera Laroserbacher DIRECTOR MOBILE Work Phone: 1([phone])[address] [place], [place] 5356909-08-2025 13:44-0400 Respiratory rate16 /minJoceline Laroserbacher DIRECTOR MOBILE Work Phone: 1(410)[address] [place], [place] 5356909-08-2025 13:44-0400 SaO2% (BldA) [Mass fraction]98 %Joceline Henry DIRECTOR MOBILE Work Phone: 1(937)[address] [place], [place] 5356909-08-2025 13:44-0400 Systolic blood wifboqoz277 mm[Hg]Joceline Henry DIRECTOR MOBILE Work Phone: 1(404)[address] [place], [place] 5356909-08-2025 11:34-0400 Body wjcuot816.1 cmJoceline Laroserbacher DIRECTOR MOBILE Work Phone: 1(763)[address] [place], [place] 5356909-08-2025 11:34-0400 Body gsiddj79.01 kgJoceline Laroserbacher DIRECTOR MOBILE Work Phone: [phone]08-18-2025 15:02-0400 Body sqpyrn528.1 cmBenjamin Ball DO Work Phone: [phone]08-18-2025 15:02-0400 Body mass index (BMI) [Ratio]28.9 kg/c7Myyktoml Ball DO Work Phone: [phone])[address] [place], [place] 5356908-18-2025 15:02-0400 Body dqxspaotlul96.3 [degF]Merrill Ball DO Work Phone: 1(490)[address] [place], [place] 5356908-18-2025 15:02-0400 Body .92 kgBenjamin Ball DO Work Phone: 1(323)[address] [place], [place] 5356908-18-2025 15:02-0400 Diastolic blood remcphbj69 mm[Hg]Merrill Ball DO Work Phone: 1(625)[address] [place], [place] 5356908-18-2025 15:02-0400 Heart rate65 /minBenjamin Ball DO Work Phone: 1(691)[address] [place], [place] 5356908-18-2025 15:02-0400 SaO2% (BldA) [Mass fraction]98 %Merrill Ball DO Work Phone: 1(012)[address] [place], [place] 5356908-18-2025 15:02-0400 Systolic blood dkryukbq655 mm[Hg]Merrill Ball DO Work Phone: 1(670)[address] [place], [place] 5356907-08-2025 07:55-0400 Body .1 cmAminah Fraire MD Work Phone: [phone] HospitalFbmqgnrvmp03-36-7818 07:55-0400Body mass index (BMI) [Ratio]28.29 kg/g7LnpoobAminah Fraire MD Work Phone: [facility] HospitalDjckoczzdx11-80-9103 07:55-0400Body hwlsam18.11 kgAminah Fraire MD Work Phone: [facility] HospitalRdkcefcfjf15-97-1014 07:55-0400Diastolic blood xffrylhj48 mm[Hg]Aminah Farire MD Work Phone: [facility] HospitalEpiiebmiwy43-89-2635 07:55-0400Heart rate93 /min Aminah Fraire MD Work Phone: 1(262)[facility]-1668[facility] HospitalWrhrhxmvpy84-51-4368 07:55-0400Systolic blood bjslzqfu320 mm[Hg]Aminah Fraire MD Work Phone: 1(989)[facility]-7053[facility] HospitalXexbnvyakw39-28-1015 14:21-0400Body mass index (BMI) [Ratio]27.98 kg/g8Zgbfv Andrew DO Work Phone: [phone])[facility]-[address] [place], [place] [address]Edfbkacctu52-26-6224 14:21-0400Body fqadho99.26 kgCorey Andrew DO Work Phone: 1(999)[facility] [place], [place] [address]Zokhgkllks91-26-2020 14:21-0400Diastolic blood aejkzpil98 mm[Hg]Yoseph Andrew DO Work Phone: 1(366)[facility]-[address] [place], [place] [address]Vqtfsoywtt62-97-8450 14:21-0400Systolic blood ouwjtzqd648 mm[Hg]Yoseph Andrew DO Work Phone: 1(187)[facility]-[address] [place], [place] [address]Sghhzzqadv54-32-5834 14:18-0500Body dcddyv547.1 cmAminah Fraire MD Work Phone: [facility] HospitalWlqzhlcyim81-22-1933 14:18-0500Body mass index (BMI) [Ratio]27.96 kg/x0DivubhAminah Fraire MD Work Phone: 1(658)[facility]-3719[facility] HospitalCcteedjdqk72-17-6198 14:18-0500Body jmszmo66.2 kg Aminah Fraire MD Work Phone: 1(134)[facility]-3192[facility] HospitalDxrwdwjqqc74-88-7040 14:18-0500Diastolic blood hkagtvfa21 mm[Hg]Aminah Fraire MD Work Phone: 1(899)[facility]-3304[facility] HospitalEduqgujbyc81-63-8073 14:18-0500Systolic blood wvualtcj780 mm[Hg]Aminah Fraire MD Work Phone: 1(302)[facility]-1655[facility] HospitalRqzfeoqtdz25-72-8399 13:30-0400Body qdxiaw004.1 cmJennifer Rohrbacher Other Branch Other 10-03-2023 13:30-0400Body mass index (BMI) [Ratio] 27.45 kg/f7UumbcoqiJoceline Henry Other Branch Other 10-03-2023 13:30-0400Body yjmvgl64.84 kgJoceline Henry Other Branch Other 10-03-2023 13:30-0400Diastolic blood zycjfzhu87 mm[Hg] Joceline Panchalbeto Other Branch Other 10-03-2023 13:30-1017RbJ1% (BldA) [Mass fraction]98 % Joceline Larosemadina Other Branch Other 10-03-2023 13:30-0400Systolic blood myxadezb022 mm[Hg] Joceline Wingjose Other Branch Other 08-30-2023 15:45-0400Body .1 cmBenjamin Ball Other Branch Other 08-30-2023 15:45-0400Body mass index (BMI) [Ratio] 27.74 kg/n8Pwetxskc Ball Other Branch Other 08-30-2023 15:45-0400Body .62 kgBenjamin Ball Other Branch Other 08-30-2023 15:45-0400Diastolic blood mm[Hg] Merrill Ball Other noUnidym Other 08-30-2023 15:45-0400Respiratory rate12 /minBenjamin Ball Other Branch Other 08-30-2023 15:45-0400Systolic blood mm[Hg] Merrill Ball Other Branch Other 07-13-2023 11:00-0400Body uxuflg415.1 cmBenjamin Ball Other Branch Other 07-13-2023 11:00-0400Body mass index (BMI) [Ratio] 27.55 kg/y6Epatsdey Ball Other Branch Other 07-13-2023 11:00-0400Body qyurfc05.12 kgBenjamin Ball Other Branch Other 07-13-2023 11:00-0400Diastolic blood ylzmbxkt22 mm[Hg] Merrill Ball Other Branch Other 07-13-2023 11:00-0400Respiratory rate12 /minBenjamin Ball Other Branch Other 07-13-2023 11:00-0400Systolic blood mm[Hg] Merrill Ball Other Branch Other 04-26-2023 11:30-0400Body qmyczl985.1 cmBenjamin Ball Other Branch Other 04-26-2023 11:30-0400Body mass index (BMI) [Ratio] 27.82 kg/f7QrkgmkvtMerrill Singh Other noUnidym Other 04-26-2023 11:30-0400Body agffrb33.84 kgMerrill Singh Other noUnidym Other 04-26-2023 11:30-0400Diastolic blood yvouylbc78 mm[Hg] Merrill Singh Other [employer] Other 04-26-2023 11:30-0400Respiratory rate12 /minMerrill Singh Other Branch Other 04-26-2023 11:30-0400Systolic blood lvkrczuh110 mm[Hg] Merrill Singh Other Branch Other Encounters Encounter DateEncounter TypeCare ProviderFacilityStart: 04-25-2025 End: 45-26-4693ghkxreelvkYjqjzazs Ball DO Work Phone: [facility] Work Phone: Start: 04-25-2025 End: 55-48-6747Rqsipwl encounter procedureBegertrude Singh DO-[facility] Work Phone: Start: 04-25-2025 End: 43-11-0213Fvowduf encounter statusBegertrude Singh [place] [facility] Centertart: 50-67-9434Vdw-patient / Non-visitBegertrude Singh DO-[facility] [employer] Work Phone: Start: 03-21-2025 End: 07-70-4750psrcvshricJiqcktzfc L LyFacility:[facility] Hospitaltart: 39-75-8920Lhj-patient / Non-visitCatherine L Ly DO-[facility] Work Phone: Start: 02-28-2025 End: 77-99-9011kdkavcworyJrdqqyqa Ball DO Work Phone: [facility] Work Phone: Start: 02-28-2025 End: 32-10-7845Jiggxep encounter procedureNancielindy Wingjose DIRECTOR [employer]BI[employer] GENERAL MANAGER-[facility] Work Phone: Start: 01-18-2025 End: 06-42-4865Psozow Jane Fraire MD Work Phone: [facility] CI ENTStart: 01-18-2025 End: 28-28-9649Xacrxh Jane Fraire MD Work Phone: [facility] CI ENTStart: 01-18-2025 End: 69-57-5878Wiqvde outpatient visit 25 minutesHivic Fraire MD Work Phone: [facility] CI ENTComment on above:Acute swimmer's ear of both sides (Primary Dx)Start: 01-18-2025 End: 72-07-6135stirkpsvrqHSYYNA H TIMMISNot AvailableStart: 01-16-2025 End: 11-23-0304auoijhtpltOyspx M. DempseyFacility:CC NorkStart: 01-16-2025 End: 03-49-4496Apbedqu encounter Richelle Berry [phone]-LitoqMet[facility] Start: 01-13-2025 End: 67-86-1605hlflbtimchAmlaueaye L ClarkFacility:CC NorwalkStart: 01-13-2025 End: 34-00-8554Rqbrxte encounter procedureMayra Brannon [phone]-XwknoMet[facility]health [facility] Start: 37-67-3369Txncotb encounter statusBedellaconnie Singh DO Work Phone: [facility] Hospitaltart: 04-08-2024 End: 74-85-3513Nrwahaivk Result EncounterCorey Andrew DO Work Phone: noms External Department UnsolicitedStart: 04-08-2024 End: 69-70-2860Hceomtfhq Result EncounterCorey Andrew DO Work Phone: noms External Department UnsolicitedStart: 03-30-2024 End: 40-98-6188Lkbegurgp Result EncounterCorey Andrew DO Work Phone: noms External Department UnsolicitedStart: 03-30-2024 End: 10-32-1246Lefnofnce Result EncounterCorey Andrew DO Work Phone: noms External Department UnsolicitedStart: 03-29-2024 End: 73-35-6040xhllslnggtWUFYY FAZIONot AvailableStart: 03-29-2024 End: 54-93-5803Jfmoqq flowsheetCorey Andrew DO Work Phone: NOZC BCP OBStart: 03-29-2024 End: 96-57-1627Mbwhjl flowsheetCorey Andrew DO Work Phone: noms BCP OBStart: 03-29-2024 End: 74-39-7520Uqoqqzvud Result EncounterCorey Andrew DO Work Phone: noms External Department UnsolicitedStart: 03-29-2024 End: 82-31-8515Nzakbjb encounter procedureCorey Andrew DO Work Phone: [facility] Work Phone: Start: 03-29-2024 End: 47-42-4303Jgdnwzll preventive med est patient 18-39 yrsCorey Andrew DO Work Phone: [facility] OBComment on above:Well woman exam with routine gynecological exam; Hot flashes due to surgical menopause; Mood changes; Decreased libido; Symptomatic menopausal or female climacteric statesStart: 03-24-2024 End: 90-23-4257Wvdyradhi Result EncounterCorey Andrew DO Work Phone: noms External Department UnsolicitedStart: 03-24-2024 End: 14-86-0867Gicibxqvv Result EncounterCorey Andrew DO Work Phone: noms External Department UnsolicitedStart: 03-12-2024 End: 57-41-3038Glxqquyci Result EncounterCorey Andrew DO Work Phone: noms External Department UnsolicitedStart: 03-12-2024 End: 46-79-2867Qzgvrgnuk Result EncounterCorey Andrew DO Work Phone: noms External Department UnsolicitedStart: 08-22-2023 End: 06-41-2147Uxsgrtpce Result EncounterAminah Fraire MD Work Phone: noms External Department UnsolicitedStart: 08-22-2023 End: 45-94-0752Abmpmcprk Result EncounterHivic Fraire MD Work Phone: noms External Department UnsolicitedStart: 08-20-2023 End: 65-07-2259Rsmcnv outpatient visit 15 minutesAminah Fraire MD Work Phone: [facility] CI ENTComment on above:Pharyngoesophageal dysphagia (Primary Dx)Start: 44-54-8088Vbbpz abstractingAminah Fraire MD Work Phone: [facility] ENT NORWALKStart: 04-24-2023 End: 61-14-1459duyoelikstCeohucfj Ball Other nort [employer] Other Start: 58-83-9947Pmbkuuuix encounterMerrill Wild CardiologyStart: 04-15-2023 End: 87-99-0623lqpyswcahbByqjjgox Rohrbacher Other nort [employer] Other Start: 47-89-1778Xzbarr outpatient visit 15 minutes Joceline RohrbacherFPG Ball Medical ClinicStart: 04-09-2023 End: 91-35-9085wlnrfoqhvwLpqfuezr Ball Other noUnidym Other Start: 22-74-6303Ddxadpfjj encounterBenjamin BallFPG [facility] Medical ClinicStart: 03-26-2023 End: 87-30-6537rvdxnufaeuUmtkntkt Ball Other noUnidym Other Start: 38-46-8347Aawwonjxq encounterBenjamin BallFPG [facility] Medical ClinicStart: 03-12-2023 End: 53-81-3888wxmqtlppwfLcuknfje Ball Other noUnidym Other Start: 78-91-1970Oewgag outpatient visit 15 minutes Merrill BallFPG [facility] Medical ClinicStart: 02-19-2023 End: 04-75-6448aciohzxjaiJnyhjrgq Ball Other noUnidym Other Start: 88-18-9516Erqaffnki encounterBenjamin BallFPG [facility] ClinicStart: 02-18-2023 End: 88-36-6823yzfijjqoyoHqgmlzuy Ball Other noUnidym Other Start: 44-15-8817Mpmtdcvvi encounterBenjamin BallFPG [facility] Medical ClinicStart: 01-27-2023 End: 98-94-8927iouefbdyfwAthqhhsi Ball Other noUnidym Other Start: 70-52-6605Emnjiinsz encounterBenjamin BallFPG [facility] ClinicStart: 01-23-2023 End: 69-88-6230zvmrpjuchiEkecrkbi Ball Other noUnidym Other Start: 68-22-4174Hkyzzqzvo for general adult medical examination without abnormal findingsBegertrude Singh Medical ClinicStart: 73-33-8606Kxonahhz preventive med est patient 18-39 yrsBegertrude Singh Medical ClinicStart: 01-01-2023 End: 65-72-8070bfxfewhenqLymuhhbe Ball Other Branch Other Start: 70-93-8879Dwjplcyfm encounterBegertrude Singh Medical ClinicStart: 11-06-2022 End: 64-46-2654mbgbbmetutRtmqmcyb Ball Other Branch Other Start: 36-15-3412Ycmotl outpatient visit 15 minutes Merrill Singh Medical ClinicStart: 88-57-4045Miparmskolmni examination normalMerrill Singh Other noUnidym Other Start: 06-11-2022 End: 33-99-0521aefdtgevzwNE MERRILL BALLFacility:U5Pdniy: 01-22-2022 End: 56-90-6881yvvwffehxpDA YOSEPH FAZIOFacility:T5Zmpot: 34-99-9608Kneae health examinationMerrill Singh Other noUnidym Other Start: 01-22-2022 End: 30-52-1454gdkikisnjjTE MERRILL BALLFacility:U6Haxgl: 89-69-7677Cetcxklkg for general adult medical examination without abnormal findingsDR MERRILL SINGH [facility] Hospitaltart: 10-26-2021 End: 33-63-8669lpfcpreppvSW MERRILL BALLFacility:A6Igozb: 10-26-2021 End: 43-17-9441Lvygprput for general adult medical examination without abnormal findingsDR MERRILL BALLFacility:B3Jodpo: 07-27-2021 End: 81-08-1776hvqhjrujkjAX MERRILL BALLFacility:L2Nvrhk: 23-47-4390Xsw- procedure evaluation checkMerrill Singh Other Nort [employer] Other Procedures DateProcedureProcedure DetailPerforming ClinicianStart: 99-03-1400PQ TOMOSYNTHESIS DIAGNOSTIC BICorey Andrew DO Work Phone: Start: 33-87-8243WN BREAST LT LIMITEDCorey Andrew DO Work Phone: Start: 26-33-3527YlnnfpkrykfLcptnw Timmis MD Work Phone: Start: 38-85-6034OEL T3 FREECorey Andrew DO Work Phone: Start: 63-23-0351HRZ THYROID STIM HORMONECorey Andrew DO Work Phone: Start: 48-38-5639IBJ,APTIMA HPV,AGE GDLNCorey Andrew DO Work Phone: Start: 65-62-6421VIOWXG BLOOD*Yoseph Andrew DO Work Phone: Start: 30-75-6524UUV CBC WITH AUTO DIFFCorey Andrew DO Work Phone: Start: 60-80-1813MI videography Hypopharynx and Esophagus Views for swallowing function W speech and W barium contrast POAminah Fraire MD Work Phone: Start: 73-10-7002FJ CINERADIOGRAPHYHivic Fraire MD Work Phone: Start: 58-00-8180txmkpetdbymg D&C with NovaSure ablationMayra Brannon Cesarean sectionMayra Brannon CholecystectomyMayra Brannon Diabetes mellitus screeningBegertrude Singh Other End: 16-83-6867FewdaouabndyPcjgmkva Ball Other Laser assisted in situ keratomileusisElizabeth Clovis Ligation of fallopian tubeElizabeth Clovis Reconstruction of noseElizabeth Clovis Plan of Treatment DateCare ActivityDetailAuthorStart: 44-63-7838Xzmipqzbo for malignant neoplasm of breastMammogramNOMS HealthcareStart: 69-83-2213SbibomteoElyria Memorial Hospitaltart: 71-77-0337Brzrtjpgb vaccinationInfluenza Vaccine (#1)[facility] HealthcareStart: 20-59-7286Msadclq referralMercy Health Fairfield Hospital Work Phone: Start: 01-18-2025 End: 27-01-5458Cckaopc encounter tvtsolebf67/08/2025 8:00 AM EDT Office Visit [facility] [address] [facility] [address] [place] [address] Aminah Fraire MD [address] [facility] [address] [place] [address] ArrivedNOMS CI ENTComment on above:ArrivedStart: 03-29-2024 End: 50-61-9342Qurkach encounter greocpqpx92/16/2024 2:00 PM EDT Office Visit [facility] [address] [place] [address] Yoseph Morales, DO [address] [place] [address] [facility] BCP OBStart: 34-45-6624Mdhdprsjr vaccination Influenza Vaccine (#1)[facility] HealthcareStart: 08-20-2023 End: 51-66-3861Midolmp encounter pzgrqjyvi21/07/2024 2:20 PM EST Office Visit [facility] [address] [facility] [address] [place] [address] Aminah Fraire MD [address] [facility] [address] [place] [address] [facility] CI ENTStart: 69-82-2829Yajmlepbt vaccination Influenza Vaccine (#1)[facility] HealthcareStart: 86-60-9114Bmdqmoabj for malignant neoplasm of cervixMOUNTAIN VIEW HOSPITAL HealthcareStart: 63-29-0207Tryhaxmmp for malignant neoplasm of cervixPap SmearNOND HealthcareCytology Cervical or vaginal smear or scraping studyPap Smear Pathology and Cytology Routine Well woman exam with routine gynecological exam Ordered: 03/29/2024[facility] Work Phone: comment on above:Ordered: 03/29/2024HEA-sulfateDHEA- sulfate Lab Routine Symptomatic menopausal or female climacteric states Ordered: 03/29/2024[facility] HealthcareComment on above:Ordered: 03/29/2024Human papilloma virus DNA [Presence] in Unspecified specimen by Probe with amplificationHPV DNA probe, amplified Microbiology Routine Well woman exam with routine gynecological exam Ordered: 03/29/2024[facility] HealthcareComment on above:Ordered: 03/29/2024 Patient EducationEsophageal stricture Know your [facility] Work Phone: Patient [facility] Work Phone: TESTOSTERONE, FREETESTOSTERONE, FREE Lab Routine Symptomatic menopausal or female climacteric states Ordered: 03/29/2024[facility] HealthcareComment on above:Ordered: 03/29/2024Testosterone, free, total Testosterone, free, total Lab Routine Symptomatic menopausal or female climacteric states Ordered: 03/29/2024[facility] HealthcareComment on above:Ordered: 03/29/2024 Immunizations Immunization DateImmunizationNotesCare DnlwpqhaDbwlbibq06-94-2855ygdbqsasr virus vaccine, unspecified formulationMayra Brannon [phone]-ZsleoCoshocton Regional Medical Center Stgf32-34-8388 Moderna SARS-CoV-2 VaccinationAminah Fraire MD Work Phone: [facility] HospitalKdglqgcvtk15-93-0100HPKSG-48 Vaccine Moderna - Documentation Purposes OnlyBenconnie Singh Other [facility]01-28-2021Moderna SARS-CoV-2 VaccinationAminah Fraire MD Work Phone: [facility] HospitalFfxfkfvnjb20-22-8238Dnfevns SARS-CoV-2 VaccinationAminah Fraire MD Work Phone: [facility] HospitalIhovbxtqxb73-33-1670ktyoercda virus vaccine, unspecified formulationAminah Fraire MD Work Phone: [phone]-SihkdPromedica Defiance [facility] Hospital03-02-2016 hepatitis A and hepatitis B vaccineAminah Fraire MD Work Phone: [facility] HospitalVcrwshsjqe30-72-0612gmdiixlgj B vaccine, pediatric or pediatric/adolescent dosageHivic Fraire MD Work Phone: [facility] HospitalWynqopgvce36-48-3528ifkbnhlqh B vaccine, pediatric or pediatric/adolescent dosageHivic Fraire MD Work Phone: [facility] Payers DatePayer CategoryPayerPolicy ID2025Self-[id number] Member Subscriber Plan / Payer (Effective 2023-) Name: Adrián Joceline Member ID: [id number] Relation to Subscriber: Self Name: Francine Sampsonnifer Subscriber ID: [id number] Payer ID: Not on file Type: Not on file Address: [address] [phone] [id number] [facility] [id number] 2023-Present [phone] [address] [place] [phone] [id number] Private Health [id number] [id number] 2.16.840.1.298735.3.57[id number] 2.16.840.1.435499.3.57[id number] 2.16.840.1.523541.3.57[id number] 2.16.840.1.800520.3.57[id number] 2.16.840.1.486965.3.579.[id number] 2.16.840.1.896700.3.57[id number] 2.16.840.1.230270.3.57[id number] 2.16.840.1.982813.3.57[id number] 2.840.1.325200.3.57[id number] 2.840.1.177673.3.579.2.531 Social History DateTypeDetailFacilityStart: 03-26-2023 End: 04-53-2222Iwr [facility]igned At [facility] HealthcareStart: 02-21-2023 End: 85-51-1272Bbjexhd smoking status NHISEx-smokerMOUNTAIN VIEW HOSPITAL HealthcareStart: 11-16-2011 End: 82-55-6084Thrpowl of tobacco useCurrent smokerNOMS HealthcareStart: 11-16-2011 End: 78-25-7506Uusogez of tobacco useCigarette SmokerNOMS HealthcareStart: 02-21-2023 End: 57-81-4598Xpgkpucthd smoked current (pack per day) - Qfipxnqu9SHUD HealthcareStart: 02-21-2023 End: 11-52-6969Jpiqkvn use and exposureSmokeless tobacco non-userNOMS Healthcare Start: 08-20-2023 End: 15-66-5948Osgmrnt intakeCurrent drinker of alcohol (finding)[facility] Start: 22-95-3681Qrx Assigned At BirthFemalShriners Hospitals for Children HealthcareStart: 07-10-2023 Gender identityIdentifies as female gender (finding)[facility] HealthcareHow often to you have a drink containing alcohol?2-3 time sa weekNOMS HealthcareHow many standard drinks containing alcohol do you have on a typical day?1 or 2NOMS HealthcareHow often do you have 6 or more drinks on 1 occasion?NeverNOMS HealthcareStart: 45-98-5865Wtybnvd smoking status NHISSmokes tobacco dailyNOMS HealthcareStart: 06-69-0727Rnlbftn smoking statusNePike Community Hospital Convenient CareSexual [facility] Start: 85-21-5701MasMrhxqk (finding)[facility] Hospitaltart: 82-50-8621Xkpedwo smoking status NHISNever smoked tobacco (finding)[facility] Clinical Notes 11-06-2022 to 02-28-2025 Note Date & FwtjFvpaKsnyrgzk28-41-8672 Evaluation note* Diagnosis Onset Date Resolution Status Admit Date Dysphagia acuteAugust 2024 2:56pmSchatzki's ringacuteAugust 2024 2:56pm [facility] Work Phone: 1(790) 584-308808-18-2025 Evaluation note* Diagnosis Onset Date Resolution Status Admit Date Schatzki's ring acuteAugust 2024 2:56pmDysphagiadeletedAugust 2024 2:56pm Eosinophilic esophagitisacuteOct2024 3:07pmNicotine addictionacute April 25, 2025 3:07pmScreening mammogram for breast canceracuteOct2024 3:07pmStricture of distal esophagusacuteOct2024 3:07pmWellness examinationacuteOct2024 3:07pm [facility] Work Phone: [phone]) 578-427808-18-2025 Hospital Discharge instructionsAmbulatory Orders* Referral to Gastroenterology Time Frame: 02/28/25, Location: None Selected [facility] Work Phone: [phone]) 347-253707-08-2025 History of Present illness Narrative* Aminah Fraire MD - 01/18/2025 8:00 AM EDT [...] of right ear 01/18/2025 Hypokalemia 01/18/2025 Twin ([facility]) 01/18/2025 Resolved Ambulatory Problems Diagnosis Date Noted Acquired absence of both cervix and uterus 02/13/2023 Breast pain in female 02/13/2023 Past Medical History: Diagnosis Date Allergic rhinitis Allergies Asthma ([facility]) Ear problems Fracture of nasal bones Headache Migraine headache TMJ dysfunction Past Surgical History: Procedure Laterality Date SECTION, CLASSIC 2009 CHOLECYSTECTOMY 2007 EGD 10/05/2020 LASIK 2013 OOPHORECTOMY 12/02/2019 RHINOPLASTY 2000 SINUS SURGERY 03/18/2023 [facility], Dr. Fraire TOTAL ABDOMINAL HYSTERECTOMY W/ BILATERAL [...] limited response so far. documented in this encounterChildren's Mercy HospitalXqpkvubkfe81-90-9361 Hospital Discharge instructions Patient Education 01/16/2025 11:41:27 [...] pain. Follow these instructions at home: Take iyqs-lfm-sgnaaak and prescription medicines only as told by [...] provider. Document Revised: 10/08/2021 Document Reviewed: 10/08/2021 [employer] Patient Education 2023 [employer] 01/16/2025 11:41:22 Otitis Externa, Ygyy-hy-Vrib Otitis Externa Otitis externa is an infection [...] if you start to feel better. Take soqu-nzk-sybmwcd and prescription medicines only as told by [...] provider. Document Revised: 09/12/2021 Document Reviewed: 09/12/2021 Elsevier Patient Education 2023 [employer]. Follow Up Care 01/16/2025 09:39:18 With:TAYE DIXON MD, FAM Address: [address] [place] [address] When: Unknown [facility] 07-06-2025 NotePatient Education ENT Otitis [...] Follow these instructions at home: ??? Take zooy-oad-whlgjbt and prescription medicines only as told by [...] provider. Document Revised: 10/08/2021 Document Reviewed: 10/08/2021 [employer] Patient Education ? 2023 [employer]. Infectious Disease Otitis Externa Otitis externa is [...] the ear (more content not included)...[facility]07-03-2025 Hospital Discharge instructions Patient Education 01/13/2025 16:34:40 [...] if you start to feel better. Take qhpq-jam-mtjmhcc and prescription medicines only as told by [...] provider. Document Revised: 09/12/2021 Document Reviewed: 09/12/2021 [employer] Patient Education 2023 [employer]. Follow Up Care 01/13/2025 16:12:18 With:TAYE DIXON MD, FAM Address: [address] [place] [phone] When: Unknown [facility] 07-03-2025 NotePatient Education Infectious Disease [...] you start to feel better. ??? Take gtrz-yrt-qifqllo and prescription medicines only as told by [...] provider. Document Revised: 09/12/2021 Document Reviewed: 09/12/2021 [employer] Patient Education ? 2023 [employer].[facility] 03-29-2024 History of Present illness Narrative* Kenya Coyle LPN - 03/29/2024 2:00 PM EDT Reason for [...] Active Ambulatory Problems Diagnosis Date Noted Hypertension ([facility]) 02/13/2023 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 Dysphagia 02/13/2023 Depression ([facility]) 02/13/2023 Schatzki's ring 02/13/2023 MICHELE (generalized anxiety disorder) ([facility]) 02/13/2023 Resolved Ambulatory Problems Diagnosis Date Noted Acquired absence of both cervix and uterus 02/13/2023 Breast pain in female 02/13/2023 Past Medical History: Diagnosis Date Allergic rhinitis Allergies Asthma ([facility]) Ear problems Fracture of nasal bones Headache Migraine headache ([facility]) TMJ dysfunction HISTORY PAST MEDICAL HISTORY SOCIAL HISTORY Past Medical History: Diagnosis Date Acquired absence of both cervix and uterus 02/13/2023 Allergic rhinitis Allergies Asthma ([facility]) Breast pain in female 02/13/2023 Depression ([facility]) Ear problems Fracture of nasal bones Headache Hypertension ([facility]) Migraine headache ([facility]) TMJ dysfunction Social History Tobacco Use Smoking [...] OOPHORECTOMY 12/02/2019 RHINOPLASTY 2000 SINUS SURGERY 03/18/2023 [facility], Dr. Fraire TOTAL ABDOMINAL HYSTERECTOMY W/ BILATERAL [...] nursing note reviewed. Exam conducted with a blocker hand present. Vitals: Estimated body mass index is [...] libido and will have prescription sent to [facility] for Testosterone/Estrogen prescription. Orders Placed This Encounter Procedures HPV DNA probe, amplified Follow Up: Patient is to return in one year for annual unless needed otherwise. Documented by Kenya Coyle LPN on behalf of: Yoseph Morales DO documented in this encounterChildren's Mercy HospitalKazweragrg07-56-2119 History of Present illness Narrative* Aminah Fraire MD - 08/20/2023 2:20 PM EST [...] Active Ambulatory Problems Diagnosis Date Noted Hypertension ([facility]) 02/13/2023 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 Dysphagia 02/13/2023 Depression ([facility]) 02/13/2023 Schatzki's ring 02/13/2023 MICHELE (generalized anxiety disorder) ([facility]) 02/13/2023 Resolved Ambulatory Problems Diagnosis Date [...] OOPHORECTOMY 12/02/2019 RHINOPLASTY 2000 SINUS SURGERY 03/18/2023 [facility], Dr. Fraire TOTAL ABDOMINAL HYSTERECTOMY W/ BILATERAL [...] Zenkers. Bariumesophagram and f/u documented in this encounterChildren's Mercy HospitalCuxyvjdrob07-33-5668 Evaluation note* Encounter Date Diagnosis Assessment Notes Treatment Notes Treatment Clinical Notes Apr, Seborrheic dermatitis of scalp ( ICD-10 - L21.9) Discussed further treatment, discussed oral [...] improvement and will place referral to Dermatology. Apr,rimary hypertension (ICD-10 - I10)Blood pressure elevated, will adjust medication, start to take 2 of the 5mg tablets and continue tomonitor blood pressure and call the office with update on numbers. Branch Other 09-27-2023 Evaluation note* Encounter Date Diagnosis Assessment Notes Treatment Notes Treatment Clinical Notes Mar, Seborrheic dermatitis of scalp ( ICD-10 - L21.9) Branch Other 08-30-2023 Evaluation note* Encounter Date Diagnosis Assessment Notes Treatment Notes Treatment Clinical Notes Feb, Seborrheic dermatitis of scalp ( ICD-10 - L21.9) Instructed on use of topical steroids Ketoconazole shmp twice weekly x 8 wks that as needed Feb,ellulitis of head except face (ICD-10 - L03.811)Cleanse w soap and water. Hold on antibiotics at this time and treat underlying skin condition Branch Other 08-08-2023 Evaluation note* Encounter Date Diagnosis Assessment Notes Treatment Notes Treatment Clinical Notes Feb, Open wound of scalp, unspecified open wound type, initial encounter (ICD-10 - S01.00XA) Branch Other 07-13-2023 Evaluation note* Encounter Date Diagnosis Assessment Notes Treatment Notes Treatment Clinical Notes Jan, Wellness examination (ICD-10 - Z 00.00) Healthy diet and exercise. Reviewed age-appropriate preventive testing recommended. Jan,Esophageal dysphagia (ICD-10 - R13.19)Diet instructions, drink water between bites of food, PPI and refer to GI Jan,Lower esophageal ring (Schatzki) (ICD-10 - K22.2)Diet instructions, mechanical soft diet, water between swallows. 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 They are also encouraged to continue exercise to achieve/maintain a normal BMI. Jan,AD (generalized anxiety disorder) (ICD-10 - F41.1) Jan,Overweight (ICD-10 - E66.3)This patient has been instructed on a low-fat, high-fiber diet. They are instructed to reduce calories, portion sizes and snacks. It is recommended that they exercise for 30 minutes, 3-5 times weekly. Jan,igarette nicotine dependence in remission (ICD-10 - F17.211) Continue abstinence Branch Other 04-26-2023 Evaluation note* Encounter Date Diagnosis Assessment Notes Treatment Notes Treatment Clinical Notes Oct, Acute actinic otitis externa of right ear (ICD-10 - H60.511) Keep clean and dry, avoid use of QTips Oct,Seasonal allergic rhinitis due to pollen (ICD-10 - J30.1)Angelica and Flonase recommended as needed Branch Other Evaluation + Plan note No data available for this section [facility] Evaluation noteNo InformationNort CyberSponse Other Evaluation note* Diagnosis Pharyngoesophageal dysphagia- Primary [...] Onset Date Resolution Status Admit Date Dysphagia acuteAugust 2024 2:56pmSchatzki's ringacuteAugust 2024 2:56pm [facility] Work Phone: History general Narrative - Reported* Type Description Date Medical History Vaginal discharge Medical HistoryYeast infectionMedical HistoryAdverse reaction to antibiotic Medical HistoryEssential hypertensionMedical HistoryHypertrophy of nasal turbinatesMedical HistoryEncounter for screening examination for sexually transmitted diseaseMedical HistoryNicotine dependence, cigarettes, uncomplicated Medical HistoryDysphagia, pharyngoesophagealMedical HistoryFatigueMedical HistoryDepressionMedical HistoryEncounter for well woman examMedical History Hormone imbalanceMedical HistoryBreast lump on left side at 1 o'clock position Medical HistoryPossible exposure to STDMedical HistoryChronic nonseasonal allergic rhinitis due to pollenMedical HistoryUnspecified Eustachian salpingitis, right earMedical HistorySchatzki's ringMedical HistoryGAD (generalized anxiety disorder)Surgical HistoryEG1Surgical History oophorectomy12/02/2019Surgical EwsgbaoVlyvyoevivf9051Geshqpbf HistoryTAH/LSO (Hysterectomy)05/2016Surgical HistoryC hsfmqvz0614Qvqsfqbw EtfuinsWmygh5179 Surgical HlogzjqQulouhpokamsbgn5085Ehsajkda HistoryEssure Mfsbinvlw8099Bfphnmwg HistoryDilation and Currettage of Lakjfi1833Cpgqsawf HistoryLaparoscopy with L ovarian cyst omxttyi6274 Branch Other History general Narrative - Reported* Type Description Date Medical History Vaginal discharge Medical HistoryYeast infectionMedical HistoryAdverse reaction to antibiotic Medical HistoryEssential hypertensionMedical HistoryHypertrophy of nasal turbinatesMedical HistoryEncounter for screening examination for sexually transmitted diseaseMedical HistoryNicotine dependence, cigarettes, uncomplicated Medical HistoryDysphagia, pharyngoesophagealMedical HistoryFatigueMedical HistoryDepressionMedical HistoryEncounter for well woman examMedical History Hormone imbalanceMedical HistoryBreast lump on left side at 1 o'clock position Medical HistoryPossible exposure to STDMedical HistoryChronic nonseasonal allergic rhinitis due to pollenMedical HistoryUnspecified Eustachian salpingitis, right earMedical HistorySchatzki's ringMedical HistoryGAD (generalized anxiety disorder)Surgical HistoryEG10/05/2020urgical History oophorectomy12/02/2019Surgical CqotyqfFsrhrpsjovf8706Azzkvaiw HistoryTAH/LSO (Hysterectomy)05/2016Surgical HistoryC svxuftv8574Lnppouum BpvemtvZlgnt0353 Surgical VshlhtlJuhixmnpspafsqp9645Pkplhogg HistoryEssure Alnsmozxx9438Lorrhjvo HistoryDilation and Currettage of Agfeww9086Gzyycvdw HistoryLaparoscopy with L ovarian cyst vzsxzeq8251Sgezflciysfpxcz Historysee surgical history Branch Other History general Narrative - Reported* Type Description Date Medical History Vaginal discharge Medical HistoryYeast infectionMedical HistoryAdverse reaction to antibiotic Medical HistoryEssential hypertensionMedical HistoryHypertrophy of nasal turbinatesMedical HistoryEncounter for screening examination for sexually transmitted diseaseMedical HistoryNicotine dependence, cigarettes, uncomplicated Medical HistoryDysphagia, pharyngoesophagealMedical HistoryFatigueMedical HistoryDepressionMedical HistoryEncounter for well woman examMedical History Hormone imbalanceMedical HistoryBreast lump on left side at 1 o'clock position Medical HistoryPossible exposure to STDMedical HistoryChronic nonseasonal allergic rhinitis due to pollenMedical HistoryUnspecified Eustachian salpingitis, right earMedical HistorySchatzki's ringMedical HistoryGAD (generalized anxiety disorder)Surgical HistoryEG10/05/2020urgical History oophorectomy12/02/2019Surgical LfjepxhCqynoayzzuq7658Bogwwiaj HistoryTAH/LSO (Hysterectomy)05/2016Surgical HistoryC xoplkck9111Rcsbrzei RhblygsMnxxo3122 Surgical BoyqwcbUamguuritwkhmde5122Apgtojyu HistoryEssure Cmhfnoftp3485Ctvfaytx HistoryDilation and Currettage of Dqxtvl0270Fnxulpxk HistoryLaparoscopy with L ovarian cyst aovtdeg8007Crhdxuqx HistoryRight Inferior Turbinate Resection03/2023 Hospitalization Historysee surgical history Branch Other History general Narrative - Reported* Type Description Date Medical History Vaginal discharge Medical HistoryYeast infectionMedical HistoryAdverse reaction to antibiotic Medical HistoryEssential hypertensionMedical HistoryHypertrophy of nasal turbinatesMedical HistoryEncounter for screening examination for sexually transmitted diseaseMedical HistoryNicotine dependence, cigarettes, uncomplicated Medical HistoryDysphagia, pharyngoesophagealMedical HistoryFatigueMedical HistoryDepressionMedical HistoryEncounter for well woman examMedical History Hormone imbalanceMedical HistoryBreast lump on left side at 1 o'clock position Medical HistoryPossible exposure to STDMedical HistoryChronic nonseasonal allergic rhinitis due to pollenMedical HistoryUnspecified Eustachian salpingitis, right earMedical HistorySchatzki's ringMedical HistoryGAD (generalized anxiety disorder)Medical HistoryHx of Yeast InfectionsMedical HistoryHx of AllergiesMedical HistoryAthletic induced asthmaMedical HistoryHx of post preeclampsiaSurgical HistoryEGD3urgical History oophorectomy12/02/2019Surgical QovhfxnBaastxueioa1747Mhrobpzy HistoryTAH/LSO (Hysterectomy)05/2016Surgical HistoryC bhayiss6425Mcfqxcuh InlufyiVilol2585 Surgical CvcpqfeOotojsozhogkano7781Ktwohqlx HistoryEssure Taytjphtw5567Paknsfry HistoryDilation and Currettage of Tmtylb9639Utinqygr HistoryLaparoscopy with L ovarian cyst buzokeu5399Vqvanaer HistoryRight Inferior Turbinate Resection03/2023 Hospitalization Historysee surgical history Branch Other Hospital Discharge instructions Additional Instructions DISCHARGE [...] problems. -Follow up with PCP. -Office number [phone]. [facility] Work Phone: Progress note No data available for this section [facility] Reason for referral (narrative)No reason for referral information availableMercy Health Fairfield Hospital Work Phone: Summary Purpose Family History Relationship Condition Age at Onset Recorded Date/T marcelina mother Diabetes mellitus Unknown Malignant neoplasmUnknown Advance Directives Advance Directive Response Recorded Date/ Time Advance Directives No March 12, 2024 6:56am Advance Directive Response Recorded Date/ Time Advance Directives No March 04, 2025 8:43am Reason for Referral Reason Joceline is being re ferred for chronic right sided nasal obstruction Diagnosis 1 Refractory obstructi on of nasal airway (J34.89) Referral Organization [facility] gladys Referring Provider First Name Merrill Referring Provider Last Name Francisco Referring Provider Specialty Internal Me dicine Referred Organization Unknown Facility Referred Provider Aminah Fraire Referred Provider Specialty Ear, Nose an [...] (R13.19) Diagnosis 2 Lower esophageal rin g ([place]) (K22.2) Referral Organization [facility] gladys Referring Provider First Name Merrill Referring Provider Last Name Francisco Referring Provider Specialty Internal Md dicine Referred Organization [facility] Referred Provider Daniel Quiroz Referred Address [address] [place], [place] [address], [place],[address] Referred Provider Specialty Gastroentero logy Referral Priority [...] 2025 2:56pm dysphagia, esophageal obstruction 2024 11:20am Chief Complaint Admit Date difficulty swallowing February 28, 2025 2:56pm dysphagia, esophageal obstruction Marem 2024 11:20am [facility] April 25, 2025 3 :07pm Reason for Visit Admit Date Schatzki's ring February 28, 2025 2: 56pm Dysphagia February 28, 2025 2: 56pm Eosinophilic esophagitis April 25, 2 025 3:07pm Nicotine addiction April 25, 2025 3 :07pm Screening mammogram for breast cancer Oc tober 2024 3:07pm Stricture of distal esophagus April 252024 3:07pm Wellness examination April 25, 2025 3:07pm Additional Source Comments INFORMATION SOURCE (unrecogn ized section and content) DATE CREATED AUTHOR 06/15/2022 [facility] DATE CREATED AUTHOR AUTHOR'S ORGANIZ ATION 01/19/2025 [facility] DATE CREATED AUTHOR AUTHOR'S ORGANIZ ATION 01/22/2025 [facility] DATE CREATED AUTHOR AUTHOR'S ORGANIZ ATION 03/26/2025 [facility] REASON FOR VISIT (unrecogniz ed section and content) ReasonCommentsDysphagiaReasonCommentsWell Women VisitReasonCommentsEar Problem Swollen ear canal right side Care Teams (unrecognized sec tion and content) Team MemberRelationshipSpecialtyStart DateEnd Date Merrill Singh MD [address] [place] [phone] PCP - GeneralInternal Medicine02/21/23Team MemberRelationshipSpecialtyStart Date End Date Merrill Singh MD [address] [phone] PCP - GeneralInternal Medicine02/21/23Team MemberRelationshipSpecialtyStart Date End Date Merrill Singh MD [address] [place] [phone] PCP - GeneralInternal Medicine02/21/23Team MemberRelationshipSpecialtyStart Date End Date Merrill Singh MD [address] [place] [phone] PCP - GeneralInternal Medicine02/21/23Team MemberRelationshipSpecialtyStart Date End Date Merrill Singh MD [address] [place] [facility] [address] PCP - GeneralInternal Medicine02/21/23Team MemberRelationshipSpecialtyStart Date End Date Merrill Singh MD [address] [place] [facility] [address] PCP - GeneralInternal Medicine02/21/23Team MemberRelationshipSpecialtyStart Date End Date Merrill Singh MD [address] [place] [facility] [place] [address] PCP - GeneralInternal Medicine02/21/23Team MemberRelationshipSpecialtyStart Date End Date Merrill Singh DO [address] [place] [facility] [place] [phone] PCP - GeneralInternal Medicine01/17/25Team MemberRelationshipSpecialtyStart Date End Date Merrill Singh DO [address] [place] [facility] [address] PCP - GeneralInternal Medicine01/17/25 Team Status: Active Member Role Status Dates Merrill Singh DO Primary Care Provider Active Team Status: Inactive Member Role Status Dates Joceline Henry APRN HAIRSPRING STUDDER-C Attending Provider Act tha Start: February 28, 2025 End: February 28Vandana Lala Care ProviderActiveStart: February 28, 2025 End: February 28, 2025 Team Status: Active Member Role Status Dates Merrill Singh DO Primary Care Provider Active Start: March 21, 2025 Kadi Dias Ly , DOAttending ProviderActiveStart: March 21, 2025 Kadi Arun Ly , DOOther ProviderActiveStart: March 21, 2025 Team Status: Active Member Role Status Dates Merrill Singh DO Primary Care Provider Active Start: April 22, 2025 Merrill Singh DOAttelva ProviderActiveStart: April 22, 2025 Team Status: Inactive Member Role Status Dates Merrill Singh DO Primary Care Provider Active Start: April 25, 2025 End: April 25ennandiniMaynor Morales ProviderActiveStart: April 25, 2025 End: April 25, 2025Team MemberRelationshipSpecialtyStart DateEnd Date Merrill Singh PCP - GeneralInternal Medicine Merrill Singh [address] [place] [address] PCP - GeneralInternal Medicine01/17/25Team MemberRelationshipSpecialtyStart Date End Date Merrill Singh PCP - GeneralInternal Medicine Merrill Singh [address] [place] [address] [facility] - [facility] Goals (unrecognized section and content) Goals may [...] BE BASED ON THE PRIMARY CLINICAL RECORDS. [facility]. provides no warranty or guarantee of the accuracy or completeness of information in this document.
[2025-06-07 11:04] LABS: TSH W/ REFLEX FT4 2.408 uIU/mL (0.358-3.740)
== END 2025-06-07 09:17 | disposition home or self-care (01) ==
LOC: LAB 09:17
PROVIDERS: PCP Internal Medicine; Visit Provider Internal Medicine
DX: R79.89 Other specified abnormal findings of blood chemistry (principal)
CPT/HCPCS: 36415; 84443; 86376

== ENCOUNTER 2025-06-13 15:58 | Emergency (ER) | payer BC, OTHER, SELFPAY ==
[2025-06-13] VITALS (13 sets, daily range): BP systolic 150–154; BP diastolic 95–99; PULSE 73–93; TEMP 36.6; O2SAT 94–98; BMI 28.2
--- NOTE | 2025-06-13 16:15 | ECG_ITS ---
[facility] Test Date: 2025-06-13 Pat Name: MUNA SAMPSON Department: Room: - Gender: Female Senior Logistics Manager: : 1985 Requested By: CUAUHTEMOC SINGH Order Number: [id number] Reading MD: SAURAV TOLENTINO M.D. Measurements Intervals [place] Rate: 78 P: 48 MI: 142 QRS: 57 QRSD: 90 T: 41 QT: 392 QTc: 425 Interpretive Statements 1100 Sinus rhythm 1102 Sinus arrhythmia 9110 normal ECG Compared to ECG 03/07/2023 14:29:22 No significant changes Electronically Signed On 06-13-2025 22:32:53 EST by SAURAV TOLENTINO M.D.
--- NOTE | 2025-06-13 16:16 | XR_ITS ---
The [place] [id number] Patient Name: MUNA SAMPSON MRN: [id number] date: 1985 Sex: F Assigned Patient Location: ED.MAIN Current Patient Location: ED.MAIN Accession/Order Number: [id number] Exam Date: 06/13/2025 16:23 Report Date: 06/13/2025 17:15 At the request of: TOBY THURMAN MD Procedure: XR chest 1V PA CHEST: CLINICAL HISTORY: cp COMPARISON: None The heart is normal in size. The lungs are clear. The pulmonary vasculature is normal. Calcified granulomatous changes changes noted. Otherwise, the Mediastinum and hilar regions are unremarkable. No pleural effusions are seen. Visualized bones are intact. XR/XR chest 1V IMPRESSION: Negative for acute pleural-parenchymal disease. Impression dictated by: Acosta Garcia M.D. 06/13/2025 5:15 PM Dictation Location: [place] [address] Electronically authenticated by: [id number] Y Date: 06/13/2025 17:15
--- OUTSIDE RECORDS SUMMARY | 2025-06-13 16:21 | XMS_ITS | Clinical Summary ---
Author Organization [facility] Address [address] [place] [address] Care Team Providers Care Vice President Of Procurement Name Role Phone Unavailable Primary Care Provider Unavailabl e Social History Tobacco UseTypesPacks/DayYears UsedDateSmoking Tobacco: Never Assessed CommentsUnknownSex and Gender InformationValueDate RecordedSex Assigned at Not on fileLegal FjzYzeshn91/30/2022 12:25 AM EDTGender IdentityNot on file Sexual OrientationNot on file Plan of Treatment Not on file
--- OUTSIDE RECORDS SUMMARY | 2025-06-13 16:22 | XMS_ITS | Clinical Summary ---
Author Organization [facility] Address [address] [place] [address] Care Team Providers Care Kitchen Operator Name Role Phone Merrill Talbert Primary Care Provider [phone] Allergies Active AllergyReactionsCriticalityNoted DateCommentsCephalexinGI bleeding 02/13/2023 Other Reaction(s): Unknown MorphineGI bapnrxhfglc99/03/2023 Medications MedicationSigDispense QuantityRefillsLast FilledStart DateEnd DateStatus amLODIPine [...] DateDiagnosed DateAcute otitis externa of right ear01/18/2025 Towmgnljzge86/08/2025Twin ([facility])01/18/2025Decreased libido 03/29/2024Mood neilmds4103/29/2024Hot flashes due to surgical zoulequeg62/16/2024 Qomhqhfcangw05/03/2023Nasal cavity mass02/13/20233575Ndeoijwyc05/03/2023epression 02/13/2023Schatzki's ring02/13/2023AD (generalized anxiety disorder)02/13/2023 Resolved Problems ProblemNoted DateDiagnosed DateResolved DateAcquired absence of both cervix and izdsgy75reast pain in lexmpt46 Encounters DateTypeDepartmentCare DllmGamqhzbqyvu65/17/2025Refill [facility] [address] [place] [address] Kortney Gill MA Hot flashes due to surgical menopause; Mood eoximka5905/29/2025[facility]ill [facility] [address] [place] [address] Yoseph Morales DO Hot flashes due to surgical menopause; Mood changesfrom Last 3 Months Immunizations ImmunizationAdministration DatesNext DueHep A / Hep B009/13/2015Hep B, Adolescent or Vauwsxskq64/18/2015,02/28/2015Moderna SARS-CoV-2 Khlgepbgmlg84/09/2021, 08/10/2020,07/12/2020 Family History Medical HistoryRelationNameCommentsNo Known ProblemsBrotherAsthmaChildNo Known ProblemsFatherCancerMotherTonya WilhelmDiabetesMotherTonya WilhelmHyperlipidemia MotherTonya WilhelmHypertensionMotherTonya WilhelmStrokeMotherTonya Bronson RelationNameStatusCommentsBrotherAliveChildFatherAliveMotherTonya Bronson Social History Tobacco UseTypesPacks/DayYears UsedDateSmoking Tobacco: AqhqsaQazzajsmye80 Smokeless Tobacco: Never Tobacco Cessation:Counseling Given: Not [...] Sex and Gender InformationValueDate RecordedSex Assigned at BirthF[facility]yu [facility] 07/10/2023 9:44 AM ESTLegal VqcDnlndl66/15/2023 7:06 PM EDTGender IdentityFemale 07/10/2023 9:44 AM ESTSexual OrientationNot on file Last Filed Vital Signs Vital SignReadingTime TakenCommentsBlood Jjbltlxk815/8607 7:55 AM EDT Qpkyd650501/18/2025 7:55 AM EDTTemperature--Respiratory Rate--Oxygen Saturation-- Inhaled Oxygen Concentration--Uytamk68.1 kg (170 lb)01/18/2025 7:55 AM EDTHeight 165.1 cm (5' 5 )01/18/2025 7:55 AM EDTBody Mass Index28.2907 7:55 AM EDT Plan of Treatment Not on file Insurance Care Teams Team MemberRelationshipSpecialtyStart DateEnd Date Merrill Talbert DO [address] [place] [address] PCP - GeneralInternal Medicine01/17/25
--- OUTSIDE RECORDS SUMMARY | 2025-06-13 16:22 | XMS_ITS | Encounter Summary ---
Author Organization [facility] Address [address] [place] [address] Care Team Providers Care Sketch Maker Name Role Phone Merrill Talbert DO Primary Care Provider [phone] Reason for Visit * ReasonOnset DateCommentsMed Ocgcbc9205/30/2025 Encounter Details DateTypeDepartmentCare Team (Latest Contact Info)Diyptryhrte30/17/2025Refill [facility] [address] [place] [phone] Eunice GillNew [place], [place] [address] [place] [address] Hot flashes due to surgical menopause; Mood changes Social History Tobacco UseTypesPacks/DayYears UsedDateSmoking Tobacco: LxzwojDivjowpxmy82 Smokeless Tobacco: NeverAlcohol UseStandard Drinks/WeekCommentsYes5 (1 standard [...] 4CommentsUnknownSex and Gender InformationValueDate RecordedSex Assigned at XumscQkpygp29/28/2023 9:44 AM ESTLegal KcnNjtpqw58/15/2023 7:06 PM EDTGender UtqxfticRqucyo53/28/2023 9:44 AM ESTSexual OrientationNot on file documented as of this encounter Plan of Treatment Not on file documented as of this encounter Visit Diagnoses Diagnosis Hot flashes due to surgical menopause Mood changes Unspecified episodic mood disorder documented in this encounter Care Teams Team MemberRelationshipSpecialtyStart DateEnd Date Merrill Talbert DO [address] [place] [address] PCP - GeneralInternal Medicine01/17/25documented as of this encounter
--- OUTSIDE RECORDS SUMMARY | 2025-06-13 16:22 | XMS_ITS | Encounter Summary ---
Author Organization [facility] Address [address] [facility] [place] [address] Care Team Providers Care Section Repairer Name Role Phone Merrill Talbert Primary Care Provider [phone] Reason for Visit * ReasonCommentsMed Refill Encounter Details DateTypeDepartmentCare Team (Latest Contact Info)Igvvprpzdrm54/16/2025Refill [facility] [address] [place] [address] Yoseph Morales DO [address] [place] [id number] Hot flashes due to surgical menopause; Mood changes Social History Tobacco UseTypesPacks/DayYears UsedDateSmoking Tobacco: DjweolLxjvjwkvcy21 Smokeless Tobacco: NeverAlcohol UseStandard Drinks/WeekCommentsYes5 (1 standard [...] 4CommentsUnknownSex and Gender InformationValueDate RecordedSex Assigned at NthkxGwbope00/28/2023 9:44 AM ESTLegal TqvNwhzyr64/15/2023 7:06 PM EDTGender TqzndfmlVsfjrj02/28/2023 9:44 AM ESTSexual OrientationNot on file documented as of this encounter Plan of Treatment Not on file documented as of this encounter Visit Diagnoses Diagnosis Hot flashes due to surgical menopause Mood changes Unspecified episodic mood disorder documented in this encounter Care Teams Team MemberRelationshipSpecialtyStart DateEnd Date Merrill Talbert DO [address] [place] [address] PCP - GeneralInternal Medicine01/17/25documented as of this encounter
--- OUTSIDE RECORDS SUMMARY | 2025-06-13 16:22 | XMS_ITS | Clinical Summary ---
Author Organization [facility] Address [address] [place] [address] Care Team Providers Care Window Assembler Name Role Phone Lea Jacob MD Primary Care Provider [phone] Allergies Active AllergyReactionsCriticalityNoted LgrxIwdvwxwcCjkgfgwiqeVbbnwhj39/20/2015 Medications MedicationSigDispense QuantityRefillsLast FilledStart DateEnd DateStatus amLODIPine [...] Recorded Sex Assigned at BirthNot on fileLegal DpnTmzfmt28/15/2015 10:17 AM EDTGender IdentityNot on fileSexual OrientationNot on file Last Filed Vital Signs Vital SignReadingTime TakenCommentsBlood Pressure--Pulse--Vrkoyvzppjg28.9 ??C (96.7 ??F)11/30/2014 7:48 AM EDTRespiratory Rate--Oxygen Saturation--Inhaled Oxygen Concentration--Bcxbuj07.5 kg (151 lb)11/30/2014 7:48 AM EDTHeight--Body Mass Index-- Plan of Treatment Health MaintenanceDue DateLast DoneCommentsAnxiety Kqqckaueu41/28/2002Depression Ajcreogvf46/28/2002HIV Fppjcgbde65/28/2002Hepatitis C Krvniiytx67/28/2002 DTaP,Tdap,Td Vaccine (1 - Tdap)2003Hepatitis B Vaccine (1 of 3 - 19+ 3- dose series)2003Cervical Cancer Hxcgkqava62/28/2005HPV Vaccine (1 - 3-dose SCDM series)2011Mammogram Bgslkbsuk15/28/2024Covid-19 Vaccine (1 - 2024-26 season)2025Influenza Vaccine (#1)2025 Insurance Care Teams Team MemberRelationshipSpecialtyStart DateEnd Date Lea Jacob MD [address] [place] [address] [facility]10/26/14
--- OUTSIDE RECORDS SUMMARY | 2025-06-13 16:22 | XMS_ITS | Clinical Summary ---
Author Organization [facility] Address [id number] [address] [place] [address] Care Team Providers Care Heavy Forging Machine Operator Name Role Phone Unavailable Primary Care Provider Unavailabl e Social History Tobacco UseTypesPacks/DayYears UsedDateSmoking Tobacco: Never Assessed CommentsUnknownSex and Gender InformationValueDate RecordedSex Assigned at Not on fileLegal KvgVpbgga72/26/2022 12:00 PM EDTGender IdentityNot on file Sexual OrientationNot on file Plan of Treatment Health MaintenanceDue DateLast DoneCommentsDepression Bqxofjegf27/28/1996Tobacco Datehpmnl41/28/1996Adult BMI Lrwgbtede48/28/2002DTaP,Tdap and Td Vaccines (1 - Tdap)2003Pap Smear2005Influenza Hbdqoxc1603/14/2025 Medical Devices Not on file
[2025-06-13 16:38] LABS: Hematocrit 37.2 % (36.0-48.0); Hemoglobin 12.3 g/dL (12.0-16.0); Immature Granulocytes Abs Auto 0.02 10^3/uL (0.00-0.03); Immature Granulocytes Pct Auto 0.3 % (0.0-0.5); Lymphocytes Absolute Auto 2.0 10^3/uL (1.2-3.8); Mean Corpuscular HGB Conc 33.1 g/dL (29.9-35.2); Mean Corpuscular Hemoglobin 27.5 pg (26.7-34.0); Mean Corpuscular Volume 83.2 fL (81.0-99.0); Platelet Count 289 10^3/uL (150-450); Red Blood Count 4.47 10^6/uL (4.20-5.40); White Blood Count 7.2 10^3/uL (4.0-11.0)
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
--- OUTSIDE RECORDS SUMMARY | 2025-06-13 16:44 | XMS_ITS | CCD ---
Author Organization [facility] CliniSyoh Care Team Providers Care Platform Loader Name Role Phone DR MERRILL SINGH Primary [...] Care Provider TAYE DIXON Primary Care Physician [phone] Mayra Brannon Attending Unavailable FREDI NGUYEN Primary Care Unavailable Cisco Berry Attending Unavailable Merrill Singh DO Primary Care Provider AMINAH FRAIRE Attending Unavailable YOSEPH MORALES Attending Unavailable Joceline Henry APRN Attending Provider [phone] Merrill Singh DO Primary Care Provider [phone] Kadi Santiago DO Attending Provider Kadi Santiago DO Other Provider [phone] Kadi Santiago Attending Unavailable Kadi Santiago Admitting Unavailable Merrill Singh Primary Care Unavailable Merrill Singh DO Attending Provider Merrill Singh DO Primary Care Provider Merrill Singh DO Primary Care Provider Allergies Allergy ClassificationReported Allergen(s)Allergy TypeDate of OnsetReaction(s) Facility (4 sources)CephalexinDrug Gpkuikt08-82-9493eejsbg gums/gingivitisThe [facility]ository (4 sources)MorphineDrug Svmpzqr21-70-2080Dnllrxm ReactionThe [facility]ository (20 sources)Cephalexin; Translations: [cephalexin]Drug Mqjswvd00-13-5083BQ [facility] [employer] Work Phone: (20 sources)MorphineDrug Isavrbe27-69-8349XB [facility] [employer] Other (7 sources)Morphine Sulfate (Concentrate) *ANALGESICS - OPIOIPropensity to adverse reactionsS[facility] Hospital [employer] Other (2 sources)Allergies ReconciledPropensity to adverse reactionsSoutheast Missouri Hospital [employer] Other (7 sources)Medicinal cephalosporin and acting as antibacterial agent (FN)Drug pgeeskt65-84-5316JhmoybtEqbnu [employer] Other (2 sources)patient allergy list reviewed by nurse or physiciaPropensity to adverse mmzpfylni94-88-1890Ejvyevg:[facility] [employer] Other (2 sources)Cephalexin; Translations: [Keflex][facility] Repository (1 source)seasonal/environmental allergiesPropensity to adverse reactionsH[facility] [employer] Other (1 source)CephalexinDrug Efuqjgf96-10-9370RnsnpylhkTrihealth Repository (1 source)MorphineDrug Cnjksiz75-84-0695XxgzabusnTrihealth Repository Medications Current Medications MedicationDrug Class(es)DatesSig (Normalized)Sig (Original)amoxicillin 500 mg oral capsule (3 sources)Penicillin-class AntibacterialStart: 01-16-2025 End: 79-76-0853jzcoaiujyyt (Amoxil) 500 MG capsule Take 1,000 mg by mouth 01/16/2025 01/23/2025 Activeciprofloxacin 500 mg oral tablet (2 sources)Quinolone AntimicrobialStart: 01-18-2025 End: 18-30-8316aamv 1 tablet by mouth in the morningciprofloxacin [...] drop(s), Otic, BID, 7.5 mL, Refill(s) 0, [facility], 164, cm, 01/13/25 16:21:00 EDT, Height/Length Dosing, 78, kg, 01/13/25 16:21:00 EDT, Weight Dosing Start Date: 01/13/25 Status: Ordered Quantity: 7.5 Unit: mL Repeat number: 1citalopram 40 mg oral tablet (20 sources)Serotonin Reuptake InhibitorStart: 10-21-2021 End: 03-74-1612wsqu 1 tablet by mouth once dailyCitalopram (Celexa) 40 mg tablet Active 40 MG PO Daily June 16, 2024 1:00am Complies with drugtherapy Claritin-D 24 Hour 10-240 MG (8 sources)Start: 72-81-8887msjz 10-240 mg by mouth once daily as needed Claritin-D 24 Hour 10-240 MG 1 tablet as needed Orally Once a day for 30 day(s) Jul, Activeestradiol 1 mg oral tablet (20 sources)EstrogenStart: 41-70-4485qlxi 1.5 mg by mouth once dailyEstradiol 1 mg tablet Active 1.5 MG PO Daily June 16, 2024 1:00am off 1 week; repeat cycle Complies with drug therapyStart: 03-29-2024 End: 23-74-6033fpnf 1 tablet by mouth once dailyestradiol (Estrace) 0.5 MG tablet Indications: Hot flashes due to surgical menopause , Mood changesTake 1 tablet (0.5 mg) by mouth Daily Take 1 tablet by mouth along with 1mg Estradiol to equal 1.5mg daily. 90 tablet 4 04/28/2024 ActiveStart: 01-28-2024 End: 94-44-2511rjjt 1 tablet by mouth once dailyestradiol (Estrace) 1 MG tablet Indications: Hot flashes due to surgical menopause , Mood changes Take 1 tablet (1 mg) by mouth Daily 90 tablet 3 01/28/2024 Activefluocinonide 0.5 mg/ml topical solution (8 sources)CorticosteroidStart: 23-12-4036Dagmaxeazvih 0.05 % solution Active 1 APPLIC TOPICAL Daily 60 90 March 03, 2025 12:00am Complieswith drug therapy Start: 50-07-2100Hmnmvazejccu 0.05 % solution Active 1 APPLIC TOPICAL Daily February 28, 2025 12:00am Complies with drug therapyStart: 09-15-2023 End: 08-74-4961jszyoohxmxkw (Lidex) 0.05 % external solution 09/15/2023 03/29/2024 Discontinued (Other)fluticasone propionate 0.05 mg/actuat metered dose nasal spray (20 sources)CorticosteroidStart: 07-15-2024 End: 91-71-2713ceyd 2 spray(s) nasal route once dailyFluticasone Propionate 50 mcg/actuation spray,suspension Active 0 .ROUTE .COMPLEX 48 February 24, 2025 8:33am USE 2 SPRAYS IN EACH NOSTRIL ONCE A DAY Complies with drug therapyStart: 06-16-2024 End: 65-42-8638qmcu 1 spray(s) nasal route once dailyFluticasone Propionate 50 mcg/actuation spray,suspension Discontinued 2 SPRAY INTRANASAL Daily June 16, 2024 1:00am July 15, 2024 8:55am administer into each nostril Start: 73-75-2586jkydnqlexeb (Flonase Allergy Relief) 50 MCG/ACT nasal spray [...] 500 mg oral tablet (4 sources)Quinolone AntimicrobialStart: 89-30-4996tubk 1 tablet by mouth every twenty-four hourslevoFLOXacin 500 MG 1 tablet Orally Once a day for 7 days Feb, Activeloratadine 10 mg oral tablet (3 sources)Start: 26-17-3776brmf 1 tablet by mouth once dailyLoratadine (Claritin) 10 mg tablet Active 10 MG PO Daily June 16, 2024 1:00am Complies with drug ibnklgk51 hr loratadine 10 mg / pseudoephedrine sulfate 240 mg extended release oral tablet (20 sources)alpha-Adrenergic AgonistStart: 92-30-0032ivol 1 tablet by mouth every twenty-four hoursClaritin-D 24 Hour 10-240 MG 1 tablet as needed Orally Once a day for 30 day(s) Jul, ActiveStart: 84-49-9471Svgimuyl-D 5 mg-120 mg Tab-ER 1 tab(s), Oral, Daily, 30 tab(s), Refill(s) 0 Start Date: 10/21/21 Status: Ordered Quantity: 30.0 Unit: tab(s) Repeat number: 1take 10-240 mg by mouth every twenty-four hoursloratadine-pseudoephedrine ER (Claritin-D 24 Hour) 10-240 MG 24 hr tablet Take 1 tablet by mouth Daily Do not crush, chew, or split. ActivemethylPREDNISolone 4 mg oral tablet (2 sources)CorticosteroidStart: 83-37-3094lixbiuFRPGLVBiosjt 4 MG as directed Orally daily for 6 days Apr, Activeomeprazole 40 mg delayed release oral capsule (9 sources)Proton Pump InhibitorStart: 45-72-2336nmjt 1 capsule by mouth before mealtimeomeprazole (PriLOSEC) [address] capsule Indications: Pharyngoesophageal dysphagia Take 1 capsule (40mg) by mouth in the morning. Take before meals. Do not crush or chew.. 90 capsule 11/26/2023 Activepantoprazole 40 mg delayed release oral tablet (2 sources)Proton Pump InhibitorStart: 77-21-4253kokt 1 tablet by mouth twice dailyPantoprazole 40 mg tablet,delayed release (DR/EC) Active 40 MG PO Twice daily 180 March 12:00am Complies with drug therapytriamcinolone acetonide 5 mg/ml topical cream (19 sources)CorticosteroidStart: 75-22-2821Lvugwvavskggc Acetonide 0.5 % cream Active 0 APPLIC .ROUTE .COMPLEX March 07, 2025 12:00am APPLYTO AFFECTED AREA TWICE A DAY PRN Complies with drug therapyStart: 01-08-2024 End: 04-01-1723Dbdzvvyffrqvr Acetonide 0.5 % cream Discontinued 0 .ROUTE .COMPLEX 60 January 08, 2024 5:54pm 2024 1:39pm APPLY TO AFFECTED AREA TWICE A DAYStart: 01-08-2024 End: 44-44-5918Jmfkihwrfxomq Acetonide 0.5 % cream Discontinued 1 APPLIC TOPICAL Twice daily January 08, 2024 12:00am January 08, 2024 5:54pmStart: 07-17-2023 End: 69-13-9214twoolrzrgwiif (Kenalog) 0.5 % cream Apply topically 2 (two) times a day to affected area Discontinued (Other)Start: 34-45-8854Gnnbwgqcdjecm Acetonide 0.5 % 1 application Externally twice daily for 30 days Mar, ActiveTriamcinolone Acetonide 0.5 % 1 application Externally q HS as needed to neck area for 30 days Active Completed/Discontinued Medications MedicationDrug Class(es)DatesSig (Normalized)Sig (Original)amLODIPine 10 mg oral tablet (20 sources)Dihydropyridine Calcium Channel BlockerStart: 04-01-2024 End: 45-94-2568isru 1 tablet by mouth once dailyAmlodipine 10 mg tablet Discontinued 0 .ROUTE .COMPLEX April 01, 2024 7:21pm July 03, 2024 3:56pm TAKE 1 TABLET BY MOUTH EVERY DAYStart: 10-09-2023 End: 35-47-0864imlx 1 tablet by mouth once dailyAmlodipine 10 mg tablet Discontinued 10 MG PO Daily October 09, 2023 12:18pm April 01, 2024 8:39amStart: 87-84-2486ymfd 1 tablet by mouth once dailyamLODIPine 5 mg Tab 5 mg = 1 tab(s), Oral, Daily, # 30 tab(s), Refills(s) 0 Start Date: 10/21/21 Status: Ordered Quantity: 30.0 Unit: tab(s) Repeat number: 1take 1 tablet by mouth once dailyamLODIPine Besylate 10 MG TAKE 1 TABLET BY MOUTH EVERY DAY for 90 days Activeazithromycin 250 mg oral tablet (9 sources)Macrolide AntimicrobialStart: 44-25-5147Bzkixkrxbiph 250 MG as directed Orally daily for [...] conjugated (chcf) 1.25 mg oral tablet (18 sources)EstrogenStart: 01-13-2024 End: 08-82-3407jwlh 1 tablet by mouth once daily, then take 1 tablet by mouth once dailyestrogens, conjugated, (Premarin) 1.25 MG tablet Indications: Acquired absence of both cervix and uterus Take 1 tablet (1.25 mg) by mouth Daily TAKE 1 TABLET BY MOUTH EVERY DAY FOR 30 DAYS 30 tablet 6 01/13/2024 03/29/2024 Discontinued (Other)Start: 53-58-9395vbzw 1 tablet by mouth once dailyPremarin 1.25 MG tablet Indications: Acquired absence of both cervix and uterus TAKE 1 TABLET BY MOUTH EVERY DAY FOR 30 DAYS 30 tablet 6 05/05/2023 Active End: 12-36-5587tjqr 1 tablet by mouth once daily in the morningestrogens, conjugated, (Premarin) 0.625 MG tablet Take 0.625 mg by mouth in the morning. Take dailyfor 21 days then do not take for 7 days.. 0 08/20/2023 Discontinued (Therapy completed)Premarin 0.625 MG/GM as directed Vaginal Activefamotidine 20 mg oral tablet (5 sources)Histamine-2 Receptor AntagonistStart: 11-26-2023 End: 67-91-7707halz 1 tablet by mouth at bedtimefamotidine (Pepcid) 20 MG tablet Indications: Pharyngoesophageal dysphagia Take 1 tablet (20 mg) bymouth at bedtime 90 tablet 11/26/2023 03/29/2024 Discontinued (Other)hydrocortisone 10 mg/ml / neomycin 3.5 mg/ml / polymyxin b 25688 unt/ml otic suspension (9 sources)Aminoglycoside Antibacterial, Polymyxin-class Antibacterial, VtmwmbcggwuagtYokjhdpq-Qyebuxagm-TF 3.5-12211-8 4 drops into affected ear Otic four times daily for 7 days Not-Takingketoconazole 20 mg/ml medicated shampoo (10 sources)Azole AntifungalStart: 07-17-2023 End: 79-77-1163ctytbpdnnjpk (NIZOral) 2 % shampoo USE DURING SHOWER TWICE WEEKLY FOR 8 WEEKS,THEN NEEDED FOR 28DAYS 30 07/17/2023 03/29/2024 Discontinued (Other)Start: 88-65-2596Cgtjpidpfpym 2 % Use during shower Externally Twice weekly, for 8 weeks then as needed for 28 days Feb, Activemeloxicam 15 mg oral tablet (3 sources)Nonsteroidal Anti-inflammatory DrugStart: 06-16-2024 End: 06-71-4335mxqv 1 tablet by mouth once daily as neededMeloxicam 15 mg tablet Discontinued 15 MG PO Daily as needed June 16, 2024 1:00am February 28, 2025 3:14pmmometasone furoate 1 mg/ml topical cream (5 sources)CorticosteroidStart: 11-19-2023 End: 36-23-0877onairntvkw (Elocon) 0.1 % cream APPLY TO AFFECTED [...] disorder; Translations: [Generalized anxiety disorder]Onset: 02-13-2023 Resolved: 80-39-7375EtrbfbzLmiknfredksik of surgical procedures or medical care (13 sources)Menopausal flushing; Translations: [Symptomatic postprocedural ovarian failure]Onset: 339094-80-0148WfdzpmcMpwwrzogrz disorders (20 sources)Stricture of esophagus; Translations: [Esophageal obstruction]Onset: 12-26-6151HiyaiqnXbwqgjvks hypertension (20 sources)Essential hypertension; Translations: [Essential (primary) hypertension]Onset: 69-74-9286KpoxbqtKtrwsmxgyqyci and screening for infectious disease (20 sources)Encounter for screening for human papillomavirus (HPV); Translations: [Encounter for screening for infections with a predominantly sexual mode of transmission]Onset: 64-99-5571RoovtvxlYzvdkcoicrxkb (3 sources)Cervical lymphadenopathy; Translations: [Localized enlarged lymph nodes]95-28-9650IovbwkjfTjibskx and fatigue (7 sources)Fatigue; Translations: [Other fatigue]EpisodicMenopausal disorders (2 sources)Menopausal symptom; Translations: [Menopausal and female climacteric states]33-96-6136KbhswbnMumffhpku disorders (14 sources)Excessive and frequent menstruation; Translations: [Excessive and frequent menstruation with regular cycle]Onset: 86-59-0822VkqtooyRvmf disorders (20 sources)Depression; 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]Onset: 023180-82-7520MiukdqwAgvmqpp (8 sources)Candidiasis; Translations: [Candidiasis, unspecified]EpisodicOpen wounds of head; neck; and trunk (1 source)Unspecified open wound of scalp, initial encounterEpisodicOther ear and sense organ disorders (1 source)Otitis externa of right ear; Translations: [Unspecified otitis externa, right ear]Onset: 59-62-2566MkccpwcSkobf ear and sense organ disorders (1 source)Acute actinic otitis externa, right earEpisodicOther ear and sense organ disorders (1 source)Acute non-infective otitis externa; Translations: [Unspecified acute noninfective otitis externa, right ear]Onset: 66-54-4964UabjimqrSnbsk ear and sense organ disorders (4 sources)Acute otitis externa; Translations: [Swimmer's ear, bilateral] 68-14-2947GwgaltvlBjmit endocrine disorders (7 sources)Disorder of endocrine system; [...] disorders (1 source)Dysphagia, unspecified; Translations: [Dysphagia, unspecified]Onset: 60-71-9618ZkaduvorWfuxc inflammatory condition of skin (3 sources)Seborrheic dermatitis, unspecifiedEpisodicOther nutritional; endocrine; and metabolic disorders (1 source)OverweightEpisodicOther screening for suspected conditions (not mental disorders or infectious disease) (9 sources)Encounter for screening for malignant neoplasm of cervix; Translations: [Patient encounter status]Onset: 01-30-3910DzinbjhlTcjpz upper respiratory disease (11 sources)Allergic rhinitis due to pollen; Translations: [Allergic rhinitis due to pollen]ChronicOther upper respiratory disease (1 source)Allergic rhinitis due to pollenChronicOther upper respiratory disease (7 sources)Chronic rhinitis; Translations: [Chronic rhinitis]Onset: 10-30-2018 ChronicOther upper respiratory disease (7 sources)Seasonal allergic rhinitis; Translations: [Other seasonal allergic rhinitis]Onset: 26-28-2839ZnmvdvvHjyxz upper respiratory disease (14 sources)Allergic rhinitis; Translations: [Other allergic rhinitis] Resolved: 91-18-5303VhcsoyeKprut upper respiratory disease (9 sources)Nasal obstruction; Translations: [...] respiratory infection, unspecified; Translations: [Acute maxillary sinusitis]Onset: 14-36-5920TqbkvizhDnqhuh media and related conditions (18 sources)Otitis media; Translations: [Otitis media, unspecified, right ear] Onset: 83-48-3398SsdledceHblmruw cyst (7 sources)Cyst of left ovary; Translations: [Unspecified ovarian cyst, left side]EpisodicResidual codes; unclassified (7 sources)Obstructive sleep apnea syndrome; Translations: [Obstructive sleep apnea]Onset: 19-03-6336EtsjinnPhuvzvwp codes; unclassified (14 sources)Tobacco user; Translations: [Tobacco use]Onset: 78-56-7567Zgbuetcd Residual codes; unclassified (7 sources)Postprocedural state finding; Translations: [Other specified postprocedural states]EpisodicSkin and subcutaneous tissue infections (8 sources)Cellulitis of left axilla; Translations: [Cellulitis of left axilla] EpisodicSubstance-related disorders (20 sources)Tobacco dependence in remission; Translations: [Nicotine dependence, cigarettes, in remission]Onset: 66-56-2430PtdvgqjYtqpkup on above:Added secondary to documentation in Social History.Unclassified (3 sources)CONTACT W/AND (SUSP) EXPOS COVID-19; Translations: [CONTACT W/AND (SUSP) EXPOS COVID-19]Onset: 27-88-4047Ylqedeedojhl (2 sources)K22.2 - Esophageal obstruction,R13.10 - Dysphagia, unspecifiedUrinary tract infections (1 source)Urinary tract infectious disease; Translations: [UTI (urinary tract infection)]EpisodicViral infection (7 sources)Herpesviral vesicular dermatitis; Translations: [Herpesviral vesicular dermatitis]EpisodicViral infection (1 source)COVID-19; Translations: [COVID-19]Onset: 07-31-2021 Past or Other Problems Problem ClassificationProblemDateDocumented DateEpisodic/ChronicAbdominal pain (7 sources)Pelvic and perineal pain; Translations: [Pelvic and perineal pain] Resolved: 56-88-8876UoovjdywJklmkacjnw and other anemia (7 sources)Anemia; Translations: [Anemia, unspecified] Resolved: 70-97-6395GfzhcihbJapjfdcqcs disorders (4 sources)Esophageal disorders; Translations: [Gastro-esophageal reflux disease with esophagitis, without bleeding]Onset: 14-73-5818Nbhvq and electrolyte disorders (15 sources)Hypokalemia; Translations: [Hypokalemia]Onset: 06-23-2018 Resolved: 832087-93-9691ZefhsagsCfng disorders (13 sources)Disturbance in mood; Translations: [Emotional lability]Onset: 412825-50-3476BfnnvuzcWaazjeeosdkc breast conditions (20 sources)Lump in upper outer quadrant of left breast; Translations: [Unspecified lump in the left breast, upper outer quadrant]Onset: 02-13-2023 Resolved: 454141-69-5906NpogjujjHfiqb aftercare (7 sources)History and physical examination, follow-up; Translations: [Encounter for follow-up examination after completed treatment for conditions other than malignant neoplasm] Resolved: 59-67-9933YiclztihBjdbv connective tissue disease (7 sources)Pain in left foot; Translations: [Pain in left foot] Resolved: 31-51-6168PmoxqdkuFigos ear and sense organ disorders (6 sources)Acute otitis externa of right ear; Translations: [Unspecified acute noninfective otitis externa, right ear]Onset: 340516-86-5167LaqwvoeqLxrrb endocrine disorders (4 sources)Endocrine disorder, unspecified; Translations: [ENDOCRINE DISORDER UNSPECIFIED]Onset: 70-88-1580IuwcglbkWrkve female genital disorders (7 sources)Abnormal uterine bleeding; Translations: [Abnormal uterine and vaginal bleeding, unspecified] Resolved: 08-70-8865QtzoncjPdzis female genital disorders (1 source)Other specified noninflammatory disorders of vagina; Translations: [OTH SPEC NONINFLAMMATORY D/O VAGINA]Onset: 61-46-3486WsvttmvmEipvk gastrointestinal disorders (20 sources)Dysphagia; Translations: [Dysphagia, unspecified]Onset: 02-13-2023 14-34-5424WkbkywkvWernw nutritional; endocrine; and metabolic disorders (7 sources)Overweight; Translations: [Overweight]Onset: 73-18-1201QreetsadPdbna nutritional; endocrine; and metabolic disorders (7 sources)Body mass index 25-29 - overweight; Translations: [Body mass index 26.0-26.9, adult]Onset: 39-11-9308GhvtypbwLjxgr and delivery including normal (8 sources)Twin ; Translations: [Twin , unspecified number of placenta and unspecified number of amniotic sacs, unspecified trimester]Onset: 825109-43-0842WrnketcqRofow skin disorders (7 sources)Disorder of skin and/or subcutaneous tissue; Translations: [Disorder of the skin and subcutaneous tissue, unspecified] Resolved: 48-91-3652BgmrqgazLoetz upper respiratory disease (16 sources)Mass of nose; Translations: [Other specified disorders of nose and nasal sinuses]Onset: 989101-65-7967WnexqjxkZhreumaq codes; unclassified (7 sources)Acquired absence of ovary; Translations: [Acquired absence of ovaries, unilateral] Resolved: 33-78-7600KxzsyzvyZaeucaei codes; unclassified (16 sources)Acquired absence of cervix and uterus; 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]Onset: 02-13-2023 Resolved: 640526-13-6015MhbdcgnoRqbkjpcd codes; unclassified (13 sources)Reduced libido; Translations: [Decreased libido]Onset: 03-29-2024 59-99-3829BcwnpoyxZiijguty transmitted infections (not HIV or hepatitis) (7 sources)Granuloma inguinale; Translations: [Granuloma inguinale] Resolved: 77-93-4248FdsvezzvIjrqxcuowdw; intervertebral disc disorders; other back problems (7 sources)Neck pain; Translations: [Cervicalgia] Resolved: 07-76-6487AhetkdobDwvxsyw and strains (7 sources)Neck sprain; Translations: [Strain of muscle, fascia and tendon at neck level, initial encounter] Resolved: 56-86-5877FuftovjkEqiuapqbnhke (1 source)CONTACT W/AND (SUSP) EXPOS COVID-19; Translations: [CONTACT W/AND (SUSP) EXPOS COVID-19]Onset: 91-60-2988Oyvitpfrmscq (7 sources)Acute candidiasis of vulva and vagina; Translations: [Acute candidiasis of vulva and vagina] Resolved: 12-20-2020 Results Test NameValueInterpretationReference RangeFacilityBasophils Auto (Bld) [#/Vol] Ordered By: Merrill Singh on 27-42-5432Jbakwqhfx (Bld) [#/Vol]0.1 10 3/uL0.0-0.1 TrihealthBasophils/100 WBC Auto (Bld)Ordered By: Merrill Singh on 99-33-2807Rpgwsoahh/100 WBC (Bld)1.2 %0.2-2.0TrihealthCholesterol in LDL Calc [Mass/Vol]Ordered By: Merrill Singh on 51-25-5762Rkgavcxsojr in LDL [Mass/Vol]155.0 mg/dLTrihealthComment on above:<100 mg/dl ACRLSUE219-939 mg/dl NEAR OR ABOVE KNGVDVX785- 159 mg/dl BORDERLINE CHQH871-170 mg/dl HIGH>190 mg/dl VERY HIGHCholesterol in VLDL Calc [Mass/Vol]Ordered By: Merrill Singh on 75-77-9954Hkcmwrvixno in VLDL [Mass/Vol]23.4 mg/dLTrihealthEosinophils/100 WBC Auto (Bld)Ordered By: Merrill Singh on 44-26-7050Xcutqxqytxp/100 WBC (Bld)6.6 % 0.9-7.0TrihealthErythrocyte distribution width Auto (RBC) [Ratio]Ordered By: Merrill Singh on 33-50-0630Iyyowjtrxye distribution width (RBC) [Ratio]12.1 %11.0-15.0TrihealthGlobulin Calc (S) [Mass/Vol]Ordered By: Merrill Singh on 93-97-8475Nwhooqys (S) [Mass/Vol]4.0 g/dLTrihealthGlomerular filtration rate (GFR) estimation in non- AmericanOrdered By: Merrill Singh on 04-22-2025 GFR/1.73 sq M.predicted among non-blacks MDRD (S/P/Bld) [Vol rate/Area] mL/min/{1.73_m2}>=60 mL/min/1.73m 2FKindred Hospital DaytonGlucose mean value [Mass/volume] in Blood Estimated from glycated hemoglobinOrdered By: Merrill Singh on 34-22-9301Tkoktkd glucose Estimated from glycated hemoglobin (Bld) [Mass/Vol]111 mg/dLTrihealthHematocrit Auto (Bld) [Volume fraction]Ordered By: Merrill Singh on 08-96-8439Baqgkczmvq (Bld) [Volume fraction]36.3 %36.0-48.0TrihealthHemoglobin A1c percentageOrdered By: Merrill Singh on 82-76-8384ZmP8q (Bld) [Mass fraction]5.5 %4.5-6.2FKindred Hospital DaytonComment on above:ADA RECOMMENDED LIMIT 4.0 - 6.0ADA THERAPEUTIC TARGET < 7.0ACTION SUGGESTED> 7.0Hemoglobin [Mass/volume] in BloodOrdered By: Merrill Singh on 54-89-3165Xierjlnsjy (Bld) [Mass/Vol]12.0 g/dL12.0-16.0TrihealthLaboratory - Chemistry and Chemistry - challengeOrdered By: Merrill Singh on 04-22-2025 Albumin [Mass/Vol]3.6 g/dL3.4-5.0TrihealthALP [Catalytic activity/Vol]72 U/G35-606SxvnwanotTrihealthALT [Catalytic activity/Vol]27 U/I04-81XzcmrzdvfTrihealthAST [Catalytic activity/Vol]18 U/V16-18BzklpewjgTrihealthBilirubin [Mass/Vol]0.3 mg/dL0.2-1.0TrihealthCalcium [Mass/Vol]8.8 mg/dL 8.5-10.1FKindred Hospital DaytonChloride [Moles/Vol]104 mmol/L98-107 TrihealthCholesterol [Mass/Vol]247 mg/dLHigh<=200 TrihealthCholesterol in HDL [Mass/Vol]69 mg/aQKnms99-88 TrihealthComment on above:> or =60 mg/dl - LOW CARDIOVASCULAR RISK<40 mg/dl - HIGH CARDIOVASCULAR RISKCO2 [Moles/Vol]31.0 mmol/L21.0-32.0TrihealthCreatinine [Mass/Vol]0.54 mg/dL Low0.55-1.02TrihealthGFR/1.73 sq M.predicted MDRD (S/P/Bld) [Vol rate/Area]mL/min/{1.73_m2}>=60 mL/min/1.73m 2FKindred Hospital DaytonGlucose [Mass/Vol]103 mg/bG65-548QsibbvjwkTrihealth Potassium [Moles/Vol]3.3 mmol/LLow3.5-5.1FKindred Hospital Dayton Protein [Mass/Vol]7.6 g/dL6.4-8.2FFostoria City Hospitalodium [Moles/Vol]144 mmol/V497-931BdlbtugksTrihealthTriglyceride [Mass/Vol]117 mg/dL<=150TrihealthTS Qn5.012 m[IU]/LHigh 0.358-3.740TrihealthUrea nitrogen [Mass/Vol]11.0 mg/dL 7.0-18.0TrihealthUrea nitrogen/Creatinine [Mass ratio] 20.4 mg/mgTrihealthLaboratory - Hematology and Cell countsOrdered By: Merrill Singh on 13-48-5596Vvumahsh granulocytes/100 WBC (Bld) 0.2 %0.0-0.5FKindred Hospital DaytonLeukocytes [#/volume] corrected for nucleated erythrocytes in Blood by Automated counOrdered By: Merrill Singh on 23-75-9426PKZ corrected for nucl RBC Auto (Bld) [#/Vol]5.7 10 3/uL4.0-11.0 TrihealthLymphocytes Auto (Bld) [#/Vol]Ordered By: Merrill Singh on 34-87-2309Pfvjwdvxrfu (Bld) [#/Vol]1.8 10 3/uL1.2-3.8TrihealthLymphocytes/100 WBC Auto (Bld)Ordered By: Merrill Singh on 59-45-6955Khyhekgxyhm/100 WBC (Bld)30.5 %20.5-60.0TrihealthMCH Auto (RBC) [Entitic mass]Ordered By: Merrill Singh on 30-53-1831QXS (RBC) [Entitic mass]28.0 pg26.7-34.0TrihealthMCHC Auto (RBC) [Mass/Vol]Ordered By: Merrill Singh on 07-36-6520DDNS (RBC) [Mass/Vol]33.1 g/dL29.9-35.2FKindred Hospital DaytonMCV Auto (RBC) [Entitic vol] Ordered By: Merrill Singh on 06-58-7528JUY (RBC) [Entitic vol]84.6 fL81.0-99.0 TrihealthMonocytes Auto (Bld) [#/Vol]Ordered By: Merrill Singh on 71-29-2671Epnaedmhx (Bld) [#/Vol]0.5 10 3/uL0.3-0.8TrihealthMonocytes/100 WBC Auto (Bld)Ordered By: Merrill Singh on 12-67-4670Elxicfwcr/100 WBC (Bld)8.7 %1.7-12.0[facility] Neutrophils Auto (Bld) [#/Vol]Ordered By: Merrill Singh on 26-63-7629Mnfepwshxlg (Bld) [#/Vol]3.0 10 3/uL1.4-6.5FKindred Hospital DaytonNeutrophils/100 WBC Auto (Bld)Ordered By: Merrill Singh on 26-52-9953Jqnrtfepvwg/100 WBC (Bld) 52.8 %43.0-75.0TrihealthNo Panel InformationOrdered By: Merrill Singh on 17-70-2874Mktvlpnxnjo # (Auto)0.4 10 3/uL0.0-0.7FKindred Hospital DaytonImmature Granulocyte # (Auto)0.01 10 3/uL0.00-0.03 TrihealthPlatelet mean volume Auto (Bld) [Entitic vol] Ordered By: Merrill Singh on 90-97-2254Lshlmezc mean volume (Bld) [Entitic vol] 10.9 fL9.5-13.5FKindred Hospital DaytonPlatelets Auto (Bld) [#/Vol] Ordered By: Merrill Singh on 12-90-1667Koviwdlck (Bld) [#/Vol]322 10 3/iQ685-204 TrihealthRBC Auto (Bld) [#/Vol]Ordered By: Merrill Francisco on 17-48-1696HMN (Bld) [#/Vol]4.29 10 6/uL4.20-5.40Centervilleerum or plasma albumin/globulin mass ratioOrdered By: Merrill Singh on 51-31-7131Kanldfg/Globulin [Mass ratio]0.9 {ratio}Centervilleerum or plasma anion gap determinationOrdered By: Merrill Singh on 78-26-2057Umags gap [Moles/Vol]12.3 mmol/LFFostoria City Hospitalerum or plasma total cholesterol/high density lipoprotein (HDL) cholesterol mass rat Ordered By: Merrill Singh on 93-23-2187Wmajqosnksp.total/Cholesterol in HDL [Mass ratio]3.6 {ratio}TrihealthComment on above:3.3 - 4.4 LOW RISK4.4 - 7.1 AVERAGE RISK7.1 - 11.0 MODERATE RISK>11.0 HIGH RISK Pathology Request for Lab Corpon 32-07-5705Ccvqzmkca Request for Lab CorpNormal The [facility] Physician GroupComment on above:Order Comment: GI SPECIMENResult Comment: See report. Scanned copy available in EMR. PERFORMED BY: [place] [address] PATHOLOGIST POWER SYSTEM OPERATOR PROSPER DIAZ M.D.Performed By: #### PATH TO [facility] #### [place] [address] USAAmbulatory Visit Summaryon 16-96-9212Padmigcdtb Visit SummaryAmbulatory Visit Summary ADRIÁNJOCELINE :1985 Visit [...] with ZACK MERINO, MEE KOTHARI When: Where: [address] [place] [address]- Medications What How Much When Why Instructions New amoxicillin (amoxicillin 500 mg Cap) 2 Capsules By Mouth Every 12 hours Right otitis externa Right otitis media Duration: 7 Days Pickup at [facility] 1985 Unchanged amlodipine (amLODIPine 5 [...] physician if questions or concerns Pharmacy Information [facility] 1986: [address] [facility] [place], [place] [id number] [phone] Allergies Keflex Problems Ongoing - Any problem [...] well the eardrum m (more content not included)...[facility] Medicine Office/Clinic Noteon 75-87-2329Jrtpwz Medicine Office/Clinic NoteFaboston home for incurables Medicine Office/Clinic Note Chief Complaint ear pain [...] created with voice recognition software. Occasional wrong-word or???ctvra-g-giwr??? substitutions may have occurred due to the [...] in for repeat evaluation has been taking qojm-wfc-oxtjtsh ibuprofen and Tylenol for pain. Patient denies [...] day(s), # 28 cap(s), Refills(s) 0, Pharmacy: [facility] 1986, 164, cm, 01/16/25 11:24:00 [...] q12hr, X 7 day( (more content not included)...[facility] HospitalComment on above:Result Comment: Electronically Signed By: Jamal SALINAS, Cisco Pickett\.br\Date and Time Signed: 01/16/2511:41 EDTAmbulatory Visit Summaryon 43-98-2216Wlzggmtaed Visit Summary Ambulatory Visit Summary JOCELINE SAMPSON [...] with TAYE DIXON MD, FAM When: Where: [address] [place] [address]- Medications What How Much When Instructions New ciprofloxacin-dexamethasone otic (ciprofloxacin-dexamethasone 0.3%-0.1% Otic Susp) 4 Drops Otic2 times a day Pickup at [facility] 1985 Unchanged amlodipine (amLODIPine 5 [...] physician if questions or concerns Pharmacy Information [facility]: [address] [facility] [place] [id number] [phone] Allergies Keflex Problems Ongoing - Any problem [...] you start to feel better. ??? Take dxzd-aif-jecxtep and prescription medicines only as told by [...] dirty wa (more content not included)...Normal [facility] Medicine Office/Clinic Noteon 04-37-5334Jekdxq Medicine Office/Clinic NoteFaboston home for incurables Medicine Office/Clinic Note Chief Complaint ear pain [...] drop(s), Otic, BID, 7.5 mL, Refill(s) 0, [facility] 1985,164, cm, 01/13/25 16:21:00 EDT, Height/Length Dosing, 78, kg, 01/13/25 16:21:00 EDT, Weight Dosing Total time spent preparing the chart, conducting of the encounter with the patient and family and time spent documenting, reviewing, and ordering tests was 20 minutes. Portions of this record may have been created with voice recognition artificial intelligence software, specifically [employer]Tek, ParentPlus and or Powerset. Substitutions may have occurred due to the inherent limitations of voice recognition and artificial intelligence software. Follow-up With When Contact Information ZACK MERINO, TAYE, [facility] [address] [id number]- Additional Instructions: Patient Education Otitis Externa Problem [...] 03/31/2015 Recorded hepatitis B pediatric vaccine 02/28/2015 RecordedLancaster Municipal HospitalComment on above:Result Comment: Electronically Signed By: Mayra Juan\.schuyler\Date and Time Signed: 01/13/25 16:42 EDTMM TOMOSYNTHESIS DIAGNOSTIC BIon 51-25-0490DpfHocking Valley Community Hospital [address] [place] [address] Mammography Report Signed Patient: JOCELINE SAMPSON MR#: [id number] : 1985 Acct:[id number] Age/Sex: 38 / F ADM Date: 04/08/24 Loc: MAMMO Attending Dr: Yoseph Morales D.O. Ordering Physician: Yoseph Morales D.O. Results: Date of Service: 04/08/24 Follow Up: Procedure(s): MM tomosynthesis diagnostic BI Accession Number(s): [id number] cc: Merrill Singh D.O.; Yoseph Morales D.O. Patient Name: JOCELINE SAMPSON MR#: [id number] : 1985 Exam Date: 04/08/2024 Ordering Doctor: [...] gammopathy cancer at age 59. LOCATION: [facility] BREAST COMPOSITION: The breasts are extremely [...] Signed By: 04/08/24 1358 DD/ 1357 TD/TT: Emt Dispatcher:TBHRadiology, Radiologist, MD - 04/08/2024 [place] [address] Mammography Report Signed Patient: JOCELINE SAMPSON MR#: [id number] : 1985 Acct:[id number] Age/Sex: 38 / F ADM Date: 04/08/24 Loc: MAMMO Attending Dr: Yoseph Morales D.O. Ordering Physician: Yoseph Morales D.O. Results: Date of Service: 04/08/24 Follow Up: Procedure(s): MM tomosynthesis diagnostic BI Accession Number(s): [id number] cc: Merrill Singh D.O.; Yoseph Morales D.O. Patient Name: JOCELINE SAMPSON MR#: [id number] : 1985 Exam Date: 04/08/2024 Ordering Doctor: [...] gammopathy cancer at age 59. LOCATION: [facility] BREAST COMPOSITION: The breasts are extremely [...] Signed By: 04/08/24 1358 DD/ 1357 TD/TT: Emt Dispatcher: ALEXANDRU Pelayo InformationOrdered By: Radiologist Radiology on 84-50-1061BLIV [employer] Work Phone: No Panel Informationon 24-52-6704Ifuixoghm Study observation (narrative)ALEXANDRU [facility] BREAST LT LIMITEDon 53-36-6887DkkChap[place] [address] Ultrasound Report Signed Patient: JOCELINE SAMPSON MR#: [id number] : 1985 Acct:[id number] Age/Sex: 38 / F ADM Date: 04/08/24 Loc: MAMMO Attending Dr: Yoseph Morales D.O. Ordering Physician: Yoseph Morales D.O. Date of Service: 04/08/24 Procedure(s): US breast LT limited Accession Number(s): [id number] cc: Merrill Singh D.O.; Yoseph Morales D.O. Patient Name: JOCELINE SAMPSON MR#: [id number] : 1985 Exam Date: 04/08/2024 Ordering Doctor: [...] gammopathy cancer at age 59. LOCATION: [facility] BREAST COMPOSITION: The breasts are extremely [...] Signed By: 04/08/24 1358 DD/ 1357 TD/TT: Emt Dispatcher:TBHRadiology, Radiologist, - 04/08/2024 [place] [address] Ultrasound Report Signed Patient: JOCELINE SAMPSON MR#: [id number] : 1985 Acct:[id number] Age/Sex: 38 / F ADM Date: 04/08/24 Loc: MAMMO Attending Dr: Yoseph Morales D.O. Ordering Physician: Yoseph Morales D.O. Date of Service: 04/08/24 Procedure(s): US breast LT limited Accession Number(s): [id number] cc: Merrill Singh D.O.; Yoseph Morales D.O. Patient Name: JOCELNIE SAMPSON MR#: [id number] : 1985 Exam Date: 04/08/2024 Ordering Doctor: [...] gammopathy cancer at age 59. LOCATION: [facility] BREAST COMPOSITION: The breasts are extremely [...] Signed By: 04/08/24 1358 DD/ 1357 TD/TT: Emt Dispatcher: ALEXANDRU PowellIGMaggi,APTIMA HPV,AGE GDLNon 56-38-1822MXP GDLN ACOG TESTINGNote. DAMIANBothwell Regional Health CenterComment on above:TESTS RESULT FLAG UNITS REF RANGE LAB Clinician Provided Cytology Information Source.............Vagina LMP / Prev Treat...Hyst Tot No. of containers..01 ThinPrep Vial Age Algo ACOG Robyn... FLAG LEGEND: L-Low Normal,H-High Normal,LL-Alert Low,HH-Alert High <-Panic Low,>-Panic High,A-Abnormal,AA-Critical Abnormal Performed at: 01 =[address] [address] Nava Baez MD, HPV APTIMANegativeNegativeNOMS HealthcareComment on above:This nucleic acid amplification test detects fourteen high- risk HPV types (16,18,31,33,35,39,45,51,52,56,58,59,66,68) without differentiation. Performed at: =[facility] [id number] Sound Installation Worker: Nava Baez MD, Phone: [phone] Performed at: - [address] [id number] Sound Installation Worker: Nava Baez MD, Phone: [phone] IGP, APTIMA HPV, RFX 16/18,45Note.NOMS HealthcareComment on above:TESTS RESULT FLAG UNITS REF RANGE LAB DIAGNOSIS: 02 NEGATIVE FOR INTRAEPITHELIAL LESION OR MALIGNANCY. THIS SPECIMEN WAS RESCREENED PART OF OUR SPECIAL NEEDS NANNY PROGRAM. Specimen adequacy: 02 Satisfactory for evaluation. No endocervical cells are present. This is consistent with a history of hysterectomy. Performed by: 02 Julieta Sherwood, Substance Abuse Nurse (ASCP) QC reviewed by: 02 Gege Cardozo, Substance Abuse Nurse . 02 Note: Note 02 The Pap [...] High,A-Abnormal,AA-Critical Abnormal Performed at: 02 [facility] [address] [address] Nava Baez MD, SPATULA-ALONE HYST-TOTAL VAGINA CLINISYNCNOMS HealthcareALL T3 FREEon 78-26-8933Aclf T3 [Mass/Vol]3.29 pg/mL2.18 - 3.98 pg/mLNOMS HealthcareALL THYROID STIM HORMONEon 70-68-6705IUW Qn2.045 m[IU]/LNOMS HealthcareNo Panel Informationon 55-53-1892CTDWBJXDDCOSM Healthcare OCCULT BLOOD*on 20-23-0279COK OCCULT BLOODNegativeNOCO HealthcareCLINISYNCNMUSCOGEE HealthcareALL CBC WITH AUTO DIFFon 52-62-8797STJVKFKZZ ABSOLUTE AUTO0.1NOMS HealthcareBasophils/100 WBC (Bld)1.2 %0.2 - 2.0 %NOMS HealthcareEosinophils/100 WBC (Bld)8.1 %High0.9 - 7.0 %NOMS HealthcareErythrocyte distribution width (RBC) [Ratio]11.8 %11.0 - 15.0 %NOMS HealthcareHematocrit (Bld) [Volume fraction]36.9 %36.0 - 48.0 %NOMS HealthcareHemoglobin (Bld) [Mass/Vol]12.5 g/dL12.0 - 16.0 g/dLNOMS HealthcareIMMATURE GRANULOCYTES ABS AUTO0.00NOMS HealthcareImmature granulocytes/100 WBC (Bld)0.0 %0.0 - 0.5 %NOMS HealthcareInterpretation and review of laboratory resultsAbnormalOzarks Community HospitalLYMPHOCYTES ABSOLUTE AUTO2.0 [facility]arks Community HospitalLymphocytes/100 WBC (Bld)33.5 %20.5 - 60.0 %[facility] Science CenterH (RBC) [Entitic mass]28.6 pg26.7 - 34.0 pgSaint Louis University Health Science CenterHC (RBC) [Mass/Vol] 33.9 g/dL29.9 - 35.2 g/dLSaint Louis University Health Science CenterV (RBC) [Entitic vol]84.4 fL81.0 - 99.0 fLOzarks Community HospitalMONOCYTES ABSOLUTE AUTO0.5Ozarks Community HospitalMonocytes/100 WBC (Bld)9.1 %1.7 - 12.0 %[facility] Community HospitalNEUTROPHILS ABSOLUTE AUTO2.9[facility] Neutrophils/100 WBC (Bld)48.1 %43.0 - 75.0 %[facility] Community HospitalPlatelet mean volume (Bld) [Entitic vol]10.9 fL9.5 - 13.5 fLOzarks Community HospitalTBH EO #0.5NOCenterPointe Hospital TB EUZ818JCBWWright Memorial Hospital RBC4.37NOWright Memorial Hospital WBC5.9[facility] CLINISYNCOzarks Community HospitalNo Panel InformationOrdered By: Radiologist Radiology on 90-36-7285KQVJOzarks Community Hospital Work Phone: No Panel Informationon 45-85-4247Xvbfsbicx Study observation (narrative)[facility] videography Hypopharynx and Esophagus Views for swallowing function W speech and W barium contrast Mil 54-60-9839GgmChapin[place] [address] Fluoroscopy Report Signed Patient: JOCELINE SAMPSON MR#: [id number] : 1985 Acct:[id number] Age/Sex: 38 / F ADM Date: 08/22/23 Loc: [place] Attending Dr: Aminah Fraire M.D. Ordering Physician: Aminah Fraire M.D. Date of Service: 08/22/23 Procedure(s): FL barium swallow Accession Number(s): [id number] cc: Merrill Singh D.O.; Aminah Fraire M.D. [address] [place] [id number] Patient Name: JOCELINE SAMPSON MRN: [facility]:[id number] date: 1985 Sex: F Assigned Patient Location: [place] Current Patient Location: [place] Accession/Order Number: [id number] Exam Date: 08/22/2023 14:08 Report Date: 08/22/2023 [...] Signed By: 08/22/23 1501 DD/ 1458 TD/TT: Emt Dispatcher:ROadiologjohn, Radiologist, - 08/22/2023 [place] [address] Fluoroscopy Report Signed Patient: JOCELINE SAMPSON MR#: [id number] : 1985 Acct:[id number] Age/Sex: 38 / F ADM Date: 08/22/23 Loc: [place] Attending Dr: Aminah Fraire M.D. Ordering Physician: Aminah Fraire M.D. Date of Service: 08/22/23 Procedure(s): FL barium swallow Accession Number(s): [id number] cc: Merrill Singh D.O.; Aminah Fraire M.D. [address] [place] [id number] Patient Name: JOCELINE SAMPSON MRN: [id number] date: 1985 Sex: F Assigned Patient Location: [place] Current Patient Location: [place] Accession/Order Number: [id number] Exam Date: 08/22/2023 14:08 Report Date: 08/22/2023 [...] Signed By: 08/22/23 1501 DD/ 1458 TD/TT: Emt Dispatcher: ALEXANDRU Powell CINERADIOGRAPHYon 61-06-2526QqsChapin[place] [address] Fluoroscopy Report Signed Patient: JOCELINE SAMPSON MR#: [id number] : 1985 Acct:[id number] Age/Sex: 38 / F ADM Date: 08/22/23 Loc: [place] Attending Dr: Aminah Fraire M.D. Ordering Physician: Aminah Fraire M.D. Date of Service: 08/22/23 Procedure(s): FL cineradiography Accession Number(s): [id number] cc: Merrill Singh D.O.; Aminah Fraire M.D. [address] [address] Patient Name: JOCELINE SAMPSON MRN: [id number]:[id number] date: 1985 Sex: F Assigned Patient Location: [place] Current Patient Location: [place] Accession/Order Number: [id number] Exam Date: 08/22/2023 14:08 Report Date: 08/22/2023 [...] By: Byron Gilbert M.D. Signed By: 08/22/23 1503 DD/ 1457 TD/TT: Emt Dispatcher:TBHRadiology, Radiologist, MD - 08/22/2023 [place] [address] Fluoroscopy Report Signed Patient: JOCELINE SAMPSON MR#: [id number] : 1985 Acct:[id number] Age/Sex: 38 / F ADM Date: 08/22/23 Loc: [place] Attending Dr: Aminah Fraire M.D. Ordering Physician: Aminah Fraire M.D. Date of Service: 08/22/23 Procedure(s): FL cineradiography Accession Number(s): [id number] cc: Merrill Singh D.O.; Aminah Fraire M.D. The [address] [address] Patient Name: JOCELINE SAMPSON MRN: [id number] date: 1985 Sex: F Assigned Patient Location: [place] Current Patient Location: [place] Accession/Order Number: [id number] Exam Date: 08/22/2023 14:08 Report Date: 08/22/2023 [...] Signed By: 08/22/23 1501 DD/ 1458 TD/TT: Emt Dispatcher: ALEXANDRU [facility] Medical CenterCovid-19 PCR (CVDTB)on 75-52-5908DNWI-CoV-2 (COVID-19) RNA JAMES+probe Ql (Unsp spec)Not detectedNormalNOT DETECTEDThe [facility] Comment on above:Result Comment: When diagnostic [...] for this test is supported by the Automation Sales Manager of Health and Human Service's declaration that [...] longer be used).Performed By: #### CVDTBH #### [facility] [address] [place] [address] Dr. Clover GREEN AGon 48-63-8594UJNYFXGXQHLNTKettering Health SpringfieldComment on above:Result Comment: Negative for Flu A protein angiten. Infection due to Flu A cannot be ruled out. FluA angiten in the sample may be below the detection limit of the test.Performed By: #### A1C #### [facility] [address] [place] [address] Dr. Clover NagyINFLUBNEGHSELADIA [facility] Hospital CompanyComment on above: Result Comment: Negative for Flu B protein antigen. Infection due to Flu B cannot be ruled out. FluB antigen in the sample may be below the detection limit of the test.Performed By: #### A1C #### [facility] [address] [place] [address] Dr. Clover Garcia AGNegativeNormalNEGATIVE SEE COMMENTThe [facility] HospitalComment on above:Performed By: #### A1C #### [facility] [address] [place] [address] Dr. Clover Collado AGNegativeNormalNEGATIVE SEE COMMENTThe [facility] HospitalComment on above:Performed By: #### A1C #### [facility] [address] [place] [address] Dr. Clover NagyINTERNAL CONTROLSWithin Normal LimitsNormalWithin Normal Limits [facility] HospitalComment on above:Performed By: #### A1C #### [facility] [address] [place] [address] Dr. Clover NagyCHLAMYDIA/GONOCOCCUS JAMES (SWAB/URINE/PAPon 76-85-9466Zfmhhjiuu trachomatis, NAANegativeNormalNegativeThe [facility] HospitalComment on above: Performed By: #### A1C #### [facility] [address] [place] [address] Dr. Clover NagyNeisseria gonorrhoeae, NAANegativeNormalNegativeThe [facility] HospitalComment on above:Performed By: #### A1C #### [facility] [address] [place] [address] Dr. Clover Stauffer ACOG PANEL 2: 30 to 65on 01-24-2022..NormalThe [facility] HospitalComeaton rapids medical center on above:Result Comment: Performed at: WBPerformed By: #### [id number] #### [facility] [address] [place] [address] Dr. Clover Weiss Gdln ACOG Cvwzzog10-90CpwmcjOspKettering HealthComment on above:Performed By: #### [id number] #### [facility] [address] [place] [address] Dr. Clover NagyDIAGNOSIS:CommentBlanchard Valley Health System on above: Result Comment: NEGATIVE FOR INTRAEPITHELIAL LESION OR MALIGNANCY. Performed at: WBPerformed By: #### [id number] #### [facility] [address] [place] [address] Dr. Clover NagyHPV AptimaNegativeNormalNegativeHocking Valley Community HospitalComeaton rapids medical center on above:Result Comment: This nucleic acid amplification test detects fourteen high-risk HPV types (16,18,31,33,35,39,45,51,52,56,58,59,66,68) without differentiation. Performed at: =GPerformed By: #### [id number] #### [facility] [address] [place] [address] Dr. Clover NagyMethodology:CommentBlanchard Valley Health System on above: Result Comment: This liquid based ThinPrep(R) pap test was screened with the use of an image guided system. Performed at: WBPerformed By: #### [id number] #### [facility] [address] [place] [address] Dr. Clover NagyNote:CommentBlanchard Valley Health System on above:Result Comment: The Pap smear is a screening test designed to aid in the detection of premalignant and malignant conditions of the uterine cervix. It is not a diagnostic procedure and should not be used as the sole means of detecting cervical cancer. Both false-positive and false-negative reports do occur. . Performed at: WBPerformed By: #### [id number] #### [facility] [address] [place] [address] Dr. Clover NagyPerformed by:CommentBlanchard Valley Health System on above: Result Comment: Kelley Vallejo, Substance Abuse Nurse (ASC) Performed at: WBPerformed By: #### [id number] #### [facility] [address] [place] [address] Dr. Clover Mulligan adequacy:CommentBlanchard Valley Health System on above:Result Comment: Satisfactory for evaluation. No endocervical cells are present. This is consistent with a history of hysterectomy. Performed at: WBPerformed By: #### [id number] #### [facility] [address] [place] [address] Dr. Clover StarkeyTRADIOLon 32-57-1438Lvkxkykpq8.2 pg/mLNCity HospitalComeaton rapids medical center on above:Result Comment: Adult Female: Follicular phase 12.5 - 166.0 Ovulation phase 85.8 - 498.0 Luteal phase 43.8 - 211.0 Postmenopausal <6.0 - 54.7 1st trimester 215.0 - >4300.0 Kishan ECLIA methodologyPerformed By: #### ESTRADI #### [facility] [address] [place] [address] Dr. Clover NagyFS 50-07-2914IEY30.8 mIU/mLNCity HospitalComeaton rapids medical center on above:Result Comment: Adult Female: Follicular phase 3.5 - 12.5 Ovulation phase 4.7 - 21.5 Luteal phase 1.7 - 7.7 Postmenopausal 25.8 - 134.8Performed By: #### A1C #### [facility] [address] [place] [address] Dr. Clover NagyLUTEINIZING HORMONE (LH)on 68-97-9220AY76.1 mIU/mLNMercy Health Perrysburg Hospital on above:Result Comment: Adult Female: Follicular phase 2.4 - 12.6 Ovulation phase 14.0 - 95.6 Luteal phase 1.0 - 11.4 Postmenopausal 7.7 - 58.5Performed By: #### A1C #### [facility] [address] [place] [address] Dr. Clover NagyPROGESTERONEon 96-23-5457Mreposqemubx2.1 ng/mLNormalHocking Valley Community HospitalComment on above:Result Comment: Follicular phase 0.1 - 0.9 Luteal phase 1.8 - 23.9 Ovulation phase 0.1 - 12.0 First trimester 11.0 - 44.3 Second trimester 25.4 - 83.3 Third trimester 58.7 - 214.0 Postmenopausal 0.0 - 0.1Performed By: #### A1C #### [facility] [address] [place] [address] Dr. Clover NagyVAGINITIS/VAGINOSIS DNA PROBEon 94-78-3459Uisviez speciesNegative NormalNegativeHocking Valley Community HospitalComment on above:Performed By: #### VAGINT #### [facility] [address] [place] [address] Dr. Clover Eidlla vaginalisNegativeNormalNegativeHocking Valley Community Hospital Comment on above:Performed By: #### VAGINT #### [facility] [address] [place] [address] Dr. Clover Blissonas vaginalisNegativeNormalNegativeHocking Valley Community Hospital Comment on above:Performed By: #### VAGINT #### [facility] [address] [place] [address] Dr. Clover Kern AUTO DIFFon 52-95-9755UAIS #0.1 103/ulNormal0.0-0.1Hocking Valley Community HospitalComment on above:Performed By: #### CBC #### [facility] [address] [place] [address] Dr. Clover NagyBasophils/100 WBC (Bld)0.9 %Normal0.2-2.0[facility] Comment on above:Performed By: #### CBC #### [facility] [address] [place] [address] Dr. Clover Crespo #0.7 103/ulNormal0.0-0.7The [facility] HospitalComment on above: Performed By: #### CBC #### [facility] [facility] [address] [place] [address] Dr. Clover Zapataosinophils/100 WBC (Bld)9.5 %Critically high0.9-7.0The [facility] HospitalComment on above:Performed By: #### CBC #### [facility] [address] [place] [address] Dr. Clover Zapatarythrocyte distribution width (RBC) [Ratio]11.8 %Ixxuac69.0-15.0 [facility] HospitalComment on above:Performed By: #### CBC #### [facility] [address] [place] [address] Dr. Clover NagyHematocrit (Bld) [Volume fraction]37.0 %Nqhmpm95.0-48.0The [facility] HospitalComment on above:Performed By: #### CBC #### [facility] [address] [place] [address] Dr. Clover NagyHemoglobin (Bld) [Mass/Vol]12.3 g/oOMqgubu93.0-16.0The [place] [facility] on above:Performed By: #### CBC #### [facility] [address] [place] [address] Dr. Clover NagyIG #0.01 10e3/ulNormal0.00-0.03The [facility]Come[facility] on above:Performed By: #### CBC #### [facility] [address] [place] [address] Dr. Clover NagyIG %0.1 %Normal0.0-0.5The [facility]Come[facility] on above: Performed By: #### CBC #### [facility] [address] [place] [address] Dr. Clover ThomasMPH #1.2 103/ulNormal1.2-3.8The [facility] HospitalComment on above:Performed By: #### CBC #### [facility] [address] [place] [address] Dr. Clover Thomasmphocytes/100 WBC (Bld)17.5 %Critically low20.5-60.0The [facility] on above:Performed By: #### CBC #### [facility] [address] [place] [address] Dr. Clover Sofia DIFF REQNONormalThe [facility] HospitalComment on above: Performed By: #### CBC #### [facility] [address] [place] [address] Dr. Clover Nicholas (RBC) [Entitic mass]28.3 ykYhzlov79.7-34.0The [facility] HospitalComment on above:Performed By: #### CBC #### [facility] [address] [place] [address] Dr. Clover Nicholas (RBC) [Mass/Vol]33.2 g/tHAubtes65.9-35.2The [facility] HospitalComment on above:Performed By: #### CBC #### [facility] [address] [place] [address] Dr. Clover Nicholas (RBC) [Entitic vol]85.1 rGUxvfyt35.0-99.0The [facility] HospitalComment on above:Performed By: #### CBC #### [facility] [address] [place] [address] Dr. Clover Duron #0.6 103/ulNormal0.3-0.8[facility] HospitalComment on above:Performed By: #### CBC #### [facility] [address] [place] [address] Dr. Clover Melissaocytes/100 WBC (Bld)8.8 %Normal1.7-12.0The [facility] Comment on above:Performed By: #### CBC #### [facility] [address] [place] [address] Dr. Clover Moore #4.3 103/ulNormal1.4-6.5[facility] HospitalComment on above:Performed By: #### CBC #### [facility] [address] [place] [address] Dr. Clover Alvesutrophils/100 WBC (Bld)63.2 %Ntahsr07.0-75.0[facility] HospitalComment on above:Performed By: #### CBC #### [facility] [address] [place] [address] Dr. Clover Fairbankslet mean volume (Bld) [Entitic vol]10.4 fLNormal9.5-13.5The [place] [facility] on above:Performed By: #### CBC #### [facility] [address] [place] [address] Dr. Clover NagyPLT310 103/aqNzljvg775-085Xez [facility] HospitalComment on above: Performed By: #### CBC #### [facility] [address] [place] [address] Dr. Clover NagyRBC4.35 106/ulNormal4.20-5.40The [place] [facility] on above:Performed By: #### CBC #### [facility] [address] [place] [address] Dr. Clover NagyWBC6.8 103/ulNormal4.0-11.0The [facility] on above: Performed By: #### CBC #### [facility] [address] [place] [address] Dr. Clover YenEE T4on [id number] T4 [Mass/Vol]1.15 ng/dLNormal0.76-1.46 The [facility] on above:Performed By: #### FT4 #### [facility] [address] [place] [address] Dr. Clover Ruggiero [id number] uIU/mLNormal0.358-3.740The [place] [facility] on above:Performed By: #### A1C #### [facility] [address] [place] [address] Dr. Clover Kern AUTO DIFFon [id number] #0.0 103/ulNormal0.0-0.1The [facility] on above:Performed By: #### CBC #### [facility] [address] [place] [address] Dr. Clover NagyBasophils/100 WBC (Bld)0.3 %Normal0.2-2.0The [facility] Comment on above:Performed By: #### CBC #### [facility] [address] [place] [address] Dr. Clover Crespo #0.1 103/ulNormal0.0-0.7The [facility] HospitalComment on above: Performed By: #### CBC #### [facility] [address] [place] [address] Dr. Clover Zapataosinophils/100 WBC (Bld)0.6 %Critically low0.9-7.0[facility] HospitalComment on above:Performed By: #### CBC #### [facility] [address] [place] [address] Dr. Clover Zapatarythrocyte distribution width (RBC) [Ratio]11.6 %Sbhmim73.0-15.0 [facility] HospitalComment on above:Performed By: #### CBC #### [facility] [address] [place] [address] Dr. Clover NagyHematocrit (Bld) [Volume fraction]38.0 %Vlpeul62.0-48.0The [facility] HospitalComment on above:Performed By: #### CBC #### [facility] [address] [place] [address] Dr. Clover NagyHemoglobin (Bld) [Mass/Vol]12.7 g/oCOplvjs60.0-16.0[facility] HospitalComment on above:Performed By: #### CBC #### [facility] [address] [place] [address] Dr. Clover Carson #0.05 10e3/ulCritically high0.00-0.03The [facility] Comment on above:Performed By: #### CBC #### [facility] [address] [place] [address] Dr. Clover Carson %0.5 %Normal0.0-0.5The [facility] HospitalComment on above: Performed By: #### CBC #### [facility] [address] [place] [address] Dr. Clover Parker #2.0 103/ulNormal1.2-3.8The [facility] HospitalComment on above:Performed By: #### CBC #### [facility] [address] [place] [address] Dr. Clover Lopezhocytes/100 WBC (Bld)20.8 %Vlqynu41.5-60.0The [facility] HospitalComment on above:Performed By: #### CBC #### [facility] [address] [place] [address] Dr. Clover Sofia DIFF REQNONormalThe [facility] HospitalComment on above: Performed By: #### CBC #### [facility] [address] [place] [address] Dr. Clover Parikh (RBC) [Entitic mass]28.7 gqIljthh03.7-34.0The [facility] HospitalComment on above:Performed By: #### CBC #### [facility] [address] [place] [address] Dr. Clover Nicholas (RBC) [Mass/Vol]33.4 g/gDVdxwgg08.9-35.2The [facility] HospitalComment on above:Performed By: #### CBC #### [facility] [address] [place] [address] Dr. Clover Nicholas (RBC) [Entitic vol]85.8 qNCxmzfw28.0-99.0The [facility] HospitalComment on above:Performed By: #### CBC #### [facility] [address] [place] [address] Dr. Clover Duron #0.7 103/ulNormal0.3-0.8The [facility] HospitalComment on above:Performed By: #### CBC #### [facility] [address] [place] [address] Dr. Clover Melissaocytes/100 WBC (Bld)7.0 %Normal1.7-12.0The [facility] Comment on above:Performed By: #### CBC #### [facility] [address] [place] [address] Dr. Clover Moore #6.7 103/ulCritically high1.4-6.5The [facility] Comment on above:Performed By: #### CBC #### [facility] [address] [address] [address] Clover Alvesutrophils/100 WBC (Bld)70.8 %Mnkkwr58.0-75.0[facility] HospitalComment on above:Performed By: #### CBC #### [facility] [address] [address] [address] Clover NagyPlatelet mean volume (Bld) [Entitic vol]10.3 fLNormal9.5-13.5The [facility] HospitalComment on above:Performed By: #### CBC #### [facility] [address] [place] [address] Dr. Clover NagyPLT433 103/ysCowoij328-186Pcp [facility] HospitalComment on above: Performed By: #### CBC #### [facility] [address] [place] [address] Dr. Clover NagyRBC4.43 106/ulNormal4.20-5.40The [facility] HospitalComment on above:Performed By: #### CBC #### [facility] [address] [place] [address] Dr. Clover NagyWBC9.5 103/ulNormal4.0-11.0The [facility] HospitalComment on above: Performed By: #### CBC #### [facility] [address] [place] [address] Dr. Clover NagyGLYCOHEMOGLOBIN A1Con [id number] RECOMMENDATIONADA THERAPEUTIC TARGET 6.0 - 7.0 ACTION SUGGESTED > 7.0NormalThe [facility] HospitalComment on above:Performed By: #### A1C #### [facility] [address] [place] [address] Dr. Clover NagyGlucose [Mass/Vol]103 mg/vWEkkxiz44-953JqsHocking Valley Community Hospital Comment on above:Performed By: #### A1C #### [facility] [address] [address] [address] Clover NagyPerformed By: #### LIPID, CMP, TSH #### [facility] [address] [address] [address] Clover NagyHbA1c (Bld) [Mass fraction]5.2 %Normal<=6.0The [facility] Comment on above:Performed By: #### A1C #### [facility] [address] [place] [address] Dr. Clover NagyLIPID PROFILEon [id number]-HDL RATIO NORMSEE [facility] CompanyComment on above:Result Comment: 3.3 - 4.4 LOW RISK 4.4 - 7.1 AVERAGE RISK 7.1 - 11.0 MODERATE RISK >11.0 HIGH RISKPerformed By: #### A1C #### [facility] [address] [place] [address] Dr. Clover NagyCholesterol [Mass/Vol]214 mg/dLCritically high<=200The [facility] HospitalComment on above:Performed By: #### A1C #### [facility] [address] [place] [address] Dr. Clover Cheemaesterol in HDL [Mass/Vol]64 mg/dLCritically qvtk46-80FhfHocking Valley Community HospitalComment on above:Performed By: #### A1C #### [facility] [address] [place] [address] Dr. Clover Cheemaesterol in LDL [Mass/Vol]126.6 mg/dLMetroHealth Parma Medical CenterComment on above:Performed By: #### A1C #### [facility] [address] [place] [address] Dr. Clover Cheemaesterdagoberto.total/Cholesterol in HDL [Mass ratio]3.3 {ratio} NormalThe [facility] HospitalComeaton rapids medical center on above:Performed By: #### A1C #### [facility] [address] [place] [address] Dr. Clover NagyHDL NORMAL> or = 60 mg/dl - LOW CARDIOVASCULAR RISK <40 mg/dl - HIGH CARDIOVASCULAR RISKMetroHealth Parma Medical CenterComment on above:Performed By: #### A1C #### [facility] [address] [address] [address] Clover Humphries CALC NORMALSEE BELOWMetroHealth Parma Medical CenterComment on above:Result Comment: <100 mg/dl OPTIMAL 100 - 129 mg/dl NEAR OR ABOVE OPTIMAL 130 - 159 mg/dl BORDERLINE HIGH 160 - 189 mg/dl HIGH >190 mg/dl VERY HIGH Performed By: #### A1C #### [facility] [address] [address] [address] Clover NagyTriglyceride [Mass/Vol]117 mg/dLNormal<=150The [facility] Comment on above:Performed By: #### A1C #### [facility] [address] [place] [address] Dr. Clover NagyVLDL CALC23.4 mg/dLNoKettering HealthComment on above: Performed By: #### A1C #### [facility] [address] [place] [address] Dr. Clover NagyPROF 14(COMP METB)on [id number] [Mass/Vol]3.7 g/dLNormal 3.4-5.0The [facility] HospitalComment on above:Performed By: #### LIPID, CMP, TSH #### [facility] [address] [place] [address] Dr. Clover NagyAlbumin/Globulin [Mass ratio]0.9 {ratio}NormalThe [facility] HospitalComment on above:Performed By: #### LIPID, CMP, TSH #### [facility] [address] [place] [address] Dr. Clover AlbarranP [Catalytic activity/Vol]76 U/MGjrpzz86-833Imt [facility] HospitalComeaton rapids medical center on above:Performed By: #### LIPID, CMP, TSH #### [facility] [address] [place] [address] Dr. Clover AlbarranT [Catalytic activity/Vol]28 U/BEnnxgd69-48Slw [facility] on above:Performed By: #### LIPID, CMP, TSH #### [facility] [address] [address] [address] Clover Bragaon gap [Moles/Vol]11.6 mmol/LNormalThe [facility] Comment on above:Performed By: #### LIPID, CMP, TSH #### [facility] [address] [address] [address] Clover NagyAST [Catalytic activity/Vol]17 U/VXnfygk97-25Ctc [facility] HospitalComment on above:Performed By: #### LIPID, CMP, TSH #### [facility] [address] [place] [address] Dr. Clover NagyBilirubin [Mass/Vol]0.2 mg/dLNormal0.2-1.3The [facility] Comment on above:Performed By: #### LIPID, CMP, TSH #### [facility] [address] [address] [address] Clover NagyCalcium [Mass/Vol]9.0 mg/dLNormal8.5-10.1The [facility] Comment on above:Performed By: #### LIPID, CMP, TSH #### [facility] [address] [address] [address] Clover NagyChloride [Moles/Vol]100 mmol/UXxpide02-361Nmk [facility] Comment on above:Performed By: #### LIPID, CMP, TSH #### [facility] [address] [address] [address] Clover NagyCO2 [Moles/Vol]27.9 mmol/OSmrxxi08.0-30.0The [facility] Comment on above:Performed By: #### LIPID, CMP, TSH #### [facility] [address] [address] [address] Clover NagyCreatinine [Mass/Vol]0.72 mg/dLNormal0.52-1.04The [facility] HospitalComment on above:Performed By: #### LIPID, CMP, TSH #### [facility] [address] [address] [address] Galo ChangEGFR-AF DOMINICAN>60Normal>=60The [facility] HospitalComment on above:Performed By: #### LIPID, CMP, TSH #### [facility] [address] [place] [address] Dr. Clover ZapataGFR-NON AF DOMINICAN>60Normal>=60The [facility] HospitalComment on above:Performed By: #### LIPID, CMP, TSH #### [facility] [address] [place] [address] Dr. Clover NagyGlobulin (S) [Mass/Vol]4.0 g/dLNormAdena Regional Medical CenterComment on above:Performed By: #### LIPID, CMP, TSH #### [facility] [address] [place] [address] Dr. Clover NagyPotassium [Moles/Vol]3.5 mmol/LNormal3.4-5.0The [facility] Comment on above:Performed By: #### LIPID, CMP, TSH #### [facility] [address] [place] [address] Dr. Clover NagyProtein [Mass/Vol]7.7 g/dLNormal6.1-8.2The [facility] Comment on above:Performed By: #### LIPID, CMP, TSH #### [facility] [address] [place] [address] Dr. Clover NagySodium [Moles/Vol]136 mmol/LCritically xbp837-469Adx [facility] HospitalComment on above:Performed By: #### LIPID, CMP, TSH #### [facility] [address] [place] [address] Dr. Clover NagyUrea nitrogen [Mass/Vol]12.0 mg/dLNormal7.0-18.0The [facility] HospitalComment on above:Performed By: #### LIPID, CMP, TSH #### [facility] [address] [place] [address] Dr. Clover NagyUrea nitrogen/Creatinine [Mass ratio]16.7 mg/mgNoKettering HealthComment on above:Performed By: #### LIPID, CMP, TSH #### [facility] [address] [place] [address] Dr. Clover Ruggiero 17-42-4472JAX1.535 uIU/mLNormal0.470-4.680The [facility] HospitalComment on above:Performed By: #### A1C #### [facility] [address], [place] [address] Dr. Clover Alexander [facility] CenterComment on above: Result Comment: <0.34 UIU/ml HYPERTHYROID 0.34-5.60 UIU/ml EUTHYROID >5.60 UIU/ml HYPOTHYROIDPerformed By: #### A1C #### [facility] [address], [place] [address] Dr. Clover NagyCovid-19 PCR ([facility])on [id number]-CoV-2 (COVID-19) RNA JAMES+probe Ql (Unsp spec)DetectedCritically abnormalNOT DETECTEDThe [facility] HospitalComment on above:Result Comment: This test is not yet approved or cleared by the [place] FDA. When there are no FDA-approved or cleared tests available, and other criteria are met, FDA can make tests available under an emergency access mechanism called an Emergency Use Authorization (EUA). The EUA for this test is supported by the Automation Sales Manager of Health and Human Service's declaration that [...] longer be used).Performed By: #### CVDTBH #### [facility] [address], [place] [address] Dr. Clover Nagy Vital Signs Date TimeVital SignValuePerforming [id number] 15:14040Body sowxzd709.1 cmBenjamin Ball DO Work Phone: [facility]10-13-2025 15:14-0400 Body mass index (BMI) [Ratio]29.5 kg/g8Oujttqme Ball DO Work Phone: [phone]10-13-2025 15:14-0400 Body gcslur59.34 kgBenjamin Ball DO Work Phone: [phone] [place], [place] 6834710-13-2025 15:14-0400 Diastolic blood mm[Hg]Merrill Ball DO Work Phone: [phone] [place], [place] 6834710-13-2025 15:14-0400 Heart rate90 /minBenjamin Ball DO Work Phone: [phone])[address] [place], [place] 6834710-13-2025 15:14-0400 Respiratory rate12 /minBenjamin Ball DO Work Phone: [phone] [place], [place] 6834710-13-2025 15:14-0400 Systolic blood qphjmufw844 mm[Hg]Merrill Ball DO Work Phone: [phone] [place], [place] 6834709-08-2025 13:44-0400 Diastolic blood nddlurgr60 mm[Hg]Joceline Henry CRTT Work Phone: [phone] [place], [place] 6834709-08-2025 13:44-0400 Heart rate89 /Sera Laroserbacher CRTT Work Phone: [phone] [place], [place] 6834709-08-2025 13:44-0400 Respiratory rate16 /minJoceline Laroserbacher CRTT Work Phone: [phone] [place], [place] 6834709-08-2025 13:44-0400 SaO2% (BldA) [Mass fraction]98 %Joceline Henry CRTT Work Phone: [phone] [place], [place] 6834709-08-2025 13:44-0400 Systolic blood rprgmtde366 mm[Hg]Joceline Henry CRTT Work Phone: [phone] [place], [place] 6834709-08-2025 11:34-0400 Body vmlpha200.1 cmJoceline Laroserbacher CRTT Work Phone: [phone] [place], [place] 6834709-08-2025 11:34-0400 Body slzemo81.01 kgJoceline Laroserbacher CRTT Work Phone: [phone] 15:02-0400 Body bmuttz416.1 cmBenjamin Ball DO Work Phone: [phone] 15:02-0400 Body mass index (BMI) [Ratio]28.9 kg/y7Lmutyqgv Ball DO Work Phone: [phone] [place], [place] 6834708-18-2025 15:02-0400 Body szhkhymnlzp74.3 [degF]Merrill Ball DO Work Phone: [phone] [place], [place] 6834708-18-2025 15:02-0400 Body oxuubr95.92 kgBenjamin Ball DO Work Phone: [phone] [place], [place] 6834708-18-2025 15:02-0400 Diastolic blood zwyuqquc85 mm[Hg]Merrill Ball DO Work Phone: [phone] [place], [place] 6834708-18-2025 15:02-0400 Heart rate65 /minBenjamin Ball DO Work Phone: [phone] [place], [place] 6834708-18-2025 15:02-0400 SaO2% (BldA) [Mass fraction]98 %Merrill Ball DO Work Phone: [phone] [place], [place] 6834708-18-2025 15:02-0400 Systolic blood lssyvuug140 mm[Hg]Merrill Ball DO Work Phone: [phone] [place], [place] 6834707-08-2025 07:55-0400 Body .1 cmAminah Fraire MD Work Phone: [phone] HospitalEjqwrrvvik05-47-6599 07:55-0400Body mass index (BMI) [Ratio]28.29 kg/b1TukgcmAminah Fraire MD Work Phone: [facility] HospitalXofwjvpkig98-15-4404 07:55-0400Body ecpnvd47.11 kgAminah Fraire MD Work Phone: [facility] HospitalWrawpkdoen89-82-8160 07:55-0400Diastolic blood hsnyyrvz70 mm[Hg]Aminah Fraire MD Work Phone: [facility] HospitalNiplggppqh64-51-5648 07:55-0400Heart rate93 /min Aminah Fraire MD Work Phone: 1([phone])[facility]-2864[facility] HospitalVnuyxqnfga96-09-2761 07:55-0400Systolic blood axdxfygg689 mm[Hg]Aminah Fraire MD Work Phone: [phone])[facility]-7682[facility] HospitalRjbejtvykv07-25-5887 14:21-0400Body mass index (BMI) [Ratio]27.98 kg/y7Ogjqo Andrew DO Work Phone: 1([phone])[facility]-[address] [place], [place] [address]Zfopthwshx57-48-8435 14:21-0400Body fpnkis38.26 kgCorey Andrew DO Work Phone: [phone])[facility] [place], [place] [address]Eawlgixpqh15-00-6535 14:21-0400Diastolic blood quujsinb67 mm[Hg]Yoseph Andrew DO Work Phone: 1([phone])[facility]-[address] [place], [place] [address]Agzvbhuuhg28-52-1798 14:21-0400Systolic blood wtddumqv680 mm[Hg]Yoseph Andrew DO Work Phone: 1(646)[facility] [place], [place] [address]Ygxwyzjpdd66-51-9559 14:18-0500Body .1 cmAminah Fraire MD Work Phone: [facility] HospitalWgrqtbiznr03-50-0807 14:18-0500Body mass index (BMI) [Ratio]27.96 kg/k3ZrsvbqAminah Fraire MD Work Phone: 1(989)[facility]-1780[facility] HospitalUoeveqdedb93-35-5561 14:18-0500Body czerzc95.2 kg Aminah Fraire MD Work Phone: 1([phone])[facility]-97[address] HospitalTeeqmqlkag65-85-9402 14:18-0500Diastolic blood mm[Hg]Aminah Fraire MD Work Phone: 1(132)[facility]-9016[facility] HospitalGtnropibrc28-11-1726 14:18-0500Systolic blood lxesiuno224 mm[Hg]Aminah Fraire MD Work Phone: 1(041)[facility]-9907[facility] HospitalZfrqwszkvg29-30-2091 13:30-0400Body vzeara273.1 cmJennifer Rohrbacher Other [employer] Other 10-03-2023 13:30-0400Body mass index (BMI) [Ratio] 27.45 kg/t2LdkubreeJoceline Henry Other [employer] Other 10-03-2023 13:30-0400Body sbltlo11.84 kgJoceline Henry Other [employer] Other 10-03-2023 13:30-0400Diastolic blood dinazhfs43 mm[Hg] Joceline Panchalbeto Other [employer] Other 10-03-2023 13:30-6863RrM4% (BldA) [Mass fraction]98 % Joceline Larosemadina Other [employer] Other 10-03-2023 13:30-0400Systolic blood rvmofrse483 mm[Hg] Joceline Wingjose Other [employer] Other 08-30-2023 15:45-0400Body wizddp321.1 cmBenjamin Ball Other [employer] Other 08-30-2023 15:45-0400Body mass index (BMI) [Ratio] 27.74 kg/h1Zhioikxw Ball Other [employer] Other 08-30-2023 15:45-0400Body froemf43.62 kgBenjamin Ball Other [employer] Other 08-30-2023 15:45-0400Diastolic blood narnxevx92 mm[Hg] Merrill Ball Other [employer] Other 08-30-2023 15:45-0400Respiratory rate12 /minBenjamin Ball Other [employer] Other 08-30-2023 15:45-0400Systolic blood fzuecwcg260 mm[Hg] Merrill Ball Other [employer] Other 07-13-2023 11:00-0400Body deezgl345.1 cmBenjamin Ball Other [employer] Other 07-13-2023 11:00-0400Body mass index (BMI) [Ratio] 27.55 kg/s8Lazezxxq Ball Other [employer] Other 07-13-2023 11:00-0400Body .12 kgBenjamin Ball Other [employer] Other 07-13-2023 11:00-0400Diastolic blood ecuoddbp19 mm[Hg] Merrill Ball Other [employer] Other 07-13-2023 11:00-0400Respiratory rate12 /minBenjamin Ball Other [employer] Other 07-13-2023 11:00-0400Systolic blood hucqkoev929 mm[Hg] Merrill Ball Other [employer] Other 04-26-2023 11:30-0400Body axmhfg547.1 cmBenjamin Ball Other [employer] Other 04-26-2023 11:30-0400Body mass index (BMI) [Ratio] 27.82 kg/q0KsxuudkxMerrill Singh Other [employer] Other 04-26-2023 11:30-0400Body soelhn07.84 kgMerrill Singh Other [employer] Other 04-26-2023 11:30-0400Diastolic blood aihhypjk49 mm[Hg] Merrill Singh Other [employer] Other 04-26-2023 11:30-0400Respiratory rate12 /minMerrill Singh Other [employer] Other 04-26-2023 11:30-0400Systolic blood iimfitro017 mm[Hg] Merrill Singh Other [employer] Other Encounters Encounter DateEncounter TypeCare ProviderFacilityStart: 04-25-2025 End: 44-29-2907delrfxoksaIcjbowzm Ball DO Work Phone: [facility] Work Phone: Start: 04-25-2025 End: 92-46-5881Tmypsvf encounter procedureBegertrude Singh DO-[facility] Work Phone: Start: 04-25-2025 End: 85-38-2008Pvfxohc encounter statusBegertrude Singh [facility] Centertart: 25-92-4504Njn-patient / Non-visitBegertrude Singh DO-[facility] [employer] Work Phone: Start: 03-21-2025 End: 99-51-8968lpfggjgwcjTrxcwcfth L LyFacility:Centervilletart: 93-10-4962Soe-patient / Non-visitCatherine L Ly DO-[facility] Work Phone: Start: 02-28-2025 End: 23-66-6781xrcowctlcjIviemkrv Ball DO Work Phone: [facility] Work Phone: Start: 02-28-2025 End: 54-99-6414Jukqgzi encounter procedureNancielindy Wingjose CRTT SENIOR GL ACCOUNTANT-[employer] [facility] Work Phone: Start: 01-18-2025 End: 33-87-5575Asbppw Jane Fraire MD Work Phone: [facility] ENTStart: 01-18-2025 End: 61-87-4108Ovhmxm Jane Fraire MD Work Phone: [facility] ENTStart: 01-18-2025 End: 53-14-7185Ycrbdd outpatient visit 25 minutesHivic Fraire MD Work Phone: [facility] CI ENTComment on above:Acute swimmer's ear of both sides (Primary Dx)Start: 01-18-2025 End: 22-75-2774ggyebqhczvKMAXHR H TIMMISNot AvailableStart: 01-16-2025 End: 26-50-2938gansnltbelSteyq M. DempseyFacility:CC NorkStart: 01-16-2025 End: 91-06-5431Kqkimaw encounter Richelle Berry [phone]-YxsbrUniversity Hospitals [facility] Start: 01-13-2025 End: 59-39-3828ixxgwcmeklEhfprojtw L ClarkFacility:CC NorwalkStart: 01-13-2025 End: 10-26-1846Bruycil encounter procedureMayra Brannon [phone]-AjbakUniversity Hospitals Geaug[facility] Start: 42-34-6809Mflvdxz encounter statusBedellaconnie Singh DO Work Phone: Centervilletart: 04-08-2024 End: 46-44-4023Uhpbldshf Result EncounterCorey Andrew DO Work Phone: noms External Department UnsolicitedStart: 04-08-2024 End: 79-13-3001Lryjuqzlz Result EncounterCorey Andrew DO Work Phone: noms External Department UnsolicitedStart: 03-30-2024 End: 41-36-3491Agbfhjbtk Result EncounterCorey Andrew DO Work Phone: noms External Department UnsolicitedStart: 03-30-2024 End: 01-37-7372Pohaaiiqk Result EncounterCorey Andrew DO Work Phone: noms External Department UnsolicitedStart: 03-29-2024 End: 83-42-3917ufzoxjrkidAUTUX FAZIONot AvailableStart: 03-29-2024 End: 23-52-9225Ynqlwy flowsheetCorey Andrew DO Work Phone: [facility] BCP OBStart: 03-29-2024 End: 41-82-8542Ktbzoh flowsheetCorey Andrew DO Work Phone: [facility] BCP OBStart: 03-29-2024 End: 15-99-6036Ktewtkqjg Result EncounterCorey Andrew DO Work Phone: noms External Department UnsolicitedStart: 03-29-2024 End: 72-42-7341Gprqlrf encounter procedureCorey Andrew DO Work Phone: [facility] Work Phone: Start: 03-29-2024 End: 41-72-0341Ukvkgqri preventive med est patient 18-39 yrsCorey Andrew DO Work Phone: [facility] OBComment on above:Well woman exam with routine gynecological exam; Hot flashes due to surgical menopause; Mood changes; Decreased libido; Symptomatic menopausal or female climacteric statesStart: 03-24-2024 End: 66-66-9167Sfgzxowpn Result EncounterCorey Andrew DO Work Phone: noms External Department UnsolicitedStart: 03-24-2024 End: 88-34-3715Aflkfsbrb Result EncounterCorey Andrew DO Work Phone: noms External Department UnsolicitedStart: 03-12-2024 End: 74-33-5190Tjuabfdrp Result EncounterCorey Andrew DO Work Phone: noms External Department UnsolicitedStart: 03-12-2024 End: 94-66-3375Ysmedyghv Result EncounterCorey Andrew DO Work Phone: noms External Department UnsolicitedStart: 08-22-2023 End: 65-27-8297Qjygxhgwc Result EncounterAminah Fraire MD Work Phone: noms External Department UnsolicitedStart: 08-22-2023 End: 38-10-2318Zxrapbxoy Result EncounterHivic Fraire MD Work Phone: noms External Department UnsolicitedStart: 08-20-2023 End: 10-81-3362Zunymf outpatient visit 15 minutesAminah Fraire MD Work Phone: [facility] CI ENTComment on above:Pharyngoesophageal dysphagia (Primary Dx)Start: 14-88-9735Txvwf abstractingAminah Fraire MD Work Phone: [facility] ENT NORWALKStart: 04-24-2023 End: 58-73-9369wqonwoewjmMyekmhwp Ball Other [facility] [employer] Other Start: 89-97-0640Vdyqlspec encounterMerrill Wild CardiologyStart: 04-15-2023 End: 20-24-0118bqcfjzitujHnwzddit Rohrbacher Other [facility] [employer] Other Start: 09-85-5627Dmxwom outpatient visit 15 minutes Joceline RohrbacherFPG Ball Medical ClinicStart: 04-09-2023 End: 77-85-7521giqftrvfnrSwrjtkcb Ball Other [employer] Other Start: 78-00-8149Xjjpqixfc encounterBenjamin BallFPG Ball Medical ClinicStart: 03-26-2023 End: 57-28-5677rrpblfupvgDefiylwv Ball Other [employer] Other Start: 95-54-5061Fzagjkrfh encounterBenjamin BallFPG [facility] Medical ClinicStart: 03-12-2023 End: 32-00-9199rvskdbdnatDirplmjk Ball Other [employer] Other Start: 85-30-5502Hwnbdq outpatient visit 15 minutes Merrill BallFPG [facility] Medical ClinicStart: 02-19-2023 End: 19-15-8208uqzbuihskrQulyvuye Ball Other [employer] Other Start: 35-94-6272Egksnbcxm encounterBenjamin BallFPG [facility] Medical ClinicStart: 02-18-2023 End: 74-81-7916zpmsfiiwjeGyrsrkeg Ball Other [employer] Other Start: 88-50-0957Qftoncwgh encounterBenjamin BallFPG [facility] Medical ClinicStart: 01-27-2023 End: 43-52-3620sbitrydslrDjterpdf Ball Other [employer] Other Start: 86-46-9639Sgbekivbo encounterBenjamin BallFPG [facility] Medical ClinicStart: 01-23-2023 End: 39-65-0994dtnwzrqaqvSffeemto Ball Other [employer] Other Start: 31-99-1229Bayqcaawm for general adult medical examination without abnormal findingsBegertrude Singh Medical ClinicStart: 35-43-0657Eznarbmh preventive med est patient 18-39 yrsBegertrude Singh Medical ClinicStart: 01-01-2023 End: 53-98-5738qxyrdefpovPhcrlcsl Ball Other [employer] Other Start: 79-68-0069Mzgoikjyl encounterBegertrude Singh Medical ClinicStart: 11-06-2022 End: 87-46-2499todbbsnyabKgdkheyj Ball Other [employer] Other Start: 47-75-1617Slyymf outpatient visit 15 minutes Merrill Singh Medical ClinicStart: 55-15-4784Vrfqjhcohwzzl examination normalMerrill Singh Other [employer] Other Start: 06-11-2022 End: 95-27-1179tqsyudgtwdCT MERRILL BALLFacility:H8Tnupy: 01-22-2022 End: 83-33-4095frupagfryfUD YOSEPH FAZIOFacility:N9Gbcaa: 79-78-4085Cwcjo health examinationMerrill Singh Other [employer] Other Start: 01-22-2022 End: 05-46-5535cfgqlsdlmcLZ MERRILL BALLFacility:Y6Fyspq: 11-06-6542Pndcpbdkp for general adult medical examination without abnormal findingsDR MERRILL SINGH [facility] Hospitaltart: 10-26-2021 End: 93-68-0773qmqxfclcgqPX MERRILL BALLFacility:E3Tkdab: 10-26-2021 End: 73-05-3487Ztpkkrmyl for general adult medical examination without abnormal findingsDR MERRILL BALLFacility:H9Aeass: 07-27-2021 End: 82-18-7014verihjyjsiMS MERRILL BALLFacility:S1Nxpma: 74-81-8330Rdc- procedure evaluation checkMerrill Singh Other [facility] [employer] Other Procedures DateProcedureProcedure DetailPerforming ClinicianStart: 35-09-3391LG TOMOSYNTHESIS DIAGNOSTIC BICorey Andrew DO Work Phone: Start: 92-78-2205WB BREAST LT LIMITEDCorey Andrew DO Work Phone: Start: 20-12-1224HlpthkmcigpXigitz Timmis MD Work Phone: Start: 74-45-4349DOL T3 FREECorey Andrew DO Work Phone: Start: 22-67-6559FXE THYROID STIM HORMONECorey Andrew DO Work Phone: Start: 67-12-2796BSB,APTIMA HPV,AGE GDLNCorey Andrew DO Work Phone: Start: 60-15-8146ZPXDWW BLOOD*Yoseph Andrew DO Work Phone: Start: 28-53-3547MXJ CBC WITH AUTO DIFFCorey Andrew DO Work Phone: Start: 20-80-4002LM videography Hypopharynx and Esophagus Views for swallowing function W speech and W barium contrast POAminah Fraire MD Work Phone: Start: 78-77-5320FY CINERADIOGRAPHYHivic Fraire MD Work Phone: Start: 22-33-1336liqofeeiwmtd D&C with NovaSure ablationMayra Brannon Cesarean sectionMayra Brannon CholecystectomyMayra Brannon Diabetes mellitus screeningBegertrude Singh Other End: 58-46-5988GyilmiuovoesRntimnsi Ball Other Laser assisted in situ keratomileusisElizabeth Clovis Ligation of fallopian tubeElizabeth Clovis Reconstruction of noseElizabeth Clovis Plan of Treatment DateCare ActivityDetailAuthorStart: 84-74-7105Csiixkjfk for malignant neoplasm of breastMammogramNOMS HealthcareStart: 07-51-6171EuollyktxCentervilletart: 42-16-8676Msioouznc vaccinationInfluenza Vaccine (#1)[facility] HealthcareStart: 96-26-2242Hrreuyb referralUk Healthcare Work Phone: Start: 01-18-2025 End: 58-05-9590Cfxrtgw encounter cirttjapw85/08/2025 8:00 AM EDT Office Visit [facility] [address] [facility] [address] [place] [address] Aminah Fraire MD [address] [facility] [address] [place] [address] ArrivedNOMS CI ENTComment on above:ArrivedStart: 03-29-2024 End: 61-74-5485Czpedsd encounter yjjijebro62/16/2024 2:00 PM EDT Office Visit [facility] [address] [place] [address] Yoseph Morales, DO [address] [place] [address] [facility] BCP OBStart: 88-90-7283Sphleltxx vaccination Influenza Vaccine (#1)[facility] HealthcareStart: 08-20-2023 End: 41-10-3037Rvtswdg encounter idalkvovx69/07/2024 2:20 PM EST Office Visit [facility] [address] [facility] [address] [place] [address] Aminah Fraire MD [address] [facility] [address] [place] [address] [facility] CI ENTStart: 56-06-0199Hnrikuzqi vaccination Influenza Vaccine (#1)[facility] HealthcareStart: 52-06-2431Ykaibquno for malignant neoplasm of cervixMCKAY-DEE HOSPITAL CENTER HealthcareStart: 45-68-5966Vxpeqckzb for malignant neoplasm of cervixPap SmearNOCO HealthcareCytology Cervical or vaginal smear or scraping studyPap Smear Pathology and Cytology Routine Well woman exam with routine gynecological exam Ordered: 03/29/2024[facility] Work Phone: comment on above:Ordered: 03/29/2024HEA-sulfateDHEA- sulfate Lab Routine Symptomatic menopausal or female climacteric states Ordered: 03/29/2024[facility] HealthcareComment on above:Ordered: 03/29/2024Human papilloma virus DNA [Presence] in Unspecified specimen by Probe with amplificationHPV DNA probe, amplified Microbiology Routine Well woman exam with routine gynecological exam Ordered: 03/29/2024[facility] HealthcareComment on above:Ordered: 03/29/2024 Patient EducationEsophageal stricture Know your [facility] Work Phone: Patient [facility] Work Phone: TESTOSTERONE, FREETESTOSTERONE, FREE Lab Routine Symptomatic menopausal or female climacteric states Ordered: 03/29/2024[facility] HealthcareComment on above:Ordered: 03/29/2024Testosterone, free, total Testosterone, free, total Lab Routine Symptomatic menopausal or female climacteric states Ordered: 03/29/2024[facility] HealthcareComment on above:Ordered: 03/29/2024 Immunizations Immunization DateImmunizationNotesCare SfqjlnyiRmjcgsjy57-88-8936ryicboyup virus vaccine, unspecified formulationMayra Brannon 426-1022Xohkyw-VrzapPromedica Memorial Hospital Sjmc53-20-2136 Moderna SARS-CoV-2 VaccinationAminah Fraire MD Work Phone: [facility] HospitalSjayozafyh43-79-4950MUQHD-32 Vaccine Moderna - Documentation Purposes OnlyBenconnie Singh Other [facility]01-28-2021Moderna SARS-CoV-2 VaccinationAminah Fraire MD Work Phone: [facility] HospitalSimeqfercu11-80-4118Fkyessk SARS-CoV-2 VaccinationAminah Fraire MD Work Phone: [facility] HospitalVvffceqqwc07-10-5636ktadxhwox virus vaccine, unspecified formulationAminah Fraire MD Work Phone: [phone]) 355-5515923-5586Igdbew-OwwvgSouthwest General [facility] Center03-02-2016 hepatitis A and hepatitis B vaccineAminah Fraire MD Work Phone: [facility] HospitalGyuvdtgezm63-80-7155niofoskkh B vaccine, pediatric or pediatric/adolescent dosageHivic Fraire MD Work Phone: [facility] HospitalQcxhgoewek01-17-1405byjvookre B vaccine, pediatric or pediatric/adolescent dosageHivic Fraire MD Work Phone: [facility] Payers DatePayer CategoryPayerPolicy ID2025Self-[id number] Member Subscriber Plan / Payer (Effective 2023-) Name: Adrián Joceline Member ID: [id number] Relation to Subscriber: Self Name: Francine Sampsonnifer Subscriber ID: [id number] Payer ID: Not on file Type: Not on file Address: [address] [id number] [id number] [facility] [id number] 2023-Present [phone] [address] [place] [id number] Private Health [id number] [id number] 2.16.840.1.364046.3.57[id number] 2.16.840.1.685819.3.57[id number] 2.16.840.1.342743.3.57[id number] 2.16.840.1.002174.3.57[id number] 2.16.840.1.030750.3.57[id number] 2.16.840.1.183116.3.57[id number] 2.16.840.1.087872.3.57[id number] 2.16.840.1.423994.3.57[id number] 2.840.1.982890.3.57[id number] 2.840.1.361372.3.579.2.531 Social History DateTypeDetailFacilityStart: 03-26-2023 End: 65-64-7447K[facility] HealthcareStart: 02-21-2023 End: 99-23-0040Tlfthxu smoking status NHISEx-smokerMCKAY-DEE HOSPITAL [facility]ENTER HealthcareStart: 11-16-2011 End: 87-80-0974Rdcnhrx of tobacco useCurrent smokerNOMS HealthcareStart: 11-16-2011 End: 91-00-0780Bbyvhrk of tobacco useCigarette SmokerNOMS HealthcareStart: 02-21-2023 End: 41-08-7791Bacjemyfqw smoked current (pack per day) - Hikmhxep6[facility] HealthcareStart: 02-21-2023 End: 35-43-1532Tythfuj use and exposureSmokeless tobacco non-userNOMS Healthcare Start: 08-20-2023 End: 05-50-8803Nywjpyp intakeCurrent drinker of alcohol (finding)[facility] Start: 05-80-4943Vey Assigned At BirthFemalHeber Valley Medical Center HealthcareStart: 07-10-2023 Gender identityIdentifies as female gender (finding)[facility] HealthcareHow often to you have a drink containing alcohol?2-3 time sa weekNOMS HealthcareHow many standard drinks containing alcohol do you have on a typical day?1 or 2N[facility]S HealthcareHow often do you have 6 or more drinks on 1 occasion?NeverNOMS HealthcareStart: 65-80-3970Jssnmbf smoking status NHISSmokes tobacco dailyNOMS HealthcareStart: 82-40-1383Nixaflj smoking statusNeWooster Community Hospital Convenient CareSexual [facility] Start: 69-99-5269ZqvKglvzo (finding)[facility] Centertart: 15-97-3823Zlgohcr smoking status NHISNever smoked tobacco (finding)[facility] Clinical Notes 11-06-2022 to 02-28-2025 Note Date & JwfySarcZbdajayk38-01-8830 Evaluation note* Diagnosis Onset Date Resolution Status Admit Date Dysphagia acuteAugust 2024 2:56pmSchatzki's ringacuteAugust 2024 2:56pm [facility] Work Phone: 1(391) 960-328208-18-2025 Evaluation note* Diagnosis Onset Date Resolution Status Admit Date Schatzki's ring acuteAugust 2024 2:56pmDysphagiadeletedAugust 2024 2:56pm Eosinophilic esophagitisacuteOct2024 3:07pmNicotine addictionacute April 25, 2025 3:07pmScreening mammogram for breast canceracuteOct2024 3:07pmStricture of distal esophagusacuteOct2024 3:07pmWellness examinationacuteOct2024 3:07pm [facility] Work Phone: 1(422) 324-138708-18-2025 Hospital Discharge instructionsAmbulatory Orders* Referral to Gastroenterology Time Frame: 02/28/25, Location: None Selected [facility] Work Phone: 1(872) 954-481307-08-2025 History of Present illness Narrative* Aminah Fraire [...] of right ear 01/18/2025 Hypokalemia 01/18/2025 Twin ([facility]) 01/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 Fraire TOTAL ABDOMINAL HYSTERECTOMY W/ BILATERAL [...] limited response so far. documented in this encounterOzarks Community HospitalHwvupmjlem12-09-5201 Hospital Discharge instructions Patient Education 01/16/2025 11:41:27 [...] pain. Follow these instructions at home: Take rawq-rjg-woicyle and prescription medicines only as told by [...] provider. Document Revised: 10/08/2021 Document Reviewed: 10/08/2021 [employer] Patient Education 2023 [employer] 01/16/2025 11:41:22 Otitis Externa, Sewz-xm-Kacu Otitis Externa Otitis externa is an infection [...] if you start to feel better. Take bwel-whf-gqncncs and prescription medicines only as told by [...] Document Reviewed: 09/12/2021 Elsevier Patient Education 2023 [employer]. Follow Up Care 01/16/2025 09:39:18 With:TAYE DIXON MD, FAM Address: [address] [place] [address] When: Unknown [facility] 07-06-2025 NotePatient Education [...] Follow these instructions at home: ??? Take ofmd-kwu-nuxsmqt and prescription medicines only as told by [...] provider. Document Revised: 10/08/2021 Document Reviewed: 10/08/2021 [employer] Patient Education ? 2023 [employer]. Infectious Disease Otitis Externa Otitis externa is [...] or in the ear (more content not included)...[facility]07-03-2025 Hospital Discharge instructions Patient Education 01/13/2025 [...] if you start to feel better. Take yvvf-hmo-kyicbip and prescription medicines only as told by [...] provider. Document Revised: 09/12/2021 Document Reviewed: 09/12/2021 [employer] Patient Education 2023 [employer]. Follow Up Care 01/13/2025 16:12:18 With:TAYE DIXON MD, FAM Address: [address] [place] [address]- When: Unknown [facility] 07-03-2025 NotePatient Education [...] you start to feel better. ??? Take cudv-xoe-hdjglqh and prescription medicines only as told by [...] provider. Document Revised: 09/12/2021 Document Reviewed: 09/12/2021 [employer] Patient Education ? 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 Dysphagia 02/13/2023 Depression ([facility]) 02/13/2023 Schatzki's ring 02/13/2023 MICHELE (generalized anxiety disorder) ([facility]) 02/13/2023 Resolved Ambulatory Problems Diagnosis Date Noted Acquired absence of both cervix and uterus 02/13/2023 Breast pain in female 02/13/2023 Past Medical History: Diagnosis Date Allergic rhinitis Allergies Asthma ([facility]) Ear problems Fracture of nasal bones Headache Migraine headache ([facility]) TMJ dysfunction HISTORY PAST MEDICAL HISTORY SOCIAL HISTORY Past Medical History: Diagnosis Date Acquired absence of both cervix and uterus 02/13/2023 Allergic rhinitis Allergies Asthma ([facility]) Breast pain in female 02/13/2023 Depression ([facility]) Ear problems Fracture of nasal bones Headache Hypertension ([facility]) Migraine headache ([facility]) TMJ dysfunction [...] OOPHORECTOMY 12/02/2019 RHINOPLASTY 2000 SINUS SURGERY 03/18/2023 [facility], Dr. Fraire TOTAL ABDOMINAL HYSTERECTOMY W/ BILATERAL [...] nursing note reviewed. Exam conducted with a critical care nurse practitioner present. Vitals: Estimated body mass index is [...] libido and will have prescription sent to [facility] for Testosterone/Estrogen prescription. Orders Placed This Encounter Procedures HPV DNA probe, amplified Follow Up: Patient is to return in one year for annual unless needed otherwise. 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 Fraire TOTAL ABDOMINAL HYSTERECTOMY W/ BILATERAL [...] Zenkers. Bariumesophagram and f/u documented in this encounterOzarks Community [id number] Evaluation note* Encounter Date Diagnosis Assessment Notes [...] call the office with update on numbers. [employer] Other 09-27-2023 Evaluation note* Encounter Date Diagnosis Assessment Notes Treatment Notes Treatment Clinical Notes Mar, Seborrheic dermatitis of scalp ( ICD-10 - L21.9) [employer] Other 08-30-2023 Evaluation note* Encounter Date Diagnosis Assessment Notes Treatment Notes Treatment Clinical Notes Feb, Seborrheic dermatitis of scalp ( ICD-10 - L21.9) Instructed on use of topical steroids Ketoconazole shmp twice weekly x 8 wks that as needed Feb,ellulitis of head except face (ICD-10 - L03.811)Cleanse w soap and water. Hold on antibiotics at this time and treat underlying skin condition [employer] Other 08-08-2023 Evaluation note* Encounter Date Diagnosis Assessment Notes Treatment Notes Treatment Clinical Notes Feb, Open wound of scalp, unspecified open wound type, initial encounter (ICD-10 - S01.00XA) [employer] Other 07-13-2023 Evaluation note* Encounter Date Diagnosis [...] in remission (ICD-10 - F17.211) Continue abstinence [employer] Other 04-26-2023 Evaluation note* Encounter Date Diagnosis Assessment Notes Treatment Notes Treatment Clinical Notes Oct, Acute actinic otitis externa of right ear (ICD-10 - H60.511) Keep clean and dry, avoid use of QTips Oct,Seasonal allergic rhinitis due to pollen (ICD-10 - J30.1)Angelica and Flonase recommended as needed [employer] Other Evaluation + Plan note No data available for this section [facility] Evaluation noteNo InformationNort [employer] Other Evaluation note* Diagnosis Pharyngoesophageal dysphagia- Primary [...] Dysphagia acuteAugust 2024 2:56pmSchatzki's ringacuteAugust 2024 2:56pm [facility] Work Phone: History general Narrative - Reported* [...] HistoryGAD (generalized anxiety disorder)Surgical HistoryEG1Surgical History oophorectomy12/02/2019Surgical FttfpruZtpdjtsezst1509Xftvhrcm HistoryTAH/LSO (Hysterectomy)05/2016Surgical HistoryC clotewt8259Jbtqwron OutqjnpNwxku7355 Surgical CvhzosyKklioqhglvhtqzh6877Qnskshzb HistoryEssure Khmnuzryt9883Abbdxrsg HistoryDilation and Currettage of Xcsmye1667Jyrudidj HistoryLaparoscopy with L ovarian cyst xaxqthk1474 [employer] Other History general Narrative - Reported* Type [...] HistoryGAD (generalized anxiety disorder)Surgical HistoryEG10/05/2020urgical History oophorectomy12/02/2019Surgical FfmvfpmTddemnuypey5029Uiklvzbc HistoryTAH/LSO (Hysterectomy)05/2016Surgical HistoryC wahabez2602Oownkuon ZroxroyKwihq9111 Surgical MsexestQaepszxrcvewfyp5999Scuryrok HistoryEssure Azczalaxu2412Saegzxtc HistoryDilation and Currettage of Ksamjg3416Wniejjgi HistoryLaparoscopy with L ovarian cyst elflitt3913Aijvrvktbiwspsh Historysee surgical history [employer] Other History general Narrative - Reported* Type [...] HistoryGAD (generalized anxiety disorder)Surgical HistoryEG10/05/2020urgical History oophorectomy12/02/2019Surgical SxcpddpFfwadigcdqu3553Kvwkcycy HistoryTAH/LSO (Hysterectomy)05/2016Surgical HistoryC nxblkos8162Dgdhibum ApvscoeBveeq3932 Surgical WnxdnlwPpoyhtpqwjlrcas2838Rdbotqgb HistoryEssure Zqzcggjmy3340Iwbrewfe HistoryDilation and Currettage of Sytwhu2875Xyuhyyuq HistoryLaparoscopy with L ovarian cyst lywkjft3190Xbcsscqo HistoryRight Inferior Turbinate Resection03/2023 Hospitalization Historysee surgical history [employer] Other History general Narrative - Reported* Type [...] HistoryHx of post preeclampsiaSurgical HistoryEGD3urgical History oophorectomy12/02/2019Surgical VmmykxwNwlxtgstltl9409Ybfwmecc HistoryTAH/LSO (Hysterectomy)05/2016Surgical HistoryC fdofwdu6500Sxsxpjhi XqazetkRomyl1195 Surgical NjwgebqObkcspzjfdjlmex0337Evtvmbma HistoryEssure Uobqblolt9382Yobfwyfz HistoryDilation and Currettage of Ghhrcg8415Skkwiawl HistoryLaparoscopy with L ovarian cyst atgtqdl5466Eyjlhezc HistoryRight Inferior Turbinate Resection03/2023 Hospitalization Historysee surgical history [employer] Other Hospital Discharge instructions Additional Instructions DISCHARGE [...] problems. -Follow up with PCP. -Office number [phone]. [facility] Work Phone: Progress note No data available for this section [facility] Reason for referral (narrative)No reason for referral information availableUk [facility] Work Phone: Summary Purpose Family History Relationship [...] on of nasal airway (J34.89) [facility] Referring Provider First Name Merrill Referring [...] esophageal rin g ([place]) (K22.2) Referral Organization [facility] Referring Provider First Name Merrill Referring Provider Last Name Francisco Referring Provider Specialty Internal Mt dicine Referred Organization [facility] Referred Provider Daniel Quiroz Referred Address [address] [place], [place] [address], [place],[address] Referred Provider Specialty Gastroentero logy Referral Priority [...] section and content) DATE CREATED AUTHOR 06/15/2022 [facility] DATE CREATED AUTHOR AUTHOR'S ORGANIZ ATION 01/19/2025 [facility] DATE CREATED AUTHOR AUTHOR'S ORGANIZ ATION 01/22/2025 [facility] DATE CREATED AUTHOR AUTHOR'S ORGANIZ ATION 03/26/2025 [facility] REASON FOR VISIT (unrecogniz ed section and content) ReasonCommentsDysphagiaReasonCommentsWell Women VisitReasonCommentsEar Problem Swollen ear canal right side Care Teams (unrecognized sec tion and content) Team MemberRelationshipSpecialtyStart DateEnd Date Merrill Singh MD [address] [phone] PCP - GeneralInternal Medicine02/21/23Team MemberRelationshipSpecialtyStart Date End Date Merrill Singh MD [address] [phone] PCP - GeneralInternal Medicine02/21/23Team MemberRelationshipSpecialtyStart Date End Date Merrill Singh MD [address] [phone] PCP - GeneralInternal Medicine02/21/23Team MemberRelationshipSpecialtyStart Date End Date Merrill Singh MD [address] [phone] PCP - GeneralInternal Medicine02/21/23Team MemberRelationshipSpecialtyStart Date End Date Merrill Singh MD [address] [facility] [place] [address] PCP - GeneralInternal Medicine02/21/23Team MemberRelationshipSpecialtyStart Date End Date Merrill Singh MD [address] [facility] [place] [phone] PCP - GeneralInternal Medicine02/21/23Team MemberRelationshipSpecialtyStart Date End Date Merrill Singh MD [address] [facility] [place] [address] PCP - GeneralInternal Medicine02/21/23Team MemberRelationshipSpecialtyStart Date End Date Merrill Singh DO [address] [facility] [place] [phone] PCP - GeneralInternal Medicine01/17/25Team MemberRelationshipSpecialtyStart Date End Date Merrill Singh DO [address] [facility] [place] [phone] PCP - GeneralInternal Medicine01/17/25 Team Status: Active Member Role Status Dates Merrill Singh DO Primary Care Provider Active Team Status: Inactive Member Role Status Dates Joceline Henry APRN TELEPHONE SOLICITOR SUPERVISOR-C Attending Provider Act tha Start: February 28, [...] PCP - GeneralInternal Medicine Merrill Singh [address] [place] [phone] PCP - GeneralInternal Medicine01/17/25Team MemberRelationshipSpecialtyStart Date End Date Merrill Singh PCP - GeneralInternal Medicine Merrill Singh [address] [place] [phone] PCP - GeneralInternal [facility]01/17/25 Goals (unrecognized section and content) Goals [...] BE BASED ON THE PRIMARY CLINICAL RECORDS. [facility] [employer] [facility]. provides no warranty or guarantee of the accuracy or completeness of information in this document.
[2025-06-13 16:51] LABS: Alanine Aminotransferase 22 U/L (14-59); Albumin Globulin Ratio 1.0; Albumin Level 3.9 g/dL (3.4-5.0); Alkaline Phosphatase 74 U/L (46-116); Anion Gap 14.0; Aspartate Amino Transferase 19 U/L (15-37); Blood Urea Nitrogen 10.0 mg/dL (7.0-18.0); Calcium 9.6 mg/dL (8.5-10.1); Carbon Dioxide 28.1 mmol/L (21.0-32.0); Chloride 103 mmol/L (98-107); Estimated GFR (African America >60 (>=60 mL/min/1.73m^2); Estimated GFR (Non-African Ame >60 (>=60 mL/min/1.73m^2); Globulin 3.8 g/dL; Glucose 93 mg/dL (74-106); Potassium 3.1 mmol/L (3.5-5.1); Sodium 142 mmol/L (136-145); Total Protein 7.7 g/dL (6.4-8.2)
[2025-06-13] MEDS: POTASSIUM BICARBONATE/CIT 25 MEQ TABLET EFF 50 MEQ PO (17:59)
[2025-06-13 18:12] LABS: Magnesium 2.1 mg/dL (1.8-2.4)
== END 2025-06-13 18:09 | disposition home or self-care (01) ==
PROVIDERS: Emergency Provider Emergency Medicine; PCP Internal Medicine
DX: R07.89 Other chest pain (principal); E87.6 Hypokalemia
CPT/HCPCS: 36415; 71045; 80053; 83735; 84484; 84703; 85025; 85378; 93005; 99284; 99285